=== PATIENT | female | born 1940 | race Caucasian/White ===

== ENCOUNTER → 2016-07-27 | Outpatient (CLI) | payer MEDICARE, BC ==
--- NOTE | 2016-07-28 08:16 | ECHOF ---
Referral Reason:Hypotention I95.9, C84.40 Lymphoma MEASUREMENTS -------- HEIGHT: 152.4 cm WEIGHT: 63.5 kg BP: RVIDd: 3.0 cm (< 3.3) IVSd: 1.1 cm (0.6 - 1.1) LVIDd: 4.8 cm (3.9 - 5.3) LVPWd: 1.0 cm (0.6 - 1.1) IVSs: 1.5 cm LVIDs: 3.0 cm LVPWs: 1.6 cm LA Diam: 4.0 cm (2.7 - 3.8) LAESV Index (A-L): 43.76 ml/m Ao Diam: 3.2 cm (2.0 - 3.7) AV Cusp: 1.9 cm (1.5 - 2.6) LA Diam: 3.5 cm (2.7 - 3.8) MV E Primo: 0.46 m/s MV DecT: 197 ms MV A Primo: 0.73 m/s MV E/A Ratio: 0.62 RAP: 5.00 mmHg RVSP: 31.63 mmHg FINDINGS -------- Sinus rhythm. This was a technically adequate study. There is moderate concentric left ventricular hypertrophy. Overall left ventricular systolic function is low-normal with, an EF between 50 - 55 %. The right ventricle is normal in size. LA is severely dilated >40 ml/m2 The right atrial size is normal. There is mild aortic valve sclerosis. There is no evidence of aortic regurgitation. Mild mitral annular calcification present. Mild mitral regurgitation is present. Mild tricuspid regurgitation present. There is no evidence of pulmonary hypertension. The right ventricular systolic pressure, as measured by Doppler, is 31.63mmHg. There is no pulmonic regurgitation present. The aortic root size is normal. There is no pericardial effusion. CONCLUSIONS -------- 1. There is moderate concentric left ventricular hypertrophy. 2. Overall left ventricular systolic function is low-normal with, an EF between 50 - 55 %. 3. LA is severely dilated >40 ml/m2 4. There is mild aortic valve sclerosis. 5. Mild mitral annular calcification present. 6. Mild mitral regurgitation is present. 7. Mild tricuspid regurgitation present. 8. There is no evidence of pulmonary hypertension. 9. The right ventricular systolic pressure, as measured by Doppler, is 31.63mmHg. CONTRACT PROJECT MANAGER: Haley Gill RDCS
== END | disposition home or self-care (01) ==
LOC: RADECHMAIN 12:39
PROVIDERS: ATTEND Internal Medicine Hematology & Oncology
DX: I95.9 Hypotension, unspecified (principal); C84.40 Peripheral T-cell lymphoma, not elsewhere classified, unspecified site; I51.7 Cardiomegaly
CPT/HCPCS: 93306

== ENCOUNTER → 2016-07-30 | Outpatient (CLI) | payer MEDICARE, BC ==
[2016-07-30 10:17] LABS: Blood Urea Nitrogen 16 mg/dL (7-17); Non-African American GFR(MDRD) >60 (>60 ml/min/1.73 sqM)
--- NOTE | 2016-07-30 12:04 | CT ---
EXAMINATION TYPE: CT ChestAbdPelvis w con DATE OF EXAM: 07/30/2016 11:42 AM COMPARISON: Previous study dated 02/20/2016. HISTORY: Patient has no complaints at time of study. 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 CT DLP: 650.1 mGycm Automated exposure control for dose reduction was used. TECHNIQUE: Helical acquisition through the abdomen and pelvis was obtained without oral contrast but following the intravenous administration of 100 mL of Omnipaque 300. The data was formatted in the a xial, coronal and sagittal projections. FINDINGS: The lungs are clear. There is no significant axillary, internal mammary, mediastinal or hilar adenopathy. There is no pleu ral or pericardial fluid. The heart is mildly enlarged. There is a small hiatal hernia. There are multiple low attenuating hepatic lesions likely representing cysts. These are all stable. T he largest is in the left lobe of the liver measures 3.3 cm. The gallbladder has been removed the spl een is normal. Both adrenal glands are normal. There is a stable, 5.9 mm calculus in the posterior upper pole calyx of the right kidney. There are m ultiple, stable, simple appearing renal cysts. The pancreas is unremarkable. Periaortic adenopathy has resolved. There are no pathologically enlarged lymph nodes at this time. Bulky adenopathy in the right external iliac chain on the previous study as well as the patient's rig ht inguinal adenopathy has resolved. The bladder is unremarkable. The uterus and ovaries are not visualized. There is no significant diverticular change and there is no radiographic evidence of diverticulitis. There is a stable, 5.4 mm calcification in the right lower quadrant which may represent a calcified l ymph node. Small bowel loops are normal. No free fluid and no free air is seen. There is some induration in the right inguinal region. There is degenerative disc disease and facet arthropathy in the lower lumbar spine. There is a vacuum phenomena present at L4-5. There is hypertrophic spondylosis within the dorsal spine. IMPRESSION: 1. RESOLUTION OF THE PATIENT'S PARA-AORTIC, PARACAVAL AND INGUINAL ADENOPATHY ON THE RIGHT WELL A RIGHT INTERNAL ILIAC ADENOPATHY. 2. NO PATHOLOGICALLY ENLARGED ADENOPATHY AT THIS TIME. 3. SMALL HIATAL HERNIA. 4. STABLE HEPATIC LESIONS, LIKELY REPRESENTING CYSTS. 5. NONOBSTRUCTING RIGHT-SIDED NEPHROLITHIASIS WELL MULTIPLE, STABLE, SIMPLE APPEARING, BILATERA L RENAL CYSTS. 7. DEGENERATIVE CHANGES WITHIN THE SPINE.
== END ==
LOC: RADCTMAIN 09:20
PROVIDERS: ATTEND Internal Medicine Hematology & Oncology
DX: C84.40 Peripheral T-cell lymphoma, not elsewhere classified, unspecified site (principal); K44.9 Diaphragmatic hernia without obstruction or gangrene; N20.0 Calculus of kidney; N28.1 Cyst of kidney, acquired; M47.9 Spondylosis, unspecified
CPT/HCPCS: 82565; 84520; 71260; 74177; 36415; Q9967

== ENCOUNTER → 2016-08-09 | Outpatient (CLI) | payer MEDICARE, BC ==
--- NOTE | 2016-08-09 13:45 | XR ---
EXAM TYPE: LUMBAR SPINE X RAY SERIES COMPARISON: Abdominal KUB 01/20/2016 HISTORY: Pain TECHNIQUE: 3 views are submitted. FINDINGS: Alignment is anatomic. The pedicles are intact. The transverse processes are intact. There is no s pondylolysis or spondylolisthesis. Multilevel degenerative disc disease seen with severe changes at levels L4-5 and L5-S1. Facet arthropathy noted at levels L3-S1. Moderate to severe degenerative disc disease at remaining levels. Vascular calcifications noted. 5 mm punctate calcification suggestive of a left renal stone. Larger 1 cm calcification overlying the right upper quadrant may be related to bowel content or right renal stone. Suspect right renal stone . Surgical clips in the right upper quadrant. Sclerotic density overlying the sacrum on the left likely in the basis of bone island and stable from previous x-ray 2016. Mild sclerosis of the SI joints correlate for sacroiliitis. IMPRESSION: 1. Multilevel moderate to severe degenerative disc disease. 2. Bilateral nephrolithiasis
== END ==
LOC: RADXRMAIN 13:20
PROVIDERS: ATTEND Family Medicine
DX: M51.36 Other intervertebral disc degeneration, lumbar region (principal)
CPT/HCPCS: 72100

== ENCOUNTER → 2016-08-25 | Outpatient (CLI) | payer MEDICARE, BC ==
--- NOTE | 2016-08-26 07:36 | MR ---
EXAMINATION TYPE: MR lumbar spine wo/w con DATE OF EXAM: 08/25/2016 12:36 PM COMPARISON: 11/27/2013 HISTORY: 75-year-old female intervertebral disc degeneration, lumbar Technique: Multiplanar, multisequence images of the lumbar spine were obtained before and after admin istration of 13 mL intravenous MultiHance gadolinium contrast. FINDINGS: Vertebral body heights are preserved. Hypertrophic facet arthropathy throughout the lumbar spine especially in the mid to lower lumbar spin e. Ligamentum flavum thickening also present, most severe at L3-L4, progressed from prior. Trace grade 1 anterolisthesis that L3-L4 also new in the interval. Mild diffuse heterogeneity of marrow signal without suspicious bone marrow replacement. Some scattered Modic type II fatty endplate change is present. The intervertebral discs are degenerated, desiccated, and variably narrowed to moderate degree especi ally at L3-L4 and L4-L5. Diffuse bulging discs at multiple levels with posterior annular fissure at L 4-L5 and tiny at L5-S1. Conus medullaris is normal. At T12-L1, there is posterior disc bulge, similar to prior. This isn't dense the ventral thecal sac b ut does not cause significant spinal canal or neuroforaminal stenosis. At L1-L2, there is mild diffuse disc bulge without significant spinal canal or neuroforaminal stenosi s. At L2-L3, mild diffuse disc bulge without significant spinal canal or neuroforaminal stenosis. At L3-L4, redemonstrated diffuse disc bulge. There is severe ligamentum flavum thickening, prominent dorsal epidural fat, and hypertrophic facet arthropathy with grade 1 anterolisthesis here that is new in the interval. However, there is continued and slightly worsened severe spinal canal stenosis at t his level. Slightly worsened mild left greater than right neuroforaminal stenosis. At L4-L5, there is diffuse disc bulge with ligamentum flavum thickening and hypertrophic facet arthro jitendra. Changes mildly narrow the spinal canal, similar to prior. There is also similar mild bilateral neuroforaminal stenosis and redemonstrated small posterior annular fissure. At L5-S1, there is mild diffuse disc bulge and facet degenerative change. Minimal bilateral neurofora salma narrowing. No spinal canal stenosis. Some synovial cysts are present posteriorly at both the L4-L5 and L5-S1 facet joints measuring up to 9 mm. No abnormal enhancement within the spinal canal. A couple scattered T2 hyperintense cysts within the kidneys. No prevertebral or paravertebral soft ti ssue abnormality seen. IMPRESSION: 1. Moderate multilevel disc/endplate degenerative change. Additional redemonstrated ligamentum flavum thickening and severe hypertrophic facet arthropathy especially in the mid to lower lumbar spine, pr ogressed with new small posterior synovial cysts measuring up to 9 mm on both sides at L4-L5 and L5-S 1. 2. A trace grade 1 anterolisthesis at L3-L4 is new from prior. There is worsening of the patient's se ruiz spinal canal stenosis at this level and slight worsening mild left greater than right neuroforam inal stenosis. 3. Similar mild bilateral neuroforaminal stenosis at L4-L5 and minimal neuroforaminal narrowing at L5 -S1.
== END | disposition home or self-care (01) ==
LOC: RADMRIMAIN 11:51
PROVIDERS: ATTEND Family Medicine
DX: M48.06 Spinal stenosis, lumbar region (principal); M99.73 Connective tissue and disc stenosis of intervertebral foramina of lumbar region; M51.36 Other intervertebral disc degeneration, lumbar region; M43.16 Spondylolisthesis, lumbar region; M46.86 Other specified inflammatory spondylopathies, lumbar region; M71.38 Other bursal cyst, other site
CPT/HCPCS: 72158; A9577

== ENCOUNTER → 2016-10-04 | Outpatient (CLI) | payer MEDICARE, BC ==
[2016-10-04 12:24] LABS: Blood Urea Nitrogen 24 mg/dL (7-17); Non-African American GFR(MDRD) >60 (>60 ml/min/1.73 sqM)
--- NOTE | 2016-10-04 16:35 | CT ---
"EXAMINATION TYPE: CT ChestAbdPelvis w con DATE OF EXAM: 10/04/2016 COMPARISON: Prior CT chest abdomen pelvis 07/30/2016 HISTORY: Follow up lymphoma. No complaints at time of scan CT DLP: 828.7 mGycm Automated exposure control for dose reduction was used. CONTRAST: CT scan of the chest, abdomen and pelvis is performed with Oral Contrast and with IV Contrast, patien t injected with 100 mL of Omnipaque 300. FINDINGS: LUNGS: The lungs are grossly clear, there is no concerning parenchymal mass or nodule identified. T here is no pleural effusion or pneumothorax seen. The tracheobronchial tree is patent. MEDIASTINUM: There are no greater than 1 cm hilar or mediastinal lymph nodes. No pericardial effusi on is seen. AORTA: No significant abnormality is seen. OTHER: There is a hiatal hernia present. There are coronary artery calcifications. LIVER/GB: The appearance is stable, patient is post cholecystectomy, there are dilated intrahepatic a nd extrahepatic biliary ducts. Cystic foci within the liver are again noted. Calcification is stable. PANCREAS: No significant abnormality is seen. SPLEEN: No significant abnormality is seen. ADRENALS: Stable appearance, mildly prominent appearance is again noted. There may be an adrenal bev evin on the right. KIDNEYS: Multiple bilateral cortical cysts are again seen, there is a stable nonobstructing calculus in the midpole the right kidney. REPRODUCTIVE ORGANS: Uterus and ovaries are not seen. BOWEL: There is some thickening of the terminal ileum. Cecum also show some wall thickening. FREE AIR: No Free Air visible. ASCITES: None seen. RETROPERITONEAL ADENOPATHY: Retroperitoneal adenopathy is present and has developed in the interval. Multiple nodes present posterior to the inferior vena cava, periaortic location extending into the c ommon iliac region are any interval finding. External iliac chain on the right shows interval develop ment of adenopathy, this extends into the right inguinal region. Subcutaneous fat shows increased att enuation. There is poor enhancement of the common iliac vein on the right. LYMPH NODES: As above URINARY BLADDER: There is a cystocele. Urinary bladder shows a thickened wall as on prior exam, carly elate to exclude cystitis.. PELVIC ADENOPATHY: The largest inguinal node measures approximately 2.8 cm on the right which is an interval change and increased. OSSEOUS STRUCTURES: No significant abnormality is seen. Skin thickening present in the right lower q uadrant anteriorly with some areas of possible subcutaneous edema. IMPRESSION: Findings compatible with lymphoma recurrence. Correlate to exclude right lower extremity deep venous thrombosis. A Red message has been communicated to Patrick Barrientos MD via the [employer] | Critical Result sy stem on 10/04/2016 4:29 PM, Message ID [id number]."
--- NOTE | 2016-10-04 18:10 | US ---
EXAMINATION TYPE: US venous doppler duplex LE BI DATE OF EXAM: 10/04/2016 6:01 PM COMPARISON: Prior CT and US in PACS CLINICAL HISTORY: R68.[address] Abnormal findings on the CT. History of lymphoma, patient recently had radia tion to her right leg. Swelling. No pain. SIDE PERFORMED: Bilateral TECHNIQUE: The lower extremity deep venous system is examined utilizing real time linear array sonog tamra with graded compression, doppler sonography and color-flow sonography. VESSELS IMAGED: External Iliac Vein (EIV) Common Femoral Vein Deep Femoral Vein Greater Saphenous Vein * Femoral Vein Popliteal Vein Small Saphenous Vein * Proximal Calf Veins (* superficial vessels) Right Leg: Negative for DVT Within the right groin, multiple lymph nodes are visualized, largest measuring 3.6 x 2.2 x 4.4. Left Leg: Negative for DVT IMPRESSION: No evidence of deep venous thrombosis. There is evidence of right inguinal adenopathy. 3. 6 cm right inguinal lymph node.
== END | disposition home or self-care (01) ==
LOC: RADPROMAIN 11:38
PROVIDERS: ATTEND Internal Medicine Hematology & Oncology
DX: C85.90 Non-Hodgkin lymphoma, unspecified, unspecified site (principal); R68.89 Other general symptoms and signs
CPT/HCPCS: 82565; 84520; 93970; 71260; 74177; Q9967

== ENCOUNTER → 2016-10-04 | Outpatient (CLI) | payer MEDICARE, BC | LOC: RADUSMAIN 17:25 | PROVIDERS: ATTEND Internal Medicine Hematology & Oncology | DX: Z53.9 Procedure and treatment not carried out, unspecified reason (principal) ==

== ENCOUNTER 2016-10-19 09:19 | Emergency (ER) | payer MEDICARE, BC ==
[2016-10-19] MEDS ORDERED: SODIUM CHLORIDE 0.9% 500 ML IV STA (09:49)
[2016-10-19] MEDS ORDERED: ONDANSETRON 4 MG/2 ML VIAL IVP STA (09:49)
[2016-10-19] MEDS ORDERED: SODIUM CHLORIDE 0.9% 1,000 ML IV STA (09:49)
--- NOTE | 2016-10-19 10:00 | ED ---
Nausea/Vomiting/Diarrhea HPI - General Chief complaint: Nausea/Vomiting/Diarrhea Stated complaint: Ca patient, nausea, vomiting, altered mental Time Seen by Provider: 10/19/16 09:39 Source: patient, RN notes reviewed Mode of arrival: wheelchair Limitations: no limitations - History of Present Illness Initial comments: 76-year-old female presents emergency Department chief complaint of nausea vomiting after chemotherapy. Patient states she had a chemo shot Saturday and states that the next states she started vomiting. She states she just generalized not feeling well. She states that she called her oncologist at [facility] who advised to go to the emergency department to be checked out. She denies fever or chills. She denies any increase in pain she states is chronic back pain and right hip pain from swollen lymph nodes. Patient recent CAT scan which showed enlarged lymph nodes. Patient has ongoing lymphoma for last 9 years treatment of chemotherapy last 7. Patient does see Dr. Acuña locally. Patient denies any chest pain or shortness of breath no cold like symptoms no sick contact denies any dysuria hematuria. - Related Data Home Medications Medication Instructions Recorded Confirmed Atorvastatin [Lipitor] 80 mg PO DAILY 10/05/13 10/19/16 Levothyroxine Sodium [Synthroid] 100 mcg PO DAILY 10/05/13 10/19/16 Folic Acid/B Complex C No.17 5 mg PO DAILY 09/29/15 10/19/16 [Virt-Jaden Plus Tablet] Cephalexin [Keflex] 500 mg PO Q12HR 10/19/16 10/19/16 Previous Rx's Medication Instructions Recorded Ciprofloxacin HCl [Cipro] 500 mg PO Q12HR #10 tablet 10/19/16 Ondansetron Odt [Zofran Odt] 4 mg PO Q8HR PRN #10 tab 10/19/16 Allergies Allergy/AdvReac Type Severity Reaction Status Date / Time No Known Allergies Allergy Verified 10/19/16 10:42 Review of Systems ROS Statement: Those systems with pertinent positive or pertinent negative responses have been documented in the HPI. ROS Other: All systems not noted in ROS Statement are negative. Past Medical History Past Medical History: Hyperlipidemia, Hypertension, Osteoarthritis (OA), Thyroid Disorder Additional Past Medical History / Comment(s): CUTANEOUS T-CELL LYMPHOMA/ radiation, skin ca, ,murmur, multiple kidney stones, arthritis, glaucoma History of Any Multi-Drug Resistant Organisms: MRSA Date of last positivie culture/infection: 2013 MDRO Source:: rt arm Past Surgical History: Appendectomy, Bladder Surgery, Cholecystectomy, Heart Catheterization, Hernia Repair, Hysterectomy Additional Past Surgical History / Comment(s): patient recieved round of radiation treatment; kidney stents palced about 3 weks ago /removed 01-18-16, skin cancer removed,cataracts, lt inguinal hernia repair. Past Anesthesia/Blood Transfusion Reactions: No Reported Reaction Past Psychological History: Depression Smoking Status: Never smoker Past Alcohol Use History: None Reported Past Drug Use History: None Reported - Past Family History Father Family Medical History: No Reported History Additional Family Medical History / Comment(s): at age 62 Mother Family Medical History: No Reported History Additional Family Medical History / Comment(s): at age 100 General Exam Limitations: no limitations General appearance: alert, in no apparent distress Neck exam: Present: normal inspection. Absent: tenderness, meningismus, lymphadenopathy Respiratory exam: Present: normal lung sounds bilaterally. Absent: respiratory distress, wheezes, rales, rhonchi, stridor Cardiovascular Exam: Present: regular rate, normal rhythm, normal heart sounds. Absent: systolic murmur, diastolic murmur, rubs, gallop, clicks GI/Abdominal exam: Present: soft, tenderness (Mild right lower right inguinal tenderness), normal bowel sounds. Absent: distended, guarding, rebound, rigid Extremities exam: Present: other (Mild swelling the right lower extremity, neurovascular intact) Neurological exam: Present: alert, oriented X3, CN II-XII intact Skin exam: Present: warm, dry, intact, normal color. Absent: rash Course Vital Signs 10/19/16 09:32 Temperature 98.3 F Pulse Rate 66 Respiratory 18 Rate Blood Pressure 95/52 O2 Sat by Pulse 93 L Oximetry Medical Decision Making - Medical Decision Making 76-year-old female presented emergency from for nausea vomiting after chemotherapy. Patient's symptoms most likely related to her chemotherapy. Patient also has urinary tract infection. Patient be treated for this. Return parameters were discussed. - Lab Data Result diagrams: 10/19/16 10:05 10/19/16 10:05 Lab Results 10/19/16 10/19/16 10/19/16 Range/Units 10:05 10:05 11:14 WBC 9.4 (3.8-10.6) k/uL RBC 3.71 L (3.80-5.40) m/uL Hgb 11.8 (11.4-16.0) gm/dL Hct 37.3 (34.0-46.0) % MCV 100.5 H (80.0-100.0) fL MCH 31.8 (25.0-35.0) pg MCHC 31.6 (31.0-37.0) g/dL RDW 15.9 H (11.5-15.5) % Plt Count 183 (150-450) k/uL Neutrophils % 84 % Lymphocytes % 3 % Monocytes % 7 % Eosinophils % 4 % Basophils % 0 % Neutrophils # 7.9 H (1.3-7.7) k/uL Lymphocytes # 0.3 L (1.0-4.8) k/uL Monocytes # 0.6 (0-1.0) k/uL Eosinophils # 0.4 (0-0.7) k/uL Basophils # 0.0 (0-0.2) k/uL Macrocytosis Slight Sodium 137 (137-145) mmol/L Potassium 3.4 L (3.5-5.1) mmol/L Chloride 101 (98-107) mmol/L Carbon Dioxide 25 (22-30) mmol/L Anion Gap 11 mmol/L BUN 25 H (7-17) mg/dL Creatinine 0.60 (0.52-1.04) mg/dL Est GFR (MDRD) Af Amer >60 (>60 ml/min/1.73 sqM) Est GFR (MDRD) Non-Af >60 (>60 ml/min/1.73 sqM) Glucose 171 H (74-99) mg/dL Calcium 9.3 (8.4-10.2) mg/dL Total Bilirubin 0.4 (0.2-1.3) mg/dL AST 39 H (14-36) U/L ALT 31 (9-52) U/L Alkaline Phosphatase 74 (38-126) U/L Total Protein 6.2 L (6.3-8.2) g/dL Albumin 3.3 L (3.5-5.0) g/dL Amylase 47 (30-110) U/L Lipase 118 (23-300) U/L Urine Color Yellow Urine Appearance Clear (Clear) Urine pH 5.5 (5.0-8.0) Ur Specific [place] 1.007 (1.001-1.035) Urine Protein Negative (Negative) Urine Glucose (UA) Negative (Negative) Urine Ketones Negative (Negative) Urine Blood Negative (Negative) Urine Nitrite Negative (Negative) Urine Bilirubin Negative (Negative) Urine Urobilinogen <2.0 (<2.0) mg/dL Ur Leukocyte Esterase Large H (Negative) Urine RBC 1 (0-5) /hpf Urine WBC 12 H (0-5) /hpf Ur Squamous Epith Cells 1 (0-4) /hpf Urine Bacteria Rare H (None) /hpf Urine Mucus Rare H (None) /hpf Disposition Clinical Impression: Urinary tract infection, Acute vomiting Disposition: HOME SELF-CARE Condition: Stable Instructions: Acute Nausea and Vomiting (ED) Additional Instructions: Please return to the Emergency Department if symptoms worsen or any other concerns. Prescriptions: Ciprofloxacin HCl [Cipro] 500 mg PO Q12HR #10 tablet Ondansetron Odt [Zofran Odt] 4 mg PO Q8HR PRN #10 tab PRN Reason: Nausea Referrals: Eddie Saenz MD [Primary Care Provider] - 1-2 days Time of Disposition: 11:34
[2016-10-19 10:27] LABS: Basophils % (A) 0 %; CH 32.4; CHCM 32.4; Eosinophils # (A) 0.4 k/uL (0-0.7); Eosinophils % (A) 4 %; HCT 37.3 % (34.0-46.0); HDW 2.66; HGB 11.8 gm/dL (11.4-16.0); Luc # (Auto) 0.23; Luc % (Auto) 3; Lymphocytes # (A) 0.3 k/uL (1.0-4.8); Lymphocytes % (A) 3 %; MCH 31.8 pg (25.0-35.0); MCHC 31.6 g/dL (31.0-37.0); MCV 100.5 fL (80.0-100.0); Macrocytosis Slight; Mean Platelet Volume 7.4; Monocytes # (A) 0.6 k/uL (0-1.0); Monocytes % (A) 7 %; Neutrophils # (A) 7.9 k/uL (1.3-7.7); Neutrophils % (A) 84 %; RBC 3.71 m/uL (3.80-5.40); RDW 15.9 % (11.5-15.5); WBC 9.4 k/uL (3.8-10.6); WBC (Perox) 10.05
[2016-10-19 10:38] LABS: ALT 31 U/L (9-52); AST 39 U/L (14-36); Alkaline Phosphatase 74 U/L (38-126); Amylase 47 U/L (30-110); Anion Gap 11 mmol/L; Blood Urea Nitrogen 25 mg/dL (7-17); Calcium 9.3 mg/dL (8.4-10.2); Carbon Dioxide 25 mmol/L (22-30); Chloride 101 mmol/L (98-107); Glucose 171 mg/dL (74-99); Non-African American GFR(MDRD) >60 (>60 ml/min/1.73 sqM); Potassium 3.4 mmol/L (3.5-5.1); Sodium 137 mmol/L (137-145); Total Bilirubin 0.4 mg/dL (0.2-1.3); Total Protein 6.2 g/dL (6.3-8.2)
[2016-10-19 11:28] LABS: Appearance,Urine Clear (Clear); Bacteria,Urine Rare /hpf; Bilirubin,Urine Negative (Negative); Glucose,Urine (UA) Negative (Negative); Ketones,Urine Negative (Negative); Leukocyte Esterase,Urine Large (Negative); Mucus,Urine Rare /hpf; Nitrite,Urine Negative (Negative); PH, Urine 5.5 (5.0-8.0); Particle Count 2583; Protein,Urine Negative (Negative); RBC,Urine 1 /hpf (0-5); Specific Gravity,Urine 1.007 (1.001-1.035); Squamous Epithelial Cell,Urine 1 /hpf (0-4); UA Billing (MACRO vs. MICRO) MICRO; Urobilinogen,Urine <2.0 mg/dL (<2.0); WBC,Urine 12 /hpf (0-5)
[2016-10-19 11:46] VITALS: BP 109/58; PULSE 61; RESP 15; TEMP 97.6
== END 2016-10-19 11:59 | disposition home or self-care (01) ==
LOC: EC 09:19
DX: N39.0 Urinary tract infection, site not specified (principal); R11.2 Nausea with vomiting, unspecified; E78.5 Hyperlipidemia, unspecified; E07.9 Disorder of thyroid, unspecified; Z85.72 Personal history of non-Hodgkin lymphomas; Z85.828 Personal history of other malignant neoplasm of skin; Z90.49 Acquired absence of other specified parts of digestive tract; Z87.442 Personal history of urinary calculi; Z79.899 Other long term (current) drug therapy
CPT/HCPCS: 99284; 96374; 96361 ×2; 36415; 80053; 82150; 83690; 85025; 81001; J2405

== ENCOUNTER 2016-11-07 17:36 | Inpatient (IN) | payer MEDICARE, BC ==
[2016-11-07] MEDS ORDERED: ACETAMINOPHEN TAB 500 MG TAB PO STA (18:17)
[2016-11-07] MEDS ORDERED: SODIUM CHLORIDE 0.9% 1,000 ML IV STA ×2 (18:17)
[2016-11-07] MEDS ORDERED: LEVOFLOXACIN 750MG-D5W PMX 750 MG in DEXTROSE/WATER 1 150ML.BAG IVPB STA (18:19)
[2016-11-07] MEDS ORDERED: KETOROLAC 30 MG/ML 1 ML VIAL IVP STA (18:19)
[2016-11-07] MEDS ORDERED: ONDANSETRON 4 MG/2 ML VIAL IVP STA (18:19)
[2016-11-07 18:32] LABS: Anisocytosis Slight; Basophils # (A) 0.1 k/uL (0-0.2); Basophils % (A) 0 %; CH 31.7; CHCM 33.8; Eosinophils # (A) 1.5 k/uL (0-0.7); Eosinophils % (A) 12 %; HCT 34.9 % (34.0-46.0); HDW 2.88; HGB 11.9 gm/dL (11.4-16.0); Luc # (Auto) 0.29; Luc % (Auto) 2; Lymphocytes # (A) 0.3 k/uL (1.0-4.8); Lymphocytes % (A) 2 %; MCH 32.1 pg (25.0-35.0); Mean Platelet Volume 7.2; Monocytes # (A) 0.8 k/uL (0-1.0); Monocytes % (A) 6 %; Neutrophils # (A) 9.8 k/uL (1.3-7.7); Neutrophils % (A) 78 %; RBC 3.71 m/uL (3.80-5.40); RDW 16.3 % (11.5-15.5); WBC 12.6 k/uL (3.8-10.6); WBC (Perox) 12.66
[2016-11-07 18:34] LABS: MCV 94.2 fL (80.0-100.0)
[2016-11-07 18:41] LABS: ALT 28 U/L (9-52); AST 52 U/L (14-36); Alkaline Phosphatase 78 U/L (38-126); Anion Gap 12 mmol/L; Blood Urea Nitrogen 20 mg/dL (7-17); Calcium 9.5 mg/dL (8.4-10.2); Carbon Dioxide 25 mmol/L (22-30); Chloride 102 mmol/L (98-107); Glucose 135 mg/dL (74-99); Non-African American GFR(MDRD) >60 (>60 ml/min/1.73 sqM); Potassium 3.4 mmol/L (3.5-5.1); Sodium 139 mmol/L (137-145); Total Bilirubin 0.6 mg/dL (0.2-1.3); Total Protein 6.6 g/dL (6.3-8.2)
--- NOTE | 2016-11-07 19:00 | XR ---
EXAMINATION TYPE: XR chest 2V DATE OF EXAM: 11/07/2016 COMPARISON: 01/18/2016 HISTORY: Shortness of breath TECHNIQUE: Frontal and lateral views of the chest are obtained. FINDINGS: Scattered senescent parenchymal changes noted. Hyperinflation compatible with COPD. Chronic increased density right medial lung base. MediPort catheter is in place. No evidence for infiltrate. No evidence for atelectasis. Heart size is stable. Mediastinal structures are stable and grossly unremarkable. No evidence for hilar prominence. Degenerative changes dorsal spine. IMPRESSION: 1. No evidence for acute pulmonary disease.
--- NOTE | 2016-11-07 19:24 | ED ---
Fever HPI - General Chief Complaint: Fever Stated Complaint: Ca patient, has fever and weakness Time Seen by Provider: 11/07/16 18:06 Source: patient Mode of arrival: wheelchair Limitations: no limitations - History of Present Illness Initial Comments: This 76-year-old white female presents with a fever of 102.8. The onset apparently came on today. She states that she feels fairly weak. She just received a chemotherapeutic agent of Campath yesterday. 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 Barrientos does call prior to patient arrival relating that he would like her to be checked for CMV, admitted, and have a consult for Dr. Cam from infectious disease. She denies any chest pain or shortness of breath. She denies any urinary symptomatology. She did get an injection of the chemotherapeutic agent yesterday and does have some pain over the injection site of her left abdomen. She has chronic swelling of her right leg due to the lymphoma. She denies any other complaints or modifying factors. - Related Data Home Medications Medication Instructions Recorded Confirmed Atorvastatin [Lipitor] 80 mg PO DAILY 10/05/13 10/19/16 Levothyroxine Sodium [Synthroid] 100 mcg PO DAILY 10/05/13 10/19/16 Folic Acid/B Complex C No.17 5 mg PO DAILY 09/29/15 10/19/16 [Virt-Jaden Plus Tablet] Cephalexin [Keflex] 500 mg PO Q12HR 10/19/16 10/19/16 Previous Rx's Medication Instructions Recorded Ciprofloxacin HCl [Cipro] 500 mg PO Q12HR #10 tablet 10/19/16 Ondansetron Odt [Zofran Odt] 4 mg PO Q8HR PRN #10 tab 10/19/16 Allergies Allergy/AdvReac Type Severity Reaction Status Date / Time No Known Allergies Allergy Verified 11/07/16 17:56 Review of Systems ROS Statement: Those systems with pertinent positive or pertinent negative responses have been documented in the HPI. ROS Other: All systems not noted in ROS Statement are negative. Past Medical History Past Medical History: Hyperlipidemia, Hypertension, Osteoarthritis (OA), Thyroid Disorder Additional Past Medical History / Comment(s): CUTANEOUS T-CELL LYMPHOMA/ radiation, skin ca, ,murmur, multiple kidney stones, arthritis, glaucoma History of Any Multi-Drug Resistant Organisms: MRSA Date of last positivie culture/infection: 2013 MDRO Source:: rt arm Past Surgical History: Appendectomy, Bladder Surgery, Cholecystectomy, Heart Catheterization, Hernia Repair, Hysterectomy Additional Past Surgical History / Comment(s): patient recieved round of radiation treatment; kidney stents palced about 3 weks ago /removed 01-18-16, skin cancer removed,cataracts, lt inguinal hernia repair. Past Anesthesia/Blood Transfusion Reactions: No Reported Reaction Past Psychological History: Depression Smoking Status: Never smoker Past Alcohol Use History: None Reported Past Drug Use History: None Reported - Past Family History Father Family Medical History: No Reported History Additional Family Medical History / Comment(s): at age 62 Mother Family Medical History: No Reported History Additional Family Medical History / Comment(s): at age 100 General Exam - General Exam Comments Initial Comments: GENERAL: The patient is well nourished and well hydrated. VITAL SIGNS: Heart rate, blood pressure, respiratory rate reviewed as recorded in nurse's notes. EYES: Pupils are round and reactive. Extraocular movements are intact. No conjunctival / lid redness or swelling. ENT: No external evidence of injury, swelling, or ecchymosis. Airway is patent. Throat is clear. NECK: Nontender. No swelling or evidence of injury. No subcutaneous emphysema. Trachea is midline. No thyroid mass. HEART: Regular rate and rhythm. Good peripheral pulses. LUNGS/CHEST: Breath sounds clear and equal bilaterally. No rales, rhonchi, or wheezes. No ecchymosis, subcutaneous emphysema, or tenderness. ABDOMEN: There is some moderate tenderness present to the left abdomen from previous injection. There is no surrounding erythema or fluctuance. No palpable masses or organomegaly. No peritoneal signs. EXTREMITIES: There is severe swelling/lymphedema of the right leg which is apparently chronic in nature associated with some mild tenderness upon palpation. NEUROLOGIC: Sensation is grossly intact. Cranial nerve exam reveals face is symmetrical, tongue is midline, speech is clear. SKIN: No abrasions or ecchymosis is noted. PSYCHIATRIC: Alert and oriented. Appropriate behavior and judgment. Limitations: no limitations Course Vital Signs 11/07/16 11/07/16 11/07/16 17:52 19:07 19:20 Temperature 102.8 F H 101 F H Pulse Rate 90 84 Respiratory 18 18 Rate Blood Pressure 120/70 109/63 O2 Sat by Pulse 92 L 94 L Oximetry Medical Decision Making - Medical Decision Making The patient was seen and examined. All diagnostics were reviewed. Her white blood cell count is mildly elevated. The remainder of the laboratory is reviewed. The chest x-ray does not show any acute process. She does receive some IV fluids, IV Toradol for fever, and Tylenol. The urinalysis is pending. It is felt as though she would benefit from admission to the hospital with further specialty consultation. It is felt as though she does have a significant fever of unknown source and is immunocompromise due to her lymphoma and recent chemotherapy. She is agreeable to this plan. Case will be discussed with medicine in the near future and she will be admitted with consultations for oncology and infectious disease. - Lab Data Result diagrams: 11/07/16 18:18 11/07/16 18:18 Lab Results 11/07/16 11/07/16 11/07/16 Range/Units 18:18 18:18 18:18 WBC 12.6 H (3.8-10.6) k/uL RBC 3.71 L (3.80-5.40) m/uL Hgb 11.9 (11.4-16.0) gm/dL Hct 34.9 (34.0-46.0) % MCV 94.2 D (80.0-100.0) fL MCH 32.1 (25.0-35.0) pg MCHC 34.0 (31.0-37.0) g/dL RDW 16.3 H (11.5-15.5) % Plt Count 311 (150-450) k/uL Neutrophils % 78 % Lymphocytes % 2 % Monocytes % 6 % Eosinophils % 12 % Basophils % 0 % Neutrophils # 9.8 H (1.3-7.7) k/uL Lymphocytes # 0.3 L (1.0-4.8) k/uL Monocytes # 0.8 (0-1.0) k/uL Eosinophils # 1.5 H (0-0.7) k/uL Basophils # 0.1 (0-0.2) k/uL Anisocytosis Slight Sodium 139 (137-145) mmol/L Potassium 3.4 L (3.5-5.1) mmol/L Chloride 102 (98-107) mmol/L Carbon Dioxide 25 (22-30) mmol/L Anion Gap 12 mmol/L BUN 20 H (7-17) mg/dL Creatinine 0.60 (0.52-1.04) mg/dL Est GFR (MDRD) Af Amer >60 (>60 ml/min/1.73 sqM) Est GFR (MDRD) Non-Af >60 (>60 ml/min/1.73 sqM) Glucose 135 H (74-99) mg/dL Plasma Lactic Acid Ritesh 1.6 (0.7-2.0) mmol/L Calcium 9.5 (8.4-10.2) mg/dL Total Bilirubin 0.6 (0.2-1.3) mg/dL AST 52 H (14-36) U/L ALT 28 (9-52) U/L Alkaline Phosphatase 78 (38-126) U/L Total Protein 6.6 (6.3-8.2) g/dL Albumin 3.4 L (3.5-5.0) g/dL Disposition Clinical Impression: Fever, Lymphoma, Lymphedema of right lower extremity, Immunocompromised patient , Weakness, Leukocytosis, Hypokalemia Disposition: ADMITTED IP TO THIS [facility] Condition: Fair Referrals: Eddie Saenz MD [Primary Care Provider] - 1-2 days Time of Disposition: 19:23 Decision Date: 11/07/16 Decision Time: 19:23
[2016-11-07] MEDS ORDERED: 0.9% NACL WITH KCL 20 MEQ/L 1,000 ML IV ONE (19:28)
[2016-11-07] MEDS ORDERED: ONDANSETRON 4 MG/2 ML VIAL IVP PRN (19:39)
[2016-11-07] MEDS ORDERED: IBUPROFEN 400 MG TAB PO PRN (19:40)
[2016-11-07] MEDS ORDERED: hydrOXYzine HCL 25 MG TAB PO PRN (19:42)
[2016-11-07] MEDS ORDERED: PEGINTERFERON ALFA IM SCH (19:45)
[2016-11-07] MEDS ORDERED: HYDROcodone/APAP 5-325MG 1 EACH TAB PO STA (19:53)
[2016-11-07 20:42] VITALS: BMI 31.4
[2016-11-07] MEDS: HYDROcodone/APAP 5-325MG 1 EACH TAB PO PRN (21:01)
[2016-11-07] MEDS: CLOBETASOL PROP 0.05% OINT 15GM TOPICAL SCH (21:02)
[2016-11-07] MEDS: MAGNESIUM OXIDE 400 MG TAB PO SCH (21:03)
[2016-11-07] MEDS: POTASSIUM CHLORIDE ER 10 MEQ TAB.ER.PRT PO SCH (21:03)
[2016-11-07] MEDS: prednisoLONE ACETATE 1% OPHTH DROPS 1 ML BTL BOTH EYES SCH (21:04)
[2016-11-07] MEDS: MUPIROCIN 2% OINT 22 GM TUBE TOPICAL SCH (21:04)
[2016-11-07] MEDS: LIDOCAINE 4% CREAM 5 GM TUBE TOPICAL PRN (21:26)
[2016-11-08] MEDS: ACETAMINOPHEN TAB 500 MG TAB PO PRN ×2 (07:41→21:05)
[2016-11-08 08:18] LABS: Appearance,Urine Clear (Clear); Bilirubin,Urine Negative (Negative); Glucose,Urine (UA) Negative (Negative); Ketones,Urine Negative (Negative); Leukocyte Esterase,Urine Moderate (Negative); Mucus,Urine Occasional /hpf; Nitrite,Urine Negative (Negative); PH, Urine 5.5 (5.0-8.0); Particle Count 4404; Protein,Urine Trace (Negative); Specific Gravity,Urine 1.017 (1.001-1.035); Squamous Epithelial Cell,Urine 1 /hpf (0-4); UA Billing (MACRO vs. MICRO) MICRO; Urobilinogen,Urine <2.0 mg/dL (<2.0); WBC,Urine 33 /hpf (0-5)
[2016-11-08] MEDS ORDERED: NON-FORMULARY DRUG (Vitamin B Complex [Vitamin B Complex] 1 CAP) PO SCH (09:00)
[2016-11-08] MEDS: FOLIC ACID 1 MG TAB PO SCH (09:19)
[2016-11-08] MEDS: PANTOPRAZOLE 40 MG/10 ML VIAL IV SCH (09:19)
[2016-11-08] MEDS: POTASSIUM CHLORIDE ER 10 MEQ TAB.ER.PRT PO SCH ×2 (09:20→20:50)
[2016-11-08] MEDS: FUROSEMIDE 20 MG TAB PO SCH (09:20)
[2016-11-08] MEDS: ATORVASTATIN 80 MG TAB PO SCH (09:20)
[2016-11-08] MEDS: valACYclovir HCL 1,000 MG TABLET PO SCH (09:20)
[2016-11-08] MEDS: RALOXIFENE 60 MG TAB PO SCH (09:21)
[2016-11-08] MEDS: prednisoLONE ACETATE 1% OPHTH DROPS 1 ML BTL BOTH EYES SCH ×4 (09:21→20:56)
[2016-11-08] MEDS: ENOXAPARIN 40 MG/0.4 ML SYRINGE SQ SCH (09:22)
[2016-11-08] MEDS: MAGNESIUM OXIDE 400 MG TAB PO SCH ×2 (09:22→20:50)
[2016-11-08] MEDS: LISINOPRIL-HCTZ 10-12.5 MG 1 EACH TAB PO SCH (09:22)
[2016-11-08] MEDS: B COMPLEX-VIT C-VIT E-ZINC 1 EACH TAB PO SCH (09:22)
[2016-11-08] MEDS: CLOBETASOL PROP 0.05% OINT 15GM TOPICAL SCH ×2 (09:33→20:49)
[2016-11-08] MEDS: MUPIROCIN 2% OINT 22 GM TUBE TOPICAL SCH ×3 (09:33→20:48)
--- NOTE | 2016-11-08 10:54 | P.HPIM ---
History of Present Illness 76 year-old female was admitted through the emergency room with report of 102 fever. 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 Patient has a Port-A-Cath in place and right-sided chest. Patient' s had recent chemotherapy. Right lower extremity red and warm with +4 edema. Venous Doppler done no results at this point. Chest x-ray negative urine and blood cultures done Review of Systems Constitutional: Reports fatigue, Reports fever Past Medical History Past Medical History: Hyperlipidemia, Hypertension, Osteoarthritis (OA), Thyroid Disorder Additional Past Medical History / Comment(s): CUTANEOUS T-CELL LYMPHOMA/ radiation, skin ca, ,murmur, multiple kidney stones, arthritis, glaucoma History of Any Multi-Drug Resistant Organisms: MRSA Date of last positivie culture/infection: 2013 MDRO Source:: rt arm Past Surgical History: Appendectomy, Bladder Surgery, Cholecystectomy, Heart Catheterization, Hernia Repair, Hysterectomy Additional Past Surgical History / Comment(s): patient recieved round of radiation treatment; kidney stents palced about 3 weks ago /removed 01-18-16, skin cancer removed,cataracts, lt inguinal hernia repair. Past Anesthesia/Blood Transfusion Reactions: No Reported Reaction Past Psychological History: Depression Additional Psychological History / Comment(s): had some depression when dx w/ lymphoma. currently pt denies any depression. Smoking Status: Never smoker - Past Family History Father Family Medical History: No Reported History Additional Family Medical History / Comment(s): at age 62 Mother Family Medical History: No Reported History Additional Family Medical History / Comment(s): at age 100 Medications and Allergies Home Medications Medication Instructions Recorded Confirmed Type Atorvastatin [Lipitor] 80 mg PO DAILY 10/05/13 11/07/16 History Folic Acid/B Complex C No.17 5 mg PO DAILY 09/29/15 11/07/16 History [Virt-Jaden Plus Tablet] Cephalexin [Keflex] 500 mg PO Q12HR 10/19/16 11/07/16 History Alemtuzumab [Campath] 10 ml IV TU 11/07/16 11/07/16 History Celecoxib [CeleBREX] 200 mg PO DAILY 11/07/16 11/07/16 History Clobetasol Propionate [Temovate 1 applic TOPICAL BID 11/07/16 11/07/16 History 0.05% Oint] Cyanocobalamin [Vitamin B-12 1,000 mcg SQ TU 11/07/16 11/07/16 History Injection] Folic Acid 5mg 5 mg PO DAILY 11/07/16 11/07/16 History Furosemide [Lasix] 20 mg PO DAILY 11/07/16 11/07/16 History Lidocaine 4% Cream [Lmx 4] 1 applic TOPICAL DAILY PRN 11/07/16 11/07/16 History Lisinopril-Hctz 10-12.5 mg 1 tab PO DAILY 11/07/16 11/07/16 History [Zestoretic 10-12.5] Magnesium Gluconate [Magonate] 500 mg PO BID 11/07/16 11/07/16 History Meloxicam [Mobic] 15 mg PO DAILY 11/07/16 11/07/16 History Multivitamins, Thera [Multivitamin 1 tab PO DAILY 11/07/16 11/07/16 History (formulary)] Mupirocin 2% Oint [Bactroban 2% 1 applic TOPICAL TID 11/07/16 11/07/16 History Oint] Peginterferon Booker-2a 180mcg/Ml 180 mcg IM Q7D 11/07/16 11/07/16 History Potassium Chloride [K-Tab ER] 10 meq PO BID 11/07/16 11/07/16 History Raloxifene [Evista] 60 mg PO DAILY 11/07/16 11/07/16 History SILVER sulfADIAZINE Cream 1 applic TOPICAL DAILY 11/07/16 11/07/16 History [Silvadene 1% Cream] Triamcinolone 0.1% Ointment 1 applic TOPICAL BID PRN 11/07/16 11/07/16 History [Kenalog 0.1% Ointment] Vitamin B Complex 1 cap PO DAILY 11/07/16 11/07/16 History hydrOXYzine HCL [Atarax] 25 - 50 mg PO HS PRN 11/07/16 11/07/16 History methylPREDNISolone [Medrol Dose See Taper PO DIRECTED 11/07/16 11/07/16 History Pack] prednisoLONE ACETATE 1% OPHTH 1 drops BOTH EYES QID 11/07/16 11/07/16 History [Pred Forte 1%] valACYclovir HCL [Valacyclovir] 1,000 mg PO DAILY 11/07/16 11/07/16 History Allergies Allergy/AdvReac Type Severity Reaction Status Date / Time No Known Allergies Allergy Verified 11/07/16 19:26 Physical Exam Vitals: Vital Signs Temp Pulse Pulse Resp BP BP Pulse Ox 11/08/16 07:00 101.1 F H 80 16 119/71 95 11/08/16 00:00 73 16 11/07/16 22:29 98.4 F 73 16 100/61 94 L 11/07/16 21:23 96.8 F L 73 16 102/62 94 L 11/07/16 20:01 100.3 F H 80 16 99/58 96 11/07/16 19:20 101 F H 11/07/16 19:07 84 18 109/63 94 L 11/07/16 17:52 102.8 F H 90 18 120/70 92 L Intake and Output 11/07/16 11/08/16 11/08/16 22:59 06:59 14:59 Intake Total 600 240 Balance 600 240 Intake: Intake, IV Titration 600 Amount 0.9% NaCl with KCl 20 Meq 600 /l 1,000 ml @ 100 mls/hr IV .Q10H ONE Rx#: [id number] Oral 0 240 Other: Weight 75.296 kg 75.296 kg - Constitutional General appearance: mild distress - EENT Eyes: PERRLA Ears: bilateral: normal - Neck Neck: normal ROM - Respiratory Respiratory: bilateral: CTA - Cardiovascular Rhythm: regular - Gastrointestinal General gastrointestinal: distended - Integumentary Right lower leg Integumentary: cellulitis - Neurologic Neurologic: CNII-XII intact - Musculoskeletal Musculoskeletal: generalized weakness - Psychiatric Psychiatric: A&O x's 3, appropriate affect, intact judgment & insight Results CBC & Chem 7: 11/07/16 18:18 11/07/16 18:18 Labs: Abnormal Lab Results - Last 24 Hours (Table) 11/07/16 11/07/16 11/07/16 Range/Units 07:50 18:18 18:18 WBC 12.6 H (3.8-10.6) k/uL RBC 3.71 L (3.80-5.40) m/uL RDW 16.3 H (11.5-15.5) % Neutrophils # 9.8 H (1.3-7.7) k/uL Lymphocytes # 0.3 L (1.0-4.8) k/uL Eosinophils # 1.5 H (0-0.7) k/uL Potassium 3.4 L (3.5-5.1) mmol/L BUN 20 H (7-17) mg/dL Glucose 135 H (74-99) mg/dL AST 52 H (14-36) U/L Albumin 3.4 L (3.5-5.0) g/dL Urine Protein Trace H (Negative) Ur Leukocyte Esterase Moderate H (Negative) Urine WBC 33 H (0-5) /hpf Urine Mucus Occasional H (None) /hpf Chest x-ray: report reviewed Thrombosis Risk Factor Assmnt - Choose All That Apply Any of the Below Risk Factors Present?: No Other Risk Factors: Yes Each Risk Factor Represents 3 Points: Age 75 years or older Other congenital or acquired thrombophilia - If yes, enter type in comment: No Thrombosis Risk Factor Assessment Total Risk Factor Score: 3 Thrombosis Risk Factor Assessment Level: Moderate Risk Assessment and Plan Plan: Assessment Fever T-cell lymphoma lymphedema with cellulitis right lower leg Recent chemotherapy immunocompromised History of glaucoma History of hypertension History of osteoarthritis Hypothyroidism Has a Mediport right side of chest History of MRSA Plan Evaluation by infectious disease patient had 1 dose of Levaquin requested nurse contact infectious disease regarding restarting antibiotic Evaluation by oncologist Dr. Barrientos
--- NOTE | 2016-11-08 11:29 | US ---
EXAMINATION TYPE: US venous doppler duplex LE RT DATE OF EXAM: 11/08/2016 10:12 AM COMPARISON: 10/04/2016 CLINICAL HISTORY: progressive swelling. Edema right leg x 3 weeks SIDE PERFORMED: right TECHNIQUE: The lower extremity deep venous system is examined utilizing real time linear array sonog tamra with graded compression, doppler sonography and color-flow sonography. VESSELS IMAGED: External Iliac Vein (EIV) Common Femoral Vein Deep Femoral Vein Greater Saphenous Vein * Femoral Vein Popliteal Vein Small Saphenous Vein * Proximal Calf Veins (* superficial vessels) Right Leg: Technical limitations due hardness and large amount of edema, unable to obtain compressio ns at femoral vein mid or lower. NO evidence of DVT as visualized. Multiple lymph nodes within right groin with largest = 4.8cm IMPRESSION: 1. Limited exam. See above. Spontaneous flow noted throughout the right lower extremity. As noted abo ve due to the amount of edema compression images could not be performed which limits the exam. 2. Multiple Enlarged lymph nodes
[2016-11-08 11:32] LABS: ALT 21 U/L (9-52); AST 43 U/L (14-36); Alkaline Phosphatase 55 U/L (38-126); Anion Gap 7 mmol/L; Blood Urea Nitrogen 20 mg/dL (7-17); Calcium 8.6 mg/dL (8.4-10.2); Carbon Dioxide 24 mmol/L (22-30); Chloride 107 mmol/L (98-107); Glucose 126 mg/dL (74-99); Non-African American GFR(MDRD) >60 (>60 ml/min/1.73 sqM); Potassium 3.4 mmol/L (3.5-5.1); Sodium 138 mmol/L (137-145); Total Bilirubin 0.5 mg/dL (0.2-1.3)
[2016-11-08 11:50] LABS: Basophils % (A) 0 %; CH 31.1; CHCM 32.1; Eosinophils # (A) 1.5 k/uL (0-0.7); Eosinophils % (A) 17 %; HCT 33.4 % (34.0-46.0); HDW 2.78; Hypochromasia Slight; Luc # (Auto) 0.23; Luc % (Auto) 3; Lymphocytes # (A) 0.2 k/uL (1.0-4.8); Lymphocytes % (A) 2 %; MCHC 32.8 g/dL (31.0-37.0); MCV 97.5 fL (80.0-100.0); Mean Platelet Volume 6.9; Monocytes # (A) 0.7 k/uL (0-1.0); Monocytes % (A) 8 %; Neutrophils # (A) 6.2 k/uL (1.3-7.7); Neutrophils % (A) 71 %; RBC 3.43 m/uL (3.80-5.40); WBC 8.8 k/uL (3.8-10.6); WBC (Perox) 9.54
[2016-11-08] MEDS ORDERED: RX INFO: IV CONTRAST WAS GIVEN 1 EACH MISC MISCELLANE PRN (13:48)
[2016-11-08] MEDS: IOHEXOL 350 MG/ML 25 ML BOTTLE (ORAL USE) PO PRN ×2 (15:34→16:35)
[2016-11-08] MEDS: MULTIVITAMINS, THERA 1 EACH TAB PO SCH (16:13)
--- NOTE | 2016-11-08 18:23 | P.CONS ---
History of Present Illness - Reason for Consult Consult date: 11/08/16 lymphoma, on treatment Requesting physician: Alo Kaplan - Chief Complaint fever - History of Present Illness Mrs. Morales is a very pleasant pt of Dr. Barrientos who was diagnosed with stage 2B mycosis fungoids in 2009. She initially received oral med with UV light therapy , then local therapy with urea cream, 5FU cream and then with targretin, she received electron beam radiation to her skin. She had a PET/CT scan at [facility] in November 2011 which revealed no visceral involvement. She was then started on weekly interferon and weekly Pralatrexate at [facility]. Subsequently she was started on Romidepsin in November 2013 by [facility] and at that time she chose to continue on treatment locally at our office with us following [facility] recommendations. She tolerated treatment well until she developed disease progression in November 2014. She started on brentuximab vendotin on 12/09/14 but it had to be discontinued due to recurrent severe infusion reactions. She was put on gemzar but eventually hematological toxicities were so severe that this was stopped Jan 2016. Treatment follow up CT AP 02/20/2016 revealed significant inguinal and periaortic adenopathy. Pt completed palliative XRT to right bulky inguinal nodes 03/26/16. March PET scan revealed improvement in inguinal nodes. Pt was started on doxil and she had 3 treatments with discontinuation in June 2016 due to physical and hematological toxicities. 07/30/16 CT CAP revealed resolution of adenopathies. Pt has XRT to right thigh skin lesion in August. Repeat CT CAP in September revealed evidence of disease progression with enlarged pelvic, retroperitoneal nodes and severe right lower extremity swelling, doppler was negative for DVT. Pt was then started on campath 10/17/[address] Smith at [facility], her CMV titers, blood parameters have been monitored closely,she has blood work through [facility] labs and sent to Dr. Farrell on a weekly basis prior to treatment. Based on CT scan increased dose of campath was recommended and 1st dose was given last week. Pt has not been feeling well for about 24 hours, she had fever, chills and generalized aches, family brought her to hospital as pt was progressively getting worse. She denies nausea, vomiting, sore throat, cough, nasal congestion, abd pain, diarrhea or constipation. Her RLE is worse, she is uncomfortable. Review of Systems All systems: negative Constitutional: Reports as per HPI Past Medical History Past Medical History: Cancer, Hyperlipidemia, Hypertension, Osteoarthritis (OA) , Thyroid Disorder Additional Past Medical History / Comment(s): CUTANEOUS T-CELL LYMPHOMA/ radiation, skin ca, ,murmur, multiple kidney stones, arthritis, glaucoma History of Any Multi-Drug Resistant Organisms: MRSA Year Discovered:: 2013 MDRO Source:: rt arm Past Surgical History: Appendectomy, Bladder Surgery, Cholecystectomy, Heart Catheterization, Hernia Repair, Hysterectomy Additional Past Surgical History / Comment(s): patient recieved round of radiation treatment; kidney stents palced about 3 weks ago /removed 01-18-16, skin cancer removed,cataracts, lt inguinal hernia repair. Past Anesthesia/Blood Transfusion Reactions: No Reported Reaction Past Psychological History: Depression Additional Psychological History / Comment(s): had some depression when dx w/ lymphoma. currently pt denies any depression. Smoking Status: Never smoker - Past Family History Father Family Medical History: No Reported History Additional Family Medical History / Comment(s): at age 62 Mother Family Medical History: No Reported History Additional Family Medical History / Comment(s): at age 100 Medications and Allergies Home Medications Medication Instructions Recorded Confirmed Type Atorvastatin [Lipitor] 80 mg PO DAILY 10/05/13 11/07/16 History Folic Acid/B Complex C No.17 5 mg PO DAILY 09/29/15 11/07/16 History [Virt-Jaden Plus Tablet] Cephalexin [Keflex] 500 mg PO Q12HR 10/19/16 11/07/16 History Alemtuzumab [Campath] 10 ml IV 11/07/16 11/07/16 History Celecoxib [CeleBREX] 200 mg PO DAILY 11/07/16 11/07/16 History Clobetasol Propionate [Temovate 1 applic TOPICAL BID 11/07/16 11/07/16 History 0.05% Oint] Cyanocobalamin [Vitamin B-12 1,000 mcg SQ TU 11/07/16 11/07/16 History Injection] Folic Acid 5mg 5 mg PO DAILY 11/07/16 11/07/16 History Furosemide [Lasix] 20 mg PO DAILY 11/07/16 11/07/16 History Lidocaine 4% Cream [Lmx 4] 1 applic TOPICAL DAILY PRN 11/07/16 11/07/16 History Lisinopril-Hctz 10-12.5 mg 1 tab PO DAILY 11/07/16 11/07/16 History [Zestoretic 10-12.5] Magnesium Gluconate [Magonate] 500 mg PO BID 11/07/16 11/07/16 History Meloxicam [Mobic] 15 mg PO DAILY 11/07/16 11/07/16 History Multivitamins, Thera [Multivitamin 1 tab PO DAILY 11/07/16 11/07/16 History (formulary)] Mupirocin 2% Oint [Bactroban 2% 1 applic TOPICAL TID 11/07/16 11/07/16 History Oint] Peginterferon Booker-2a 180mcg/Ml 180 mcg IM Q7D 11/07/16 11/07/16 History Potassium Chloride [K-Tab ER] 10 meq PO BID 11/07/16 11/07/16 History Raloxifene [Evista] 60 mg PO DAILY 11/07/16 11/07/16 History SILVER sulfADIAZINE Cream 1 applic TOPICAL DAILY 11/07/16 11/07/16 History [Silvadene 1% Cream] Triamcinolone 0.1% Ointment 1 applic TOPICAL BID PRN 11/07/16 11/07/16 History [Kenalog 0.1% Ointment] Vitamin B Complex 1 cap PO DAILY 11/07/16 11/07/16 History hydrOXYzine HCL [Atarax] 25 - 50 mg PO HS PRN 11/07/16 11/07/16 History methylPREDNISolone [Medrol Dose See Taper PO DIRECTED 11/07/16 11/07/16 History Pack] prednisoLONE ACETATE 1% OPHTH 1 drops BOTH EYES QID 11/07/16 11/07/16 History [Pred Forte 1%] valACYclovir HCL [Valacyclovir] 1,000 mg PO DAILY 11/07/16 11/07/16 History Allergies Allergy/AdvReac Type Severity Reaction Status Date / Time No Known Allergies Allergy Verified 11/07/16 19:26 Physical Exam Vitals: Vital Signs Temp Pulse Pulse Resp BP BP Pulse Ox 11/08/16 09:00 98.4 F 11/08/16 07:00 101.1 F H 80 16 119/71 95 11/08/16 00:00 73 16 11/07/16 22:29 98.4 F 73 16 100/61 94 L 11/07/16 21:23 96.8 F L 73 16 102/62 94 L 11/07/16 20:01 100.3 F H 80 16 99/58 96 11/07/16 19:20 101 F H 11/07/16 19:07 84 18 109/63 94 L 11/07/16 17:52 102.8 F H 90 18 120/70 92 L Intake and Output 11/07/16 11/08/16 11/08/16 22:59 06:59 14:59 Intake Total 600 240 Balance 600 240 Intake: Intake, IV Titration 600 Amount 0.9% NaCl with KCl 20 Meq 600 /l 1,000 ml @ 100 mls/hr IV .Q10H ONE Rx#: [id number] Oral 0 240 Other: Weight 75.296 kg 75.296 kg - Constitutional General appearance: cooperative, mild distress - EENT dry mucus membranes Eyes: anicteric sclerae, EOMI - Neck Neck: no lymphadenopathy - Respiratory Respiratory: bilateral: CTA - Cardiovascular Heart sounds: normal: S1, S2 Abnormal Heart Sounds: no systolic murmur, no diastolic murmur, no rub, no S3 Gallop, no S4 Gallop, no click, no other leg Peripheral Edema: right: 3+, left: Trace - Gastrointestinal General gastrointestinal: no absent bowel sounds, no decreased bowel sounds, no distended, no hepatomegaly, no hyperactive bowel sounds, normal bowel sounds, no organomegaly, no rigid, no scaphoid, soft, no splenomegaly, no tenderness, no umbilical hernia, no ventral hernia - Integumentary multiple plaque like skin lesions noted on extremities - Neurologic Neurologic: CNII-XII intact - Musculoskeletal Musculoskeletal: generalized weakness - Psychiatric Psychiatric: A&O x's 3, appropriate affect, intact judgment & insight Results CBC & Chem 7: 11/08/16 10:56 11/08/16 10:56 Labs: Abnormal Lab Results - Last 24 Hours (Table) 11/07/16 11/07/16 11/07/16 Range/Units 07:50 18:18 18:18 WBC 12.6 H (3.8-10.6) k/uL RBC 3.71 L (3.80-5.40) m/uL Hgb (11.4-16.0) gm/dL Hct (34.0-46.0) % RDW 16.3 H (11.5-15.5) % Neutrophils # 9.8 H (1.3-7.7) k/uL Lymphocytes # 0.3 L (1.0-4.8) k/uL Eosinophils # 1.5 H (0-0.7) k/uL Potassium 3.4 L (3.5-5.1) mmol/L BUN 20 H (7-17) mg/dL Glucose 135 H (74-99) mg/dL AST 52 H (14-36) U/L Total Protein (6.3-8.2) g/dL Albumin 3.4 L (3.5-5.0) g/dL Urine Protein Trace H (Negative) Ur Leukocyte Esterase Moderate H (Negative) Urine WBC 33 H (0-5) /hpf Urine Mucus Occasional H (None) /hpf 11/08/16 11/08/16 Range/Units 10:56 10:56 WBC (3.8-10.6) k/uL RBC 3.43 L (3.80-5.40) m/uL Hgb 11.0 L (11.4-16.0) gm/dL Hct 33.4 L (34.0-46.0) % RDW 16.0 H (11.5-15.5) % Neutrophils # (1.3-7.7) k/uL Lymphocytes # 0.2 L (1.0-4.8) k/uL Eosinophils # 1.5 H (0-0.7) k/uL Potassium 3.4 L (3.5-5.1) mmol/L BUN 20 H (7-17) mg/dL Glucose 126 H (74-99) mg/dL AST 43 H (14-36) U/L Total Protein 6.0 L (6.3-8.2) g/dL Albumin 2.9 L (3.5-5.0) g/dL Urine Protein (Negative) Ur Leukocyte Esterase (Negative) Urine WBC (0-5) /hpf Urine Mucus (None) /hpf Microbiology - Last 24 Hours (Table) 11/07/16 07:50 Urine Culture - Preliminary Urine,Voided Venous US: report reviewed Assessment and Plan (1) Fever Narrative/Plan: It is unclear if fever is from underlying infection or from increased dose of campath as this treatment can cause fever. Doppler will be ordered to rule out RLE DVT as clots can elevate a temp as well. Pancultures pending, empiric abx ordered, symptomatic care. Status: Acute (2) Immunocompromised patient Narrative/Plan: Immunocompromise due to lymphoma and treatment. ID consulted due to pt high risk for atypical infections, she is on abx. Status: Acute (3) Cutaneous T-cell lymphoma Narrative/Plan: Pt had increase in campath dose just last week on recommendations of Dr. Smith at [facility] due to disease progression on previous dose. Dr. Smith will be kept up to date on pt progress. Status: Chronic
[2016-11-08] MEDS: HYDROcodone/APAP 5-325MG 1 EACH TAB PO PRN (21:04)
--- NOTE | 2016-11-08 21:37 | CT ---
EXAMINATION TYPE: CT abdomen pelvis w con DATE OF EXAM: 11/08/2016 COMPARISON: 10/04/2016 HISTORY: Pt states of lower abdominal pain. Hx of lymphoma. CT DLP: 1512 mGycm. Automated exposure control for dose reduction was used. TECHNIQUE: Helical acquisition of images was performed from the lung bases through the pelvis. CONTRAST: Performed with Oral Contrast and with IV Contrast, patient injected with 100 mL of Omnipaque 300. FINDINGS: Since the prior study of October 04, 2016, there has been marked interval progression in the aortoiliac i nverted Y column of adenopathy seen at that time, extending caudally down to include the upper and lo wer inguinal positions. The process now extends to a position just cephalad to the level of the third portion of the duodenum. The volume of adenopathy has nearly doubled since October 04, 2016, and the adenopathy appears diffusely more hypodense than seen at that time. There is no urinary tract obstruction. No bowel obstruction. There is no venous thrombosis. No abnorm al gas or fluid collections. IMPRESSION: 1. NEAR INTERVAL DOUBLING OF TUMOR BULK. 2. NO NEW PROCESSES.
[2016-11-09] MEDS: PIPERACILLIN-TAZOBACTAM 3.375 GM in DEXTROSE/WATER 1 50ML.BAG IVPB SCH ×4 (01:19→23:38)
[2016-11-09] MEDS: prednisoLONE ACETATE 1% OPHTH DROPS 1 ML BTL BOTH EYES SCH ×4 (08:31→21:55)
[2016-11-09] MEDS: valACYclovir HCL 1,000 MG TABLET PO SCH (08:31)
[2016-11-09] MEDS: RALOXIFENE 60 MG TAB PO SCH (08:31)
[2016-11-09] MEDS: PANTOPRAZOLE 40 MG/10 ML VIAL IV SCH (08:31)
[2016-11-09] MEDS: POTASSIUM CHLORIDE ER 10 MEQ TAB.ER.PRT PO SCH ×2 (08:31→21:55)
[2016-11-09] MEDS: MUPIROCIN 2% OINT 22 GM TUBE TOPICAL SCH ×4 (08:32→21:54)
[2016-11-09] MEDS: FOLIC ACID 1 MG TAB PO SCH (08:32)
[2016-11-09] MEDS: FUROSEMIDE 20 MG TAB PO SCH (08:32)
[2016-11-09] MEDS: CLOBETASOL PROP 0.05% OINT 15GM TOPICAL SCH ×2 (08:32→21:54)
[2016-11-09] MEDS: LISINOPRIL-HCTZ 10-12.5 MG 1 EACH TAB PO SCH (08:32)
[2016-11-09] MEDS: MAGNESIUM OXIDE 400 MG TAB PO SCH ×2 (08:32→21:55)
[2016-11-09] MEDS: B COMPLEX-VIT C-VIT E-ZINC 1 EACH TAB PO SCH (08:33)
[2016-11-09] MEDS: ENOXAPARIN 40 MG/0.4 ML SYRINGE SQ SCH (08:33)
[2016-11-09] MEDS: ATORVASTATIN 80 MG TAB PO SCH (08:33)
--- NOTE | 2016-11-09 09:11 | CONS ---
DATE OF CONSULTATION: 11/08/2016 Reason for consultation is fever. HISTORY OF PRESENT ILLNESS: The patient is a 76-year-old female with the past medical history significant for T-cell lymphoma with no significant lymphadenopathy and chronic lymphedema of the right lower extremity. Patient has been treated with multiple chemotherapy and did have radiation therapy to the right groin once. Patient has been started on a new chemotherapy in the form of Campath with recent increase in the dose per her oncologist. Patient has been feeling very weak and tired over the last few days and presented to the hospital with a fever of 102.8 degrees Fahrenheit. Patient's workup in the ER including a chest x-ray report is negative for any DVT. She did have lower extremity Doppler which was negative for any DVT. Patient did have a urine that was slightly positive and white count elevated on admission of 12.6 for normal and 8.8 today. Patient did receive a dose of Levaquin in the ER. ID was consulted today for further recommendation regarding antibiotic therapy. Patient remains to be feeling week and tired, no energy. No significant ( ) or URI symptoms. No significant chest pain or shortness of breath, no cough. She has been complaining of some abdominal pain and fullness. No nausea, vomiting or any diarrhea. The patient did have swelling of the right leg with some more pain to the leg and some erythema, no scleral pain or any drainage and no significant urinary symptom, though she did have slightly positive UA. REVIEW OF SYSTEMS: CONSTITUTIONAL: Positive for weakness along with a fever. EYES: No complaint. ENT: No complain. RESPIRATORY: As per HPI. CARDIOVASCULAR: No complaint. GENITOURINARY: As per HPI. GASTROINTESTINAL: As per HPI. MUSCULOSKELETAL: No complaint. INTEGUMENTARY: As per HPI. PSYCHOLOGICAL: No complaint. ENDOCRINE: No complaint. NEUROLOGICAL: No complaint. PAST MEDICAL HISTORY: Significant for a cutaneous T-cell lymphoma, kidney stones, hypertension, hyperlipidemia, osteoarthritis, hypothyroidism. PAST SURGICAL HISTORY: Appendectomy, bladder surgery, cholecystectomy, heart catheterization, hernia repair, hysterectomy. SOCIAL HISTORY: No history of smoking, drinking or any drug use. FAMILY HISTORY: No pertinent findings were noticed. ALLERGIES: No known drug allergies. Medications include the patient is currently on Tylenol, [place], Lipitor, folic acid, Lasix, Zestoretic, Atarax, Motrin, Theragran, Bactroban cream, Protonix, K -Dur, Silvadene cream. One examination, blood pressure is 103/64 with a pulse of 83, temperature of 100 , T-max is 102. She is 93% on room air. General description is an elderly female, lying in bed in no distress. No tachypnea or accessory muscle for respiration use. HEENT examination shows slight pallor, no scleral icterus. Oral mucosa membrane is dry. NECK: Tracheal central, there is no thyromegaly. LUNGS: Unlabored breath, clear to auscultation anteriorly. No wheeze or crackle. HEART: S1, S2, regular rate and rhythm. ABDOMEN: Soft. She has mild tenderness in the left lower quadrant area. There are no guarding or rigidity. EXTREMITIES: Right leg with more swelling, slight erythema. Slightly warm to touch. SKIN: No drainage. Neurologically, patient is awake, alert and oriented x3. Mood and affect normal. LABS: Hemoglobin is 11, white count 8.8 and on admission white count was 12.6. BUN of 20, creatinine of 0.59 and potassium is slightly low at 3.4. Urine has been positive. CMV IgG is reactive by CMV IgM is negative. Chest x-ray report is negative. DIAGNOSTIC IMPRESSION AND PLAN: Patient admitted to the hospital with sepsis and the patient did have a fever of 102 before and did have elevated white count of 12.6 ( ) with the source of right lower extremity cellulitis or a urinary tract infection. Patient was noticed to be tender on abdominal examination. Underlying abdominal source cannot be entirely excluded in a patient with underlying history of malignancy ( ) chemotherapy. Will need to cover for ( ) gram negative. PLAN: 1. We will obtain a CT of the abdomen and pelvis in view of the tenderness noted in the abdominal examination, ( ) abdominal source. 2. Will start the patient on Zosyn 3.375 IV q.8 hour. 3. Will follow up on the clinical condition and the cultures to further adjust the medication if needed. Thank you for this consultation. Will follow this patient along with you. CISCO
[2016-11-09] MEDS: HYDROcodone/APAP 5-325MG 1 EACH TAB PO PRN (09:50)
[2016-11-09] MEDS: MULTIVITAMINS, THERA 1 EACH TAB PO SCH (12:35)
[2016-11-09] MEDS ORDERED: POLYETHYLENE GLYCOL 3350 17 GM POWD.PACK PO PRN (16:21)
--- NOTE | 2016-11-09 17:39 | P.PN ---
Subjective Principal diagnosis: fever Patient seen today in follow-up. She states that she is feeling a little bit better, her last fever was yesterday morning, her appetite is poor, she did get in a couple chicken soup this afternoon, she denies nausea or vomiting, no dysuria, hematuria, diarrhea or constipation, her right lower extremity is still very swollen and feels tight, she does have difficulty ambulating, she denies any numbness or tingling. Objective - Vital Signs Vital signs: Vital Signs Temp 98.2 F 11/09/16 15:00 Pulse 73 11/09/16 15:00 Resp 20 11/09/16 15:00 BP 101/55 11/09/16 15:00 Pulse Ox 95 11/09/16 15:00 Intake & Output 11/08/16 11/09/16 11/09/16 18:59 06:59 18:59 Intake Total 50 Balance 50 Intake: Oral 50 Other: # Voids 2 1 1 # Bowel Movements 1 - Constitutional General appearance: Present: average body habitus, cooperative, no acute distress - EENT Eyes: Present: anicteric sclerae - Respiratory Details: No visible respiratory distress, respirations are even and unlabored - Integumentary Integumentary Comment(s): Right lower extremity is reddened, scattered plaque lesions on the lower extremities. - Neurologic Neurologic: Present: CNII-XII intact - Musculoskeletal Musculoskeletal: Present: generalized weakness - Psychiatric Psychiatric: Present: A&O x's 3, appropriate affect, intact judgment & insight - Labs CBC & Chem 7: 11/08/16 10:56 11/08/16 10:56 Labs: Microbiology - Last 24 Hours (Table) 11/07/16 07:50 Urine Culture - Final Urine,Voided 11/07/16 18:18 Blood Culture - Preliminary Blood No Growth after 24 hours - Imaging and Cardiology CT scan - abdomen: report reviewed CT scan - pelvis: report reviewed Assessment and Plan (1) Fever Narrative/Plan: Patient's last fever was yesterday at 7 AM. She is being followed by infectious disease and is on antibiotics. Status: Acute (2) Immunocompromised patient Narrative/Plan: Total globulin levels have been requested, patient's immunoglobulins are low IVIG will be ordered and administered. Blood cultures are negative at 24 hours , urine culture is currently negative as well. The CMV IgG is reactive, this is not new for patient. Status: Acute (3) Cutaneous T-cell lymphoma Narrative/Plan: Computed tomography scan results were reviewed with patient and her family. The mass/lymph node in the pelvis is noted on scan to have nearly doubled in size, patient had disease progression which is why her chemotherapy treatment dose was increased just last week. The results of this imaging will be communicated to her primary oncologist for further recommendations. No other interventions at this time in regards to her lymphoma Status: Chronic
[2016-11-09] MEDS: ACETAMINOPHEN TAB 500 MG TAB PO PRN (18:11)
--- NOTE | 2016-11-09 18:55 | PN ---
DATE OF SERVICE: 11/09/16 REASON FOR FOLLOW: Fever, source likely right lower extremity cellulitis and a question of UTI. INTERVAL HISTORY: The patient did have a low grade fever last night of 100. However, the patient is afebrile this morning. She is feeling slightly better. The patient denies significant chest pain, shortness or breath or cough. No abdominal pain. The right leg swelling and redness is mildly improved . On examination, her blood pressure is 101/55 with a pulse of 73. Temperature 98.2. She is 95% on room air. General description is an elderly female up in the bed in no distress. Respiratory system: Unlabored breathing, clear to auscultation anteriorly. Heart: S1, S2 regular rate and rhythm. Abdominal soft. No tenderness. Right leg swelling persists but the redness has slightly decreased. LABS: BUN 20 with a creatinine of 0.59. Hemoglobin 11, white count 8.8. Cultures so far negative. DIAGNOSTIC IMPRESSION AND PLAN: The patient admitted to the hospital with fever, source could be more likely right lower extremity cellulitis plus urinary tract infection. The patient seems to have shown overall clinical improvement. Currently Zosyn will be continued with a plan to finish therapy with oral antibiotics in form of Keflex 500mg TID x 7 days. Continue supportive care. MTDD
--- NOTE | 2016-11-09 19:16 | P.PN ---
Subjective Date of service 11/09/2016. Progress note being dictated for Dr. Escobar Interval history: This is a 68-year-old female admitted with sepsis, right leg lymphedema and cellulitis in a patient with history of lymphoma, recent chemotherapy and multiple other medical issues. Maintained on Zosyn as per infectious disease. Abdominal swelling, abdominal pain improving. Abdominal CT reporting no urinary tract obstruction, no bowel obstruction, no venous thrombosis, no abnormal gas or fluid collections, near interval doubling of tumor bulk with no new processes. Status right leg redness, edema improved. Venous Doppler of right leg, limited exam , multiple enlarged lymph nodes within right groin, reports no evidence of DVT. Fair diet intake. T-max 100. WBC normalized. Denies chest pain, palpitations or increasing shortness of breath. Objective - Vital Signs Vital signs: Vital Signs Temp 98.2 F 11/09/16 15:00 Pulse 73 11/09/16 15:00 Resp 20 11/09/16 15:00 BP 101/55 11/09/16 15:00 Pulse Ox 95 11/09/16 15:00 Intake & Output 11/08/16 11/09/16 11/09/16 18:59 06:59 18:59 Intake Total 50 Balance 50 Intake: Oral 50 Other: # Voids 2 1 1 # Bowel Movements 1 - Exam PHYSICAL EXAM: VITAL SIGNS: As above GENERAL: [Sitting up in bed, no acute distress. Well-nourished] HEENT: [Pupils equal conjunctiva normal. Oral conjunctiva normal] NECK: [Supple, no JVD,] RESPIRATORY EFFORT:[ Normal] LUNGS: [Bilateral bases diminished no wheezes rhonchi or crackles. Right chest Mediport] CARDIOVASCULAR[ regular S1 and S2, no murmurs rubs or gallops] GI: [Abdomen soft, distended, diffuse tenderness throughout all quads, positive bowel sounds.] PSYCH: [Alert and oriented -3, mood and affect normal.] SKIN: Right leg cellulitis, lymphadenopathy, edema /redness improving] NEURO: No focal deficits. - Labs CBC & Chem 7: 11/08/16 10:56 11/08/16 10:56 Labs: Microbiology - Last 24 Hours (Table) 11/07/16 07:50 Urine Culture - Final Urine,Voided 11/07/16 18:18 Blood Culture - Preliminary Blood No Growth after 24 hours Assessment and Plan Plan: Fever, related to right lower extremity cellulitis and possible acute UTI 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 Close monitoring of electrolytes, hemoglobin with repeat labs ordered for a.m. Prognosis guarded given multiple complex medical issues. Follow closely with oncology, and infectious disease. Further recommendations to follow. The impression and plan of care has been dictated as directed. : I performed a H&P examination of this patient and discussed the same with the dictator. I agree with the dictator's note. Any additional findings/opinions/ etc. will be noted.
[2016-11-10 05:55] LABS: Anisocytosis Slight; Basophils # (A) 0.1 k/uL (0-0.2); Basophils % (A) 1 %; CH 31.3; CHCM 32.3; Eosinophils # (A) 1.9 k/uL (0-0.7); Eosinophils % (A) 23 %; HCT 33.8 % (34.0-46.0); HDW 2.85; HGB 11.1 gm/dL (11.4-16.0); Luc % (Auto) 4; Lymphocytes # (A) 0.1 k/uL (1.0-4.8); Lymphocytes % (A) 2 %; MCHC 32.9 g/dL (31.0-37.0); MCV 97.4 fL (80.0-100.0); Mean Platelet Volume 6.9; Monocytes # (A) 0.8 k/uL (0-1.0); Monocytes % (A) 10 %; Neutrophils # (A) 4.9 k/uL (1.3-7.7); Neutrophils % (A) 61 %; RBC 3.47 m/uL (3.80-5.40); WBC 8.2 k/uL (3.8-10.6); WBC (Perox) 8.48
[2016-11-10 06:15] LABS: Anion Gap 7 mmol/L; Blood Urea Nitrogen 13 mg/dL (7-17); Calcium 8.5 mg/dL (8.4-10.2); Carbon Dioxide 28 mmol/L (22-30); Chloride 103 mmol/L (98-107); Glucose 96 mg/dL (74-99); Non-African American GFR(MDRD) >60 (>60 ml/min/1.73 sqM); Potassium 3.6 mmol/L (3.5-5.1); Sodium 138 mmol/L (137-145)
[2016-11-10 06:26] LABS: Manual Review Performed
[2016-11-10] MEDS: PIPERACILLIN-TAZOBACTAM 3.375 GM in DEXTROSE/WATER 1 50ML.BAG IVPB SCH ×3 (09:08→23:33)
[2016-11-10] MEDS: MUPIROCIN 2% OINT 22 GM TUBE TOPICAL SCH ×3 (09:08→20:56)
[2016-11-10] MEDS: CLOBETASOL PROP 0.05% OINT 15GM TOPICAL SCH ×2 (09:08→20:56)
[2016-11-10] MEDS: prednisoLONE ACETATE 1% OPHTH DROPS 1 ML BTL BOTH EYES SCH ×4 (09:09→20:56)
[2016-11-10] MEDS: FOLIC ACID 1 MG TAB PO SCH (09:09)
[2016-11-10] MEDS: ATORVASTATIN 80 MG TAB PO SCH (09:09)
[2016-11-10] MEDS: MAGNESIUM OXIDE 400 MG TAB PO SCH ×2 (09:09→20:56)
[2016-11-10] MEDS: POTASSIUM CHLORIDE ER 10 MEQ TAB.ER.PRT PO SCH ×2 (09:09→20:56)
[2016-11-10] MEDS: B COMPLEX-VIT C-VIT E-ZINC 1 EACH TAB PO SCH (09:09)
[2016-11-10] MEDS: RALOXIFENE 60 MG TAB PO SCH (09:09)
[2016-11-10] MEDS: valACYclovir HCL 1,000 MG TABLET PO SCH (09:09)
[2016-11-10] MEDS: ENOXAPARIN 40 MG/0.4 ML SYRINGE SQ SCH (09:10)
[2016-11-10] MEDS: PANTOPRAZOLE 40 MG TABLET PO SCH (09:10)
[2016-11-10] MEDS: ACETAMINOPHEN TAB 500 MG TAB PO PRN ×2 (09:30→23:36)
--- NOTE | 2016-11-10 10:39 | P.PN ---
Subjective This is a 68-year-old female admitted with sepsis, right leg lymphedema and cellulitis in a patient with history of lymphoma, recent chemotherapy and multiple other medical issues. Maintained on Zosyn as per infectious disease. Abdominal swelling, abdominal pain improving. Abdominal CT reporting no urinary tract obstruction, no bowel obstruction, no venous thrombosis, no abnormal gas or fluid collections, near interval doubling of tumor bulk with no new processes. Status right leg redness, edema improved. Venous Doppler of right leg, limited exam , multiple enlarged lymph nodes within right groin, reports no evidence of DVT. Fair diet intake. Denies chest pain, palpitations or increasing shortness of breath. Patient still has high-grade fever may be related to lymphoma right lower leg edema no significant improvement compared to yesterday patient still has left- sided abdominal pain right leg edema is more mostly secondary to lymphedema rather than cellulitis which is not expected to improve significantly and the left lower quadrant abdominal pain is secondary to mass in the abdomen secondary to lymphoma. We'll get PT and OT evaluation Objective - Vital Signs Vital signs: Vital Signs Temp 101.4 F H 11/10/16 07:00 Pulse 83 11/10/16 07:00 Resp 20 11/10/16 07:00 BP 114/69 11/10/16 07:00 Pulse Ox 91 L 11/10/16 07:00 Intake & Output 11/09/16 11/10/16 11/10/16 18:59 06:59 18:59 Intake Total 680 Balance 680 Intake: IV 90 .9@20 40 Piperacillin-Tazobactam 3 50 .375 gm In Dextrose/Water 1 50ml.bag @ 12.5 mls/hr IVPB Q8HR [facility] Rx#: [id number] Oral 590 Other: # Voids 1 2 # Bowel Movements 1 - Exam GENERAL: [Sitting up in bed, no acute distress. Well-nourished] HEENT: [Pupils equal conjunctiva normal. Oral conjunctiva normal] NECK: [Supple, no JVD,] RESPIRATORY EFFORT:[ Normal] LUNGS: [Bilateral bases diminished no wheezes rhonchi or crackles. Right chest Mediport] CARDIOVASCULAR[ regular S1 and S2, no murmurs rubs or gallops] GI: [Abdomen soft, distended, diffuse tenderness throughout all quads, positive bowel sounds.] PSYCH: [Alert and oriented -3, mood and affect normal.] SKIN: Right leg cellulitis, lymphadenopathy, edema /redness improving] NEURO: No focal deficits. - Labs CBC & Chem 7: 11/10/16 05:45 11/10/16 05:45 Labs: Abnormal Lab Results - Last 24 Hours (Table) 11/10/16 Range/Units 05:45 RBC 3.47 L (3.80-5.40) m/uL Hgb 11.1 L (11.4-16.0) gm/dL Hct 33.8 L (34.0-46.0) % RDW 16.0 H (11.5-15.5) % Lymphocytes # 0.1 L (1.0-4.8) k/uL Eosinophils # 1.9 H (0-0.7) k/uL Microbiology - Last 24 Hours (Table) 11/07/16 18:18 Blood Culture - Preliminary Blood No Growth after 48 hours 11/07/16 07:50 Urine Culture - Final Urine,Voided Assessment and Plan Plan: Fever, possible sepsis related to right lower extremity cellulitis, patient has continued fever which can be from lymphoma as well 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 Close monitoring of electrolytes, hemoglobin with repeat labs ordered. PT and OT consultation
[2016-11-10] MEDS: MULTIVITAMINS, THERA 1 EACH TAB PO SCH (12:22)
[2016-11-10] MEDS: HYDROcodone/APAP 5-325MG 1 EACH TAB PO PRN (20:56)
[2016-11-11 06:26] LABS: Anisocytosis Slight; CH 31.4; CHCM 31.9; HCT 33.6 % (34.0-46.0); HDW 2.78; HGB 10.9 gm/dL (11.4-16.0); Hypochromasia Slight; MCH 32.2 pg (25.0-35.0); MCHC 32.5 g/dL (31.0-37.0); MCV 98.9 fL (80.0-100.0); Macrocytosis Slight; Mean Platelet Volume 7.2; RDW 16.1 % (11.5-15.5); WBC 8.9 k/uL (3.8-10.6)
[2016-11-11 06:38] LABS: Anion Gap 7 mmol/L; Blood Urea Nitrogen 13 mg/dL (7-17); Calcium 8.5 mg/dL (8.4-10.2); Carbon Dioxide 28 mmol/L (22-30); Chloride 105 mmol/L (98-107); Glucose 93 mg/dL (74-99); Non-African American GFR(MDRD) >60 (>60 ml/min/1.73 sqM); Potassium 3.7 mmol/L (3.5-5.1); Sodium 140 mmol/L (137-145)
[2016-11-11] MEDS: PIPERACILLIN-TAZOBACTAM 3.375 GM in DEXTROSE/WATER 1 50ML.BAG IVPB SCH ×2 (09:23→16:59)
[2016-11-11] MEDS: prednisoLONE ACETATE 1% OPHTH DROPS 1 ML BTL BOTH EYES SCH ×4 (09:23→21:37)
[2016-11-11] MEDS: MUPIROCIN 2% OINT 22 GM TUBE TOPICAL SCH ×3 (09:23→21:37)
[2016-11-11] MEDS: CLOBETASOL PROP 0.05% OINT 15GM TOPICAL SCH ×2 (09:23→21:38)
[2016-11-11] MEDS: ENOXAPARIN 40 MG/0.4 ML SYRINGE SQ SCH (09:23)
[2016-11-11] MEDS: RALOXIFENE 60 MG TAB PO SCH (09:24)
[2016-11-11] MEDS: ATORVASTATIN 80 MG TAB PO SCH (09:24)
[2016-11-11] MEDS: FOLIC ACID 1 MG TAB PO SCH (09:24)
[2016-11-11] MEDS: valACYclovir HCL 1,000 MG TABLET PO SCH (09:25)
[2016-11-11] MEDS: MAGNESIUM OXIDE 400 MG TAB PO SCH ×2 (09:25→21:37)
[2016-11-11] MEDS: B COMPLEX-VIT C-VIT E-ZINC 1 EACH TAB PO SCH (09:25)
[2016-11-11] MEDS: POTASSIUM CHLORIDE ER 10 MEQ TAB.ER.PRT PO SCH ×2 (09:25→21:37)
[2016-11-11] MEDS: PANTOPRAZOLE 40 MG TABLET PO SCH (13:22)
[2016-11-11] MEDS: MULTIVITAMINS, THERA 1 EACH TAB PO SCH (13:23)
--- NOTE | 2016-11-11 15:13 | P.PN ---
Subjective This is a 68-year-old female admitted with sepsis, right leg lymphedema and cellulitis in a patient with history of lymphoma, recent chemotherapy and multiple other medical issues. Maintained on Zosyn as per infectious disease. Abdominal swelling, abdominal pain improving. Abdominal CT reporting no urinary tract obstruction, no bowel obstruction, no venous thrombosis, no abnormal gas or fluid collections, near interval doubling of tumor bulk with no new processes. Status right leg redness, edema improved. Venous Doppler of right leg, limited exam , multiple enlarged lymph nodes within right groin, reports no evidence of DVT. Fair diet intake. Denies chest pain, palpitations or increasing shortness of breath. Patient still has high-grade fever may be related to lymphoma right lower leg edema no significant improvement compared to yesterday patient still has left- sided abdominal pain right leg edema is more mostly secondary to lymphedema rather than cellulitis which is not expected to improve significantly and the left lower quadrant abdominal pain is secondary to mass in the abdomen secondary to lymphoma. We'll get PT and OT evaluation 11/11/2016 patient had a low-grade fever last night because of which will monitor her one more night. Objective - Vital Signs Vital signs: Vital Signs Temp 98.1 F 11/11/16 07:00 Pulse 78 11/11/16 07:00 Resp 18 11/11/16 07:00 BP 107/54 11/11/16 07:00 Pulse Ox 92 L 11/11/16 07:00 Intake & Output 11/10/16 11/11/16 11/11/16 18:59 06:59 18:59 Intake Total 50 770 Balance 50 770 Intake: IV 50 180 .9@20 80 Piperacillin-Tazobactam 3 50 100 .375 gm In Dextrose/Water 1 50ml.bag @ 12.5 mls/hr IVPB Q8HR [facility] Rx#: [id number] Oral 590 Other: Voiding Method Toilet Toilet # Voids 3 2 - Exam GENERAL: [Sitting up in bed, no acute distress. Well-nourished] HEENT: [Pupils equal conjunctiva normal. Oral conjunctiva normal] NECK: [Supple, no JVD,] RESPIRATORY EFFORT:[ Normal] LUNGS: [Bilateral bases diminished no wheezes rhonchi or crackles. Right chest Mediport] CARDIOVASCULAR[ regular S1 and S2, no murmurs rubs or gallops] GI: [Abdomen soft, distended, diffuse tenderness throughout all quads, positive bowel sounds.] PSYCH: [Alert and oriented -3, mood and affect normal.] SKIN: Right leg cellulitis, lymphadenopathy, edema /redness improving] NEURO: No focal deficits. 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 Close monitoring of electrolytes, hemoglobin with repeat labs ordered. PT and OT consultation. Possible discharge tomorrow to either home with home care subacute rehabilitation.
[2016-11-12] MEDS: PIPERACILLIN-TAZOBACTAM 3.375 GM in DEXTROSE/WATER 1 50ML.BAG IVPB SCH ×3 (00:08→16:06)
--- NOTE | 2016-11-12 08:53 | PN ---
DATE OF SERVICE: 11/11/2016 REASON FOR FOLLOW UP: Fever and right leg cellulitis. INTERVAL HISTORY: The patient is afebrile. He is breathing comfortably. Denies significant chest pain or shortness of breath. Some abdominal pain. Felling full but no nausea, vomiting and no diarrhea. The right leg swelling and redness has improved. On examination, blood pressure is 106/53 with pulse of 88. Temperature 98.5. She is 92% on room air. General description is an elderly female lying in bed in no distress. RESPIRATORY: Unlabored breathing. Clear to auscultation anteriorly. HEART: S1, S2. Regular rate and rhythm. ABDOMEN: Soft, no tenderness. The right leg swelling has improved and redness has improved significantly. DIAGNOSTIC IMPRESSION AND PLAN: Patient with fever source could be most likely right lower extremity cellulitis in a patient who does have underlying malignancy. Culture remains to be negative. Fever responded to Zosyn. Hopefully can finish with oral Keflex. Family present at bedside. Their questions were answered. CISCO
[2016-11-12] MEDS: PANTOPRAZOLE 40 MG TABLET PO SCH (09:07)
[2016-11-12] MEDS: ATORVASTATIN 80 MG TAB PO SCH (09:07)
[2016-11-12] MEDS: B COMPLEX-VIT C-VIT E-ZINC 1 EACH TAB PO SCH (09:07)
[2016-11-12] MEDS: MAGNESIUM OXIDE 400 MG TAB PO SCH ×2 (09:08→21:42)
[2016-11-12] MEDS: valACYclovir HCL 1,000 MG TABLET PO SCH (09:08)
[2016-11-12] MEDS: ENOXAPARIN 40 MG/0.4 ML SYRINGE SQ SCH (09:08)
[2016-11-12] MEDS: RALOXIFENE 60 MG TAB PO SCH (09:08)
[2016-11-12] MEDS: CLOBETASOL PROP 0.05% OINT 15GM TOPICAL SCH ×2 (09:09→21:43)
[2016-11-12] MEDS: FOLIC ACID 1 MG TAB PO SCH (09:09)
[2016-11-12] MEDS: POTASSIUM CHLORIDE ER 10 MEQ TAB.ER.PRT PO SCH ×2 (09:09→21:42)
[2016-11-12] MEDS: prednisoLONE ACETATE 1% OPHTH DROPS 1 ML BTL BOTH EYES SCH ×4 (09:10→21:42)
[2016-11-12] MEDS: MUPIROCIN 2% OINT 22 GM TUBE TOPICAL SCH ×3 (09:10→21:43)
[2016-11-12] MEDS ORDERED: RX INFO: IV CONTRAST WAS GIVEN 1 EACH MISC MISCELLANE PRN (09:30)
--- NOTE | 2016-11-12 12:33 | PN ---
DATE OF SERVICE: 11/12/2016 Reason for followup is fever and right lower extremity cellulitis. INTERVAL HISTORY: The patient has been afebrile for more than 48 hours. The last fever she had was on the evening of the 15h. Patient seemed to be feeling slightly better. Breathing comfortably. Denies significant chest pain or shortness of breath or cough. ( ) abdominal pain. The right leg swelling is present, but redness has improved. On examination, blood pressure is 108/64 with the pulse of 80, temperature 98.3. She is 93% on room air. General description is an elderly female, lying in bed, in no distress. RESPIRATORY SYSTEM: Unlabored breathing. Clear to auscultation anteriorly. HEART: S1 and S2. Regular rate and rhythm. ABDOMEN: Soft, no tenderness. Leg swelling persists, but redness has improved. LABS: Hemoglobin is 10.9, white count 8.9 with a BUN of 13, creatinine 0.60. Culture has been negative. DIAGNOSTIC IMPRESSION: Patient with a fever in a patient with underlying malignancy. Positive point findings has been lower extremity cellulitis on the right side. Overall improvement on Zosyn. Finish therapy on p.o. Keflex. Family present at bedside. Their questions were answered. Plan of care discussed with the attending physician. CISCO
[2016-11-12] MEDS: MULTIVITAMINS, THERA 1 EACH TAB PO SCH (12:40)
--- NOTE | 2016-11-12 14:29 | CT ---
EXAMINATION TYPE: CT chest wo/w con DATE OF EXAM: 11/12/2016 COMPARISON: CT from October 04, 2016. Older CT July 30, 2016. PET CT April 14, 2016. HISTORY: lymphoma follow up after treatment. CT DLP: 1223 mGycm. Automated Exposure Control for Dose Reduction was Utilized. TECHNIQUE: CT scan of the thorax is performed following without and with IV Contrast, patient inject ed with 100 mL of Omnipaque 300. FINDINGS: LUNGS: There are new small to tiny left greater than right pleural effusions. There is associated com pressive atelectasis in both bases. There is no concerning parenchymal nodule or mass identified bila terally. No pneumothorax is seen bilaterally. MEDIASTINUM: There are no greater than 1 cm hilar or mediastinal lymph nodes. No cardiomegaly or pe ricardial effusion is seen. Coronary artery calcifications are redemonstrated. Fairly moderate plaqu e in the aortic arch is redemonstrated. OTHER: There is stable right internal jugular Mediport catheter with tip at caval atrial junction. Ti ny lymph nodes right axillary are stable from most recent CT. No new suspicious axillary adenopathy i s present. There are simple appearing cysts and subcentimeter hypodense lesions scattered throughout the visualized liver. Cholecystectomy clips are seen. Slight nodular thickening to both adrenal gland s is stable. There is partial visualization of small amount of ascites in the left midabdomen lateral ly on axial image 61. There is partial visualization of abnormal retroperitoneal adenopathy with enla rged lymph nodes seen at level of renal veins surrounding aorta on the last axial images, this has si milar appearance to prior study axial image 71. Mild to moderate diffuse soft tissue anasarca is also now present in the upper abdomen. IMPRESSION: New soft tissue anasarca and small to tiny bilateral pleural effusions suggest fluid ove rload state (probably desired). No new suspicious mass or adenopathy above the diaphragm is seen to s uggest lymphoma involvement at this level.
[2016-11-12 15:02] LABS: Magnesium 1.8 mg/dL (1.6-2.3); Phosphorous 2.9 mg/dL (2.5-4.5); Uric Acid 2.2 mg/dL (3.7-7.4)
--- NOTE | 2016-11-12 16:40 | P.PN ---
Subjective Date of service 11/12/2016. Progress note being dictated for Dr. Escobar Interval history: This is a 68-year-old female admitted with sepsis, right leg lymphedema and cellulitis in a patient with history of lymphoma, recent chemotherapy and multiple other medical issues. Maintained on Zosyn as per infectious disease. Abdominal swelling, abdominal pain improving. Abdominal CT reporting no urinary tract obstruction, no bowel obstruction, no venous thrombosis, no abnormal gas or fluid collections, near interval doubling of tumor bulk with no new processes. Status right leg redness, edema improved. Venous Doppler of right leg, limited exam , multiple enlarged lymph nodes within right groin, reports no evidence of DVT. Fair diet intake. T-max 100. WBC normalized. Denies chest pain, palpitations or increasing shortness of breath. 11/12/2016 evaluated by physical therapy and subacute rehab recommended at discharge. Records being sent to [facility] oncologist. Further recommendations being discussed between Dr. Barrientos and Oncologist. If chemotherapy is placed on hold for any length of time family wishes to proceed with ECF rehab. Oncology considering altering chemotherapy plan,which would be high risk for tumor lysis, possible first treatment to be administered inpatient. Afebrile. Objective - Vital Signs Vital signs: Vital Signs Temp 98.3 F 11/12/16 15:00 Pulse 82 11/12/16 15:00 Resp 16 11/12/16 15:00 BP 123/72 11/12/16 15:00 Pulse Ox 95 11/12/16 15:00 Intake & Output 11/11/16 11/12/16 11/12/16 18:59 06:59 18:59 Intake Total 210 130 Balance 210 130 Intake: IV 210 130 .9@20 160 80 Piperacillin-Tazobactam 3 50 50 .375 gm In Dextrose/Water 1 50ml.bag @ 12.5 mls/hr IVPB Q8HR [facility] Rx#: [id number] Other: Voiding Method Toilet Toilet # Voids 2 1 1 # Bowel Movements 1 - Exam PHYSICAL EXAM: VITAL SIGNS: As above GENERAL: [Sitting up in bed, no acute distress. Well-nourished] HEENT: [Pupils equal conjunctiva normal. Oral conjunctiva normal] NECK: [Supple, no JVD,] RESPIRATORY EFFORT:[ Normal] LUNGS: [Bilateral bases diminished no wheezes rhonchi or crackles. Right chest Mediport] CARDIOVASCULAR[ regular S1 and S2, no murmurs rubs or gallops] GI: [Abdomen soft, distended, diffuse tenderness throughout all quads, positive bowel sounds.] PSYCH: [Alert and oriented -3, mood and affect normal.] SKIN: Right leg cellulitis, lymphadenopathy, edema /redness improving] NEURO: No focal deficits. 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 Discharge planning in progress pending Oncology's recommendations. PT/OT.Close monitoring of electrolytes, hemoglobin with repeat labs ordered for a.m. Prognosis guarded given multiple complex medical issues. Further recommendations to follow. The impression and plan of care has been dictated as directed. : I performed a H&P examination of this patient and discussed the same with the dictator. I agree with the dictator's note. Any additional findings/opinions/ etc. will be noted.
--- NOTE | 2016-11-12 17:07 | P.PN ---
Subjective Principal diagnosis: fever Pt seen today in follow up, she is feeling much better, her RLE is less swollen and tender, she is tolerating oral intake, no c/o r/t bowel or bladder, no fevers. Objective - Vital Signs Vital signs: Vital Signs Temp 98.3 F 11/12/16 15:00 Pulse 82 11/12/16 15:00 Resp 16 11/12/16 15:00 BP 123/72 11/12/16 15:00 Pulse Ox 95 11/12/16 15:00 Intake & Output 11/11/16 11/12/16 11/12/16 18:59 06:59 18:59 Intake Total 210 130 Balance 210 130 Intake: IV 210 130 .9@20 160 80 Piperacillin-Tazobactam 3 50 50 .375 gm In Dextrose/Water 1 50ml.bag @ 12.5 mls/hr IVPB Q8HR [facility] Rx#: [id number] Other: Voiding Method Toilet Toilet # Voids 2 1 1 # Bowel Movements 1 - Constitutional General appearance: Present: average body habitus, cooperative, no acute distress - EENT Eyes: Present: anicteric sclerae, normal appearance - Peripheral edema leg Peripheral Edema: right: 2+, left: 1+ - Gastrointestinal General gastrointestinal: Present: distended, normal bowel sounds, soft - Neurologic Neurologic: Present: CNII-XII intact - Musculoskeletal Musculoskeletal: Present: generalized weakness - Psychiatric Psychiatric: Present: A&O x's 3, appropriate affect, intact judgment & insight - Labs CBC & Chem 7: 11/11/16 06:20 11/11/16 06:20 Labs: Abnormal Lab Results - Last 24 Hours (Table) 11/11/16 Range/Units 06:20 Uric Acid 2.2 L (3.7-7.4) mg/dL Lactate Dehydrogenase 1050 H (313-618) U/L Microbiology - Last 24 Hours (Table) 11/07/16 18:18 Blood Culture - Preliminary Blood No Growth after 96 hours Assessment and Plan (1) Fever Narrative/Plan: Last recorded temp 100.3F on 11/10, pt doing much better after abx treatment. Unclear if infection, tumor or treatment of tumor being the cause. Will follow ID recommendations for oral antibiotics for now. Status: Acute (2) Immunocompromised patient Status: Acute (3) Cutaneous T-cell lymphoma Narrative/Plan: Case was reviewed with Dr. Cruz or Radiation as well as pt primary Oncologist Dr. Smith at [facility]. All physicians have collaborate. Radiation is not being planned at this time due to previous radiation field. Chemotherapy in the form of CHOP has been decided upon. Inpatient treatment felt to be safest for pt due to tumor bulk and concern for tumor lysis syndrome. Orders have been written and signed by Dr. Barrientos, orders communicated to pharmacy, Oncology Nursing availability verified, case discussed with Internal Medicine. Labs have been ordered for monitoring. All was discussed with pt and family at bedside, all questions answered and pt has agreed to proceed with chemo. Status: Chronic
[2016-11-12] MEDS: HYDROcodone/APAP 5-325MG 1 EACH TAB PO PRN (21:51)
[2016-11-13] MEDS: PIPERACILLIN-TAZOBACTAM 3.375 GM in DEXTROSE/WATER 1 50ML.BAG IVPB SCH ×4 (00:34→23:56)
[2016-11-13 08:12] LABS: Magnesium 1.5 mg/dL (1.6-2.3); Phosphorous 2.9 mg/dL (2.5-4.5); Uric Acid 1.7 mg/dL (3.7-7.4)
[2016-11-13 08:28] LABS: Anisocytosis Slight; Basophils # (A) 0.1 k/uL (0-0.2); Basophils % (A) 1 %; CH 31.5; CHCM 31.3; Eosinophils # (A) 3.1 k/uL (0-0.7); Eosinophils % (A) 30 %; HCT 34.3 % (34.0-46.0); HDW 2.79; HGB 10.7 gm/dL (11.4-16.0); Hypochromasia Slight; Luc # (Auto) 0.38; Luc % (Auto) 4; Lymphocytes # (A) 0.4 k/uL (1.0-4.8); Lymphocytes % (A) 3 %; MCH 31.6 pg (25.0-35.0); MCHC 31.3 g/dL (31.0-37.0); MCV 100.9 fL (80.0-100.0); Macrocytosis Slight; Mean Platelet Volume 7.5; Monocytes # (A) 0.9 k/uL (0-1.0); Monocytes % (A) 9 %; Neutrophils # (A) 5.5 k/uL (1.3-7.7); Neutrophils % (A) 54 %; RBC 3.39 m/uL (3.80-5.40); RDW 16.3 % (11.5-15.5); WBC 10.3 k/uL (3.8-10.6); WBC (Perox) 11.49
[2016-11-13] MEDS: RALOXIFENE 60 MG TAB PO SCH (08:28)
[2016-11-13] MEDS: MAGNESIUM OXIDE 400 MG TAB PO SCH ×2 (08:28→21:02)
[2016-11-13] MEDS: B COMPLEX-VIT C-VIT E-ZINC 1 EACH TAB PO SCH (08:28)
[2016-11-13] MEDS: FOLIC ACID 1 MG TAB PO SCH (08:28)
[2016-11-13] MEDS: valACYclovir HCL 1,000 MG TABLET PO SCH (08:29)
[2016-11-13] MEDS: PANTOPRAZOLE 40 MG TABLET PO SCH (08:29)
[2016-11-13] MEDS: POTASSIUM CHLORIDE ER 10 MEQ TAB.ER.PRT PO SCH ×2 (08:29→21:02)
[2016-11-13] MEDS: predniSONE 50 MG TAB PO SCH (08:29)
[2016-11-13] MEDS: prednisoLONE ACETATE 1% OPHTH DROPS 1 ML BTL BOTH EYES SCH ×4 (08:30→21:03)
[2016-11-13] MEDS: MUPIROCIN 2% OINT 22 GM TUBE TOPICAL SCH ×3 (08:31→21:03)
[2016-11-13] MEDS: ATORVASTATIN 80 MG TAB PO SCH (08:40)
[2016-11-13] MEDS: TRIAMCINOLONE ACET 0.1% OINTMENT 15 GM TUBE TOPICAL PRN (08:41)
[2016-11-13] MEDS: CLOBETASOL PROP 0.05% OINT 15GM TOPICAL SCH ×2 (08:41→21:02)
[2016-11-13] MEDS: LIDOCAINE 4% CREAM 5 GM TUBE TOPICAL PRN (08:41)
[2016-11-13] MEDS ORDERED: CYCLOPHOSPHAMIDE IV NR (09:00)
[2016-11-13] MEDS ORDERED: SODIUM CHLORIDE 0.9% IV NR (09:00)
[2016-11-13] MEDS ORDERED: ONDANSETRON 16 MG in SODIUM CHLORIDE 0.9% 50 ML IVPB NR (09:00)
[2016-11-13] MEDS ORDERED: FAMOTIDINE 20 MG/2 ML VIAL IVP NR (09:00)
[2016-11-13] MEDS ORDERED: DOXORUBICIN HCL IV NR (09:00)
[2016-11-13] MEDS ORDERED: DEXAMETHASONE SOD PHOSPHATE 10 MG/ML 1 ML VIAL IV NR (09:00)
[2016-11-13] MEDS: ENOXAPARIN 40 MG/0.4 ML SYRINGE SQ SCH (09:00)
[2016-11-13 09:05] LABS: Manual Review Performed
[2016-11-13] MEDS: ALLOPURINOL 300 MG TAB PO SCH (09:45)
[2016-11-13] MEDS: SODIUM CHLORIDE 0.9% 1,000 ML IV SCH ×2 (09:57→21:01)
[2016-11-13] MEDS: SODIUM CHLORIDE 0.9% IV SCH (10:52)
[2016-11-13] MEDS: RASBURICASE IV SCH (10:52)
--- NOTE | 2016-11-13 11:16 | P.PN ---
Subjective Patient resting comfortably in bed noted to have some dyspnea. Continues with abdominal distention. Noted right lower leg edema erythema improved Objective - Vital Signs Vital signs: Vital Signs Temp 99.3 F 11/13/16 07:00 Pulse 82 11/13/16 08:00 Resp 16 11/13/16 08:00 BP 117/64 11/13/16 07:00 Pulse Ox 91 L 11/13/16 07:00 Intake & Output 11/12/16 11/13/16 11/13/16 18:59 06:59 18:59 Intake Total 1510 Balance 1510 Weight 75.296 kg Intake: IV 210 .9@20 160 Piperacillin-Tazobactam 3 50 .375 gm In Dextrose/Water 1 50ml.bag @ 12.5 mls/hr IVPB Q8HR [facility] Rx#: [id number] Oral 1300 Other: Voiding Method Toilet Toilet # Voids 1 2 1 # Bowel Movements 1 - Constitutional General appearance: Present: mild distress - EENT Eyes: Present: PERRLA Ears: bilateral: normal - Neck Neck: Present: normal ROM - Respiratory Details: Respiratory rate 24 Respiratory: bilateral: CTA - Cardiovascular Rhythm: regular - Gastrointestinal General gastrointestinal: Present: distended, normal bowel sounds - Integumentary Integumentary Comment(s): Right lower leg Integumentary: Present: cellulitis - Neurologic Neurologic: Present: CNII-XII intact - Psychiatric Psychiatric: Present: A&O x's 3, appropriate affect, intact judgment & insight - Labs CBC & Chem 7: 11/13/16 07:45 11/11/16 06:20 Labs: Abnormal Lab Results - Last 24 Hours (Table) 11/11/16 11/13/16 11/13/16 Range/Units 06:20 07:45 07:45 RBC 3.39 L (3.80-5.40) m/uL Hgb 10.7 L (11.4-16.0) gm/dL MCV 100.9 H (80.0-100.0) fL RDW 16.3 H (11.5-15.5) % Lymphocytes # 0.4 L (1.0-4.8) k/uL Eosinophils # 3.1 H (0-0.7) k/uL Uric Acid 2.2 L 1.7 L (3.7-7.4) mg/dL Magnesium 1.5 L (1.6-2.3) mg/dL Lactate Dehydrogenase 1050 H (313-618) U/L Microbiology - Last 24 Hours (Table) 11/07/16 18:18 Blood Culture - Preliminary Blood No Growth after 120 hours - Imaging and Cardiology CT scan - chest: report reviewed Assessment and Plan Plan: Assessment Fever sepsis related to right lower extremity cellulitis T-cell lymphoma Lymphedema with cellulitis right lower leg Recent chemotherapy immunocompromised Glaucoma hypertension Osteoarthritis Hypothyroidism Hypokalemia History of Port-A-Cath Plan Continue consultation with infectious disease Consultation with oncology Reinitiate chemotherapy hold for 48 hours
--- NOTE | 2016-11-13 12:04 | PN ---
DATE OF SERVICE: 11/13/2016 Reason for followup is right lower extremity cellulitis. INTERVAL HISTORY: The patient is afebrile. She is feeling better, breathing comfortably. Has been evaluated by Oncology and a new chemo to be started today. Patient denies having any chest pain or worsening abdominal pain, nausea , vomiting. Only diarrhea. On examination, blood pressure is 117/64 with a pulse of 82, temperature 99.3. She is 91% on room air. General description is an elderly female lying in bed in no distress. RESPIRATORY SYSTEM: Unlabored breathing, clear to auscultation. HEART: S1, S2, regular rate and rhythm. ABDOMEN: Soft, nontender. LABS: Hemoglobin 10.7, white count 10.3. Blood and urine cultures are so far negative. DIAGNOSTIC IMPRESSION AND PLAN: Patient admitted to the hospital with a fever. Source is likely right lower extremity cellulitis. The patient did not have underlying ( ) significant swelling of the leg. Overall drainage seems to have improved. Patient currently on Zosyn. Hopefully switch to finish therapy on oral antibiotics. Continue supportive care. [facility]
--- NOTE | 2016-11-13 13:24 | P.PN ---
Subjective Principal diagnosis: fever Pt seen today in follow up, she has been afebrile for 3 days now, she is tolerating oral intake, denies cough, abd pain, her RLE is still swollen and tender, she gets to the bathroom with assistance, denies acute changes in bowel or bladder habits. She will be starting chemo today. Objective - Vital Signs Vital signs: Vital Signs Temp 97.6 F 11/13/16 12:08 Pulse 97 11/13/16 12:08 Resp 16 11/13/16 12:08 BP 134/75 11/13/16 12:08 Pulse Ox 94 L 11/13/16 12:08 Intake & Output 11/12/16 11/13/16 11/13/16 18:59 06:59 18:59 Intake Total 1510 Balance 1510 Weight 75.296 kg Intake: IV 210 .9@20 160 Piperacillin-Tazobactam 3 50 .375 gm In Dextrose/Water 1 50ml.bag @ 12.5 mls/hr IVPB Q8HR [facility] Rx#: [id number] Oral 1300 Other: Voiding Method Toilet Toilet # Voids 1 2 1 # Bowel Movements 1 - Constitutional General appearance: Present: average body habitus, cooperative, no acute distress - EENT Eyes: Present: anicteric sclerae, normal appearance - Respiratory Respiratory: bilateral: CTA - Cardiovascular Heart sounds: normal: S1, S2 Abnormal Heart Sounds: Present: systolic murmur - Peripheral edema leg Peripheral Edema: right: 3+, left: 2+ - Gastrointestinal General gastrointestinal: Present: normal bowel sounds, soft - Neurologic Neurologic: Present: CNII-XII intact - Musculoskeletal Musculoskeletal: Present: strength equal bilaterally - Psychiatric Psychiatric: Present: A&O x's 3, appropriate affect, intact judgment & insight - Labs CBC & Chem 7: 11/13/16 07:45 11/11/16 06:20 Labs: Abnormal Lab Results - Last 24 Hours (Table) 11/11/16 11/13/16 11/13/16 Range/Units 06:20 07:45 07:45 RBC 3.39 L (3.80-5.40) m/uL Hgb 10.7 L (11.4-16.0) gm/dL MCV 100.9 H (80.0-100.0) fL RDW 16.3 H (11.5-15.5) % Lymphocytes # 0.4 L (1.0-4.8) k/uL Eosinophils # 3.1 H (0-0.7) k/uL Uric Acid 2.2 L 1.7 L (3.7-7.4) mg/dL Magnesium 1.5 L (1.6-2.3) mg/dL Lactate Dehydrogenase 1050 H (313-618) U/L Microbiology - Last 24 Hours (Table) 11/07/16 18:18 Blood Culture - Preliminary Blood No Growth after 120 hours - Imaging and Cardiology CT scan - chest: report reviewed Assessment and Plan (1) Fever Narrative/Plan: Fevers resolved with abx treatment, pt will continue with treatment per ID Status: Acute (2) Immunocompromised patient Status: Acute (3) Cutaneous T-cell lymphoma Narrative/Plan: Dr. Barrientos, Dr. Cruz and Dr. Smith discussed pt case. She is not felt to be candidate for radiation as the area has previous radiation treatment. CHOP was decided to be the best treatment option for pt. Orders have been written and reviewed, pt will start treatment today. She is at high risk for tumor lysis so she is going to remain inpatient for monitoring for about 72 hours post treatment. Labs daily. Pt understands treatment plan and wants to proceed with chemotherpay. Status: Chronic
[2016-11-13] MEDS: MULTIVITAMINS, THERA 1 EACH TAB PO SCH (13:55)
[2016-11-14] MEDS: ACETAMINOPHEN TAB 500 MG TAB PO PRN (00:05)
[2016-11-14 06:56] LABS: Magnesium 1.7 mg/dL (1.6-2.3); Phosphorous 3.2 mg/dL (2.5-4.5); Uric Acid <0.5 mg/dL (3.7-7.4)
[2016-11-14] MEDS: CLOBETASOL PROP 0.05% OINT 15GM TOPICAL SCH ×2 (09:58→21:12)
[2016-11-14] MEDS: TRIAMCINOLONE ACET 0.1% OINTMENT 15 GM TUBE TOPICAL PRN (09:58)
[2016-11-14] MEDS: PIPERACILLIN-TAZOBACTAM 3.375 GM in DEXTROSE/WATER 1 50ML.BAG IVPB SCH ×3 (09:58→23:23)
[2016-11-14] MEDS: FOLIC ACID 1 MG TAB PO SCH (09:59)
[2016-11-14] MEDS: predniSONE 50 MG TAB PO SCH (09:59)
[2016-11-14] MEDS: RALOXIFENE 60 MG TAB PO SCH (09:59)
[2016-11-14] MEDS: POTASSIUM CHLORIDE ER 10 MEQ TAB.ER.PRT PO SCH ×2 (09:59→21:12)
[2016-11-14] MEDS: MAGNESIUM OXIDE 400 MG TAB PO SCH ×2 (09:59→21:12)
[2016-11-14] MEDS: B COMPLEX-VIT C-VIT E-ZINC 1 EACH TAB PO SCH (09:59)
[2016-11-14] MEDS: MUPIROCIN 2% OINT 22 GM TUBE TOPICAL SCH ×3 (09:59→21:13)
[2016-11-14] MEDS: PANTOPRAZOLE 40 MG TABLET PO SCH (10:00)
[2016-11-14] MEDS: ATORVASTATIN 80 MG TAB PO SCH (10:00)
[2016-11-14] MEDS: ALLOPURINOL 300 MG TAB PO SCH (10:00)
[2016-11-14] MEDS: ENOXAPARIN 40 MG/0.4 ML SYRINGE SQ SCH (10:00)
[2016-11-14] MEDS: prednisoLONE ACETATE 1% OPHTH DROPS 1 ML BTL BOTH EYES SCH ×4 (10:01→21:13)
[2016-11-14] MEDS: valACYclovir HCL 1,000 MG TABLET PO SCH (10:01)
--- NOTE | 2016-11-14 10:36 | P.PN ---
Subjective Principal diagnosis: She has some improvement today. Sitting up in bed. family at bedside. Objective - Vital Signs Vital signs: Vital Signs Temp 97.2 F L 11/14/16 07:00 Pulse 64 11/14/16 07:00 Resp 18 11/14/16 07:00 BP 115/55 11/14/16 07:00 Pulse Ox 96 11/14/16 07:00 Intake & Output 11/13/16 11/14/16 11/14/16 18:59 06:59 18:59 Intake Total 840 Balance 840 Weight 75.296 kg Intake: IV 100 Piperacillin-Tazobactam 3 100 .375 gm In Dextrose/Water 1 50ml.bag @ 12.5 mls/hr IVPB Q8HR LUCY Rx#: [id number] Oral 740 Other: Voiding Method Toilet Toilet Toilet # Voids 2 1 # Bowel Movements 1 - Constitutional General appearance: Present: mild distress - EENT Eyes: Present: PERRLA Ears: bilateral: normal - Neck Neck: Present: normal ROM - Respiratory Respiratory: left: CTA - Cardiovascular Rhythm: regular - Peripheral edema leg Peripheral Edema: right: 3+ - Gastrointestinal General gastrointestinal: Present: distended - Integumentary Integumentary: Present: cellulitis, normal - Neurologic Neurologic: Present: CNII-XII intact - Musculoskeletal Musculoskeletal: Present: generalized weakness - Labs CBC & Chem 7: 11/13/16 07:45 11/11/16 06:20 Labs: Abnormal Lab Results - Last 24 Hours (Table) 11/14/16 Range/Units 06:05 Uric Acid <0.5 L (3.7-7.4) mg/dL Microbiology - Last 24 Hours (Table) 11/07/16 18:18 Blood Culture - Final Blood No Growth after 144 hours Assessment and Plan Plan: Assessment Fever sepsis secondary to right lower extremity cellulitis T-cell lymphoma Lymphedema right lower leg Recent chemotherapy immunocompromised History of glaucoma Hypertension Osteoarthritis Hypothyroidism History of MRSA hypokalemia Has Port-A-Cath in place Plan Continue consultation with infectious disease Continue consultation with oncology Restarting chemotherapy plan 72 hour hold
[2016-11-14] MEDS: RASBURICASE IV SCH (13:33)
[2016-11-14] MEDS: SODIUM CHLORIDE 0.9% IV SCH (13:33)
[2016-11-14] MEDS: MULTIVITAMINS, THERA 1 EACH TAB PO SCH (13:34)
[2016-11-14] MEDS: SODIUM CHLORIDE 0.9% 1,000 ML IV SCH ×3 (13:34→20:00)
--- NOTE | 2016-11-14 17:09 | PN ---
DATE OF SERVICE: 11/14/2016 REASON FOR FOLLOWUP: Possible right lower extremity cellulitis. INTERVAL HISTORY: The patient is afebrile. She is complaining of some shortness of breath but no chest pain, no cough. No significant abdominal pain. No nausea or vomiting or any diarrhea. On examination, blood pressure is 115/55 with a pulse of 74, temperature 97.2. She is 96% on room air. General description is an elderly female lying in bed in no distress. RESPIRATORY SYSTEM: Unlabored breathing. Clear to auscultation. No wheeze or crackle. HEART: S1, S2. Regular rate and rhythm. ABDOMEN: Soft. No tenderness. Right leg redness has improved. Minimal swelling. LABS: No new labs have been obtained. DIAGNOSTIC IMPRESSION AND PLAN: Patient admitted to hospital with a fever with concern about right lower extremity cellulitis. Patient's fever has resolved. Redness has improved. Currently on Zosyn; to be continued. Hopefully patient ( ) with oral antibiotics. Continue supportive care. [facility]
--- NOTE | 2016-11-14 19:41 | P.PN ---
Subjective Principal diagnosis: fever, progressive T-cell lymphoma Pt seen today after chemo last night, she states feeling good, denies fever, oral irritation, nausea, appetite is fair, no cough, SOB, abd is still distended , legs are swollen but less red and tender, no changes in bowel or bladder habits. Objective - Vital Signs Vital signs: Vital Signs Temp 97.4 F L 11/14/16 15:00 Pulse 72 11/14/16 15:00 Resp 18 11/14/16 15:00 BP 136/68 11/14/16 15:00 Pulse Ox 96 11/14/16 15:00 Intake & Output 11/14/16 11/14/16 11/15/16 06:59 18:59 06:59 Intake Total 840 Balance 840 Weight 75.296 kg Intake: IV 100 Piperacillin-Tazobactam 3 100 .375 gm In Dextrose/Water 1 50ml.bag @ 12.5 mls/hr IVPB Q8HR LUCY Rx#: [id number] Oral 740 Other: Voiding Method Toilet Toilet # Voids 1 2 - Constitutional General appearance: Present: average body habitus, cooperative, no acute distress - EENT Eyes: Present: anicteric sclerae ENT: Present: normal oropharynx - Respiratory Respiratory: bilateral: CTA - Cardiovascular Heart sounds: normal: S1, S2 Abnormal Heart Sounds: Present: systolic murmur - Peripheral edema leg Peripheral Edema: bilateral: 2+, Pitting - Gastrointestinal General gastrointestinal: Present: normal bowel sounds, soft - Neurologic Neurologic: Present: CNII-XII intact - Musculoskeletal Musculoskeletal Comment(s): Pt walking with walker in the hallway Musculoskeletal: Present: generalized weakness, strength equal bilaterally - Psychiatric Psychiatric: Present: A&O x's 3, appropriate affect, intact judgment & insight - Labs CBC & Chem 7: 11/13/16 07:45 11/11/16 06:20 Labs: Abnormal Lab Results - Last 24 Hours (Table) 11/14/16 Range/Units 06:05 Uric Acid <0.5 L (3.7-7.4) mg/dL Microbiology - Last 24 Hours (Table) 11/07/16 18:18 Blood Culture - Final Blood No Growth after 144 hours Assessment and Plan (1) Fever Status: Resolved (2) Immunocompromised patient Status: Chronic (3) Cutaneous T-cell lymphoma Narrative/Plan: Pt given chemo inpatient due to high risk of tumor lysis. Her labs today were great, she has not had unmanageable side effects. She has BLE swelling likely from extensive hydration, IVF can now be reduced. Status: Chronic Plan: Pt is ok for discharge in AM after labs reviewed and she has been cleared by Attending and Consulting Physicians. She will get neulasta on Saturday in the office, she will have CBC next week in office-awaiting dates and times for appts, will get to chart as soon as scheduled, pt and daughter aware.
[2016-11-15 08:34] LABS: Anisocytosis Slight; Basophils % (A) 0 %; CH 30.4; CHCM 30.7; Eosinophils # (A) 0.3 k/uL (0-0.7); Eosinophils % (A) 3 %; HCT 32.1 % (34.0-46.0); HDW 2.88; HGB 10.1 gm/dL (11.4-16.0); Hypochromasia Moderate; Luc # (Auto) 0.18; Luc % (Auto) 2; Lymphocytes # (A) 0.1 k/uL (1.0-4.8); Lymphocytes % (A) 1 %; MCH 31.3 pg (25.0-35.0); MCHC 31.5 g/dL (31.0-37.0); MCV 99.6 fL (80.0-100.0); Macrocytosis Slight; Mean Platelet Volume 7.4; Monocytes # (A) 0.8 k/uL (0-1.0); Monocytes % (A) 9 %; Neutrophils # (A) 7.8 k/uL (1.3-7.7); Neutrophils % (A) 85 %; RBC 3.22 m/uL (3.80-5.40); RDW 16.2 % (11.5-15.5); WBC 9.2 k/uL (3.8-10.6); WBC (Perox) 10.06
[2016-11-15 08:50] LABS: ALT 30 U/L (9-52); AST 49 U/L (14-36); Alkaline Phosphatase 53 U/L (38-126); Anion Gap 7 mmol/L; Blood Urea Nitrogen 14 mg/dL (7-17); Calcium 8.9 mg/dL (8.4-10.2); Carbon Dioxide 21 mmol/L (22-30); Chloride 114 mmol/L (98-107); Glucose 87 mg/dL (74-99); Magnesium 1.9 mg/dL (1.6-2.3); Non-African American GFR(MDRD) >60 (>60 ml/min/1.73 sqM); Sodium 142 mmol/L (137-145); Total Bilirubin 0.3 mg/dL (0.2-1.3); Total Protein 5.8 g/dL (6.3-8.2); Uric Acid <0.5 mg/dL (3.7-7.4)
[2016-11-15] MEDS: FOLIC ACID 1 MG TAB PO SCH (09:25)
[2016-11-15] MEDS: POTASSIUM CHLORIDE ER 10 MEQ TAB.ER.PRT PO SCH ×2 (09:26→21:00)
[2016-11-15] MEDS: RALOXIFENE 60 MG TAB PO SCH (09:26)
[2016-11-15] MEDS: prednisoLONE ACETATE 1% OPHTH DROPS 1 ML BTL BOTH EYES SCH ×4 (09:26→21:00)
[2016-11-15] MEDS: MULTIVITAMINS, THERA 1 EACH TAB PO SCH (09:26)
[2016-11-15] MEDS: valACYclovir HCL 1,000 MG TABLET PO SCH (09:26)
[2016-11-15] MEDS: ENOXAPARIN 40 MG/0.4 ML SYRINGE SQ SCH (09:26)
[2016-11-15] MEDS: MAGNESIUM OXIDE 400 MG TAB PO SCH ×2 (09:27→21:00)
[2016-11-15] MEDS: PANTOPRAZOLE 40 MG TABLET PO SCH (09:27)
[2016-11-15] MEDS: predniSONE 50 MG TAB PO SCH (09:27)
[2016-11-15] MEDS: PIPERACILLIN-TAZOBACTAM 3.375 GM in DEXTROSE/WATER 1 50ML.BAG IVPB SCH ×2 (09:27→17:24)
[2016-11-15] MEDS: MUPIROCIN 2% OINT 22 GM TUBE TOPICAL SCH ×3 (09:27→21:00)
[2016-11-15] MEDS: CLOBETASOL PROP 0.05% OINT 15GM TOPICAL SCH ×2 (09:28→21:00)
[2016-11-15] MEDS: B COMPLEX-VIT C-VIT E-ZINC 1 EACH TAB PO SCH (09:28)
[2016-11-15] MEDS: ALLOPURINOL 300 MG TAB PO SCH (09:28)
--- NOTE | 2016-11-15 12:11 | P.PN ---
Subjective Patient sitting at side of bed with family. Noted increased edema to left lower extremity. Improvement to right lower extremity. Nurse states that they' re having difficulty drawing from the Port-A-Cath nurse will attempt manipulation with Port-A-Cath of unsuccessful will do protocols to have it assessed. Objective - Vital Signs Vital signs: Vital Signs Temp 97.3 F L 11/15/16 07:00 Pulse 67 11/15/16 07:00 Resp 18 11/15/16 07:00 BP 132/68 11/15/16 07:00 Pulse Ox 96 11/15/16 07:00 Intake & Output 11/14/16 11/15/16 11/15/16 18:59 06:59 18:59 Weight 75.296 kg Other: Voiding Method Toilet Toilet Toilet # Voids 2 1 - Constitutional General appearance: Present: mild distress - EENT Eyes: Present: PERRLA Ears: bilateral: normal - Neck Neck: Present: normal ROM - Respiratory Respiratory: bilateral: CTA - Cardiovascular Rhythm: regular - Peripheral edema leg Peripheral Edema: right: 2+, left: 3+ - Gastrointestinal General gastrointestinal: Present: distended, soft - Integumentary Integumentary: Present: normal - Neurologic Neurologic: Present: CNII-XII intact - Musculoskeletal Musculoskeletal: Present: generalized weakness - Psychiatric Psychiatric: Present: A&O x's 3, appropriate affect, intact judgment & insight - Labs CBC & Chem 7: 11/15/16 08:04 11/15/16 08:04 Labs: Abnormal Lab Results - Last 24 Hours (Table) 11/15/16 11/15/16 Range/Units 08:04 08:04 RBC 3.22 L (3.80-5.40) m/uL Hgb 10.1 L (11.4-16.0) gm/dL Hct 32.1 L (34.0-46.0) % RDW 16.2 H (11.5-15.5) % Neutrophils # 7.8 H (1.3-7.7) k/uL Lymphocytes # 0.1 L (1.0-4.8) k/uL Chloride 114 H (98-107) mmol/L Carbon Dioxide 21 L (22-30) mmol/L Creatinine 0.51 L (0.52-1.04) mg/dL Uric Acid <0.5 L (3.7-7.4) mg/dL AST 49 H (14-36) U/L Total Protein 5.8 L (6.3-8.2) g/dL Albumin 2.9 L (3.5-5.0) g/dL Assessment and Plan Plan: Assessment Fever sepsis related to right lower extremity cellulitis T-cell lymphoma Lymphedema with cellulitis of right lower leg Immunocompromise recent chemotherapy history of glaucoma I pretension Osteoarthritis Hypothyroidism History of MRSA Hypokalemia Has Port-A-Cath right-sided chest Plan Continue consultation with oncology started on oral antibiotics Keflex on discharge Hopeful discharge soon with release from oncology
[2016-11-15] MEDS: RASBURICASE IV SCH (12:48)
[2016-11-15] MEDS: SODIUM CHLORIDE 0.9% IV SCH (12:48)
[2016-11-15] MEDS: ATORVASTATIN 80 MG TAB PO SCH (12:49)
[2016-11-15] MEDS ORDERED: FUROSEMIDE 20 MG TAB PO STA (16:30)
[2016-11-15] MEDS: SODIUM CHLORIDE 0.9% 1,000 ML IV SCH (16:58)
--- NOTE | 2016-11-15 17:03 | P.PN ---
Subjective Principal diagnosis: fever, progressive T-cell lymphoma with inpatient chemotherapy for high risk tumor lysis syndrome Pt seen today 2 days post chemo, not feeling as good as yesterday but generalized, non-specific c/o, less energy, tired, feels more bloated, no fever , oral irritation, nausea, appetite is stable, no cough, SOB, no changes in bowel or bladder habits. Objective - Vital Signs Vital signs: Vital Signs Temp 98.9 F 11/15/16 15:00 Pulse 73 11/15/16 15:00 Resp 18 11/15/16 15:00 BP 144/73 11/15/16 15:00 Pulse Ox 94 L 11/15/16 15:00 Intake & Output 11/14/16 11/15/16 11/15/16 18:59 06:59 18:59 Weight 75.296 kg Other: Voiding Method Toilet Toilet Toilet # Voids 2 1 1 - Constitutional Constitutional Comment(s): General anasarca General appearance: Present: cooperative, no acute distress - EENT ENT: Present: normal oropharynx - Respiratory Respiratory: bilateral: CTA - Cardiovascular Rhythm: regular Heart sounds: normal: S1, S2 - Peripheral edema leg Peripheral Edema: right: 3+, left: 2+ - Gastrointestinal General gastrointestinal: Present: distended, soft - Neurologic Neurologic: Present: CNII-XII intact - Musculoskeletal Musculoskeletal: Present: generalized weakness, strength equal bilaterally - Psychiatric Psychiatric: Present: A&O x's 3, appropriate affect, intact judgment & insight - Labs CBC & Chem 7: 11/15/16 08:04 11/15/16 08:04 Labs: Abnormal Lab Results - Last 24 Hours (Table) 11/15/16 11/15/16 Range/Units 08:04 08:04 RBC 3.22 L (3.80-5.40) m/uL Hgb 10.1 L (11.4-16.0) gm/dL Hct 32.1 L (34.0-46.0) % RDW 16.2 H (11.5-15.5) % Neutrophils # 7.8 H (1.3-7.7) k/uL Lymphocytes # 0.1 L (1.0-4.8) k/uL Chloride 114 H (98-107) mmol/L Carbon Dioxide 21 L (22-30) mmol/L Creatinine 0.51 L (0.52-1.04) mg/dL Uric Acid <0.5 L (3.7-7.4) mg/dL AST 49 H (14-36) U/L Total Protein 5.8 L (6.3-8.2) g/dL Albumin 2.9 L (3.5-5.0) g/dL Assessment and Plan (1) Fever Status: Resolved (2) Immunocompromised patient Status: Chronic (3) Cutaneous T-cell lymphoma Narrative/Plan: Pt is day 2 post chemo, labs have remained stable, VSS, no evidence of tumor lysis. Pt does have fluid overload (pt weight 82Kg today), pt was aggressively hydrated, IV flluids have been stopped. Dr. Barrientos recommended 20mg lasix BID for 5 days, Rx for the same given to nurse. Pt also needs to complete 2 more days of prednisone to complete 1st cycle, Rx for the same given to nurse. Pt has follow up in office tomorrow for neulasta, CBC,CMP will be evaluated, port will be evaluated, accessed and flushed, pt has office visit with Dr. Barrientos on Saturday. Pt and family aware of all appts. Status: Chronic Plan: Pt ok from Hem/Onc standpoint to be discharged once cleared by Attending.
--- NOTE | 2016-11-15 17:16 | PN ---
DATE OF SERVICE: 11/15/2016 REASON FOR FOLLOWUP: Right lower extremity cellulitis. INTERVAL HISTORY: The patient is afebrile. She is complaining of some shortness of breath but no significant cough or chest pain. The patient denies any worsening abdominal pain. No nausea, vomiting or any diarrhea. On examination, blood pressure is 132/68 with a pulse of 67, temperature 97.3. She is 96% on room air. General description is an elderly female up in the bed in no distress. RESPIRATORY SYSTEM: Unlabored breathing. A few crackles at the base. No wheeze. HEART: S1, S2. Regular rate and rhythm. ABDOMEN: Soft. No tenderness. The Mediport site on the right chest wall looks clean, without evidence of any cellulitis. LABS: Hemoglobin 10.1 with white count of 9.2 with BUN of 14, creatinine 0.51. Admission cultures were negative. DIAGNOSTIC IMPRESSION AND PLAN: Patient admitted to hospital with sepsis. Source is likely right lower extremity cellulitis. The patient did have T-cell lymphoma presenting with ( ) and swelling of the right leg. No other clinical focus of infection. The Mediport site looks clean and the initial blood cultures were negative, making a Mediport infection to be less likely. There is no need for doing a blood culture at this point, as the patient has been on antibiotics for almost 8 days now. She is currently on Zosyn. Switching her to Keflex for about a week at the time of discharge. Continue supportive care. [facility] MED[facility] CENTERGopi
[2016-11-16] MEDS: PIPERACILLIN-TAZOBACTAM 3.375 GM in DEXTROSE/WATER 1 50ML.BAG IVPB SCH (00:13)
[2016-11-16 07:43] LABS: Anisocytosis Slight; Basophils % (A) 0 %; CH 31.6; CHCM 31.9; Eosinophils # (A) 0.1 k/uL (0-0.7); Eosinophils % (A) 2 %; HCT 29.4 % (34.0-46.0); HDW 2.76; HGB 9.3 gm/dL (11.4-16.0); Hypochromasia Slight; Luc # (Auto) 0.09; Luc % (Auto) 2; Lymphocytes # (A) 0.1 k/uL (1.0-4.8); Lymphocytes % (A) 2 %; MCH 31.6 pg (25.0-35.0); MCHC 31.7 g/dL (31.0-37.0); MCV 99.6 fL (80.0-100.0); Macrocytosis Slight; Mean Platelet Volume 7.4; Monocytes # (A) 0.2 k/uL (0-1.0); Monocytes % (A) 6 %; Neutrophils # (A) 3.5 k/uL (1.3-7.7); Neutrophils % (A) 87 %; RBC 2.96 m/uL (3.80-5.40); RDW 16.9 % (11.5-15.5); WBC (Perox) 4.09
[2016-11-16 07:47] LABS: ALT 27 U/L (9-52); AST 41 U/L (14-36); Alkaline Phosphatase 51 U/L (38-126); Anion Gap 7 mmol/L; Blood Urea Nitrogen 13 mg/dL (7-17); Calcium 8.7 mg/dL (8.4-10.2); Carbon Dioxide 25 mmol/L (22-30); Chloride 110 mmol/L (98-107); Glucose 86 mg/dL (74-99); Non-African American GFR(MDRD) >60 (>60 ml/min/1.73 sqM); Phosphorous 2.8 mg/dL (2.5-4.5); Potassium 3.9 mmol/L (3.5-5.1); Sodium 142 mmol/L (137-145); Total Bilirubin 0.3 mg/dL (0.2-1.3); Total Protein 5.7 g/dL (6.3-8.2); Uric Acid <0.5 mg/dL (3.7-7.4)
[2016-11-16 08:06] VITALS: BP 141/65; PULSE 68; RESP 18; TEMP 98.9
--- NOTE | 2016-11-16 08:52 | P.DS ---
Providers Date of admission: 11/07/16 19:33 Expected date of discharge: 11/16/16 Attending physician: Eddie Saenz Consults: 11/07/16 19:33 Consult Physician Stat Consulting Provider: Patrick Barrientos Consult Reason/Comments: lymphoma, fever Do you want consulting provider notified?: Yes Consult Physician Stat Consulting Provider: Wesley Figueredo Consult Reason/Comments: fever Do you want consulting provider notified?: Already Contacted Primary care physician: Eddie Saenz Hospital Course: 76-year-old female was admitted for fever of 102.8. Patient is on chemotherapy Campath. Patient has history of T-cell lymphoma. Patient has lymphedema to right lower extremity with some erythema. Patient also has a Port-A-Cath in place. Patient was assessed by infectious disease of right leg improving we'll continue Keflex. Patient also had consultation with oncology and has been cleared for discharge Assessment Fever sepsis right lower extremity T-cell lymphoma Lymphedema right leg with cellulitis immunocompromised recent chemotherapy Glaucoma Hypertension Osteoarthritis Hypothyroidism Hypokalemia History of Port-A-Cath in place right-sided chest Plan Continue on Keflex Follow-up with Dr. Acuña and family physician Dr. Eddie Saenz Patient Condition at Discharge: Fair Plan - Discharge Summary New Discharge Prescriptions: New predniSONE 50 mg PO DAILY #54 tablet Changed Furosemide [Lasix] 20 mg PO BID #10 Discontinued Alemtuzumab [Campath] 10 ml IV TU Peginterferon Booker-2a 180mcg/Ml 180 mcg IM Q7D methylPREDNISolone [Medrol Dose Pack] See Taper PO DIRECTED No Action Atorvastatin [Lipitor] 80 mg PO DAILY Folic Acid/B Complex C No.17 [Virt-Jaden Plus Tablet] 5 mg PO DAILY Cephalexin [Keflex] 500 mg PO Q12HR Ondansetron Odt [Zofran Odt] 4 mg PO Q8HR PRN #10 tab PRN Reason: Nausea Cyanocobalamin [Vitamin B-12 Injection] 1,000 mcg SQ TU Vitamin B Complex 1 cap PO DAILY valACYclovir HCL [Valacyclovir] 1,000 mg PO DAILY Triamcinolone 0.1% Ointment [Kenalog 0.1% Ointment] 1 applic TOPICAL BID PRN PRN Reason: Rash SILVER sulfADIAZINE Cream [Silvadene 1% Cream] 1 applic TOPICAL DAILY Raloxifene [Evista] 60 mg PO DAILY Meloxicam [Mobic] 15 mg PO DAILY Magnesium Gluconate [Magonate] 500 mg PO BID hydrOXYzine HCL [Atarax] 25 - 50 mg PO HS PRN PRN Reason: Itching Lisinopril-Hctz 10-12.5 mg [Zestoretic 10-12.5] 1 tab PO DAILY Lidocaine 4% Cream [Lmx 4] 1 applic TOPICAL DAILY PRN PRN Reason: Pain Folic Acid 5mg 5 mg PO DAILY Clobetasol Propionate [Temovate 0.05% Oint] 1 applic TOPICAL BID Celecoxib [CeleBREX] 200 mg PO DAILY prednisoLONE ACETATE 1% OPHTH [Pred Forte 1%] 1 drops BOTH EYES QID Potassium Chloride [K-Tab ER] 10 meq PO BID Mupirocin 2% Oint [Bactroban 2% Oint] 1 applic TOPICAL TID Multivitamins, Thera [Multivitamin (formulary)] 1 tab PO DAILY Discharge Medication List Atorvastatin [Lipitor] 80 mg PO DAILY 10/05/13 [History] Folic Acid/B Complex C No.17 [Virt-Jaden Plus Tablet] 5 mg PO DAILY 09/29/15 [ History] Cephalexin [Keflex] 500 mg PO Q12HR 10/19/16 [History] Ondansetron Odt [Zofran Odt] 4 mg PO Q8HR PRN #10 tab 10/19/16 [Rx] Celecoxib [CeleBREX] 200 mg PO DAILY 11/07/16 [History] Clobetasol Propionate [Temovate 0.05% Oint] 1 applic TOPICAL BID 11/07/16 [ History] Cyanocobalamin [Vitamin B-12 Injection] 1,000 mcg SQ TU 11/07/16 [History] Folic Acid 5mg 5 mg PO DAILY 11/07/16 [History] Lidocaine 4% Cream [Lmx 4] 1 applic TOPICAL DAILY PRN 11/07/16 [History] Lisinopril-Hctz 10-12.5 mg [Zestoretic 10-12.5] 1 tab PO DAILY 11/07/16 [History ] Magnesium Gluconate [Magonate] 500 mg PO BID 11/07/16 [History] Meloxicam [Mobic] 15 mg PO DAILY 11/07/16 [History] Multivitamins, Thera [Multivitamin (formulary)] 1 tab PO DAILY 11/07/16 [History ] Mupirocin 2% Oint [Bactroban 2% Oint] 1 applic TOPICAL TID 11/07/16 [History] Potassium Chloride [K-Tab ER] 10 meq PO BID 11/07/16 [History] Raloxifene [Evista] 60 mg PO DAILY 11/07/16 [History] SILVER sulfADIAZINE Cream [Silvadene 1% Cream] 1 applic TOPICAL DAILY 11/07/16 [ History] Triamcinolone 0.1% Ointment [Kenalog 0.1% Ointment] 1 applic TOPICAL BID PRN 04/14 [History] Vitamin B Complex 1 cap PO DAILY 11/07/16 [History] hydrOXYzine HCL [Atarax] 25 - 50 mg PO HS PRN 11/07/16 [History] prednisoLONE ACETATE 1% OPHTH [Pred Forte 1%] 1 drops BOTH EYES QID 11/07/16 [ History] valACYclovir HCL [Valacyclovir] 1,000 mg PO DAILY 11/07/16 [History] Furosemide [Lasix] 20 mg PO BID #10 11/15/16 [Rx] predniSONE 50 mg PO DAILY #54 tablet 11/15/16 [Rx] Follow up Appointment(s)/Referral(s): Eddie Saenz MD [Primary Care Provider] - 1-2 days (call office tomorrow for follow up appointment, office closed) Patrick Barrientos MD [STAFF PHYSICIAN] - 11/19/16 10:45 am Patient Instructions/Handouts: Cephalexin (By mouth), Furosemide (By mouth), Prednisone (By mouth), Fever in Adults (GEN) Activity/Diet/Wound Care/Special Instructions: Pt to go to Dr. Barrientos's office on 11/16/16 at 4pm for port access, CBC, CMP and neulasta shot
[2016-11-16] MEDS ORDERED: CEPHALEXIN 500 MG CAP PO SCH (09:00)
[2016-11-16] MEDS: POTASSIUM CHLORIDE ER 10 MEQ TAB.ER.PRT PO SCH (09:34)
[2016-11-16] MEDS: predniSONE 50 MG TAB PO SCH (09:34)
[2016-11-16] MEDS: prednisoLONE ACETATE 1% OPHTH DROPS 1 ML BTL BOTH EYES SCH (09:34)
[2016-11-16] MEDS: RALOXIFENE 60 MG TAB PO SCH (09:35)
[2016-11-16] MEDS: valACYclovir HCL 1,000 MG TABLET PO SCH (09:35)
[2016-11-16] MEDS: PANTOPRAZOLE 40 MG TABLET PO SCH (09:36)
[2016-11-16] MEDS: ATORVASTATIN 80 MG TAB PO SCH (09:36)
[2016-11-16] MEDS: ALLOPURINOL 300 MG TAB PO SCH (09:36)
[2016-11-16] MEDS: ENOXAPARIN 40 MG/0.4 ML SYRINGE SQ SCH (09:37)
[2016-11-16] MEDS: B COMPLEX-VIT C-VIT E-ZINC 1 EACH TAB PO SCH (09:37)
[2016-11-16] MEDS: MULTIVITAMINS, THERA 1 EACH TAB PO SCH (09:37)
[2016-11-16] MEDS: MUPIROCIN 2% OINT 22 GM TUBE TOPICAL SCH (09:38)
[2016-11-16] MEDS: FOLIC ACID 1 MG TAB PO SCH (09:38)
[2016-11-16] MEDS: MAGNESIUM OXIDE 400 MG TAB PO SCH (09:38)
== END 2016-11-16 09:55 | disposition home or self-care (01) | DRG 872 ==
LOC: EC 17:36 → 5ONC 19:33
PROVIDERS: ADMIT Family Medicine; ATTEND Family Medicine
DX: A41.9 Sepsis, unspecified organism (principal); C84.A0 Cutaneous T-cell lymphoma, unspecified, unspecified site; L03.115 Cellulitis of right lower limb; E87.70 Fluid overload, unspecified; E03.9 Hypothyroidism, unspecified; E78.5 Hyperlipidemia, unspecified; E87.6 Hypokalemia; H40.9 Unspecified glaucoma; I10 Essential (primary) hypertension; I89.0 Lymphedema, not elsewhere classified; M19.90 Unspecified osteoarthritis, unspecified site; Z79.1 Long term (current) use of non-steroidal anti-inflammatories (NSAID); Z79.899 Other long term (current) drug therapy; Z85.828 Personal history of other malignant neoplasm of skin; Z86.14 Personal history of Methicillin resistant Staphylococcus aureus infection; Z87.442 Personal history of urinary calculi
CPT/HCPCS: 36415; 71020; 71270; 74177; 80048; 80053; 81001; 83605; 83615; 83735; 84100; 84550; 85025; 85027; 86644; 86645; 87040; 87086; 94760; 96361; 96374; 99285

== ENCOUNTER 2016-12-12 15:59 | Inpatient (IN) | payer MEDICARE, BC ==
[2016-12-12] MEDS ORDERED: SODIUM CHLORIDE 0.9% 500 ML IV STA (17:08)
[2016-12-12 17:40] LABS: ALT 43 U/L (9-52); AST 42 U/L (14-36); Alkaline Phosphatase 95 U/L (38-126); Anion Gap 10 mmol/L; Blood Urea Nitrogen 14 mg/dL (7-17); Calcium 9.1 mg/dL (8.4-10.2); Carbon Dioxide 22 mmol/L (22-30); Chloride 105 mmol/L (98-107); Glucose 150 mg/dL (74-99); Magnesium 1.5 mg/dL (1.6-2.3); Non-African American GFR(MDRD) >60 (>60 ml/min/1.73 sqM); Phosphorous 2.6 mg/dL (2.5-4.5); Potassium 3.6 mmol/L (3.5-5.1); Sodium 137 mmol/L (137-145); Total Bilirubin 0.5 mg/dL (0.2-1.3); Total Protein 6.7 g/dL (6.3-8.2)
[2016-12-12 17:44] LABS: Anisocytosis Slight; Aty Lym Flag Marked; CH 32.5; CHCM 32.3; HCT 28.5 % (34.0-46.0); HDW 2.52; MCHC 31.7 g/dL (31.0-37.0); Macrocytosis Moderate; RBC 2.82 m/uL (3.80-5.40); RDW 19.1 % (11.5-15.5); WBC (Perox) 0.51
[2016-12-12 17:46] LABS: WBC 0.4 k/uL (3.8-10.6)
--- NOTE | 2016-12-12 17:54 | XR ---
EXAMINATION TYPE: XR chest 2V DATE OF EXAM: 12/12/2016 COMPARISON: 01/18/2016 HISTORY: Fever TECHNIQUE: Frontal and lateral views of the chest are obtained. FINDINGS: There is no heart failure nor confluent pneumonic infiltrate. Thoracic aorta is atheromato us. There is right central venous catheter with tip in the right atrium. Thoracic aorta is atheromato us. There is no pleural effusion. Heart is borderline enlarged. IMPRESSION: Mild cardiomegaly. No active cardiopulmonary disease. There is improved inspiration comp ared to old exam.
[2016-12-12 18:17] LABS: Appearance,Urine Clear (Clear); Bilirubin,Urine Negative (Negative); Glucose,Urine (UA) Negative (Negative); Ketones,Urine Negative (Negative); Leukocyte Esterase,Urine Negative (Negative); Nitrite,Urine Negative (Negative); Protein,Urine Negative (Negative); UA Billing (MACRO vs. MICRO) CHEM; Urobilinogen,Urine <2.0 mg/dL (<2.0)
[2016-12-12] MEDS ORDERED: IV VANCOMYCIN PER PHARMACY 1 EACH MISC MISCELLANE PRN (18:23)
[2016-12-12 18:28] LABS: Add Differential Manual Differential
[2016-12-12] MEDS ORDERED: VANCOMYCIN 1,250 MG in SODIUM CHLORIDE 0.9% 250 ML IVPB ONE (19:00)
[2016-12-12] MEDS ORDERED: NALOXONE 0.4 MG/ML 1 ML VIAL IV PRN (19:10)
[2016-12-12] MEDS ORDERED: ONDANSETRON 4 MG/2 ML VIAL IVP PRN (19:10)
[2016-12-12] MEDS ORDERED: MORPHINE SULFATE 4 MG/ML SYRINGE IV PRN (19:10)
--- NOTE | 2016-12-12 19:18 | ED ---
General Adult HPI - General Chief complaint: Fever Stated complaint: blood concerns-sent by Dr. Barrientos Time Seen by Provider: 12/12/16 16:41 Source: patient, family, RN notes reviewed, old records reviewed Mode of arrival: wheelchair Limitations: no limitations - History of Present Illness Initial comments: 70 female with history of lymphoma currently on chemotherapy presents with a one -week history of fever. Patient is accompanied by her daughter states she's had a low-grade fever daily for the past week, at its peak it was 102 which was on Saturday. Patient's last chemotherapy was December 04. She had outpatient laboratory studies today revealed neutropenia and she was sent in for admission. She denies nausea vomiting or diarrhea. Denies any rash. States she did have a cough which began on Saturday which was mild had no sputum. No dysuria. Patient does have a Mediport. Denies abdominal pain. - Related Data Home Medications Medication Instructions Recorded Confirmed Atorvastatin [Lipitor] 80 mg PO HS 10/05/13 12/12/16 Folic Acid/B Complex C No.17 5 mg PO DAILY 09/29/15 12/12/16 [Virt-Jaden Plus Tablet] Clobetasol Propionate [Temovate 1 applic TOPICAL BID PRN 11/07/16 12/12/16 0.05% Oint] Cyanocobalamin [Vitamin B-12 1,000 mcg SQ TU 11/07/16 12/12/16 Injection] Lidocaine 4% Cream [Lmx 4] 1 applic TOPICAL DAILY PRN 11/07/16 12/12/16 Lisinopril-Hctz 10-12.5 mg 1 tab PO DAILY 11/07/16 12/12/16 [Zestoretic 10-12.5] Magnesium Gluconate [Magonate] 500 mg PO BID@0900,1700 11/07/16 12/12/16 Meloxicam [Mobic] 15 mg PO DAILY PRN 11/07/16 12/12/16 Multivitamins, Thera [Multivitamin 1 tab PO QAM 11/07/16 12/12/16 (formulary)] Mupirocin 2% Oint [Bactroban 2% 1 applic TOPICAL TID PRN 11/07/16 12/12/16 Oint] Raloxifene [Evista] 60 mg PO QAM 11/07/16 12/12/16 SILVER sulfADIAZINE Cream 1 applic TOPICAL DAILY 11/07/16 12/12/16 [Silvadene 1% Cream] Triamcinolone 0.1% Ointment 1 applic TOPICAL BID PRN 11/07/16 12/12/16 [Kenalog 0.1% Ointment] hydrOXYzine HCL [Atarax] 25 mg PO HS PRN 11/07/16 12/12/16 prednisoLONE ACETATE 1% OPHTH 1 drops BOTH EYES BID 11/07/16 12/12/16 [Pred Forte 1%] valACYclovir HCL [Valacyclovir] 1,000 mg PO HS 11/07/16 12/12/16 Celecoxib [CeleBREX] 200 mg PO DAILY PRN 12/12/16 12/12/16 Cephalexin [Keflex] 500 mg PO BID 12/12/16 12/12/16 Furosemide [Lasix] 20 mg PO QAM 12/12/16 12/12/16 hydrOXYzine HCL [Atarax] 50 mg PO HS PRN 12/12/16 12/12/16 Previous Rx's Medication Instructions Recorded Ondansetron Odt [Zofran ODT] 4 mg PO Q8HR PRN #10 tab 10/19/16 Allergies Allergy/AdvReac Type Severity Reaction Status Date / Time No Known Allergies Allergy Verified 12/12/16 16:10 Review of Systems ROS Statement: Those systems with pertinent positive or pertinent negative responses have been documented in the HPI. ROS Other: All systems not noted in ROS Statement are negative. Past Medical History Past Medical History: Cancer, Hyperlipidemia, Hypertension, Osteoarthritis (OA) , Thyroid Disorder Additional Past Medical History / Comment(s): CUTANEOUS T-CELL LYMPHOMA/ radiation, skin ca, ,murmur, multiple kidney stones, arthritis, glaucoma History of Any Multi-Drug Resistant Organisms: MRSA Date of last positivie culture/infection: 2013 MDRO Source:: rt arm Past Surgical History: Appendectomy, Bladder Surgery, Cholecystectomy, Heart Catheterization, Hernia Repair, Hysterectomy Additional Past Surgical History / Comment(s): patient recieved round of radiation treatment; kidney stents palced about 3 weks ago /removed 01-18-16, skin cancer removed,cataracts, lt inguinal hernia repair. Past Anesthesia/Blood Transfusion Reactions: No Reported Reaction Past Psychological History: Depression Smoking Status: Never smoker Past Alcohol Use History: None Reported Past Drug Use History: None Reported - Past Family History Father Family Medical History: No Reported History Additional Family Medical History / Comment(s): at age 62 Mother Family Medical History: No Reported History Additional Family Medical History / Comment(s): at age 100 General Exam Limitations: no limitations General appearance: alert, in no apparent distress Head exam: Present: atraumatic, normocephalic Eye exam: Present: normal appearance, PERRL. Absent: scleral icterus ENT exam: Present: normal exam, mucous membranes dry Neck exam: Present: normal inspection. Absent: tenderness, meningismus, full ROM Respiratory exam: Present: normal lung sounds bilaterally. Absent: respiratory distress, wheezes, rhonchi Cardiovascular Exam: Present: regular rate, normal rhythm GI/Abdominal exam: Present: soft. Absent: distended, tenderness Extremities exam: Present: normal inspection, full ROM, normal capillary refill. Absent: tenderness, pedal edema Neurological exam: Present: alert, oriented X3. Absent: motor sensory deficit Skin exam: Present: warm, dry, intact. Absent: rash, cyanosis, diaphoretic Course Vital Signs 12/12/16 12/12/16 12/12/16 16:06 17:10 18:00 Temperature 99.0 F Pulse Rate 79 75 74 Respiratory 18 18 18 Rate Blood Pressure 114/64 127/69 159/72 O2 Sat by Pulse 97 97 99 Oximetry Medical Decision Making - Medical Decision Making 76 yo female currently on chemotherapy for lymphoma presents with fever and outpatient laboratory studies reveal neutropenia. Patient is found to be neutropenic in the emergency department with a total white blood cell count 400 and is also pancytopenic with hemoglobin 9 and platelets of 30. Patient's only complaint is mild cough. She does have a right chest wall Mediport. No rash. Lungs are clear to auscultation, no dysuria. Laboratory studies do not reveal signs of UTI. Chest x-ray shows no focal pneumonia. Patient is started on vancomycin and cefepime. Case is discussed with hematology oncology and the patient will be admitted for further antibiotic treatment. Diagnosis: Neutropenic fever, pancytopenia. - Lab Data Result diagrams: 12/12/16 17:00 12/12/16 17:00 Lab Results 12/12/16 12/12/16 12/12/16 Range/Units 17:00 17:00 17:00 WBC 0.4 L* (3.8-10.6) k/uL RBC 2.82 L (3.80-5.40) m/uL Hgb 9.0 L (11.4-16.0) gm/dL Hct 28.5 L (34.0-46.0) % MCV 101.0 H (80.0-100.0) fL MCH 32.0 (25.0-35.0) pg MCHC 31.7 (31.0-37.0) g/dL RDW 19.1 H (11.5-15.5) % Plt Count 34 L* D (150-450) k/uL Differential Comment Poikilocytosis (manual Present Anisocytosis Slight Anisocytosis (manual) Present Macrocytosis Moderate Sodium 137 (137-145) mmol/L Potassium 3.6 (3.5-5.1) mmol/L Chloride 105 (98-107) mmol/L Carbon Dioxide 22 (22-30) mmol/L Anion Gap 10 mmol/L BUN 14 (7-17) mg/dL Creatinine 0.69 (0.52-1.04) mg/dL Est GFR (MDRD) Af Amer >60 (>60 ml/min/1.73 sqM) Est GFR (MDRD) Non-Af >60 (>60 ml/min/1.73 sqM) Glucose 150 H (74-99) mg/dL Plasma Lactic Acid Ritesh 2.2 H* (0.7-2.0) mmol/L Calcium 9.1 (8.4-10.2) mg/dL Phosphorus 2.6 (2.5-4.5) mg/dL Magnesium 1.5 L (1.6-2.3) mg/dL Total Bilirubin 0.5 (0.2-1.3) mg/dL AST 42 H (14-36) U/L ALT 43 (9-52) U/L Alkaline Phosphatase 95 (38-126) U/L Total Protein 6.7 (6.3-8.2) g/dL Albumin 3.5 (3.5-5.0) g/dL Urine Color Urine Appearance (Clear) Urine pH (5.0-8.0) Ur Specific [place] (1.001-1.035) Urine Protein (Negative) Urine Glucose (UA) (Negative) Urine Ketones (Negative) Urine Blood (Negative) Urine Nitrite (Negative) Urine Bilirubin (Negative) Urine Urobilinogen (<2.0) mg/dL Ur Leukocyte Esterase (Negative) 12/12/16 Range/Units 18:00 WBC (3.8-10.6) k/uL RBC (3.80-5.40) m/uL Hgb (11.4-16.0) gm/dL Hct (34.0-46.0) % MCV (80.0-100.0) fL MCH (25.0-35.0) pg MCHC (31.0-37.0) g/dL RDW (11.5-15.5) % Plt Count (150-450) k/uL Differential Comment Poikilocytosis (manual Anisocytosis Anisocytosis (manual) Macrocytosis Sodium (137-145) mmol/L Potassium (3.5-5.1) mmol/L Chloride (98-107) mmol/L Carbon Dioxide (22-30) mmol/L Anion Gap mmol/L BUN (7-17) mg/dL Creatinine (0.52-1.04) mg/dL Est GFR (MDRD) Af Amer (>60 ml/min/1.73 sqM) Est GFR (MDRD) Non-Af (>60 ml/min/1.73 sqM) Glucose (74-99) mg/dL Plasma Lactic Acid Ritesh (0.7-2.0) mmol/L Calcium (8.4-10.2) mg/dL Phosphorus (2.5-4.5) mg/dL Magnesium (1.6-2.3) mg/dL Total Bilirubin (0.2-1.3) mg/dL AST (14-36) U/L ALT (9-52) U/L Alkaline Phosphatase (38-126) U/L Total Protein (6.3-8.2) g/dL Albumin (3.5-5.0) g/dL Urine Color Yellow Urine Appearance Clear (Clear) Urine pH 6.0 (5.0-8.0) Ur Specific [place] 1.010 (1.001-1.035) Urine Protein Negative (Negative) Urine Glucose (UA) Negative (Negative) Urine Ketones Negative (Negative) Urine Blood Negative (Negative) Urine Nitrite Negative (Negative) Urine Bilirubin Negative (Negative) Urine Urobilinogen <2.0 (<2.0) mg/dL Ur Leukocyte Esterase Negative (Negative) Critical Care Time Critical Care Time: Yes Total Critical Care Time: 35 Disposition Clinical Impression: Neutropenic fever Disposition: [facility] Condition: Serious Referrals: Eddie Saenz MD [Primary Care Provider] - 1-2 days Decision to Admit Reason: Admit from EC Decision Date: 12/12/16 Decision Time: 19:17
[2016-12-12] MEDS: ACETAMINOPHEN TAB 325 MG TAB PO PRN (20:42)
[2016-12-12] MEDS: SODIUM CHLORIDE 0.9% 1,000 ML IV SCH (20:44)
[2016-12-12] MEDS: CEFEPIME 2 GM in SODIUM CHLORIDE 0.9% 50 ML IVPB SCH (22:21)
[2016-12-12] MEDS: valACYclovir HCL 1,000 MG TABLET PO SCH (22:21)
[2016-12-13 06:39] LABS: Anisocytosis Slight; CH 32.4; CHCM 31.8; HGB 8.1 gm/dL (11.4-16.0); Immature Gran Flag Marked; Large Platelets Flag Slight; MCH 31.8 pg (25.0-35.0); MCV 102.5 fL (80.0-100.0); Macrocytosis Moderate; Mean Platelet Volume 12.2; RBC 2.53 m/uL (3.80-5.40); RDW 19.3 % (11.5-15.5); WBC (Perox) 0.61
[2016-12-13 06:43] LABS: WBC 0.5 k/uL (3.8-10.6)
[2016-12-13 06:57] LABS: ALT 37 U/L (9-52); AST 37 U/L (14-36); Alkaline Phosphatase 71 U/L (38-126); Anion Gap 9 mmol/L; Blood Urea Nitrogen 9 mg/dL (7-17); Calcium 8.3 mg/dL (8.4-10.2); Carbon Dioxide 23 mmol/L (22-30); Chloride 110 mmol/L (98-107); Glucose 97 mg/dL (74-99); Non-African American GFR(MDRD) >60 (>60 ml/min/1.73 sqM); Potassium 3.5 mmol/L (3.5-5.1); Sodium 142 mmol/L (137-145); Total Bilirubin 0.4 mg/dL (0.2-1.3); Total Protein 5.3 g/dL (6.3-8.2)
[2016-12-13 07:13] LABS: Add Differential Manual Differential
[2016-12-13 07:14] LABS: Manual Review Performed
[2016-12-13] MEDS: CEFEPIME 2 GM in SODIUM CHLORIDE 0.9% 50 ML IVPB SCH ×3 (07:22→23:35)
[2016-12-13] MEDS: VANCOMYCIN 1,250 MG in SODIUM CHLORIDE 0.9% 250 ML IVPB SCH (08:20)
[2016-12-13] MEDS: LISINOPRIL-HCTZ 10-12.5 MG 1 EACH TAB PO SCH (08:21)
[2016-12-13] MEDS: SODIUM CHLORIDE 0.9% 1,000 ML IV SCH ×2 (09:16→12:55)
[2016-12-13] MEDS: SALT AND SODA MOUTHWASH 1,000 ML PO SCH ×4 (10:30→20:34)
[2016-12-13 14:35] VITALS: BMI 27.0
--- NOTE | 2016-12-13 17:39 | P.HPIM ---
History of Present Illness H&P Date: 12/13/16 Chief Complaint: neutropenic fever Mrs. Morales is a very pleasant pt of Dr. Barrientos diagnosed with stage 2B mycosis fungoids in 2009, pt had multiple local therapies including topicals, radiation and light therapy. PETT/CT scan at [facility] in November 2011 showed no visceral involvement. She was treated at [facility] with weekly interferon and weekly Pralatrexate, then Romidepsin in November 2013. She came to Dr. Barrientos for local care. She was stable on treatment until progression of her disease in November 2014 she started treatment with brentuximab vendotin November 2014 but was allergic to it so she started gemzar, last treatment was on Jan 2016. CT AP revealed significant inguinal and peroaortic adenopathy. She completed palliative XRT to right bulky inguinal lymph nodes on Feb 2016, Treatment follow up PET revealed improvement in inguinal nodes but uptake in retroperitoneal nodes, she then started doxil, had total 3 cycles, last dose in June 2016, discontinued due to side effects. 07/30/[address] CAP revealed resolution of adenopathies, she had XRT to right thigh skin lesion and she was placed on observation. Progress study CT September 2016 revealed evidence of disease progression, started campath, and only had 2 or 3 doses (dose was increased), but she had progressive RLE edema, it was found on CT to be due to be due to significant progression in her abdominal/pelvic lymph nodes. She was started on CHOP, she had her second cycle 12/05 and 12/06 she did receive neulasta. Office was contacted yesterday by Dr. Farrell, pt primary Oncologist , stating leukopenia, absolute neutropenia and fevers so pt was directed to ER. Pancultures were ordered, empiric abx prescribed. Pt seen today she is resting comfortably in bed, she had T max of 100.5F, denies chills, oral irritation, sore throat, nausea, appetite is fair, no cough, SOB, abd pain, dysuria, hematuria, diarrhea or constipation, swelling, rash or pain. Review of Systems All systems: negative Constitutional: Reports as per HPI Past Medical History Past Medical History: Cancer, Hyperlipidemia, Hypertension, Osteoarthritis (OA) , Thyroid Disorder Additional Past Medical History / Comment(s): CUTANEOUS T-CELL LYMPHOMA/ radiation, CHEMO, skin ca, murmur, multiple kidney stones, arthritis, glaucoma History of Any Multi-Drug Resistant Organisms: MRSA Date of last positivie culture/infection: 2013 MDRO Source:: rt arm Past Surgical History: Appendectomy, Bladder Surgery, Cholecystectomy, Heart Catheterization, Hernia Repair, Hysterectomy Additional Past Surgical History / Comment(s): patient recieved round of radiation treatment; kidney stents palced about 3 weeks ago /removed 01-18-16 , skin cancer removed,cataracts, lt inguinal hernia repair. Past Anesthesia/Blood Transfusion Reactions: No Reported Reaction Smoking Status: Never smoker - Past Family History Father Family Medical History: No Reported History Additional Family Medical History / Comment(s): at age 62 Mother Family Medical History: No Reported History Additional Family Medical History / Comment(s): at age 100 Medications and Allergies Home Medications Medication Instructions Recorded Confirmed Type Atorvastatin [Lipitor] 80 mg PO HS 10/05/13 12/12/16 History Folic Acid/B Complex C No.17 5 mg PO DAILY 09/29/15 12/12/16 History [Virt-Jaden Plus Tablet] Clobetasol Propionate [Temovate 1 applic TOPICAL BID PRN 11/07/16 12/12/16 History 0.05% Oint] Cyanocobalamin [Vitamin B-12 1,000 mcg SQ TU 11/07/16 12/12/16 History Injection] Lidocaine 4% Cream [Lmx 4] 1 applic TOPICAL DAILY PRN 11/07/16 12/12/16 History Lisinopril-Hctz 10-12.5 mg 1 tab PO DAILY 11/07/16 12/12/16 History [Zestoretic 10-12.5] Magnesium Gluconate [Magonate] 500 mg PO BID@0900,1700 11/07/16 12/12/16 History Meloxicam [Mobic] 15 mg PO DAILY PRN 11/07/16 12/12/16 History Multivitamins, Thera [Multivitamin 1 tab PO QAM 11/07/16 12/12/16 History (formulary)] Mupirocin 2% Oint [Bactroban 2% 1 applic TOPICAL TID PRN 11/07/16 12/12/16 History Oint] Raloxifene [Evista] 60 mg PO QAM 11/07/16 12/12/16 History SILVER sulfADIAZINE Cream 1 applic TOPICAL DAILY 11/07/16 12/12/16 History [Silvadene 1% Cream] Triamcinolone 0.1% Ointment 1 applic TOPICAL BID PRN 11/07/16 12/12/16 History [Kenalog 0.1% Ointment] hydrOXYzine HCL [Atarax] 25 mg PO HS PRN 11/07/16 12/12/16 History prednisoLONE ACETATE 1% OPHTH 1 drops BOTH EYES BID 11/07/16 12/12/16 History [Pred Forte 1%] valACYclovir HCL [Valacyclovir] 1,000 mg PO HS 11/07/16 12/12/16 History Celecoxib [CeleBREX] 200 mg PO DAILY PRN 12/12/16 12/12/16 History Cephalexin [Keflex] 500 mg PO BID 12/12/16 12/12/16 History Furosemide [Lasix] 20 mg PO QAM 12/12/16 12/12/16 History hydrOXYzine HCL [Atarax] 50 mg PO HS PRN 12/12/16 12/12/16 History Allergies Allergy/AdvReac Type Severity Reaction Status Date / Time No Known Allergies Allergy Verified 12/12/16 16:10 Physical Exam Vitals: Vital Signs Temp Pulse Pulse Resp BP BP Pulse Ox 12/13/16 07:00 98.8 F 72 16 124/57 98 12/12/16 21:30 98.4 F 12/12/16 20:53 99.0 F 74 18 159/72 99 12/12/16 20:15 100.5 F H 75 16 137/69 96 12/12/16 18:00 74 18 159/72 99 12/12/16 17:10 75 18 127/69 97 12/12/16 16:06 99.0 F 79 18 114/64 97 Intake and Output 12/12/16 12/13/16 12/13/16 22:59 06:59 14:59 Intake Total 150 Balance 150 Intake: Intake, IV Titration 150 Amount Sodium Chloride 0.9% 1, 150 000 ml @ 75 mls/hr IV . [id number] [facility] Rx#:[id number] Other: Weight 64.864 kg - Constitutional General appearance: average body habitus, cooperative, no acute distress - EENT Eyes: anicteric sclerae, EOMI, PERRLA, normal appearance ENT: no hard of hearing, hearing grossly normal, no NA/AT, normal oropharynx, no other, no pharyngeal erythema, no thrush, no tonsillar exudates, no tonsillar swelling - Neck Neck: no lymphadenopathy - Respiratory Respiratory: bilateral: CTA - Cardiovascular Rhythm: regular Heart sounds: normal: S1, S2 leg Peripheral Edema: bilateral: None - Gastrointestinal General gastrointestinal: no absent bowel sounds, no decreased bowel sounds, no distended, no hepatomegaly, no hyperactive bowel sounds, normal bowel sounds, no organomegaly, no rigid, no scaphoid, soft, no splenomegaly, no tenderness, no umbilical hernia, no ventral hernia - Integumentary Integumentary: pale - Neurologic Neurologic: CNII-XII intact - Musculoskeletal Musculoskeletal: strength equal bilaterally - Psychiatric Psychiatric: A&O x's 3, appropriate affect, intact judgment & insight Results CBC & Chem 7: 12/13/16 06:25 12/13/16 06:25 Labs: Abnormal Lab Results - Last 24 Hours (Table) 12/12/16 12/12/16 12/12/16 Range/Units 17:00 17:00 17:00 WBC 0.4 L* (3.8-10.6) k/uL RBC 2.82 L (3.80-5.40) m/uL Hgb 9.0 L (11.4-16.0) gm/dL Hct 28.5 L (34.0-46.0) % MCV 101.0 H (80.0-100.0) fL RDW 19.1 H (11.5-15.5) % Plt Count 34 L* D (150-450) k/uL Chloride (98-107) mmol/L Glucose 150 H (74-99) mg/dL Plasma Lactic Acid Ritesh 2.2 H* (0.7-2.0) mmol/L Calcium (8.4-10.2) mg/dL Magnesium 1.5 L (1.6-2.3) mg/dL AST 42 H (14-36) U/L Total Protein (6.3-8.2) g/dL Albumin (3.5-5.0) g/dL 12/13/16 12/13/16 Range/Units 06:25 06:25 WBC 0.5 L* (3.8-10.6) k/uL RBC 2.53 L (3.80-5.40) m/uL Hgb 8.1 L (11.4-16.0) gm/dL Hct 26.0 L (34.0-46.0) % MCV 102.5 H (80.0-100.0) fL RDW 19.3 H (11.5-15.5) % Plt Count 24 L* (150-450) k/uL Chloride 110 H (98-107) mmol/L Glucose (74-99) mg/dL Plasma Lactic Acid Ritesh (0.7-2.0) mmol/L Calcium 8.3 L (8.4-10.2) mg/dL Magnesium (1.6-2.3) mg/dL AST 37 H (14-36) U/L Total Protein 5.3 L (6.3-8.2) g/dL Albumin 2.7 L (3.5-5.0) g/dL Microbiology - Last 24 Hours (Table) 12/12/16 18:00 Urine Culture - Preliminary Urine,Voided Chest x-ray: report reviewed Thrombosis Risk Factor Assmnt - DVT/VTE Prophylaxis DVT/VTE Prophylaxis: Mechanical Prophylaxis ordered - Choose All That Apply Any of the Below Risk Factors Present?: Yes Each Factor Represents 1 point: Obesity (BMI >25) Other Risk Factors: Yes Each Risk Factor Represents 2 Points: Malignancy Each Risk Factor Represents 3 Points: Age 75 years or older Other congenital or acquired thrombophilia - If yes, enter type in comment: No Thrombosis Risk Factor Assessment Total Risk Factor Score: 6 Thrombosis Risk Factor Assessment Level: High Risk Assessment and Plan (1) Neutropenic fever Narrative/Plan: Pancultures ordered, empiric abx. VS being monitored. Pt received GCSF 7 days ago, no addition GCSF support at this time. Status: Acute (2) Pancytopenia due to antineoplastic chemotherapy Narrative/Plan: No transfusions planned for today, daily CBC monitoring. Status: Acute (3) Cutaneous T-cell lymphoma Narrative/Plan: Pt has done overall well with current treatment. Plan at this time is to stay on schedule. She will f/u with Dr. Barrientos prior to next cycle. Status: Chronic Plan: No asa, NSAIDs, anticoagulation. SCDs for DVT prophylaxis GI prophylaxis PCP Dr. Saenz will be consulted for medical management
[2016-12-13] MEDS: valACYclovir HCL 1,000 MG TABLET PO SCH (20:34)
[2016-12-14] MEDS: ACETAMINOPHEN TAB 325 MG TAB PO PRN ×2 (00:11→21:36)
[2016-12-14] MEDS: VANCOMYCIN 1,250 MG in SODIUM CHLORIDE 0.9% 250 ML IVPB SCH ×2 (00:34→17:12)
[2016-12-14] MEDS: SODIUM CHLORIDE 0.9% 1,000 ML IV SCH ×2 (03:30→11:52)
[2016-12-14 06:23] LABS: Anisocytosis Slight; CH 31.3; CHCM 31.8; HCT 24.2 % (34.0-46.0); HDW 2.62; HGB 7.9 gm/dL (11.4-16.0); Immature Gran Flag Slight; MCH 32.4 pg (25.0-35.0); MCHC 32.7 g/dL (31.0-37.0); Macrocytosis Slight; Mean Platelet Volume 10.4; RBC 2.45 m/uL (3.80-5.40); RDW 19.1 % (11.5-15.5); WBC 1.8 k/uL (3.8-10.6); WBC (Perox) 1.86
[2016-12-14 06:57] LABS: Anion Gap 9 mmol/L; Blood Urea Nitrogen 7 mg/dL (7-17); Calcium 8.6 mg/dL (8.4-10.2); Carbon Dioxide 24 mmol/L (22-30); Chloride 109 mmol/L (98-107); Glucose 89 mg/dL (74-99); Non-African American GFR(MDRD) >60 (>60 ml/min/1.73 sqM); Potassium 3.4 mmol/L (3.5-5.1); Sodium 142 mmol/L (137-145)
[2016-12-14 07:08] LABS: Add Differential Manual Differential
[2016-12-14 07:18] LABS: Band Neutrophils % 1 %; Manual Review Performed; Metamyelocytes % 1 %; Myelocytes % 4 %; Nucleated Red Blood Cells 1 /100 WBC (0-0); Total Cells Counted 200
[2016-12-14 07:19] LABS: Polychromasia Present
[2016-12-14] MEDS: LISINOPRIL-HCTZ 10-12.5 MG 1 EACH TAB PO SCH (08:04)
[2016-12-14] MEDS: SALT AND SODA MOUTHWASH 1,000 ML PO SCH ×4 (08:04→21:36)
[2016-12-14] MEDS: CEFEPIME 2 GM in SODIUM CHLORIDE 0.9% 50 ML IVPB SCH ×2 (08:04→15:35)
--- NOTE | 2016-12-14 11:13 | ECHOF ---
Referral Reason:chest pain MEASUREMENTS -------- HEIGHT: 152.4 cm WEIGHT: 64.9 kg BP: 127/65 RVIDd: 3.1 cm (< 3.3) IVSd: 1.2 cm (0.6 - 1.1) LVIDd: 4.6 cm (3.9 - 5.3) LVPWd: 1.1 cm (0.6 - 1.1) IVSs: 1.5 cm LVIDs: 3.0 cm LVPWs: 1.3 cm LA Diam: 3.7 cm (2.7 - 3.8) Ao Diam: 2.9 cm (2.0 - 3.7) AV Cusp: 1.7 cm (1.5 - 2.6) LA Diam: 3.2 cm (2.7 - 3.8) MV EXCURSION: 13.536 mm (> 18.000) MV EF SLOPE: 67 mm/s (70 - 150) EPSS: 0.1 cm MV E Primo: 0.57 m/s MV DecT: 208 ms MV A Primo: 1.04 m/s MV E/A Ratio: 0.55 RAP: 5.00 mmHg RVSP: 28.91 mmHg FINDINGS -------- Undetermined rhythm. This was a technically adequate study. There is mild concentric left ventricular hypertrophy. Overall left ventricular systolic function is normal with, an EF between 55 - 60 %. The right ventricle is normal in size. The right atrial size is normal. There is mild aortic valve sclerosis. There is mild aortic regurgitation. Mild mitral annular calcification present. Mild mitral regurgitation is present. Mild tricuspid regurgitation present. There is no evidence of pulmonary hypertension. The right ventricular systolic pressure, as measured by Doppler, is 28.91mmHg. There is no pulmonic regurgitation present. The aortic root size is normal. There is no pericardial effusion. CONCLUSIONS -------- 1. There is mild concentric left ventricular hypertrophy. 2. Overall left ventricular systolic function is normal with, an EF between 55 - 60 %. 3. There is mild aortic valve sclerosis. 4. There is mild aortic regurgitation. 5. Mild mitral annular calcification present. 6. Mild mitral regurgitation is present. 7. Mild tricuspid regurgitation present. 8. There is no evidence of pulmonary hypertension. 9. The right ventricular systolic pressure, as measured by Doppler, is 28.91mmHg. PRODUCT DEVELOPMENT ASSISTANT: Haley Gill RDCS
[2016-12-14] MEDS ORDERED: CLOBETASOL PROP 0.05% OINT 15GM TOPICAL PRN (11:18)
--- NOTE | 2016-12-14 11:29 | P.CONS ---
History of Present Illness - Reason for Consult Consult date: 12/14/16 Management Requesting physician: Patrick Barrientos - History of Present Illness 76-year-old with stage IIB mycosis fungoids is admitted to the hospital comes in to the hospital after having chemotherapy 7 days ago. Patient was given a Neulasta support 7 days ago. Patient apparently underwent the radiation therapy light therapy and currently undergoing chemotherapy. Patient however was noted to have febrile neutropenia hence came in the hospital here on consult for medical management Patient has a history of hypertension Today patient denies having any headaches blurry vision nausea vomiting chest pain difficulty breathing cough urinary urgency or frequency or diarrhea or constipation Plan cultures have been negative so far states to be doing better. Review of Systems All systems: negative (HPI) Past Medical History Past Medical History: Cancer, Hyperlipidemia, Hypertension, Osteoarthritis (OA) , Thyroid Disorder Additional Past Medical History / Comment(s): CUTANEOUS T-CELL LYMPHOMA/ radiation, CHEMO, skin ca, murmur, multiple kidney stones, arthritis, glaucoma History of Any Multi-Drug Resistant Organisms: MRSA Year Discovered:: 2013 MDRO Source:: rt arm Past Surgical History: Appendectomy, Bladder Surgery, Cholecystectomy, Heart Catheterization, Hernia Repair, Hysterectomy Additional Past Surgical History / Comment(s): patient recieved round of radiation treatment; kidney stents palced about 3 weeks ago /removed 01-18-16 , skin cancer removed,cataracts, lt inguinal hernia repair. Past Anesthesia/Blood Transfusion Reactions: No Reported Reaction Smoking Status: Never smoker - Past Family History Father Family Medical History: No Reported History Additional Family Medical History / Comment(s): at age 62 Mother Family Medical History: No Reported History Additional Family Medical History / Comment(s): at age 100 Medications and Allergies Home Medications Medication Instructions Recorded Confirmed Type Atorvastatin [Lipitor] 80 mg PO HS 10/05/13 12/12/16 History Folic Acid/B Complex C No.17 5 mg PO DAILY 09/29/15 12/12/16 History [Virt-Jaden Plus Tablet] Clobetasol Propionate [Temovate 1 applic TOPICAL BID PRN 11/07/16 12/12/16 History 0.05% Oint] Cyanocobalamin [Vitamin B-12 1,000 mcg SQ TU 11/07/16 12/12/16 History Injection] Lidocaine 4% Cream [Lmx 4] 1 applic TOPICAL DAILY PRN 11/07/16 12/12/16 History Lisinopril-Hctz 10-12.5 mg 1 tab PO DAILY 11/07/16 12/12/16 History [Zestoretic 10-12.5] Magnesium Gluconate [Magonate] 500 mg PO BID@0900,1700 11/07/16 12/12/16 History Meloxicam [Mobic] 15 mg PO DAILY PRN 11/07/16 12/12/16 History Multivitamins, Thera [Multivitamin 1 tab PO QAM 11/07/16 12/12/16 History (formulary)] Mupirocin 2% Oint [Bactroban 2% 1 applic TOPICAL TID PRN 11/07/16 12/12/16 History Oint] Raloxifene [Evista] 60 mg PO QAM 11/07/16 12/12/16 History SILVER sulfADIAZINE Cream 1 applic TOPICAL DAILY 11/07/16 12/12/16 History [Silvadene 1% Cream] Triamcinolone 0.1% Ointment 1 applic TOPICAL BID PRN 11/07/16 12/12/16 History [Kenalog 0.1% Ointment] hydrOXYzine HCL [Atarax] 25 mg PO HS PRN 11/07/16 12/12/16 History prednisoLONE ACETATE 1% OPHTH 1 drops BOTH EYES BID 11/07/16 12/12/16 History [Pred Forte 1%] valACYclovir HCL [Valacyclovir] 1,000 mg PO HS 11/07/16 12/12/16 History Celecoxib [CeleBREX] 200 mg PO DAILY PRN 12/12/16 12/12/16 History Cephalexin [Keflex] 500 mg PO BID 12/12/16 12/12/16 History Furosemide [Lasix] 20 mg PO QAM 12/12/16 12/12/16 History hydrOXYzine HCL [Atarax] 50 mg PO HS PRN 12/12/16 12/12/16 History Allergies Allergy/AdvReac Type Severity Reaction Status Date / Time No Known Allergies Allergy Verified 12/12/16 16:10 Physical Exam Vitals: Vital Signs Temp Pulse Resp BP Pulse Ox 12/14/16 07:00 98.9 F 68 18 121/72 96 12/13/16 21:03 99.4 F 83 16 127/65 93 L 12/13/16 14:33 98.8 F 76 18 117/63 97 Intake and Output 12/13/16 12/14/16 12/14/16 22:59 06:59 14:59 Intake Total 225 675 Balance 225 675 Intake: Intake, IV Titration 225 675 Amount Cefepime 2 gm In Sodium 50 Chloride 0.9% 50 ml @ 100 mls/hr IVPB Q8HR [facility] Rx# :[id number] Sodium Chloride 0.9% 1, 225 375 000 ml @ 75 mls/hr IV . [id number] [facility] Rx#:[id number] Vancomycin 1,250 mg In 250 Sodium Chloride 0.9% 250 ml @ 125 mls/hr IVPB Q16H [facility] Rx#:[id number] Other: Voiding Method Toilet Toilet # Voids 1 ExamPhysical exam Gen. appearance oriented 3 in no distress Neck is supple no JVD Lungs good air entry clear to auscultation no rhonchi or wheezing Heart S1-S2 heard regular rate and rhythm with murmur is appreciated predominantly in the aortic region 2-3 out of 6 in intensity Abdomen is soft nontender no organomegaly bowel sounds are intact Neurologically cranial nerves II-12 grossly intact no focal motor or sensory deficits noted Skin no abnormalities appreciated Results CBC & Chem 7: 12/14/16 06:05 12/14/16 06:05 Labs: Abnormal Lab Results - Last 24 Hours (Table) 12/14/16 12/14/16 Range/Units 06:05 06:05 WBC 1.8 L* (3.8-10.6) k/uL RBC 2.45 L (3.80-5.40) m/uL Hgb 7.9 L (11.4-16.0) gm/dL Hct 24.2 L (34.0-46.0) % RDW 19.1 H (11.5-15.5) % Plt Count 30 L* (150-450) k/uL Neutrophils # (Manual) 0.90 L (1.3-7.7) k/uL Lymphocytes # (Manual) 0.09 L (1.0-4.8) k/uL Metamyelocytes # (Man) 0.02 H (0) k/uL Myelocytes # (Manual) 0.07 H (0) k/uL Blast Cells # (Man) 0.05 H (0) k/uL Nucleated RBCs 1 H (0-0) /100 WBC Potassium 3.4 L (3.5-5.1) mmol/L Chloride 109 H (98-107) mmol/L Microbiology - Last 24 Hours (Table) 12/12/16 18:00 Urine Culture - Final Urine,Voided 12/12/16 17:00 Blood Culture - Preliminary Blood No Growth after 24 hours Assessment and Plan Plan: #1 febrile neutropenia #2 pancytopenia due to chemotherapy #3 cutaneous T-cell lymphoma #4 essential hypertension Patient appears to be doing well. Review the echocardiogram does appear to have aortic sclerosis with the slightly elevated RVSP No further recommendations discharge planning per you patient appears to be doing well her counts appear to be stable. Thank you for the consultation
--- NOTE | 2016-12-14 14:16 | P.CRDCN ---
History of Present Illness Consult date: 12/13/16 History of present illness: This is a 76-year-old female. Past medical history significant for T- cell lymphoma, hyperlipidemia, hypertension and osteoarthritis. Patient presents with complaints of fever and neutropenia. She is currently undergoing chemotherapy. Yesterday while inpatient she complained of an episode of chest pain. The pain came on she was resting in bed. It was not associated with any other symptoms. She denies shortness of breath, nausea, dizziness, diaphoresis or vomiting. She states she got up to the bathroom and the pain did not intensify. The pain went away on its own while she was resting in bed. Upon examination she is seen resting comfortably in bed in no acute distress with her daughter at the bedside. She denies any further episodes of chest pain EKG indicates a normal sinus mechanism. Telemetry tracings over the previous 24 hours indicate a sinus rhythm with infrequent PVCs. She had an echocardiogram performed in June 2016 which showed left ventricular systolic function low-normal with an ejection fraction of 50-55%. Left atrium is severely dilated, mild aortic sclerosis, mild mitral calcification, mild mitral regurg, mild tricuspid regurg, no evidence of pulmonary hypertension, moderate concentric left ventricular hypertrophy present. Troponins were ordered and negative 2. Potassium 3.4, BUN 7 creatinine 0.55, white count is 1.8. Blood pressure 121/72 with a heart rate of 68. EKG indicates a normal sinus mechanism with no acute changes indicative of acute coronary syndrome. Review of Systems REVIEW OF SYSTEMS: Patient denies any chest discomfort. No shortness of breath. No diaphoresis. Denies headache, dizziness, blurred vision, double vision. No dyspnea on exertion. Patient denies any stomach discomfort. No nausea, vomiting. No hematochezia. No hematemesis. Denies any black stools or blood in his stools. No syncope. No palpitations. No cough. No recent fever or chills. No muscle weakness or numbness. Past Medical History Past Medical History: Cancer, Hyperlipidemia, Hypertension, Osteoarthritis (OA) , Thyroid Disorder Additional Past Medical History / Comment(s): CUTANEOUS T-CELL LYMPHOMA/ radiation, CHEMO, skin ca, murmur, multiple kidney stones, arthritis, glaucoma History of Any Multi-Drug Resistant Organisms: MRSA Date of last positivie culture/infection: 2013 MDRO Source:: rt arm Past Surgical History: Appendectomy, Bladder Surgery, Cholecystectomy, Heart Catheterization, Hernia Repair, Hysterectomy Additional Past Surgical History / Comment(s): patient recieved round of radiation treatment; kidney stents palced about 3 weeks ago /removed 01-18-16 , skin cancer removed,cataracts, lt inguinal hernia repair. Past Anesthesia/Blood Transfusion Reactions: No Reported Reaction Smoking Status: Never smoker - Past Family History Father Family Medical History: No Reported History Additional Family Medical History / Comment(s): at age 62 Mother Family Medical History: No Reported History Additional Family Medical History / Comment(s): at age 100 Medications and Allergies Home Medications Medication Instructions Recorded Confirmed Type Atorvastatin [Lipitor] 80 mg PO HS 10/05/13 12/12/16 History Folic Acid/B Complex C No.17 5 mg PO DAILY 09/29/15 12/12/16 History [Virt-Jaden Plus Tablet] Clobetasol Propionate [Temovate 1 applic TOPICAL BID PRN 11/07/16 12/12/16 History 0.05% Oint] Cyanocobalamin [Vitamin B-12 1,000 mcg SQ TU 11/07/16 12/12/16 History Injection] Lidocaine 4% Cream [Lmx 4] 1 applic TOPICAL DAILY PRN 11/07/16 12/12/16 History Lisinopril-Hctz 10-12.5 mg 1 tab PO DAILY 11/07/16 12/12/16 History [Zestoretic 10-12.5] Magnesium Gluconate [Magonate] 500 mg PO BID@0900,1700 11/07/16 12/12/16 History Meloxicam [Mobic] 15 mg PO DAILY PRN 11/07/16 12/12/16 History Multivitamins, Thera [Multivitamin 1 tab PO QAM 11/07/16 12/12/16 History (formulary)] Mupirocin 2% Oint [Bactroban 2% 1 applic TOPICAL TID PRN 11/07/16 12/12/16 History Oint] Raloxifene [Evista] 60 mg PO QAM 11/07/16 12/12/16 History SILVER sulfADIAZINE Cream 1 applic TOPICAL DAILY 11/07/16 12/12/16 History [Silvadene 1% Cream] Triamcinolone 0.1% Ointment 1 applic TOPICAL BID PRN 11/07/16 12/12/16 History [Kenalog 0.1% Ointment] hydrOXYzine HCL [Atarax] 25 mg PO HS PRN 11/07/16 12/12/16 History prednisoLONE ACETATE 1% OPHTH 1 drops BOTH EYES BID 11/07/16 12/12/16 History [Pred Forte 1%] valACYclovir HCL [Valacyclovir] 1,000 mg PO HS 11/07/16 12/12/16 History Celecoxib [CeleBREX] 200 mg PO DAILY PRN 12/12/16 12/12/16 History Cephalexin [Keflex] 500 mg PO BID 12/12/16 12/12/16 History Furosemide [Lasix] 20 mg PO QAM 12/12/16 12/12/16 History hydrOXYzine HCL [Atarax] 50 mg PO HS PRN 12/12/16 12/12/16 History Allergies Allergy/AdvReac Type Severity Reaction Status Date / Time No Known Allergies Allergy Verified 12/12/16 16:10 Physical Exam Vitals: Vital Signs Temp Pulse Resp BP Pulse Ox 12/14/16 07:00 98.9 F 68 18 121/72 96 12/13/16 21:03 99.4 F 83 16 127/65 93 L 12/13/16 14:33 98.8 F 76 18 117/63 97 Intake and Output 12/13/16 12/14/16 12/14/16 22:59 06:59 14:59 Intake Total 225 675 Balance 225 675 Intake: Intake, IV Titration 225 675 Amount Cefepime 2 gm In Sodium 50 Chloride 0.9% 50 ml @ 100 mls/hr IVPB Q8HR [facility] Rx# :[id number] Sodium Chloride 0.9% 1, 225 375 000 ml @ 75 mls/hr IV . [id number] [facility] Rx#:[id number] Vancomycin 1,250 mg In 250 Sodium Chloride 0.9% 250 ml @ 125 mls/hr IVPB Q16H [facility] Rx#:[id number] Other: Voiding Method Toilet Toilet # Voids 1 GENERAL: This is a []-year-old [] in no apparent distress at the time of my examination. HEENT: Head is atraumatic, normocephalic. Pupils are equal, round. Sclerae anicteric. Conjunctivae are clear. Mucous membranes of the mouth are moist. Neck is supple. There is no jugular venous distention. No carotid bruit is heard. LUNGS: Clear to auscultation no wheezes, rales or rhonchi. No chest wall tenderness is noted on palpation or with deep breathing. HEART: Regular rate and rhythm without murmurs, rubs or gallops. S1 and S2 heard. ABDOMEN: Soft, nontender. Bowel sounds are heard. No organomegaly noted. EXTREMITIES: 2+ peripheral pulses with no evidence of peripheral edema and no calf tenderness noted. NEUROLOGIC: Patient is awake, alert and oriented x3. Results 12/14/16 06:05 12/14/16 06:05 Cardiac Enzymes 12/13/16 12/14/16 Range/Units 20:30 06:05 Troponin I <0.012 <0.012 (0.000-0.034) ng/mL CBC 12/14/16 Range/Units 06:05 WBC 1.8 L* (3.8-10.6) k/uL RBC 2.45 L (3.80-5.40) m/uL Hgb 7.9 L (11.4-16.0) gm/dL Hct 24.2 L (34.0-46.0) % Plt Count 30 L* (150-450) k/uL Comprehensive Metabolic Panel 12/14/16 Range/Units 06:05 Sodium 142 (137-145) mmol/L Potassium 3.4 L (3.5-5.1) mmol/L Chloride 109 H (98-107) mmol/L Carbon Dioxide 24 (22-30) mmol/L BUN 7 (7-17) mg/dL Creatinine 0.55 (0.52-1.04) mg/dL Glucose 89 (74-99) mg/dL Calcium 8.6 (8.4-10.2) mg/dL Current Medications Generic Name Dose Route Start Last Admin Trade Name Freq PRN Reason Stop Dose Admin Acetaminophen 650 mg 12/12/16 19:10 12/14/16 00:11 Tylenol Tab PO 650 mg Q6HR PRN Administration Mild Pain or Fever > 100.5 Lisinopril/HCTZ 1 each 12/13/16 09:00 12/14/16 08:04 Zestoretic 10-12.5 PO 1 each DAILY LUCY Administration Vancomycin HCl 1,250 mg/ 250 mls @ 125 mls/hr 12/13/16 08:00 12/14/16 00:34 Sodium Chloride IVPB 125 mls/hr Q16H L[facility] Administration Cefepime HCl 2 gm/ Sodium 50 mls @ 100 mls/hr 12/12/16 22:00 12/14/16 08:04 Chloride IVPB 100 mls/hr Q8HR LUCY Administration Sodium Chloride 1,000 mls @ 75 mls/hr 12/12/16 19:15 12/14/16 03:30 Saline 0.9% IV 75 mls/hr .[id number] LUCY Administration Morphine Sulfate 4 mg 12/12/16 19:10 12/13/16 17:13 Morphine Sulfate (Inj) IV 4 mg Q4HR PRN Administration Severe Pain Naloxone HCl 0.2 mg 12/12/16 19:10 Narcan IV Q2M PRN Opioid Reversal Ondansetron HCl 4 mg 12/12/16 19:10 Zofran IVP Q8HR PRN Nausea And Vomiting Sodium Bicarbonate 5 ml 12/13/16 09:15 12/14/16 08:04 PO 5 ml QID LUCY Administration Valacyclovir HCl 1,000 mg 12/12/16 21:00 12/13/16 20:34 Valtrex PO 1,000 mg HS LUCY Administration Intake and Output 12/13/16 12/14/16 12/14/16 22:59 06:59 14:59 Intake Total 225 675 Balance 225 675 Intake: Intake, IV Titration 225 675 Amount Cefepime 2 gm In Sodium 50 Chloride 0.9% 50 ml @ 100 mls/hr IVPB Q8HR [facility] Rx# :[id number] Sodium Chloride 0.9% 1, 225 375 000 ml @ 75 mls/hr IV . [id number] [facility] Rx#:[id number] Vancomycin 1,250 mg In 250 Sodium Chloride 0.9% 250 ml @ 125 mls/hr IVPB Q16H [facility] Rx#:[id number] Other: Voiding Method Toilet Toilet # Voids 1 12/14/16 06:05 12/14/16 06:05 Assessment and Plan Plan: ASSESSMENT 1. Chest pain, atypical 2. History of T-cell lymphoma, currently undergoing chemotherapy treatment 3. Essential hypertension PLAN This patient does not clinically present as though she is having an acute coronary syndrome. EKG has been reviewed as well as lab findings. We will start the patient on Lopressor 12.5 mg by mouth twice a day empirically. There is no further cardiac workup necessary at this time. Please feel free to call us with any questions that may arise. Thank you for this consultation. Nurse Practitioner note has been reviewed, I agree with a documented findings and plan of care. Patient was seen and examined.
--- NOTE | 2016-12-14 18:05 | P.PN ---
Subjective Principal diagnosis: Febrile neutropenia The patient states that she feels a little stronger. She still has generalized weakness and somewhat decreased appetite. No history of any fever, chills, mouth sores, diarrhea, or significant abdominal pain. Objective - Vital Signs Vital signs: Vital Signs Temp 98.9 F 12/14/16 15:00 Pulse 79 12/14/16 15:00 Resp 18 12/14/16 15:00 BP 143/71 12/14/16 15:00 Pulse Ox 97 12/14/16 15:00 Intake & Output 12/13/16 12/14/16 12/14/16 18:59 06:59 18:59 Intake Total 725 900 650 Balance 725 900 650 Weight 64.864 kg Intake: Intake, IV Titration 725 900 650 Amount Cefepime 2 gm In Sodium 50 50 50 Chloride 0.9% 50 ml @ 100 mls/hr IVPB Q8HR [facility] Rx# :[id number] Sodium Chloride 0.9% 1, 425 600 600 000 ml @ 75 mls/hr IV . [id number] [facility] Rx#:[id number] Vancomycin 1,250 mg In 250 250 Sodium Chloride 0.9% 250 ml @ 125 mls/hr IVPB Q16H [facility] Rx#:[id number] Other: Voiding Method Toilet Toilet # Voids 1 - Constitutional General appearance: Present: no acute distress - EENT Eyes: Present: EOMI, PERRLA ENT: Present: hearing grossly normal, normal oropharynx - Respiratory Respiratory: bilateral: CTA - Cardiovascular Rhythm: regular Heart sounds: normal: S1, S2 - Gastrointestinal General gastrointestinal: Present: normal bowel sounds, soft - Neurologic Neurologic: Present: CNII-XII intact - Musculoskeletal Musculoskeletal: Present: generalized weakness, strength equal bilaterally - Psychiatric Psychiatric: Present: A&O x's 3, appropriate affect - Labs CBC & Chem 7: 12/14/16 06:05 12/14/16 06:05 Labs: Abnormal Lab Results - Last 24 Hours (Table) 12/14/16 12/14/16 Range/Units 06:05 06:05 WBC 1.8 L* (3.8-10.6) k/uL RBC 2.45 L (3.80-5.40) m/uL Hgb 7.9 L (11.4-16.0) gm/dL Hct 24.2 L (34.0-46.0) % RDW 19.1 H (11.5-15.5) % Plt Count 30 L* (150-450) k/uL Neutrophils # (Manual) 0.90 L (1.3-7.7) k/uL Lymphocytes # (Manual) 0.09 L (1.0-4.8) k/uL Metamyelocytes # (Man) 0.02 H (0) k/uL Myelocytes # (Manual) 0.07 H (0) k/uL Blast Cells # (Man) 0.05 H (0) k/uL Nucleated RBCs 1 H (0-0) /100 WBC Potassium 3.4 L (3.5-5.1) mmol/L Chloride 109 H (98-107) mmol/L Microbiology - Last 24 Hours (Table) 12/12/16 18:00 Urine Culture - Final Urine,Voided 12/12/16 17:00 Blood Culture - Preliminary Blood No Growth after 24 hours Assessment and Plan (1) Neutropenic fever Narrative/Plan: Her fever has mostly resolved. Neutropenia is improving, with total WBC 1.8 today, and ANC of 900. She has received Neulasta in the office. Continue antibiotics. Cultures are negative so far. Status: Acute (2) Pancytopenia due to antineoplastic chemotherapy Narrative/Plan: Hemoglobin and platelets are in a safe range and overall stable. No transfusion required today. Continue to monitor and transfuse if needed. Status: Acute (3) Cutaneous T-cell lymphoma Narrative/Plan: The patient is on [facility] chemotherapy, status post 2 cycles. Status: Chronic
[2016-12-14] MEDS: valACYclovir HCL 1,000 MG TABLET PO SCH (21:36)
[2016-12-14] MEDS: prednisoLONE ACETATE 1% OPHTH DROPS 1 ML BTL BOTH EYES SCH (21:36)
[2016-12-14] MEDS: METOPROLOL TARTRATE 12.5 MG TAB PO SCH (22:15)
[2016-12-15] MEDS: CEFEPIME 2 GM in SODIUM CHLORIDE 0.9% 50 ML IVPB SCH ×2 (00:45→08:16)
[2016-12-15 06:52] LABS: ALT 40 U/L (9-52); AST 45 U/L (14-36); Alkaline Phosphatase 107 U/L (38-126); Anion Gap 10 mmol/L; Anisocytosis Moderate; Blood Urea Nitrogen 9 mg/dL (7-17); CH 31.7; CHCM 31.6; Calcium 8.7 mg/dL (8.4-10.2); Carbon Dioxide 24 mmol/L (22-30); Chloride 107 mmol/L (98-107); Glucose 109 mg/dL (74-99); HCT 25.3 % (34.0-46.0); HDW 2.75; HGB 7.8 gm/dL (11.4-16.0); Hypochromasia Slight; Immature Gran Flag Marked; MCH 31.1 pg (25.0-35.0); MCHC 30.8 g/dL (31.0-37.0); Macrocytosis Moderate; Mean Platelet Volume 9.5; Non-African American GFR(MDRD) >60 (>60 ml/min/1.73 sqM); Potassium 3.4 mmol/L (3.5-5.1); RBC 2.51 m/uL (3.80-5.40); RDW 20.2 % (11.5-15.5); Sodium 141 mmol/L (137-145); Total Bilirubin 0.3 mg/dL (0.2-1.3); Total Protein 5.5 g/dL (6.3-8.2); WBC (Perox) 5.13
[2016-12-15] MEDS: LISINOPRIL-HCTZ 10-12.5 MG 1 EACH TAB PO SCH (08:15)
[2016-12-15] MEDS: METOPROLOL TARTRATE 12.5 MG TAB PO SCH ×2 (08:15→21:58)
[2016-12-15] MEDS: SALT AND SODA MOUTHWASH 1,000 ML PO SCH ×4 (08:16→21:58)
[2016-12-15] MEDS: RALOXIFENE 60 MG TAB PO SCH (08:16)
[2016-12-15] MEDS: prednisoLONE ACETATE 1% OPHTH DROPS 1 ML BTL BOTH EYES SCH ×2 (08:16→21:58)
[2016-12-15] MEDS: SODIUM CHLORIDE 0.9% 1,000 ML IV SCH ×2 (08:21→17:49)
[2016-12-15] MEDS: VANCOMYCIN 1,250 MG in SODIUM CHLORIDE 0.9% 250 ML IVPB SCH ×2 (09:17→21:56)
[2016-12-15] MEDS: LEVOFLOXACIN 500 MG TAB PO SCH (09:17)
[2016-12-15 09:19] LABS: Add Differential Manual Differential
[2016-12-15 09:24] LABS: Band Neutrophils % 9 %; Metamyelocytes % 5 %; Myelocytes % 4 %; Nucleated Red Blood Cells 2 /100 WBC (0-0); Total Cells Counted 200; WBC 4.8 k/uL (3.8-10.6)
[2016-12-15 09:25] LABS: Manual Review Performed; Polychromasia Present
--- NOTE | 2016-12-15 16:55 | P.PN ---
Subjective 76-year-old with stage IIB mycosis fungoids is admitted to the hospital comes in to the hospital after having chemotherapy 7 days ago. Patient was given a Neulasta support 7 days ago. Patient apparently underwent the radiation therapy light therapy and currently undergoing chemotherapy. Patient however was noted to have febrile neutropenia hence came in the hospital here on consult for medical management Patient has a history of hypertension Today patient denies having any headaches blurry vision nausea vomiting chest pain difficulty breathing cough urinary urgency or frequency or diarrhea or constipation Plan cultures have been negative so far states to be doing better. 2016 Patient has had a fever overnight Denies having any new complaints No headaches blurry vision Ms. nausea vomiting change in bowel habits. ExamPhysical exam Gen. appearance oriented 3 in no distress Neck is supple no JVD Lungs good air entry clear to auscultation no rhonchi or wheezing Heart S1-S2 heard regular rate and rhythm with murmur is appreciated predominantly in the aortic region 2-3 out of 6 in intensity Abdomen is soft nontender no organomegaly bowel sounds are intact Neurologically cranial nerves II-12 grossly intact no focal motor or sensory deficits noted Skin no abnormalities appreciated Objective - Vital Signs Vital signs: Vital Signs Temp 99.2 F 12/15/16 15:00 Pulse 77 12/15/16 15:00 Resp 16 12/15/16 15:00 BP 128/70 12/15/16 15:00 Pulse Ox 97 12/15/16 15:00 Intake & Output 12/14/16 12/15/16 12/15/16 18:59 06:59 18:59 Intake Total 650 875 900 Balance 650 875 900 Weight 64.864 kg Intake: Intake, IV Titration 650 875 900 Amount Cefepime 2 gm In Sodium 50 50 50 Chloride 0.9% 50 ml @ 100 mls/hr IVPB Q8HR [facility] Rx# :[id number] Sodium Chloride 0.9% 1, 600 825 600 000 ml @ 75 mls/hr IV . [id number] [facility] Rx#:[id number] Vancomycin 1,250 mg In 250 Sodium Chloride 0.9% 250 ml @ 125 mls/hr IVPB Q12H [facility] Rx#:[id number] Other: Voiding Method Toilet Toilet Toilet # Voids 1 - Labs CBC & Chem 7: 12/15/16 06:15 12/15/16 06:15 Labs: Abnormal Lab Results - Last 24 Hours (Table) 12/15/16 12/15/16 Range/Units 06:15 06:15 RBC 2.51 L (3.80-5.40) m/uL Hgb 7.8 L (11.4-16.0) gm/dL Hct 25.3 L (34.0-46.0) % MCV 101.0 H (80.0-100.0) fL MCHC 30.8 L (31.0-37.0) g/dL RDW 20.2 H (11.5-15.5) % Plt Count 43 L* (150-450) k/uL Lymphocytes # (Manual) 0.10 L (1.0-4.8) k/uL Monocytes # (Manual) 1.30 H (0-1.0) k/uL Metamyelocytes # (Man) 0.24 H (0) k/uL Myelocytes # (Manual) 0.19 H (0) k/uL Nucleated RBCs 2 H (0-0) /100 WBC Potassium 3.4 L (3.5-5.1) mmol/L Creatinine 0.50 L (0.52-1.04) mg/dL Glucose 109 H (74-99) mg/dL AST 45 H (14-36) U/L Total Protein 5.5 L (6.3-8.2) g/dL Albumin 2.9 L (3.5-5.0) g/dL Microbiology - Last 24 Hours (Table) 12/12/16 17:00 Blood Culture - Preliminary Blood No Growth after 48 hours Assessment and Plan Plan: #1 febrile neutropenia #2 pancytopenia due to chemotherapy #3 cutaneous T-cell lymphoma #4 essential hypertension Atypical chest pain Plan We'll add Diflucan due to recurrent episodes of fevers on empiric coverage for MRSA and Pseudomonas Rule out C. diff if patient continues to have loose stools
[2016-12-15] MEDS: valACYclovir HCL 1,000 MG TABLET PO SCH (21:58)
[2016-12-15] MEDS: ACETAMINOPHEN TAB 325 MG TAB PO PRN (22:08)
[2016-12-15] MEDS ORDERED: MUPIROCIN 2% OINT 22 GM TUBE TOPICAL PRN (22:13)
[2016-12-15] MEDS ORDERED: FLUCONAZOLE IN NACL,ISO-OSM 400 MG in SALINE 1 200ML.BAG IVPB ONE (22:30)
[2016-12-16] MEDS: SODIUM CHLORIDE 0.9% 1,000 ML IV SCH ×2 (05:31→17:31)
[2016-12-16 06:31] LABS: ALT 43 U/L (9-52); AST 43 U/L (14-36); Alkaline Phosphatase 98 U/L (38-126); Anion Gap 8 mmol/L; Blood Urea Nitrogen 9 mg/dL (7-17); Calcium 8.8 mg/dL (8.4-10.2); Carbon Dioxide 26 mmol/L (22-30); Chloride 106 mmol/L (98-107); Glucose 106 mg/dL (74-99); Non-African American GFR(MDRD) >60 (>60 ml/min/1.73 sqM); Potassium 3.7 mmol/L (3.5-5.1); Sodium 140 mmol/L (137-145); Total Bilirubin 0.2 mg/dL (0.2-1.3); Total Protein 5.7 g/dL (6.3-8.2)
[2016-12-16 06:38] LABS: Anisocytosis Moderate; CHCM 31.5; HCT 25.1 % (34.0-46.0); HGB 7.9 gm/dL (11.4-16.0); Hypochromasia Slight; Immature Gran Flag Marked; MCH 32.3 pg (25.0-35.0); MCHC 31.5 g/dL (31.0-37.0); MCV 102.4 fL (80.0-100.0); Macrocytosis Moderate; Mean Platelet Volume 9.3; RBC 2.45 m/uL (3.80-5.40); WBC (Perox) 6.93
[2016-12-16 07:10] LABS: Add Differential Manual Differential
[2016-12-16 07:15] LABS: Band Neutrophils % 2 %; Metamyelocytes % 1 %; Myelocytes % 12 %; Nucleated Red Blood Cells 1 /100 WBC (0-0); Total Cells Counted 200
[2016-12-16 07:16] LABS: Manual Review Performed; Polychromasia Present; WBC 6.5 k/uL (3.8-10.6)
[2016-12-16] MEDS: RALOXIFENE 60 MG TAB PO SCH (08:26)
[2016-12-16] MEDS: LISINOPRIL-HCTZ 10-12.5 MG 1 EACH TAB PO SCH (08:26)
[2016-12-16] MEDS: METOPROLOL TARTRATE 12.5 MG TAB PO SCH ×2 (08:26→22:01)
[2016-12-16] MEDS: prednisoLONE ACETATE 1% OPHTH DROPS 1 ML BTL BOTH EYES SCH ×2 (08:27→22:01)
[2016-12-16] MEDS: LEVOFLOXACIN 500 MG TAB PO SCH (08:27)
[2016-12-16] MEDS: SALT AND SODA MOUTHWASH 1,000 ML PO SCH ×4 (08:34→22:02)
[2016-12-16] MEDS: VANCOMYCIN 1,250 MG in SODIUM CHLORIDE 0.9% 250 ML IVPB SCH ×2 (08:35→08:41)
--- NOTE | 2016-12-16 12:13 | P.PN ---
Subjective The patient denied any new complaints. She has had a couple episodes of fever, without any immediate associated symptoms. No nausea, vomiting, or diarrhea Objective - Vital Signs Vital signs: Vital Signs Temp 98.5 F 12/16/16 07:00 Pulse 73 12/16/16 07:00 Resp 16 12/16/16 07:00 BP 143/75 12/16/16 07:00 Pulse Ox 97 12/16/16 07:00 Intake & Output 12/15/16 12/16/16 12/16/16 18:59 06:59 18:59 Intake Total 900 1740 Balance 900 1740 Intake: Intake, IV Titration 900 1500 Amount Cefepime 2 gm In Sodium 50 Chloride 0.9% 50 ml @ 100 mls/hr IVPB Q8HR [facility] Rx# :[id number] Fluconazole in NaCl,Iso- 200 Osm 400 mg In Saline 1 200ml.bag @ 100 mls/hr IVPB ONCE ONE Rx#: [id number] Sodium Chloride 0.9% 1, 600 1050 000 ml @ 75 mls/hr IV . [id number] [facility] Rx#:[id number] Vancomycin 1,250 mg In 250 250 Sodium Chloride 0.9% 250 ml @ 125 mls/hr IVPB Q12H [facility] Rx#:[id number] Oral 240 Other: Voiding Method Toilet Toilet Toilet # Voids 1 - Constitutional General appearance: Present: no acute distress - EENT Eyes: Present: EOMI, PERRLA ENT: Present: hearing grossly normal, normal oropharynx - Respiratory Respiratory: bilateral: CTA - Cardiovascular Rhythm: regular Heart sounds: normal: S1, S2 - Gastrointestinal General gastrointestinal: Present: normal bowel sounds, soft - Integumentary Integumentary: Present: normal - Neurologic Neurologic: Present: CNII-XII intact - Musculoskeletal Musculoskeletal: Present: generalized weakness, strength equal bilaterally - Psychiatric Psychiatric: Present: A&O x's 3, appropriate affect - Labs CBC & Chem 7: 12/16/16 06:00 12/16/16 06:00 Labs: Abnormal Lab Results - Last 24 Hours (Table) 12/16/16 12/16/16 Range/Units 06:00 06:00 RBC 2.45 L (3.80-5.40) m/uL Hgb 7.9 L (11.4-16.0) gm/dL Hct 25.1 L (34.0-46.0) % MCV 102.4 H (80.0-100.0) fL RDW 21.0 H (11.5-15.5) % Plt Count 51 L (150-450) k/uL Lymphocytes # (Manual) 0.33 L (1.0-4.8) k/uL Monocytes # (Manual) 1.43 H (0-1.0) k/uL Metamyelocytes # (Man) 0.07 H (0) k/uL Myelocytes # (Manual) 0.78 H (0) k/uL Blast Cells # (Man) 0.26 H (0) k/uL Nucleated RBCs 1 H (0-0) /100 WBC Creatinine 0.50 L (0.52-1.04) mg/dL Glucose 106 H (74-99) mg/dL AST 43 H (14-36) U/L Total Protein 5.7 L (6.3-8.2) g/dL Albumin 3.0 L (3.5-5.0) g/dL Microbiology - Last 24 Hours (Table) 12/12/16 17:00 Blood Culture - Preliminary Blood No Growth after 72 hours Assessment and Plan (1) Neutropenic fever Narrative/Plan: Neutropenia has resolved. Cultures have remained negative. However the patient did have episodic fever overnight, greater than 101. She definitely feels better compared to her admission. I suspect that study fever, could be related to cytokine release from WBC recovery. She has no localizing signs of infection clinically. I will continue vancomycin, and start cefepime, and switch her to Levaquin. I will monitor her overnight for any recurrence of fever. Status: Acute (2) Pancytopenia due to antineoplastic chemotherapy Narrative/Plan: WBC has recovered as noted, and to a safe range. Hemoglobin and platelets are also stable in a safe range with transfusion not required today. Status: Acute (3) Cutaneous T-cell lymphoma Narrative/Plan: She will follow-up with Dr. Barrientos, post discharge Status: Chronic
--- NOTE | 2016-12-16 14:05 | P.PN ---
Subjective On the patient feels somewhat tired, but reports no new symptoms otherwise. She did have another fever of 101+ overnight. Objective - Vital Signs Vital signs: Vital Signs Temp 98.5 F 12/16/16 07:00 Pulse 73 12/16/16 07:00 Resp 16 12/16/16 07:00 BP 143/75 12/16/16 07:00 Pulse Ox 97 12/16/16 07:00 Intake & Output 12/15/16 12/16/16 12/16/16 18:59 06:59 18:59 Intake Total 900 1740 Balance 900 1740 Intake: Intake, IV Titration 900 1500 Amount Cefepime 2 gm In Sodium 50 Chloride 0.9% 50 ml @ 100 mls/hr IVPB Q8HR [facility] Rx# :[id number] Fluconazole in NaCl,Iso- 200 Osm 400 mg In Saline 1 200ml.bag @ 100 mls/hr IVPB ONCE ONE Rx#: [id number] Sodium Chloride 0.9% 1, 600 1050 000 ml @ 75 mls/hr IV . [id number] [facility] Rx#:[id number] Vancomycin 1,250 mg In 250 250 Sodium Chloride 0.9% 250 ml @ 125 mls/hr IVPB Q12H [facility] Rx#:[id number] Oral 240 Other: Voiding Method Toilet Toilet Toilet # Voids 1 - Constitutional General appearance: Present: no acute distress - EENT Eyes: Present: EOMI, PERRLA ENT: Present: hearing grossly normal, normal oropharynx - Respiratory Respiratory: bilateral: CTA - Cardiovascular Rhythm: regular Heart sounds: normal: S1, S2 - Gastrointestinal General gastrointestinal: Present: normal bowel sounds, soft - Neurologic Neurologic: Present: CNII-XII intact - Musculoskeletal Musculoskeletal: Present: generalized weakness, strength equal bilaterally - Psychiatric Psychiatric: Present: A&O x's 3, appropriate affect - Labs CBC & Chem 7: 12/16/16 06:00 12/16/16 06:00 Labs: Abnormal Lab Results - Last 24 Hours (Table) 12/16/16 12/16/16 Range/Units 06:00 06:00 RBC 2.45 L (3.80-5.40) m/uL Hgb 7.9 L (11.4-16.0) gm/dL Hct 25.1 L (34.0-46.0) % MCV 102.4 H (80.0-100.0) fL RDW 21.0 H (11.5-15.5) % Plt Count 51 L (150-450) k/uL Lymphocytes # (Manual) 0.33 L (1.0-4.8) k/uL Monocytes # (Manual) 1.43 H (0-1.0) k/uL Metamyelocytes # (Man) 0.07 H (0) k/uL Myelocytes # (Manual) 0.78 H (0) k/uL Blast Cells # (Man) 0.26 H (0) k/uL Nucleated RBCs 1 H (0-0) /100 WBC Creatinine 0.50 L (0.52-1.04) mg/dL Glucose 106 H (74-99) mg/dL AST 43 H (14-36) U/L Total Protein 5.7 L (6.3-8.2) g/dL Albumin 3.0 L (3.5-5.0) g/dL Microbiology - Last 24 Hours (Table) 12/12/16 17:00 Blood Culture - Preliminary Blood No Growth after 72 hours Assessment and Plan (1) Neutropenic fever Narrative/Plan: The patient's neutropenia has resolved. She again had a fever last night. I suspect that this is more likely due to white cell recovery, but given the patient's type of lymphoma causing chronic immunocompromise state and decreased skin integrity, I will reorder blood cultures, and consult ID. Continue vancomycin. Cefepime has been discontinued and she has been changed to by mouth Levaquin. Diflucan was also added by the internal medicine service Status: Acute (2) Pancytopenia due to antineoplastic chemotherapy Narrative/Plan: Platelets continue to show persistent recovery and are now greater than 50, 000. Hemoglobin remains greater than 7, with no transfusion needed today Status: Acute (3) Cutaneous T-cell lymphoma Status: Chronic Plan: Mild lower extremity swelling was noted today. Dopplers will be ordered.
--- NOTE | 2016-12-16 15:38 | US ---
EXAMINATION TYPE: US venous doppler duplex LE DATE OF EXAM: 12/16/2016 2:51 PM COMPARISON: US CLINICAL HISTORY: Lower extremity swelling. Bilat leg swelling, more on right/ pt currently in treatm ent for lymphoma SIDE PERFORMED: Bilateral TECHNIQUE: The lower extremity deep venous system is examined utilizing real time linear array sonog tamra with graded compression, doppler sonography and color-flow sonography. VESSELS IMAGED: External Iliac Vein (EIV) Common Femoral Vein Deep Femoral Vein Greater Saphenous Vein * Femoral Vein Popliteal Vein Small Saphenous Vein * Proximal Calf Veins (* superficial vessels) Right Leg: Negative for DVT, soft tissue edema medial thigh and multiple lymph nodes visible within groin Left Leg: Negative for DVT, multiple lymph nodes visible within groin IMPRESSION: Grayscale, color doppler, spectral doppler imaging performed of the deep veins of the lo wer extremities. There is normal flow, compressibility, vascular waveforms. No evident deep venous thrombosis at or above the knees bilaterally. Lymphadenopathy.
--- NOTE | 2016-12-16 16:46 | P.PN ---
Subjective 76-year-old with stage IIB mycosis fungoids is admitted to the hospital comes in to the hospital after having chemotherapy 7 days ago. Patient was given a Neulasta support 7 days ago. Patient apparently underwent the radiation therapy light therapy and currently undergoing chemotherapy. Patient however was noted to have febrile neutropenia hence came in the hospital here on consult for medical management Patient has a history of hypertension Today patient denies having any headaches blurry vision nausea vomiting chest pain difficulty breathing cough urinary urgency or frequency or diarrhea or constipation Plan cultures have been negative so far states to be doing better. 2016 Patient has had a fever overnight Denies having any new complaints No headaches blurry vision Ms. nausea vomiting change in bowel habits. 12/16/2001 No new overnight events. However patient had another episode of fever 101.3 however this was prior to the infusion of Diflucan. ExamPhysical exam Gen. appearance oriented 3 in no distress Neck is supple no JVD Lungs good air entry clear to auscultation no rhonchi or wheezing Heart S1-S2 heard regular rate and rhythm with murmur is appreciated predominantly in the aortic region 2-3 out of 6 in intensity Abdomen is soft nontender no organomegaly bowel sounds are intact Neurologically cranial nerves II-12 grossly intact no focal motor or sensory deficits noted Skin no abnormalities appreciated Objective - Vital Signs Vital signs: Vital Signs Temp 99.4 F 12/16/16 15:00 Pulse 78 12/16/16 15:00 Resp 18 12/16/16 15:00 BP 125/70 12/16/16 15:00 Pulse Ox 98 12/16/16 15:00 Intake & Output 12/15/16 12/16/16 12/16/16 18:59 06:59 18:59 Intake Total 900 1740 Balance 900 1740 Intake: Intake, IV Titration 900 1500 Amount Cefepime 2 gm In Sodium 50 Chloride 0.9% 50 ml @ 100 mls/hr IVPB Q8HR [facility] Rx# :[id number] Fluconazole in NaCl,Iso- 200 Osm 400 mg In Saline 1 200ml.bag @ 100 mls/hr IVPB ONCE ONE Rx#: [id number] Sodium Chloride 0.9% 1, 600 1050 000 ml @ 75 mls/hr IV . [id number] [facility] Rx#:[id number] Vancomycin 1,250 mg In 250 250 Sodium Chloride 0.9% 250 ml @ 125 mls/hr IVPB Q12H [facility] Rx#:[id number] Oral 240 Other: Voiding Method Toilet Toilet Toilet # Voids 1 2 - Labs CBC & Chem 7: 12/16/16 06:00 12/16/16 06:00 Labs: Abnormal Lab Results - Last 24 Hours (Table) 12/16/16 12/16/16 Range/Units 06:00 06:00 RBC 2.45 L (3.80-5.40) m/uL Hgb 7.9 L (11.4-16.0) gm/dL Hct 25.1 L (34.0-46.0) % MCV 102.4 H (80.0-100.0) fL RDW 21.0 H (11.5-15.5) % Plt Count 51 L (150-450) k/uL Lymphocytes # (Manual) 0.33 L (1.0-4.8) k/uL Monocytes # (Manual) 1.43 H (0-1.0) k/uL Metamyelocytes # (Man) 0.07 H (0) k/uL Myelocytes # (Manual) 0.78 H (0) k/uL Blast Cells # (Man) 0.26 H (0) k/uL Nucleated RBCs 1 H (0-0) /100 WBC Creatinine 0.50 L (0.52-1.04) mg/dL Glucose 106 H (74-99) mg/dL AST 43 H (14-36) U/L Total Protein 5.7 L (6.3-8.2) g/dL Albumin 3.0 L (3.5-5.0) g/dL Microbiology - Last 24 Hours (Table) 12/12/16 17:00 Blood Culture - Preliminary Blood No Growth after 72 hours Assessment and Plan Plan: #1 febrile neutropenia #2 pancytopenia due to chemotherapy #3 cutaneous T-cell lymphoma #4 essential hypertension Atypical chest pain Plan Diflucan due to recurrent episodes of fevers on empiric coverage for MRSA and Pseudomonas Rule out C. diff if patient continues to have loose stools ID consultation
[2016-12-16] MEDS: HEPARIN SODIUM,PORCINE 5,000 UNIT/ML 1 ML VIAL SQ SCH (17:30)
[2016-12-16] MEDS ORDERED: SODIUM CHLORIDE 0.65% NASAL SPRAY 44 ML BTL NASAL PRN (21:58)
[2016-12-16] MEDS: ACETAMINOPHEN TAB 325 MG TAB PO PRN (21:59)
[2016-12-16] MEDS: FLUCONAZOLE IN NACL,ISO-OSM 200 MG in SALINE 1 100ML.BAG IVPB SCH (22:00)
[2016-12-16] MEDS: valACYclovir HCL 1,000 MG TABLET PO SCH (22:02)
[2016-12-17] MEDS: VANCOMYCIN 1,250 MG in SODIUM CHLORIDE 0.9% 250 ML IVPB SCH (00:09)
[2016-12-17] MEDS: HEPARIN SODIUM,PORCINE 5,000 UNIT/ML 1 ML VIAL SQ SCH ×4 (01:44→23:59)
[2016-12-17] MEDS: VANCOMYCIN ORAL SOLUTION 250 MG/5 ML BOTTLE PO SCH ×5 (01:44→23:57)
[2016-12-17] MEDS: SODIUM CHLORIDE 0.9% 1,000 ML IV SCH ×3 (05:57→21:00)
[2016-12-17] MEDS: SALT AND SODA MOUTHWASH 1,000 ML PO SCH ×4 (08:27→21:08)
[2016-12-17] MEDS: RALOXIFENE 60 MG TAB PO SCH (08:27)
[2016-12-17] MEDS: LISINOPRIL-HCTZ 10-12.5 MG 1 EACH TAB PO SCH (08:27)
[2016-12-17] MEDS: prednisoLONE ACETATE 1% OPHTH DROPS 1 ML BTL BOTH EYES SCH ×2 (08:27→21:07)
[2016-12-17] MEDS: METOPROLOL TARTRATE 12.5 MG TAB PO SCH ×2 (08:27→21:07)
--- NOTE | 2016-12-17 11:29 | CONS ---
DATE OF CONSULTATION: 12/16/2016 REASON FOR CONSULTATION: Persistent fever. HISTORY OF PRESENT ILLNESS: The patient is a 76-year-old female with past medical history significant for Stage 2B mycosis fungoides diagnosed back in 2009 for which the patient had multiple therapies done. Recently being treated with CHOP treatment for which the patient has ( ) in [place] 12/05 and . The patient did receive Neulasta with her chemotherapy. Currently the patient Oncology was consulted, contacted her regarding her the patient with leucopenia and a fever for which the patient was advised to go to the hospital. The patient was admitted to the [facility] 12/13/16. At that time, she did have a fever of 100.5. However, the patient has no symptoms of any chest pain, shortness of breath or any cough, abdominal pain or any diarrhea. The patient did have white count of 0.5 that did improve to 4.8 as of yesterday with a 6.5 white count today and her blood and urine culture negative. Chest x -ray was negative. The patient did spike a fever of 101.3 on 12/14 and another fever last night of 100.3. Hence ID was consulted today for further recommendations. The patients main symptoms has been significant diarrhea that apparently started this morning with multiple loose stools and did have some mucous but no ( ) and no significant abdominal pain. Denies any burning or frequency of urine. The patient did have swelling in her right leg for which lower extremity Doppler has been done, report negative. REVIEW OF SYSTEMS: Constitutional: Positive for weakness and fever. EYES: No complaint. HEENT: No complaint. Respiratory: No complaint. Cardiovascular: No complaint. : No complaint. Gastrointestinal: As per history of present illness. Musculoskeletal: No complaint. Integumentary: No complaint. Psychological: No complaint. Endocrine: No complaint. Neurological: No complaint. Past medical history significant for Stage 2B mycosis fungoides, hypertension, hyperlipidemia, osteoarthritis, hypothyroidism, multiple kidney stones, previous history of right arm MRSA infection. Past surgical history: Appendectomy, bladder surgery, cholecystectomy, heart catheterization, hernia repair, hysterectomy. SOCIAL HISTORY: No history of smoking, drinking or drug use. FAMILY HISTORY: Father age of 62, mother lived to be 100. ALLERGIES: No known drug allergies. Medications include the patient is currently on: 1. Tylenol. 2. ( ). 3. Fluconazole. 4. Zestoretic. 5. Heparin. 6. Lopressor. 7. Bactroban ointment. 8. Narcan. 9. Valtrex. 10. Vancomycin IV. 11. Levaquin. On examination, blood pressure is 125/70 with a pulse of 78. Temperature 98.4. She is 98% on room air. General description is an elderly female lying in bed, in no distress. No tachypnea or accessory muscles of respiration use. HEENT: Examination shows slight pallor and no scleral icterus. Oral mucosa membranes dry. No thrush. NECK: Trachea is central. No thyromegaly. LUNGS: Unlabored breathing. Clear to auscultation anteriorly. No wheeze or crackles. HEART: S1, S2 regular rate and rhythm. ABDOMEN: Soft. No tenderness. No guarding and no rigidity. EXTREMITIES: Right leg some swelling but no redness. NEUROLOGICALLY: The patient is awake, alert and oriented times three. Mood and affect normal. LABS: Hemoglobin 7.9, white count 6.5, BUN 9, creatinine 0.50. Vanco trough has been low 7.8 as of yesterday. Blood culture negative. Urine negative. Chest x-ray negative and lower extremity Doppler was negative for DVT. DIAGNOSTIC IMPRESSION AND PLAN: The patient with persistent fever, the patient admitted to the hospital with febrile neutropenia in a patient who did CHOP chemotherapy for her mycosis fungoides with last chemo on 12/05 and 12/06. So far with all the cultures ( ) including blood culture, urine culture and chest x-ray were negative. The patient while in the hospital has developed significant diarrhea and being exposed to antibiotics, we will need to make sure we are not dealing with a case of C. dif colitis, hence the patient with no other clinical focus of infection. PLAN: 1. Check stool for C. dif stat though the stool for C. dif was negative this morning by primary service and the patient had multiple loose stools, unfortunately no stool sample was collected. RN has been advised to collect a sample as soon as possible. 2. We will discontinue the Levaquin and Vancomycin as we do not have any clinical focus of infection. 3. We will start the patient on Vancomycin po 250 mg every six hours. 4. We will follow up on clinical condition and culture to further adjust medication if needed. Thank you for this consultation. We will follow this patient along with you. [facility]ISCO
--- NOTE | 2016-12-17 13:04 | P.PN ---
Subjective Principal diagnosis: febrile neutropenia Pt seen today in follow up, she had 100.1F temp overnight, she is awaiting ID consult, evaluation and recommendations. She has no acute physical c/o today, appetite is fair, her legs are sore. Objective - Vital Signs Vital signs: Vital Signs Temp 100.1 F H 12/17/16 07:00 Pulse 81 12/17/16 08:00 Resp 18 12/17/16 08:00 BP 134/77 12/17/16 07:00 Pulse Ox 96 12/17/16 07:00 Intake & Output 12/16/16 12/17/16 12/17/16 18:59 06:59 18:59 Intake Total 1180 Balance 1180 Intake: Oral 1180 Other: Voiding Method Toilet Toilet Toilet # Voids 2 2 - Constitutional General appearance: Present: average body habitus, cooperative, no acute distress - Respiratory Respiratory: bilateral: CTA - Cardiovascular Heart sounds: normal: S1, S2 - Peripheral edema leg Peripheral Edema: right: 2+, left: 1+ - Gastrointestinal General gastrointestinal: Present: normal bowel sounds, soft. Absent: absent bowel sounds, decreased bowel sounds, distended, hepatomegaly, hyperactive bowel sounds, organomegaly, rigid, scaphoid, splenomegaly, tenderness, umbilical hernia, ventral hernia - Neurologic Neurologic: Present: CNII-XII intact - Musculoskeletal Musculoskeletal: Present: generalized weakness, strength equal bilaterally - Psychiatric Psychiatric: Present: A&O x's 3, appropriate affect, intact judgment & insight - Labs CBC & Chem 7: 12/16/16 06:00 12/16/16 06:00 Labs: Microbiology - Last 24 Hours (Table) 12/12/16 17:00 Blood Culture - Preliminary Blood No Growth after 96 hours - Imaging and Cardiology ECHO report reviewed Doppler report reviewed Assessment and Plan (1) Neutropenic fever Narrative/Plan: CBC has recovered, WBC 6.5 with ANC 3,600. She continues on abx, ID consult pending Status: Acute (2) Pancytopenia due to antineoplastic chemotherapy Narrative/Plan: WBC recovered, Hgb and plt stable Status: Acute (3) Cutaneous T-cell lymphoma Narrative/Plan: Follow up with Dr. Barrientos scheduled Status: Chronic Plan: IM following for medical management.
--- NOTE | 2016-12-17 15:40 | P.PN ---
Subjective 76-year-old with stage IIB mycosis fungoids is admitted to the hospital comes in to the hospital after having chemotherapy 7 days ago. Patient was given a Neulasta support 7 days ago. Patient apparently underwent the radiation therapy light therapy and currently undergoing chemotherapy. Patient however was noted to have febrile neutropenia hence came in the hospital here on consult for medical management Patient has a history of hypertension Today patient denies having any headaches blurry vision nausea vomiting chest pain difficulty breathing cough urinary urgency or frequency or diarrhea or constipation Plan cultures have been negative so far states to be doing better. 2016 Patient has had a fever overnight Denies having any new complaints No headaches blurry vision Ms. nausea vomiting change in bowel habits. 12/16/2001 No new overnight events. However patient had another episode of fever 101.3 however this was prior to the infusion of Diflucan. 12/17/2016 Patient had a T-max 100.1. Denies having any complaint including headaches blurry vision chest pain difficult time breathing nausea vomiting diarrhea. ExamPhysical exam Gen. appearance oriented 3 in no distress Neck is supple no JVD Lungs good air entry clear to auscultation no rhonchi or wheezing Heart S1-S2 heard regular rate and rhythm with murmur is appreciated predominantly in the aortic region 2-3 out of 6 in intensity Abdomen is soft nontender no organomegaly bowel sounds are intact Neurologically cranial nerves II-12 grossly intact no focal motor or sensory deficits noted Skin no abnormalities appreciated Objective - Vital Signs Vital signs: Vital Signs Temp 98.6 F 12/17/16 15:00 Pulse 76 12/17/16 15:00 Resp 18 12/17/16 15:00 BP 119/64 12/17/16 15:00 Pulse Ox 98 12/17/16 15:00 Intake & Output 12/16/16 12/17/16 12/17/16 18:59 06:59 18:59 Intake Total 1180 Balance 1180 Weight 64.864 kg Intake: Oral 1180 Other: Voiding Method Toilet Toilet Toilet # Voids 2 2 2 - Labs CBC & Chem 7: 12/16/16 06:00 12/16/16 06:00 Labs: Microbiology - Last 24 Hours (Table) 12/12/16 17:00 Blood Culture - Preliminary Blood No Growth after 96 hours Assessment and Plan Plan: #1 febrile neutropenia #2 pancytopenia due to chemotherapy #3 cutaneous T-cell lymphoma #4 essential hypertension Atypical chest pain Plan Continue empiric therapy. Continue monitoring the patient for the next 24 hours if afebrile consideration for discharge to be made at that time. Counts are all appropriately improved
[2016-12-17 17:12] LABS: Anisocytosis Moderate; Aty Lym Flag Moderate; CH 32.7; CHCM 31.6; HCT 25.6 % (34.0-46.0); HGB 7.9 gm/dL (11.4-16.0); Hypochromasia Slight; Immature Gran Flag Moderate; MCH 32.3 pg (25.0-35.0); MCHC 30.9 g/dL (31.0-37.0); MCV 104.5 fL (80.0-100.0); Macrocytosis Marked; Mean Platelet Volume 9.9; RBC 2.45 m/uL (3.80-5.40); WBC (Perox) 7.88
[2016-12-17 17:44] LABS: Add Differential Manual Differential
[2016-12-17 17:50] LABS: Band Neutrophils % 2 %; Myelocytes % 4 %; Nucleated Red Blood Cells 2 /100 WBC (0-0); Total Cells Counted 200; WBC 7.4 k/uL (3.8-10.6)
[2016-12-17] MEDS: valACYclovir HCL 1,000 MG TABLET PO SCH (21:07)
[2016-12-17] MEDS: ACETAMINOPHEN TAB 325 MG TAB PO PRN (21:07)
[2016-12-17] MEDS: FLUCONAZOLE IN NACL,ISO-OSM 200 MG in SALINE 1 100ML.BAG IVPB SCH (21:07)
[2016-12-18] MEDS: VANCOMYCIN ORAL SOLUTION 250 MG/5 ML BOTTLE PO SCH ×3 (06:35→17:17)
[2016-12-18] MEDS: LISINOPRIL-HCTZ 10-12.5 MG 1 EACH TAB PO SCH (09:35)
[2016-12-18] MEDS: METOPROLOL TARTRATE 12.5 MG TAB PO SCH ×2 (09:35→21:25)
[2016-12-18] MEDS: HEPARIN SODIUM,PORCINE 5,000 UNIT/ML 1 ML VIAL SQ SCH ×3 (09:35→22:01)
[2016-12-18] MEDS: prednisoLONE ACETATE 1% OPHTH DROPS 1 ML BTL BOTH EYES SCH ×2 (09:35→22:01)
[2016-12-18] MEDS: RALOXIFENE 60 MG TAB PO SCH (09:36)
[2016-12-18] MEDS: SODIUM CHLORIDE 0.9% 1,000 ML IV SCH (09:38)
[2016-12-18] MEDS: SALT AND SODA MOUTHWASH 1,000 ML PO SCH ×4 (09:38→22:01)
--- NOTE | 2016-12-18 13:38 | PN ---
DATE OF SERVICE: 12/17/16 REASON FOR FOLLOW UP: Febrile neutropenia and diarrhea. INTERVAL HISTORY: The patient overall feels better and has improved. The patient did have low grade fever of 100.1 this morning. Afebrile since then. The patient diarrhea has slightly slow down. Unfortunately stool for C. dif was not collected. The patient denies significant chest pain, shortness of breath, cough. No abdominal pain or any diarrhea. On examination, blood pressure 119/54 with a pulse of 76. Temperature 98.6. She is 98% on room air. General description is an elderly female up in the bed in no distress. Respiratory system unlabored breathing. Clear to auscultation anteriorly. Heart S1, S2 regular rate and rhythm. Abdomen soft. No tenderness. LABS: Hemoglobin is 7.9, white count 7.4 with a BUN 9, creatinine 0.50. Blood culture repeat has been negative so far. DIAGNOSTIC IMPRESSION AND PLAN: The patient admitted to the hospital with febrile neutropenia with ( ) focus. Subsequently the patient did have resolution of neutropenia but new fever along with diarrhea suspicious for C. dif. Stool for C. dif requested, still pending. She will continue po Vanco. MTDD
--- NOTE | 2016-12-18 15:55 | P.PN ---
Subjective Principal diagnosis: febrile neutropenia Pt seen today in follow up, she had 101.1F temp overnight. She states feeling pretty good today, no oral irritation, nausea, cough, chest pain, still having some diarrhea, no bloody or black stools, swelling and discomfort in legs is stable, she denies any new or progressive pain. Objective - Vital Signs Vital signs: Vital Signs Temp 97.7 F 12/18/16 07:00 Pulse 75 12/18/16 08:00 Resp 18 12/18/16 08:00 BP 126/69 12/18/16 07:00 Pulse Ox 94 L 12/18/16 07:00 Intake & Output 12/17/16 12/18/16 12/18/16 18:59 06:59 18:59 Intake Total 1410 Balance 1410 Weight 64.864 kg Intake: IV 700 Fluconazole in NaCl,Iso- 100 Osm 200 mg In Saline 1 100ml.bag @ 100 mls/hr IVPB HS LUCY Rx#:[id number] Sodium Chloride 0.9% 1, 600 000 ml @ 75 mls/hr IV . [id number] LUCY Rx#:[id number] Oral 710 Other: Voiding Method Toilet Toilet Toilet # Voids 2 2 2 # Bowel Movements 1 - Constitutional General appearance: Present: average body habitus, cooperative, no acute distress - EENT Eyes: Present: PERRLA ENT: Present: normal oropharynx - Respiratory Respiratory: bilateral: CTA - Cardiovascular Heart sounds: normal: S1, S2 - Peripheral edema leg Peripheral Edema: right: Trace, left: None - Gastrointestinal General gastrointestinal: Present: normal bowel sounds, soft - Neurologic Neurologic: Present: CNII-XII intact - Musculoskeletal Musculoskeletal: Present: strength equal bilaterally - Psychiatric Psychiatric: Present: A&O x's 3, appropriate affect, intact judgment & insight - Labs CBC & Chem 7: 12/17/16 17:05 12/16/16 06:00 Labs: Abnormal Lab Results - Last 24 Hours (Table) 12/17/16 Range/Units 17:05 RBC 2.45 L (3.80-5.40) m/uL Hgb 7.9 L (11.4-16.0) gm/dL Hct 25.6 L (34.0-46.0) % MCV 104.5 H (80.0-100.0) fL MCHC 30.9 L (31.0-37.0) g/dL RDW 22.0 H (11.5-15.5) % Plt Count 59 L (150-450) k/uL Lymphocytes # (Manual) 0.44 L (1.0-4.8) k/uL Monocytes # (Manual) 1.33 H (0-1.0) k/uL Myelocytes # (Manual) 0.30 H (0) k/uL Nucleated RBCs 2 H (0-0) /100 WBC Microbiology - Last 24 Hours (Table) 12/12/16 17:00 Blood Culture - Preliminary Blood No Growth after 120 hours 12/16/16 14:23 Blood Culture - Preliminary Blood No Growth after 24 hours Assessment and Plan (1) Neutropenic fever Narrative/Plan: 101.1F temp last night, WBC significantly recovered today, ANC 5,300. Will cont abx per ID and monitor pt overnight. Status: Acute (2) Pancytopenia due to antineoplastic chemotherapy Narrative/Plan: Hgb and Platelets stable, WBC and ANC improved, no transfusion or GCSF needed. Status: Acute (3) Cutaneous T-cell lymphoma Narrative/Plan: Pt will f/u with Dr. Barrientos as scheduled for treatment plan Status: Chronic Plan: Likel yDC in AM.
--- NOTE | 2016-12-18 18:36 | P.PN ---
Subjective 76-year-old with stage IIB mycosis fungoids is admitted to the hospital comes in to the hospital after having chemotherapy 7 days ago. Patient was given a Neulasta support 7 days ago. Patient apparently underwent the radiation therapy light therapy and currently undergoing chemotherapy. Patient however was noted to have febrile neutropenia hence came in the hospital here on consult for medical management Patient has a history of hypertension Today patient denies having any headaches blurry vision nausea vomiting chest pain difficulty breathing cough urinary urgency or frequency or diarrhea or constipation Plan cultures have been negative so far states to be doing better. 2016 Patient has had a fever overnight Denies having any new complaints No headaches blurry vision Ms. nausea vomiting change in bowel habits. 12/16/2001 No new overnight events. However patient had another episode of fever 101.3 however this was prior to the infusion of Diflucan. 12/17/2016 Patient had a T-max 100.1. Denies having any complaint including headaches blurry vision chest pain difficult time breathing nausea vomiting diarrhea. 12/18/16 continues to have fevers, no change in symptoms. ExamPhysical exam Gen. appearance oriented 3 in no distress Neck is supple no JVD Lungs good air entry clear to auscultation no rhonchi or wheezing Heart S1-S2 heard regular rate and rhythm with murmur is appreciated predominantly in the aortic region 2-3 out of 6 in intensity Abdomen is soft nontender no organomegaly bowel sounds are intact Neurologically cranial nerves II-12 grossly intact no focal motor or sensory deficits noted Skin no abnormalities appreciated Objective - Vital Signs Vital signs: Vital Signs Temp 97.7 F 12/18/16 07:00 Pulse 75 12/18/16 16:00 Resp 18 12/18/16 16:00 BP 126/69 12/18/16 07:00 Pulse Ox 94 L 12/18/16 07:00 Intake & Output 12/17/16 12/18/16 12/18/16 18:59 06:59 18:59 Intake Total 1410 Balance 1410 Weight 64.864 kg Intake: IV 700 Fluconazole in NaCl,Iso- 100 Osm 200 mg In Saline 1 100ml.bag @ 100 mls/hr IVPB HS LUCY Rx#:[id number] Sodium Chloride 0.9% 1, 600 000 ml @ 75 mls/hr IV . [id number] LUCY Rx#:[id number] Oral 710 Other: Voiding Method Toilet Toilet Toilet # Voids 2 2 2 # Bowel Movements 1 - Labs CBC & Chem 7: 12/17/16 17:05 12/16/16 06:00 Labs: Microbiology - Last 24 Hours (Table) 12/16/16 14:23 Blood Culture - Preliminary Blood No Growth after 48 hours 12/12/16 17:00 Blood Culture - Preliminary Blood No Growth after 120 hours Assessment and Plan Plan: #1 febrile neutropenia #2 pancytopenia due to chemotherapy #3 cutaneous T-cell lymphoma #4 essential hypertension Atypical chest pain Plan Continue empiric therapy. antiviral agent was added question for drug induced fevers at this time . Counts are all appropriately improved
[2016-12-18] MEDS ORDERED: LOPERAMIDE 2 MG CAP PO PRN (19:32)
[2016-12-18] MEDS: ACETAMINOPHEN TAB 325 MG TAB PO PRN (20:33)
[2016-12-19 06:43] LABS: Anisocytosis Moderate; Aty Lym Flag Moderate; CH 31.9; CHCM 31.3; HCT 26.2 % (34.0-46.0); HDW 3.04; HGB 8.3 gm/dL (11.4-16.0); Hypochromasia Slight; Immature Gran Flag Slight; MCH 32.7 pg (25.0-35.0); MCHC 31.7 g/dL (31.0-37.0); Macrocytosis Marked; RBC 2.55 m/uL (3.80-5.40); RDW 22.7 % (11.5-15.5); WBC 7.4 k/uL (3.8-10.6); WBC (Perox) 8.17
[2016-12-19 07:42] LABS: Anion Gap 9 mmol/L; Blood Urea Nitrogen 11 mg/dL (7-17); Calcium 9.3 mg/dL (8.4-10.2); Carbon Dioxide 23 mmol/L (22-30); Chloride 108 mmol/L (98-107); Glucose 92 mg/dL (74-99); Non-African American GFR(MDRD) >60 (>60 ml/min/1.73 sqM); Sodium 140 mmol/L (137-145)
[2016-12-19 08:16] LABS: Add Differential Manual Differential
[2016-12-19 08:22] LABS: Band Neutrophils % 3 %; Manual Review Performed; Metamyelocytes % 4 %; Myelocytes % 4 %; Nucleated Red Blood Cells 0 /100 WBC (0-0); Polychromasia Present; Total Cells Counted 200
[2016-12-19 08:23] LABS: Toxic Granulation Present
[2016-12-19] MEDS: METOPROLOL TARTRATE 12.5 MG TAB PO SCH (08:45)
[2016-12-19] MEDS: SALT AND SODA MOUTHWASH 1,000 ML PO SCH ×3 (08:46→15:56)
[2016-12-19] MEDS: prednisoLONE ACETATE 1% OPHTH DROPS 1 ML BTL BOTH EYES SCH (08:47)
[2016-12-19] MEDS: RALOXIFENE 60 MG TAB PO SCH (08:47)
[2016-12-19] MEDS: HEPARIN SODIUM,PORCINE 5,000 UNIT/ML 1 ML VIAL SQ SCH ×2 (08:47→15:55)
[2016-12-19] MEDS: LISINOPRIL-HCTZ 10-12.5 MG 1 EACH TAB PO SCH (08:47)
--- NOTE | 2016-12-19 12:07 | P.PN ---
Subjective Patient up ambulating pancytopenia improving. Stated she had fever last night continues on consultation with infectious disease Objective - Vital Signs Vital signs: Vital Signs Temp 98.8 F 12/19/16 07:00 Pulse 75 12/19/16 07:00 Resp 16 12/19/16 07:00 BP 131/75 12/19/16 07:00 Pulse Ox 94 L 12/19/16 07:00 Intake & Output 12/18/16 12/19/16 12/19/16 18:59 06:59 18:59 Intake Total 590 Balance 590 Intake: Oral 590 Other: Voiding Method Toilet Toilet Toilet # Voids 2 2 - Constitutional General appearance: Present: mild distress - EENT Eyes: Present: PERRLA Ears: bilateral: normal - Neck Neck: Present: normal ROM - Respiratory Respiratory: bilateral: CTA - Cardiovascular Rhythm: regular - Gastrointestinal General gastrointestinal: Present: soft - Integumentary Integumentary: Present: normal - Neurologic Neurologic: Present: CNII-XII intact - Musculoskeletal Musculoskeletal: Present: gait normal, generalized weakness - Psychiatric Psychiatric: Present: A&O x's 3, appropriate affect, intact judgment & insight - Labs CBC & Chem 7: 12/19/16 06:30 12/19/16 06:30 Labs: Abnormal Lab Results - Last 24 Hours (Table) 12/19/16 12/19/16 Range/Units 06:30 06:30 RBC 2.55 L (3.80-5.40) m/uL Hgb 8.3 L (11.4-16.0) gm/dL Hct 26.2 L (34.0-46.0) % MCV 103.0 H (80.0-100.0) fL RDW 22.7 H (11.5-15.5) % Plt Count 77 L (150-450) k/uL Lymphocytes # (Manual) 0.30 L (1.0-4.8) k/uL Monocytes # (Manual) 1.41 H (0-1.0) k/uL Metamyelocytes # (Man) 0.30 H (0) k/uL Myelocytes # (Manual) 0.30 H (0) k/uL Chloride 108 H (98-107) mmol/L Creatinine 0.50 L (0.52-1.04) mg/dL Microbiology - Last 24 Hours (Table) 12/12/16 17:00 Blood Culture - Final Blood No Growth after 144 hours 12/16/16 14:23 Blood Culture - Preliminary Blood No Growth after 48 hours Assessment and Plan Plan: Assessment Febrile neutropenia Pancytopenia secondary to chemotherapy Cutaneous T-cell lymphoma Hypertension Atypical chest pain Plan We'll continue to monitor patient patient requesting of Lasix
[2016-12-19 15:44] VITALS: BP 134/75; PULSE 81; RESP 15; TEMP 99.3
[2016-12-19] MEDS: SODIUM CHLORIDE 0.9% 1,000 ML IV SCH (15:55)
--- NOTE | 2016-12-19 17:08 | P.DS ---
Providers Date of admission: 12/12/16 19:10 Expected date of discharge: 12/19/16 Attending physician: Patrick Barrientos Consults: 12/13/16 17:18 Consult Physician Routine Consulting Provider: Eddie Saenz Consult Reason/Comments: medical management Do you want consulting provider notified?: Yes, Notify in am 12/16/16 14:07 Consult Physician Routine Consulting Provider: Wesley Figueredo Consult Reason/Comments: Persistent fever Do you want consulting provider notified?: Yes Primary care physician: Eddie Saenz - Discharge Diagnosis(es) (1) Neutropenic fever Current Visit: Yes Status: Suspected Priority: High (2) Pancytopenia due to antineoplastic chemotherapy Current Visit: Yes Status: Resolved Priority: High (3) Cutaneous T-cell lymphoma Current Visit: No Status: Chronic Priority: Medium Hospital Course: Pt admitted for febrile neutropenia secondary to chemotherapy with R-CHOP for cutaneous T-cell lymphoma. Pt was evaluated by IM and ID. Empiric abx were started. Pancultures were negative at >48 hours, c-diff was negative. Chemo induced pancytopenia did recover spontaneously, she did not require transfusions. Pt today has been afebrile >24 hours, all cultures confirmed negative. Pt is eating and drinking, no nausea, or other physical c/o, she had 2 episodes of diarrhea today, she did ask for lasix because her feet were a little swollen. She is ready to go home Patient Condition at Discharge: Fair Plan - Discharge Summary New Discharge Prescriptions: No Action Atorvastatin [Lipitor] 80 mg PO HS Folic Acid/B Complex C No.17 [Virt-Jaden Plus Tablet] 5 mg PO DAILY Ondansetron Odt [Zofran ODT] 4 mg PO Q8HR PRN #10 tab PRN Reason: Nausea Cyanocobalamin [Vitamin B-12 Injection] 1,000 mcg SQ TU valACYclovir HCL [Valacyclovir] 1,000 mg PO HS Triamcinolone 0.1% Ointment [Kenalog 0.1% Ointment] 1 applic TOPICAL BID PRN PRN Reason: Rash SILVER sulfADIAZINE Cream [Silvadene 1% Cream] 1 applic TOPICAL DAILY Raloxifene [Evista] 60 mg PO QAM Meloxicam [Mobic] 15 mg PO DAILY PRN PRN Reason: Pain Magnesium Gluconate [Magonate] 500 mg PO BID@0900,1700 hydrOXYzine HCL [Atarax] 25 mg PO HS PRN PRN Reason: Mild Itching Lisinopril-Hctz 10-12.5 mg [Zestoretic 10-12.5] 1 tab PO DAILY Lidocaine 4% Cream [Lmx 4] 1 applic TOPICAL DAILY PRN PRN Reason: Leg Pain Clobetasol Propionate [Temovate 0.05% Oint] 1 applic TOPICAL BID PRN PRN Reason: Rash prednisoLONE ACETATE 1% OPHTH [Pred Forte 1%] 1 drops BOTH EYES BID Mupirocin 2% Oint [Bactroban 2% Oint] 1 applic TOPICAL TID PRN PRN Reason: Crusted Spots on Legs Multivitamins, Thera [Multivitamin (formulary)] 1 tab PO QAM Celecoxib [CeleBREX] 200 mg PO DAILY PRN PRN Reason: Back Pain Cephalexin [Keflex] 500 mg PO BID Furosemide [Lasix] 20 mg PO QAM hydrOXYzine HCL [Atarax] 50 mg PO HS PRN PRN Reason: Severe Itching Discharge Medication List Atorvastatin [Lipitor] 80 mg PO HS 10/05/13 [History] Folic Acid/B Complex C No.17 [Virt-Jaden Plus Tablet] 5 mg PO DAILY 09/29/15 [ History] Ondansetron Odt [Zofran ODT] 4 mg PO Q8HR PRN #10 tab 10/19/16 [Rx] Clobetasol Propionate [Temovate 0.05% Oint] 1 applic TOPICAL BID PRN 11/07/16 [ History] Cyanocobalamin [Vitamin B-12 Injection] 1,000 mcg SQ TU 11/07/16 [History] Lidocaine 4% Cream [Lmx 4] 1 applic TOPICAL DAILY PRN 11/07/16 [History] Lisinopril-Hctz 10-12.5 mg [Zestoretic 10-12.5] 1 tab PO DAILY 11/07/16 [History ] Magnesium Gluconate [Magonate] 500 mg PO BID@0900,1700 11/07/16 [History] Meloxicam [Mobic] 15 mg PO DAILY PRN 11/07/16 [History] Multivitamins, Thera [Multivitamin (formulary)] 1 tab PO QAM 11/07/16 [History] Mupirocin 2% Oint [Bactroban 2% Oint] 1 applic TOPICAL TID PRN 11/07/16 [History ] Raloxifene [Evista] 60 mg PO QAM 11/07/16 [History] SILVER sulfADIAZINE Cream [Silvadene 1% Cream] 1 applic TOPICAL DAILY 11/07/16 [ History] Triamcinolone 0.1% Ointment [Kenalog 0.1% Ointment] 1 applic TOPICAL BID PRN 04/14 [History] hydrOXYzine HCL [Atarax] 25 mg PO HS PRN 11/07/16 [History] prednisoLONE ACETATE 1% OPHTH [Pred Forte 1%] 1 drops BOTH EYES BID 11/07/16 [ History] valACYclovir HCL [Valacyclovir] 1,000 mg PO HS 11/07/16 [History] Celecoxib [CeleBREX] 200 mg PO DAILY PRN 12/12/16 [History] Cephalexin [Keflex] 500 mg PO BID 12/12/16 [History] Furosemide [Lasix] 20 mg PO QAM 12/12/16 [History] hydrOXYzine HCL [Atarax] 50 mg PO HS PRN 12/12/16 [History] Follow up Appointment(s)/Referral(s): Eddie Saenz MD [Primary Care Provider] - 1-2 days [facility], [NON-STAFF] - As Needed Patrick Barrientos MD [STAFF PHYSICIAN] - 12/21/16 2:45 pm Activity/Diet/Wound Care/Special Instructions: Activity as tolerated Diet as tolerated Cont home meds as previously prescribed No new prescriptions Discharge Disposition: HOME SELF-CARE Pending Studies Pending Results: none
--- NOTE | 2016-12-19 21:22 | PN ---
DATE OF SERVICE: 12/18/2016 REASON FOR FOLLOWUP: Fever and diarrhea. INTERVAL HISTORY: The patient did have a fever last night of 101 degrees Fahrenheit; however, the patient is afebrile since then. She overall is feeling better. She did have some diarrhea, though. No blood or mucus in it. No abdominal pain. No chest pain, shortness or breath or cough. Breathing comfortably on room air. No urinary symptoms. On examination, blood pressure 126/69 with a pulse of 75, temperature 97.7. She is 94% on room air. General description is an elderly female up in the bed in no distress. RESPIRATORY SYSTEM: Unlabored breathing. Clear to auscultation anteriorly. HEART: S1, S2. Regular rate and rhythm. ABDOMEN: Soft. No tenderness. LABS: Stool for C difficile, both PCR and EIA, is negative. Chest x-ray is negative. Repeat culture has been negative. DIAGNOSTIC IMPRESSION AND PLAN: Patient with a fever in a patient admitted to hospital with febrile neutropenia but no clear focus of infection. All her cultures have been negative. With the diarrhea related to antibiotics, those have been discontinued, and stool for C difficile EIA and PCR is negative. As we do not have any clear focus of infection, her fever could be related to ( ) malignancy or recovery of the bone marrow. Will go ahead and discontinue her antibiotics and watch her closely. Would ideally have given her Questran for her diarrhea, persistent, which we could not do because of drug interaction with some of her medications. She will be given ( ) and will reevaluate the patient tomorrow. CISCO
--- NOTE | 2016-12-20 08:01 | PN ---
DATE OF SERVICE: 12/19/16 REASON FOR FOLLOW UP: Fever, diarrhea. INTERVAL HISTORY: The patient is afebrile. No fever has been recorded in the last 36 hours. The patient feeling better. Did have some diarrhea but no abdominal pain. Denies significant chest pain, shortness of breath or cough. Some swelling in the right leg but no redness per the doctor who has wrapped it up in an ely. On examination, blood pressure 131/75 with a pulse of 75. Temperature 98.8. She is 94% on room air. General description is an elderly female up in the bed in no distress. Respiratory system unlabored breathing. Clear to auscultation anteriorly. Heart S1, S2 regular rate and rhythm. Abdomen soft. No tenderness. LABS: Hemoglobin 8.3, white count 7.4, BUN 11, creatinine 0.50. DIAGNOSTIC IMPRESSION AND PLAN: The patient admitted to the hospital with febrile neutropenia. However, the patient did have some swelling with no clear focus of infection, now with fever, has subsided for almost 36 hours with no clear focus and cultures being negative and diarrhea, antibiotic was discontinued yesterday with no recurrence of any fever. Recommend no antibiotic on discharge. Symptomatic treatment for her diarrhea. SITAD
[2016-12-20] MEDS ORDERED: FUROSEMIDE 20 MG TAB PO SCH (09:00)
== END 2016-12-19 18:00 | disposition home or self-care (01) | DRG 809 ==
LOC: EC 15:59 → 5ONC 19:10
PROVIDERS: ADMIT Internal Medicine Hematology & Oncology; ATTEND Internal Medicine Hematology & Oncology
DX: D61.810 Antineoplastic chemotherapy induced pancytopenia (principal); C84.A0 Cutaneous T-cell lymphoma, unspecified, unspecified site; D70.9 Neutropenia, unspecified; R50.81 Fever presenting with conditions classified elsewhere; I08.1 Rheumatic disorders of both mitral and tricuspid valves; E78.5 Hyperlipidemia, unspecified; H40.9 Unspecified glaucoma; I10 Essential (primary) hypertension; I70.0 Atherosclerosis of aorta; F32.9 Major depressive disorder, single episode, unspecified; M19.90 Unspecified osteoarthritis, unspecified site; R07.89 Other chest pain; R19.7 Diarrhea, unspecified; E07.9 Disorder of thyroid, unspecified; Z79.899 Other long term (current) drug therapy; Z86.14 Personal history of Methicillin resistant Staphylococcus aureus infection
CPT/HCPCS: 36415; 71020; 80048; 80053; 80202; 81003; 83605; 83735; 84100; 84484; 85025; 87040; 87086; 87324; 87493; 93005; 93306; 93970; 96365; 96366; 99291

== ENCOUNTER → 2016-12-24 | Outpatient (CLI) | payer MEDICARE, BC ==
--- NOTE | 2016-12-24 14:17 | CT ---
EXAMINATION TYPE: CT ChestAbdPelvis w con DATE OF EXAM: 12/24/2016 INDICATION: Lymphoma COMPARISON: CT abdomen pelvis 11/08/2016, CT chest 11/12/2016 CT DLP: 713.2 mGycm CONTRAST: Performed with Oral Contrast and with IV Contrast, patient injected with 100 mL of Omnipaque 300. TECHNIQUE: Axial images at 5 mm thick sections. Reconstructed images in the coronal plane. Delayed images through the kidneys. FINDINGS: CT CHEST: Portion of the thyroid visualized is normal. There is a left supraclavicular enlarged lymph node tala uring 1.7 cm in transverse dimension which appears smaller than the comparison study. No suspicious lung nodules or focal infiltrates are present. No enlarged mediastinal or hilar adenopathy is evident. The ascending aorta diameter at the level of the main pulmonary artery is 3.6 cm. The main pulmonary artery diameter at the bifurcation is 2.5 cm. Coronary artery calcification is present. CT ABDOMEN: Liver: Stable cysts are within the liver. Spleen: Normal Pancreas: Normal Adrenal glands: The adrenal glands are normal. Gallbladder: Normal Kidneys: No masses are evident. No hydronephrosis is present. Multiple cortical renal cysts are pre sent bilaterally. Delayed images were obtained through the kidneys, which remain unremarkable. Aorta: Vascular calcification is within the aorta. There is encasement of the abdominal aorta with matted adenopathy. The inferior vena cava is poorly visualized within the adenopathy. Adenopathy extends into the iliac chains. Multiple areas of increas ed density are within the obturator canal and iliac chains. There is increased density and thickening along the left iliac chain extending towards inguinal region. Enlarged inguinal nodes are present bi laterally measuring approximately 2.2 to 2.4 cm in size. Larger less enhancing lymph nodes are on the right. Abdomen and pelvic adenopathy findings appear stable. . Inferior vena cava: Normal. CT PELVIS: Loops of bowel within the abdomen and pelvis are normal. There are loops of bowel which are incom pletely distended or lack oral contrast limiting their evaluation. Appendix: Not identified Urinary bladder: Normal. Genitourinary structures: Uterus and ovaries are not identified. Previous free fluid has resolved. Osseous structures: No suspicious lytic or sclerotic lesions. The edema within the right lower extremity has diminished over the interval IMPRESSIONS: 1. Enlarged lymphadenopathy appears stable from October 2016 and includes matted adenopathy surrounding the aorta, left supraclavicular lymph node, and a large inguinal and distal iliac chain lymph nodes.
== END ==
LOC: RADCTMAIN 12:39
PROVIDERS: ATTEND Internal Medicine Hematology & Oncology
DX: C84.40 Peripheral T-cell lymphoma, not elsewhere classified, unspecified site (principal); R60.0 Localized edema
CPT/HCPCS: 71260; 74177; Q9967; J1642

== ENCOUNTER 2017-01-07 22:33 | Inpatient (IN) | payer MEDICARE, BC ==
[2017-01-07] MEDS ORDERED: SODIUM CHLORIDE 0.9% 1,000 ML IV STA ×2 (22:56)
[2017-01-07] MEDS ORDERED: ACETAMINOPHEN TAB 500 MG TAB PO STA (22:56)
--- NOTE | 2017-01-07 23:00 | ED ---
Fever HPI - General Chief Complaint: Fever Stated Complaint: Fever Time Seen by Provider: 01/07/17 22:51 Source: patient, family Mode of arrival: wheelchair Limitations: no limitations - History of Present Illness Initial Comments: This 76-year-old white female presents with the complaint of a fever and weakness. She apparently had her first dose of series of chemotherapy today. When the son arrived home, she was very confused and also weak to the point that she could not ambulate. He had to carry her. Her temperature is 100.8 the ER. She apparently has had similar incidents twice upon starting chemotherapy in the past. She states that she has no complaints at this time other than that she feels weak. 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 She has some associated abdominal swelling and severe right leg swelling related to this. She sees Dr. Barrientos from oncology in this regard. She denies any chest pain, shortness of breath, or urinary symptoms. No other complaints or modifying factors. - Related Data Home Medications Medication Instructions Recorded Confirmed Atorvastatin [Lipitor] 80 mg PO HS 10/05/13 01/07/17 Folic Acid/B Complex C No.17 5 mg PO DAILY 09/29/15 01/07/17 [Virt-Jaden Plus Tablet] Clobetasol Propionate [Temovate 1 applic TOPICAL BID PRN 11/07/16 01/07/17 0.05% Oint] Cyanocobalamin [Vitamin B-12 1,000 mcg SQ TU 11/07/16 01/07/17 Injection] Lisinopril-Hctz 10-12.5 mg 1 tab PO DAILY 11/07/16 01/07/17 [Zestoretic 10-12.5] Multivitamins, Thera [Multivitamin 1 tab PO HS 11/07/16 01/07/17 (formulary)] Mupirocin 2% Oint [Bactroban 2% 1 applic TOPICAL TID PRN 11/07/16 01/07/17 Oint] Raloxifene [Evista] 60 mg PO QAM 11/07/16 01/07/17 prednisoLONE ACETATE 1% OPHTH 1 drops BOTH EYES BID 11/07/16 01/07/17 [Pred Forte 1%] valACYclovir HCL [Valacyclovir] 1,000 mg PO HS 11/07/16 01/07/17 Furosemide [Lasix] 20 mg PO QAM 12/12/16 01/07/17 Aspirin 325 mg PO DAILY 01/07/17 01/07/17 Cholecalciferol [Vitamin D3] 1,000 unit PO DAILY 01/07/17 01/07/17 Cyanocobalamin (Vitamin B-12) 1,000 mcg PO DAILY 01/07/17 01/07/17 [Vitamin B-12] Folic Acid 0.8 mg PO TID 01/07/17 01/07/17 Levothyroxine Sodium [Synthroid] 100 mcg PO QAM 01/07/17 01/07/17 [place]-3/Dha/Epa/Fish Oil [Fish Oil 1 cap PO DAILY 01/07/17 01/07/17 EC 1,200 mg Softgel] Potassium Chloride ER [K-Dur 10] 10 meq PO Q48H 01/07/17 01/07/17 Sulfamethox-Tmp 800-160Mg [Bactrim 1 tab PO BID 01/07/17 01/07/17 DS 800-160 mg] Vit A/Vit C/Vit E/Zinc/Copper 1 cap PO DAILY 01/07/17 01/07/17 [ICAPS SOFTGEL] Previous Rx's Medication Instructions Recorded Ondansetron Odt [Zofran ODT] 4 mg PO Q8HR PRN #10 tab 10/19/16 Allergies Allergy/AdvReac Type Severity Reaction Status Date / Time No Known Allergies Allergy Verified 01/07/17 23:04 Review of Systems ROS Statement: Those systems with pertinent positive or pertinent negative responses have been documented in the HPI. ROS Other: All systems not noted in ROS Statement are negative. Past Medical History Past Medical History: Cancer, Hyperlipidemia, Hypertension, Osteoarthritis (OA) , Thyroid Disorder Additional Past Medical History / Comment(s): CUTANEOUS T-CELL LYMPHOMA/ radiation, CHEMO, skin ca, murmur, multiple kidney stones, arthritis, glaucoma History of Any Multi-Drug Resistant Organisms: MRSA Date of last positivie culture/infection: 2013 MDRO Source:: rt arm Past Surgical History: Appendectomy, Bladder Surgery, Cholecystectomy, Heart Catheterization, Hernia Repair, Hysterectomy Additional Past Surgical History / Comment(s): patient recieved round of radiation treatment; kidney stents palced about 3 weeks ago /removed 9-21-16 , skin cancer removed,cataracts, lt inguinal hernia repair. Past Anesthesia/Blood Transfusion Reactions: No Reported Reaction Past Psychological History: Depression Smoking Status: Never smoker - Past Family History Father Family Medical History: No Reported History Additional Family Medical History / Comment(s): at age 62 Mother Family Medical History: No Reported History Additional Family Medical History / Comment(s): at age 100 General Exam - General Exam Comments Initial Comments: The patient was seen and examined. All diagnostics were reviewed. The IV is established and patient is thoroughly hydrated. She does receive some Tylenol for her fever. Limitations: no limitations Course Vital Signs 01/07/17 01/08/17 22:36 00:03 Temperature 100.9 F H 98.5 F Pulse Rate 97 83 Respiratory 16 20 Rate Blood Pressure 83/52 106/52 O2 Sat by Pulse 93 L 99 Oximetry Medical Decision Making - Medical Decision Making The patient was seen and examined. All diagnostics were reviewed. The EKG shows a normal sinus rhythm at a rate of 81 with a left axis deviation and low voltage QRS. The VT interval 170, QRS duration is 98, and QTC intervals 462. There is no acute ST T-wave changes noted. The patient presents hypotensive with a systolic blood pressure in the 80s. She was thoroughly hydrated and her blood pressure has come up nicely. She also has a laboratory analysis which does show a degree of anemia. The chest x-ray does not show any acute process in comparison to previous chest x-ray. It is felt as though she is immunocompromised. She just had chemotherapy today for her advanced cancer. Is felt as though she benefit from some intravenous antibiotics. Urinalysis is currently pending. Is also felt dissociative benefit from admission to the hospital. She apparently was weak to the point that she cannot ambulate. The patient is agreeable to this plan. Case was discussed with Dr. Saenz and he is agreeable with admission. - Lab Data Result diagrams: 01/07/17 23:00 01/07/17 23:00 Lab Results 01/07/17 01/07/17 01/07/17 Range/Units 23:00 23:00 23:00 WBC 11.2 H (3.8-10.6) k/uL RBC 3.13 L (3.80-5.40) m/uL Hgb 10.3 L (11.4-16.0) gm/dL Hct 31.6 L (34.0-46.0) % MCV 100.9 H (80.0-100.0) fL MCH 33.0 (25.0-35.0) pg MCHC 32.8 (31.0-37.0) g/dL RDW 19.4 H (11.5-15.5) % Plt Count 257 D (150-450) k/uL Neutrophils % 70 % Lymphocytes % 2 % Monocytes % 7 % Eosinophils % 19 % Basophils % 0 % Neutrophils # 7.9 H (1.3-7.7) k/uL Lymphocytes # 0.2 L (1.0-4.8) k/uL Monocytes # 0.8 (0-1.0) k/uL Eosinophils # 2.1 H (0-0.7) k/uL Basophils # 0.0 (0-0.2) k/uL Anisocytosis Slight Macrocytosis Moderate Sodium 134 L (137-145) mmol/L Potassium 4.0 (3.5-5.1) mmol/L Chloride 102 (98-107) mmol/L Carbon Dioxide 21 L (22-30) mmol/L Anion Gap 11 mmol/L BUN 23 H (7-17) mg/dL Creatinine 1.00 (0.52-1.04) mg/dL Est GFR (MDRD) Af Amer >60 (>60 ml/min/1.73 sqM) Est GFR (MDRD) Non-Af 54 (>60 ml/min/1.73 sqM) Glucose 109 H (74-99) mg/dL Plasma Lactic Acid Ritesh 1.6 (0.7-2.0) mmol/L Calcium 10.2 (8.4-10.2) mg/dL Total Bilirubin 0.4 (0.2-1.3) mg/dL AST 53 H (14-36) U/L ALT 27 (9-52) U/L Alkaline Phosphatase 85 (38-126) U/L Total Creatine Kinase (30-135) U/L CK-MB (CK-2) (0.0-2.4) ng/mL CK-MB (CK-2) Rel Index Troponin I (0.000-0.034) ng/mL Total Protein 6.7 (6.3-8.2) g/dL Albumin 3.5 (3.5-5.0) g/dL 01/07/17 Range/Units 23:00 WBC (3.8-10.6) k/uL RBC (3.80-5.40) m/uL Hgb (11.4-16.0) gm/dL Hct (34.0-46.0) % MCV (80.0-100.0) fL MCH (25.0-35.0) pg MCHC (31.0-37.0) g/dL RDW (11.5-15.5) % Plt Count (150-450) k/uL Neutrophils % % Lymphocytes % % Monocytes % % Eosinophils % % Basophils % % Neutrophils # (1.3-7.7) k/uL Lymphocytes # (1.0-4.8) k/uL Monocytes # (0-1.0) k/uL Eosinophils # (0-0.7) k/uL Basophils # (0-0.2) k/uL Anisocytosis Macrocytosis Sodium (137-145) mmol/L Potassium (3.5-5.1) mmol/L Chloride (98-107) mmol/L Carbon Dioxide (22-30) mmol/L Anion Gap mmol/L BUN (7-17) mg/dL Creatinine (0.52-1.04) mg/dL Est GFR (MDRD) Af Amer (>60 ml/min/1.73 sqM) Est GFR (MDRD) Non-Af (>60 ml/min/1.73 sqM) Glucose (74-99) mg/dL Plasma Lactic Acid Ritesh (0.7-2.0) mmol/L Calcium (8.4-10.2) mg/dL Total Bilirubin (0.2-1.3) mg/dL AST (14-36) U/L ALT (9-52) U/L Alkaline Phosphatase (38-126) U/L Total Creatine Kinase <20 L (30-135) U/L CK-MB (CK-2) 0.3 (0.0-2.4) ng/mL CK-MB (CK-2) Rel Index Troponin I <0.012 (0.000-0.034) ng/mL Total Protein (6.3-8.2) g/dL Albumin (3.5-5.0) g/dL Disposition Clinical Impression: Fever, Anemia, Hypotension, Weakness, Dehydration, T-cell lymphoma, Hypoxia, Lymphedema of right lower extremity, Immunocompromised patient, Inability to walk Disposition: ADMITTED IP TO THIS [facility] Condition: Fair Time of Disposition: 00:32 Decision Date: 01/08/17 Decision Time: 00:32
[2017-01-07 23:11] LABS: Anisocytosis Slight; Basophils % (A) 0 %; CH 33.4; CHCM 33.2; Eosinophils # (A) 2.1 k/uL (0-0.7); Eosinophils % (A) 19 %; HCT 31.6 % (34.0-46.0); HDW 2.91; HGB 10.3 gm/dL (11.4-16.0); Luc # (Auto) 0.23; Luc % (Auto) 2; Lymphocytes # (A) 0.2 k/uL (1.0-4.8); Lymphocytes % (A) 2 %; MCHC 32.8 g/dL (31.0-37.0); MCV 100.9 fL (80.0-100.0); Macrocytosis Moderate; Mean Platelet Volume 7.4; Monocytes # (A) 0.8 k/uL (0-1.0); Monocytes % (A) 7 %; Neutrophils # (A) 7.9 k/uL (1.3-7.7); Neutrophils % (A) 70 %; RBC 3.13 m/uL (3.80-5.40); RDW 19.4 % (11.5-15.5); WBC 11.2 k/uL (3.8-10.6)
[2017-01-07 23:20] LABS: ALT 27 U/L (9-52); AST 53 U/L (14-36); Alkaline Phosphatase 85 U/L (38-126); Anion Gap 11 mmol/L; Blood Urea Nitrogen 23 mg/dL (7-17); Calcium 10.2 mg/dL (8.4-10.2); Carbon Dioxide 21 mmol/L (22-30); Chloride 102 mmol/L (98-107); Glucose 109 mg/dL (74-99); Non-African American GFR(MDRD) 54 (>60 ml/min/1.73 sqM); Sodium 134 mmol/L (137-145); Total Bilirubin 0.4 mg/dL (0.2-1.3); Total Protein 6.7 g/dL (6.3-8.2)
[2017-01-07 23:42] LABS: Creatine Kinase <20 U/L (30-135)
[2017-01-07 23:55] LABS: Creatine Kinase MB 0.3 ng/mL (0.0-2.4); Troponin I <0.012 ng/mL (0.000-0.034)
--- NOTE | 2017-01-08 00:29 | XR ---
EXAM: XR Chest, 2 Views CLINICAL HISTORY: Reason: fever TECHNIQUE: Frontal and lateral views of the chest. COMPARISON: Chest radiograph 12/12/2016 FINDINGS: Lungs: Lungs are clear. No focal infiltrates or consolidations. Pleural space: No evidence of pleural effusion or pneumothorax. Heart: Heart size is mildly enlarged. Mediastinum: Unremarkable. Bones/joints: Mild degenerative changes involve the left clinical joint. Tubes, lines and devices: Indwelling central venous catheter has tip extending to region of right atrium, unchanged. Other findings: No significant change since 12/12/2016. IMPRESSION: Mild cardiomegaly. No evidence of acute cardiopulmonary disease.
[2017-01-08] MEDS ORDERED: NALOXONE 0.4 MG/ML 1 ML VIAL IV PRN (00:36)
[2017-01-08] MEDS ORDERED: ONDANSETRON 4 MG/2 ML VIAL IVP PRN (00:36)
[2017-01-08] MEDS ORDERED: CLOBETASOL PROP 0.05% OINT 15GM TOPICAL PRN (00:40)
[2017-01-08] MEDS ORDERED: MUPIROCIN 2% OINT 22 GM TUBE TOPICAL PRN (00:40)
[2017-01-08 01:56] VITALS: BMI 28.7
[2017-01-08 06:13] LABS: Appearance,Urine Clear (Clear); Bacteria,Urine Rare /hpf; Bilirubin,Urine Negative (Negative); Glucose,Urine (UA) Negative (Negative); Ketones,Urine Negative (Negative); Leukocyte Esterase,Urine Moderate (Negative); Mucus,Urine Rare /hpf; Nitrite,Urine Negative (Negative); Particle Count 1768; Protein,Urine Negative (Negative); RBC,Urine <1 /hpf (0-5); Specific Gravity,Urine 1.009 (1.001-1.035); Squamous Epithelial Cell,Urine 1 /hpf (0-4); Transitional Epi Cells,Urine <1 /hpf (0-1); UA Billing (MACRO vs. MICRO) MICRO; Urobilinogen,Urine <2.0 mg/dL (<2.0); WBC,Urine 16 /hpf (0-5)
[2017-01-08] MEDS: FUROSEMIDE 20 MG TAB PO SCH (07:46)
[2017-01-08] MEDS: CYANOCOBALAMIN 500 MCG TAB PO SCH (07:46)
[2017-01-08] MEDS: ENOXAPARIN 40 MG/0.4 ML SYRINGE SQ SCH (07:46)
[2017-01-08] MEDS: CHOLECALCIFEROL 1,000 UNIT TAB PO SCH (07:47)
[2017-01-08] MEDS: LEVOTHYROXINE 100 MCG TAB PO SCH (07:47)
[2017-01-08] MEDS: FOLIC ACID 1 MG TAB PO SCH ×3 (07:47→21:57)
[2017-01-08] MEDS: prednisoLONE ACETATE 1% OPHTH DROPS 1 ML BTL BOTH EYES SCH ×2 (07:49→21:55)
[2017-01-08] MEDS: LISINOPRIL-HCTZ 10-12.5 MG 1 EACH TAB PO SCH (07:49)
[2017-01-08] MEDS: RALOXIFENE 60 MG TAB PO SCH (07:50)
[2017-01-08] MEDS: ASPIRIN 325 MG TAB PO SCH (08:36)
[2017-01-08] MEDS: SULFAMETHOX-TMP 800-160MG 1 EACH TAB PO SCH ×2 (08:37→21:56)
[2017-01-08] MEDS ORDERED: NON-FORMULARY DRUG (Omega-3/Dha/Epa/Fish Oil [Fish Oil Ec 1,200 Mg Softgel] 1 CAP) PO SCH (09:00)
[2017-01-08] MEDS ORDERED: [UNRECOGNIZED DRUG - OTHER] PO SCH (09:00)
[2017-01-08] MEDS ORDERED: FOLIC ACID PO SCH (09:00)
[2017-01-08] MEDS ORDERED: PANTOPRAZOLE 40 MG/10 ML VIAL IV SCH (09:00)
--- NOTE | 2017-01-08 09:18 | P.CONS ---
History of Present Illness - Reason for Consult Consult date: 01/08/17 fever s/p chemo Requesting physician: Alo Kaplan - Chief Complaint fever - History of Present Illness Please refer to H&P dictated 12/13/16 for full malignancy history details as nothing has changed other then pt had her 1st campath treatment yesterday with the new regimen, three times a week with dose escalation. Pt states that after she got home from treatment she just felt so weak, she could not walk, she was not responding verbally, family check her temp and stated that it was elevated so she was brought in for evaluation. Temp was 100.9F on admit, no fevers documented since, BP was noted to be low intermittently, pancultures ordered, empiric antibiotics prescribed. When seen this AM pt was ambulating independently to the bathroom, she was eating breakfast and she did not have any confusion. Mild nausea, no vomiting, SOB, cough, sore throat, abd pain, diarrhea or constipation, her RLE is more swollen again. Review of Systems All systems: negative (except as stated in HPI) Past Medical History Past Medical History: Cancer, Hyperlipidemia, Hypertension, Osteoarthritis (OA) , Thyroid Disorder Additional Past Medical History / Comment(s): CUTANEOUS T-CELL LYMPHOMA/ radiation, CHEMO, skin ca, murmur, multiple kidney stones, arthritis, glaucoma History of Any Multi-Drug Resistant Organisms: MRSA Year Discovered:: 2013 MDRO Source:: rt arm Past Surgical History: Appendectomy, Bladder Surgery, Cholecystectomy, Heart Catheterization, Hernia Repair, Hysterectomy Additional Past Surgical History / Comment(s): patient recieved round of radiation treatment; kidney stents palced about 3 weeks ago /removed 01-18-16 , skin cancer removed,cataracts, lt inguinal hernia repair. chemo on 01/07/17 Past Anesthesia/Blood Transfusion Reactions: No Reported Reaction Past Psychological History: Depression Additional Psychological History / Comment(s): had some depression when dx w/ lymphoma. currently pt denies any depression. Smoking Status: Never smoker Past Alcohol Use History: None Reported Past Drug Use History: None Reported - Past Family History Father Family Medical History: No Reported History Additional Family Medical History / Comment(s): father at age 62, unknown medical history Mother Family Medical History: No Reported History Additional Family Medical History / Comment(s): mother at age 100, no reorted medical conditions Medications and Allergies Home Medications Medication Instructions Recorded Confirmed Type Atorvastatin [Lipitor] 80 mg PO HS 10/05/13 01/07/17 History Folic Acid/B Complex C No.17 5 mg PO DAILY 09/29/15 01/07/17 History [Virt-Jaden Plus Tablet] Ondansetron Odt [Zofran ODT] 4 mg PO Q8HR PRN #10 tab 10/19/16 01/07/17 Rx Clobetasol Propionate [Temovate 1 applic TOPICAL BID PRN 11/07/16 01/07/17 History 0.05% Oint] Cyanocobalamin [Vitamin B-12 1,000 mcg SQ TU 11/07/16 01/07/17 History Injection] Lisinopril-Hctz 10-12.5 mg 1 tab PO DAILY 11/07/16 01/07/17 History [Zestoretic 10-12.5] Multivitamins, Thera [Multivitamin 1 tab PO HS 11/07/16 01/07/17 History (formulary)] Mupirocin 2% Oint [Bactroban 2% 1 applic TOPICAL TID PRN 11/07/16 01/07/17 History Oint] Raloxifene [Evista] 60 mg PO QAM 11/07/16 01/07/17 History prednisoLONE ACETATE 1% OPHTH 1 drops BOTH EYES BID 11/07/16 01/07/17 History [Pred Forte 1%] valACYclovir HCL [Valacyclovir] 1,000 mg PO HS 11/07/16 01/07/17 History Furosemide [Lasix] 20 mg PO QAM 12/12/16 01/07/17 History Aspirin 325 mg PO DAILY 01/07/17 01/07/17 History Cholecalciferol [Vitamin D3] 1,000 unit PO DAILY 01/07/17 01/07/17 History Cyanocobalamin (Vitamin B-12) 1,000 mcg PO DAILY 01/07/17 01/07/17 History [Vitamin B-12] Folic Acid 0.8 mg PO TID 01/07/17 01/07/17 History Levothyroxine Sodium [Synthroid] 100 mcg PO QAM 01/07/17 01/07/17 History [place]-3/Dha/Epa/Fish Oil [Fish Oil 1 cap PO DAILY 01/07/17 01/07/17 History EC 1,200 mg Softgel] Potassium Chloride ER [K-Dur 10] 10 meq PO Q48H 01/07/17 01/07/17 History Sulfamethox-Tmp 800-160Mg [Bactrim 1 tab PO BID 01/07/17 01/07/17 History DS 800-160 mg] Vit A/Vit C/Vit E/Zinc/Copper 1 cap PO DAILY 01/07/17 01/07/17 History [ICAPS SOFTGEL] Allergies Allergy/AdvReac Type Severity Reaction Status Date / Time No Known Allergies Allergy Verified 01/07/17 23:04 Physical Exam Vitals: Vital Signs Temp Pulse Pulse Resp BP BP BP 01/08/17 07:30 98.4 F 77 16 74/44 01/08/17 05:44 106/63 01/08/17 01:31 97.8 F 83 16 91/50 01/08/17 00:03 98.5 F 83 20 106/52 01/07/17 22:36 100.9 F H 97 16 83/52 Pulse Ox 01/08/17 07:30 96 01/08/17 05:44 01/08/17 01:31 96 01/08/17 00:03 99 01/07/17 22:36 93 L Intake and Output 01/07/17 01/08/17 01/08/17 22:59 06:59 14:59 Output Total 400 Balance -400 Output: Urine 400 Other: Voiding Method Toilet Weight 66.678 kg 66.678 kg - Constitutional General appearance: average body habitus, cooperative, no acute distress - EENT Eyes: anicteric sclerae, PERRLA, normal appearance ENT: normal oropharynx - Neck Neck: lymphadenopathy - Respiratory Respiratory: bilateral: CTA - Cardiovascular Rhythm: regular Heart sounds: normal: S1, S2 Abnormal Heart Sounds: no systolic murmur, no diastolic murmur, no rub, no S3 Gallop, no S4 Gallop, no click, no other - Gastrointestinal General gastrointestinal: no absent bowel sounds, no decreased bowel sounds, distended, no hepatomegaly, no hyperactive bowel sounds, normal bowel sounds, no organomegaly, no rigid, no scaphoid, soft, no splenomegaly, no tenderness, no umbilical hernia, no ventral hernia - Integumentary Integumentary: normal - Neurologic Neurologic: CNII-XII intact - Musculoskeletal Musculoskeletal: strength equal bilaterally - Psychiatric Psychiatric: A&O x's 3, appropriate affect, intact judgment & insight RLE swelling, worse since last seen, skin is tight, no weeping or open sores noted. Results CBC & Chem 7: 01/07/17 23:00 01/07/17 23:00 Labs: Abnormal Lab Results - Last 24 Hours (Table) 01/07/17 01/07/17 01/07/17 Range/Units 23:00 23:00 23:00 WBC 11.2 H (3.8-10.6) k/uL RBC 3.13 L (3.80-5.40) m/uL Hgb 10.3 L (11.4-16.0) gm/dL Hct 31.6 L (34.0-46.0) % MCV 100.9 H (80.0-100.0) fL RDW 19.4 H (11.5-15.5) % Neutrophils # 7.9 H (1.3-7.7) k/uL Lymphocytes # 0.2 L (1.0-4.8) k/uL Eosinophils # 2.1 H (0-0.7) k/uL Sodium 134 L (137-145) mmol/L Carbon Dioxide 21 L (22-30) mmol/L BUN 23 H (7-17) mg/dL Glucose 109 H (74-99) mg/dL AST 53 H (14-36) U/L Total Creatine Kinase <20 L (30-135) U/L Ur Leukocyte Esterase (Negative) Urine WBC (0-5) /hpf Urine WBC Clumps (None) /hpf Urine Bacteria (None) /hpf Hyaline Casts (0-2) /lpf Urine Mucus (None) /hpf 01/08/17 Range/Units 05:30 WBC (3.8-10.6) k/uL RBC (3.80-5.40) m/uL Hgb (11.4-16.0) gm/dL Hct (34.0-46.0) % MCV (80.0-100.0) fL RDW (11.5-15.5) % Neutrophils # (1.3-7.7) k/uL Lymphocytes # (1.0-4.8) k/uL Eosinophils # (0-0.7) k/uL Sodium (137-145) mmol/L Carbon Dioxide (22-30) mmol/L BUN (7-17) mg/dL Glucose (74-99) mg/dL AST (14-36) U/L Total Creatine Kinase (30-135) U/L Ur Leukocyte Esterase Moderate H (Negative) Urine WBC 16 H (0-5) /hpf Urine WBC Clumps Rare H (None) /hpf Urine Bacteria Rare H (None) /hpf Hyaline Casts 40 H (0-2) /lpf Urine Mucus Rare H (None) /hpf Comments: EKG reviewed Chest x-ray: report reviewed Assessment and Plan (1) Fever Narrative/Plan: Pancultures ordered, empiric abx ordered. 100.9F on admit, no fevers documented since Campath can cause fevers but with additional pt symptoms it is unclear wether her presentation is drug effect or infection. Cont current plan of care, await cultures Status: Acute (2) Lymphedema of right lower extremity Narrative/Plan: Chronic with variation in size based on activity, ambulation and sitting with legs dependent. PT ordered, encouraged ambulation. Status: Chronic (3) T-cell lymphoma Narrative/Plan: Pt is s/p 1st day of new campath regimen, she is supposed to receive three times a week. Message sent to Dr. Barrientos as he collaborates with pt Oncologist Dr. Farrell for recommendations for treatment. Status: Acute
[2017-01-08] MEDS: VIT A,C & E-LUTEIN-MINERALS 1 EACH TAB PO SCH (15:06)
--- NOTE | 2017-01-08 17:27 | P.HPIM ---
History of Present Illness 68 sexual female was admitted for complaints of fever and weakness. Patient had first dose so series her chemo today [facility]. Son had found the patient confused and weak to the point she was unable to ambulate. Temperature in the emergency room 100.8. Patient found to be hypotensive Review of Systems Constitutional: Reports fatigue, Reports fever, Reports weakness Gastrointestinal: Reports bloating Hematologic/Lymphatic: Reports lymphedema Past Medical History Past Medical History: Cancer, Hyperlipidemia, Hypertension, Osteoarthritis (OA) , Thyroid Disorder Additional Past Medical History / Comment(s): CUTANEOUS T-CELL LYMPHOMA/ radiation, CHEMO, skin ca, murmur, multiple kidney stones, arthritis, glaucoma History of Any Multi-Drug Resistant Organisms: MRSA Date of last positivie culture/infection: 2013 MDRO Source:: rt arm Past Surgical History: Appendectomy, Bladder Surgery, Cholecystectomy, Heart Catheterization, Hernia Repair, Hysterectomy Additional Past Surgical History / Comment(s): patient recieved round of radiation treatment; kidney stents palced about 3 weeks ago /removed 01-18-16 , skin cancer removed,cataracts, lt inguinal hernia repair. chemo on 01/07/17 Past Anesthesia/Blood Transfusion Reactions: No Reported Reaction Past Psychological History: Depression Additional Psychological History / Comment(s): had some depression when dx w/ lymphoma. currently pt denies any depression. Smoking Status: Never smoker Past Alcohol Use History: None Reported Past Drug Use History: None Reported - Past Family History Father Family Medical History: No Reported History Additional Family Medical History / Comment(s): father at age 62, unknown medical history Mother Family Medical History: No Reported History Additional Family Medical History / Comment(s): mother at age 100, no reorted medical conditions Medications and Allergies Home Medications Medication Instructions Recorded Confirmed Type Atorvastatin [Lipitor] 80 mg PO HS 10/05/13 01/07/17 History Folic Acid/B Complex C No.17 5 mg PO DAILY 09/29/15 01/07/17 History [Virt-Jaden Plus Tablet] Ondansetron Odt [Zofran ODT] 4 mg PO Q8HR PRN #10 tab 10/19/16 01/07/17 Rx Clobetasol Propionate [Temovate 1 applic TOPICAL BID PRN 11/07/16 01/07/17 History 0.05% Oint] Cyanocobalamin [Vitamin B-12 1,000 mcg SQ TU 11/07/16 01/07/17 History Injection] Lisinopril-Hctz 10-12.5 mg 1 tab PO DAILY 11/07/16 01/07/17 History [Zestoretic 10-12.5] Multivitamins, Thera [Multivitamin 1 tab PO HS 11/07/16 01/07/17 History (formulary)] Mupirocin 2% Oint [Bactroban 2% 1 applic TOPICAL TID PRN 11/07/16 01/07/17 History Oint] Raloxifene [Evista] 60 mg PO QAM 11/07/16 01/07/17 History prednisoLONE ACETATE 1% OPHTH 1 drops BOTH EYES BID 11/07/16 01/07/17 History [Pred Forte 1%] valACYclovir HCL [Valacyclovir] 1,000 mg PO HS 11/07/16 01/07/17 History Furosemide [Lasix] 20 mg PO QAM 12/12/16 01/07/17 History Aspirin 325 mg PO DAILY 01/07/17 01/07/17 History Cholecalciferol [Vitamin D3] 1,000 unit PO DAILY 01/07/17 01/07/17 History Cyanocobalamin (Vitamin B-12) 1,000 mcg PO DAILY 01/07/17 01/07/17 History [Vitamin B-12] Folic Acid 0.8 mg PO TID 01/07/17 01/07/17 History Levothyroxine Sodium [Synthroid] 100 mcg PO QAM 01/07/17 01/07/17 History Call-3/Dha/Epa/Fish Oil [Fish Oil 1 cap PO DAILY 01/07/17 01/07/17 History EC 1,200 mg Softgel] Potassium Chloride ER [K-Dur 10] 10 meq PO Q48H 01/07/17 01/07/17 History Sulfamethox-Tmp 800-160Mg [Bactrim 1 tab PO BID 01/07/17 01/07/17 History DS 800-160 mg] Vit A/Vit C/Vit E/Zinc/Copper 1 cap PO DAILY 01/07/17 01/07/17 History [ICAPS SOFTGEL] Allergies Allergy/AdvReac Type Severity Reaction Status Date / Time No Known Allergies Allergy Verified 01/07/17 23:04 Physical Exam Vitals: Vital Signs Temp Pulse Pulse Resp BP BP BP 01/08/17 15:38 01/08/17 15:15 98.3 F 78 17 115/58 01/08/17 10:01 85 18 86/54 01/08/17 07:30 98.4 F 77 16 74/44 01/08/17 05:44 106/63 01/08/17 01:31 97.8 F 83 16 91/50 01/08/17 00:03 98.5 F 83 20 106/52 01/07/17 22:36 100.9 F H 97 16 83/52 Pulse Ox 01/08/17 15:38 100 01/08/17 15:15 99 01/08/17 10:01 92 L 01/08/17 07:30 96 01/08/17 05:44 01/08/17 01:31 96 01/08/17 00:03 99 01/07/17 22:36 93 L Intake and Output 01/08/17 01/08/17 01/08/17 06:59 14:59 22:59 Output Total 400 Balance -400 Output: Urine 400 Other: Voiding Method Toilet Toilet # Voids 2 Weight 66.678 kg - Constitutional General appearance: mild distress, obese - EENT Eyes: PERRLA Ears: bilateral: normal - Neck Neck: normal ROM - Respiratory Respiratory: bilateral: CTA - Cardiovascular Rhythm: regular leg Peripheral Edema: right: 4+ - Gastrointestinal General gastrointestinal: distended - Integumentary Integumentary: normal - Neurologic Neurologic: CNII-XII intact - Musculoskeletal Musculoskeletal: generalized weakness - Psychiatric Psychiatric: A&O x's 3, appropriate affect, intact judgment & insight Results CBC & Chem 7: 01/07/17 23:00 01/07/17 23:00 Labs: Abnormal Lab Results - Last 24 Hours (Table) 01/07/17 01/07/17 01/07/17 Range/Units 23:00 23:00 23:00 WBC 11.2 H (3.8-10.6) k/uL RBC 3.13 L (3.80-5.40) m/uL Hgb 10.3 L (11.4-16.0) gm/dL Hct 31.6 L (34.0-46.0) % MCV 100.9 H (80.0-100.0) fL RDW 19.4 H (11.5-15.5) % Neutrophils # 7.9 H (1.3-7.7) k/uL Lymphocytes # 0.2 L (1.0-4.8) k/uL Eosinophils # 2.1 H (0-0.7) k/uL Sodium 134 L (137-145) mmol/L Carbon Dioxide 21 L (22-30) mmol/L BUN 23 H (7-17) mg/dL Glucose 109 H (74-99) mg/dL AST 53 H (14-36) U/L Total Creatine Kinase <20 L (30-135) U/L Ur Leukocyte Esterase (Negative) Urine WBC (0-5) /hpf Urine WBC Clumps (None) /hpf Urine Bacteria (None) /hpf Hyaline Casts (0-2) /lpf Urine Mucus (None) /hpf 01/08/17 Range/Units 05:30 WBC (3.8-10.6) k/uL RBC (3.80-5.40) m/uL Hgb (11.4-16.0) gm/dL Hct (34.0-46.0) % MCV (80.0-100.0) fL RDW (11.5-15.5) % Neutrophils # (1.3-7.7) k/uL Lymphocytes # (1.0-4.8) k/uL Eosinophils # (0-0.7) k/uL Sodium (137-145) mmol/L Carbon Dioxide (22-30) mmol/L BUN (7-17) mg/dL Glucose (74-99) mg/dL AST (14-36) U/L Total Creatine Kinase (30-135) U/L Ur Leukocyte Esterase Moderate H (Negative) Urine WBC 16 H (0-5) /hpf Urine WBC Clumps Rare H (None) /hpf Urine Bacteria Rare H (None) /hpf Hyaline Casts 40 H (0-2) /lpf Urine Mucus Rare H (None) /hpf Microbiology - Last 24 Hours (Table) 01/08/17 05:30 Urine Culture - Preliminary Urine,Clean Catch Chest x-ray: report reviewed Thrombosis Risk Factor Assmnt - Choose All That Apply Each Risk Factor Represents 3 Points: Elevated anticardiolipin antibodies Thrombosis Risk Factor Assessment Total Risk Factor Score: 3 Thrombosis Risk Factor Assessment Level: Moderate Risk Assessment and Plan Plan: Assessment Fever chronic anemia Hypotension Weakness Dehydration T-cell lymphoma Lymphedema right lower extremity Immunocompromised patient History of hypertension Hypothyroidism Glaucoma On Campath regime Plan Patient on ceftriaxone Monitor blood pressure normal saline 100 hour Oncology consultation
[2017-01-08] MEDS: IBUPROFEN 400 MG TAB PO PRN (20:53)
[2017-01-08] MEDS: MULTIVITAMINS, THERA 1 EACH TAB PO SCH (21:54)
[2017-01-08] MEDS: valACYclovir HCL 1,000 MG TABLET PO SCH (21:56)
[2017-01-08] MEDS: ATORVASTATIN 80 MG TAB PO SCH (21:56)
[2017-01-09 08:16] LABS: ALT 25 U/L (9-52); AST 42 U/L (14-36); Alkaline Phosphatase 61 U/L (38-126); Anion Gap 9 mmol/L; Blood Urea Nitrogen 14 mg/dL (7-17); Calcium 8.6 mg/dL (8.4-10.2); Carbon Dioxide 20 mmol/L (22-30); Chloride 109 mmol/L (98-107); Glucose 81 mg/dL (74-99); Non-African American GFR(MDRD) >60 (>60 ml/min/1.73 sqM); Potassium 3.8 mmol/L (3.5-5.1); Sodium 138 mmol/L (137-145); Total Bilirubin 0.2 mg/dL (0.2-1.3); Total Protein 5.6 g/dL (6.3-8.2)
[2017-01-09 08:35] LABS: Anisocytosis Slight; CH 32.9; HCT 28.2 % (34.0-46.0); HDW 2.93; HGB 9.1 gm/dL (11.4-16.0); Hypochromasia Slight; MCH 33.5 pg (25.0-35.0); MCHC 32.4 g/dL (31.0-37.0); MCV 103.4 fL (80.0-100.0); Macrocytosis Marked; Mean Platelet Volume 7.2; RBC 2.73 m/uL (3.80-5.40); RDW 19.4 % (11.5-15.5); WBC 8.1 k/uL (3.8-10.6); WBC (Perox) 8.26
[2017-01-09 09:06] LABS: Add Differential Manual Differential
--- NOTE | 2017-01-09 09:13 | P.PN ---
Subjective Principal diagnosis: fever s/p chemo Pt seen in follow up this AM, she did have a fever overnight 101.3F, she did not eat anything last night but today she states eating a good breakfast, her stomach feels fine, no SOB, abd pain, she has been urinating and had a BM, she states it was dark. Her RLE swelling is severe but stable. Objective - Vital Signs Vital signs: Vital Signs Temp 98.6 F 01/09/17 07:00 Pulse 76 01/09/17 07:00 Resp 16 01/09/17 07:00 BP 103/58 01/09/17 07:00 Pulse Ox 94 L 01/09/17 07:00 Intake & Output 01/08/17 01/09/17 01/09/17 18:59 06:59 18:59 Intake Total 1390 Balance 1390 Intake: IV 800 Sodium Chloride 0.9% 1, 800 000 ml @ 100 mls/hr IV . Q10H STA Rx#:[id number] Oral 590 Other: Voiding Method Toilet Toilet # Voids 2 1 - Constitutional Constitutional Comment(s): Alert, oriented, NAD, respirations even and unlabored, she is ambulatory independently without assistive device. General appearance: Present: average body habitus, cooperative, no acute distress - EENT Eyes: Present: anicteric sclerae - Neurologic Neurologic: Present: CNII-XII intact - Musculoskeletal Musculoskeletal: Present: strength equal bilaterally - Psychiatric Psychiatric: Present: A&O x's 3, appropriate affect, intact judgment & insight - Labs CBC & Chem 7: 01/09/17 07:34 01/09/17 07:34 Labs: Abnormal Lab Results - Last 24 Hours (Table) 01/09/17 01/09/17 Range/Units 07:34 07:34 RBC 2.73 L (3.80-5.40) m/uL Hgb 9.1 L (11.4-16.0) gm/dL Hct 28.2 L (34.0-46.0) % MCV 103.4 H (80.0-100.0) fL RDW 19.4 H (11.5-15.5) % Chloride 109 H (98-107) mmol/L Carbon Dioxide 20 L (22-30) mmol/L AST 42 H (14-36) U/L Total Protein 5.6 L (6.3-8.2) g/dL Albumin 2.8 L (3.5-5.0) g/dL Microbiology - Last 24 Hours (Table) 01/07/17 23:00 Blood Culture - Preliminary Blood No Growth after 24 hours 01/08/17 05:30 Urine Culture - Preliminary Urine,Clean Catch Assessment and Plan (1) Fever Narrative/Plan: 101.3F lat night, pt is on abx and antiviral, CXR showed no acute process, blood cultures negative at 24 hours, UA was suspicious, culture pending. Cont current medical care Status: Acute (2) Lymphedema of right lower extremity Narrative/Plan: Stable. Cont with PT and elevation Status: Chronic (3) T-cell lymphoma Narrative/Plan: Pt has had poor tolerance to treatment, she has been hospitalized after every cycle of treatment. Dr. Barrientos will be collaborating with primary Oncologist Dr. Farrell, further treatment plan pending. Current treatment is on hold Status: Acute Plan: Cont medical management and supportive care
[2017-01-09 09:15] LABS: Myelocytes % 1 %; Nucleated Red Blood Cells 0 /100 WBC (0-0); Total Cells Counted 200
[2017-01-09 09:17] LABS: Manual Review Performed
[2017-01-09] MEDS: LEVOTHYROXINE 100 MCG TAB PO SCH (10:21)
[2017-01-09] MEDS: FUROSEMIDE 20 MG TAB PO SCH (10:21)
[2017-01-09] MEDS: RALOXIFENE 60 MG TAB PO SCH (10:21)
[2017-01-09] MEDS: SULFAMETHOX-TMP 800-160MG 1 EACH TAB PO SCH ×2 (10:21→21:42)
[2017-01-09] MEDS: prednisoLONE ACETATE 1% OPHTH DROPS 1 ML BTL BOTH EYES SCH ×2 (10:21→21:42)
[2017-01-09] MEDS: FOLIC ACID 1 MG TAB PO SCH ×3 (10:21→21:42)
[2017-01-09] MEDS: CHOLECALCIFEROL 1,000 UNIT TAB PO SCH (10:22)
[2017-01-09] MEDS: LISINOPRIL-HCTZ 10-12.5 MG 1 EACH TAB PO SCH (10:22)
[2017-01-09] MEDS: POTASSIUM CHLORIDE ER 10 MEQ TAB.ER.PRT PO SCH (10:22)
[2017-01-09] MEDS: ENOXAPARIN 40 MG/0.4 ML SYRINGE SQ SCH (10:22)
[2017-01-09] MEDS: PANTOPRAZOLE 40 MG TABLET PO SCH (10:22)
[2017-01-09] MEDS: ASPIRIN 325 MG TAB PO SCH (10:22)
[2017-01-09] MEDS: CYANOCOBALAMIN 500 MCG TAB PO SCH (10:22)
[2017-01-09] MEDS: ACETAMINOPHEN TAB 325 MG TAB PO PRN ×2 (11:40→19:06)
[2017-01-09] MEDS: VIT A,C & E-LUTEIN-MINERALS 1 EACH TAB PO SCH (11:41)
--- NOTE | 2017-01-09 11:43 | P.PN ---
Subjective Patient sitting on bedside. States some improvement. Has oncology consultation chemotherapy is on hold at this present time we'll consult with primary oncologist Objective - Vital Signs Vital signs: Vital Signs Temp 99.9 F H 01/09/17 10:18 Pulse 75 01/09/17 10:18 Resp 16 01/09/17 07:00 BP 102/62 01/09/17 10:18 Pulse Ox 94 L 01/09/17 07:00 Intake & Output 01/08/17 01/09/17 01/09/17 18:59 06:59 18:59 Intake Total 1390 Balance 1390 Intake: IV 800 Sodium Chloride 0.9% 1, 800 000 ml @ 100 mls/hr IV . Q10H STA Rx#:[id number] Oral 590 Other: Voiding Method Toilet Toilet Toilet # Voids 2 1 - Constitutional General appearance: Present: mild distress - EENT Eyes: Present: PERRLA Ears: bilateral: normal - Neck Neck: Present: normal ROM - Respiratory Respiratory: right: rales, bilateral: CTA - Cardiovascular Rhythm: regular - Gastrointestinal General gastrointestinal: Present: soft - Integumentary Integumentary: Present: normal - Neurologic Neurologic: Present: CNII-XII intact - Musculoskeletal Musculoskeletal: Present: generalized weakness - Psychiatric Psychiatric: Present: A&O x's 3, appropriate affect, intact judgment & insight - Labs CBC & Chem 7: 01/09/17 07:34 01/09/17 07:34 Labs: Abnormal Lab Results - Last 24 Hours (Table) 01/09/17 01/09/17 Range/Units 07:34 07:34 RBC 2.73 L (3.80-5.40) m/uL Hgb 9.1 L (11.4-16.0) gm/dL Hct 28.2 L (34.0-46.0) % MCV 103.4 H (80.0-100.0) fL RDW 19.4 H (11.5-15.5) % Lymphocytes # (Manual) 0.24 L (1.0-4.8) k/uL Eosinophils # (Manual) 2.03 H (0-0.7) k/uL Myelocytes # (Manual) 0.08 H (0) k/uL Chloride 109 H (98-107) mmol/L Carbon Dioxide 20 L (22-30) mmol/L AST 42 H (14-36) U/L Total Protein 5.6 L (6.3-8.2) g/dL Albumin 2.8 L (3.5-5.0) g/dL Microbiology - Last 24 Hours (Table) 01/07/17 23:00 Blood Culture - Preliminary Blood No Growth after 24 hours 01/08/17 05:30 Urine Culture - Preliminary Urine,Clean Catch - Imaging and Cardiology Chest x-ray: report reviewed Assessment and Plan Plan: Assessment Fever Anemia Hypotension Dehydration/weakness T-cell lymphoma Lymphedema right lower extremity Immunocompromised patient History of hypertension History of hypothyroidism History of glaucoma Plan On ceftriaxone continue consultation with oncology
[2017-01-09] MEDS: IBUPROFEN 400 MG TAB PO PRN (21:20)
[2017-01-09] MEDS: ATORVASTATIN 80 MG TAB PO SCH (21:42)
[2017-01-09] MEDS: valACYclovir HCL 1,000 MG TABLET PO SCH (21:42)
[2017-01-09] MEDS: MULTIVITAMINS, THERA 1 EACH TAB PO SCH (21:42)
[2017-01-09] MEDS ORDERED: ACETAMINOPHEN IV (For NPO) 1,000 MG in EMPTY BAG 1 BAG IVPB STA (22:44)
[2017-01-10 03:07] LABS: EBV - EA (IgG) 14.1 U/mL (<9.0); EBV - VCA (IgG) >750.0 U/mL (<18.0); EBV - VCA IgM <10.0 U/mL (<36.0)
[2017-01-10] MEDS: PANTOPRAZOLE 40 MG TABLET PO SCH (08:24)
[2017-01-10] MEDS: CYANOCOBALAMIN 500 MCG TAB PO SCH (08:25)
[2017-01-10] MEDS: LEVOTHYROXINE 100 MCG TAB PO SCH (08:25)
[2017-01-10] MEDS: FUROSEMIDE 20 MG TAB PO SCH (08:25)
[2017-01-10] MEDS: CHOLECALCIFEROL 1,000 UNIT TAB PO SCH (08:25)
[2017-01-10] MEDS: ASPIRIN 325 MG TAB PO SCH (08:25)
[2017-01-10] MEDS: ENOXAPARIN 40 MG/0.4 ML SYRINGE SQ SCH (08:25)
[2017-01-10] MEDS: RALOXIFENE 60 MG TAB PO SCH (08:26)
[2017-01-10] MEDS: prednisoLONE ACETATE 1% OPHTH DROPS 1 ML BTL BOTH EYES SCH ×2 (08:26→21:16)
[2017-01-10] MEDS: LISINOPRIL-HCTZ 10-12.5 MG 1 EACH TAB PO SCH (08:26)
[2017-01-10] MEDS: SULFAMETHOX-TMP 800-160MG 1 EACH TAB PO SCH ×2 (08:27→21:17)
[2017-01-10] MEDS: ACETAMINOPHEN TAB 325 MG TAB PO PRN ×2 (08:38→21:12)
[2017-01-10] MEDS: FOLIC ACID 1 MG TAB PO SCH ×3 (10:06→21:17)
--- NOTE | 2017-01-10 11:30 | P.PN ---
Subjective Principal diagnosis: Patient has a depressed demeanor today. Assessment at bedside. Have consult did infectious disease regarding continued fever Objective - Vital Signs Vital signs: Vital Signs Temp 98 F 01/10/17 07:00 Pulse 82 01/10/17 07:00 Resp 18 01/10/17 07:00 BP 118/69 01/10/17 07:00 Pulse Ox 97 01/10/17 07:00 Intake & Output 01/09/17 01/10/17 01/10/17 18:59 06:59 18:59 Intake Total 990 Balance 990 Intake: Intake, IV Titration 50 Amount cefTRIAXone 1,000 mg In 50 Sodium Chloride 0.9% 50 ml @ 100 mls/hr IVPB Q24H LUCY Rx#:[id number] Oral 940 Other: Voiding Method Toilet Toilet # Voids 3 2 # Bowel Movements 1 - Constitutional General appearance: Present: mild distress - EENT Eyes: Present: PERRLA Ears: bilateral: normal - Neck Neck: Present: normal ROM - Respiratory Respiratory: bilateral: CTA - Cardiovascular Rhythm: regular - Peripheral edema leg Peripheral Edema: right: 3+ - Gastrointestinal General gastrointestinal: Present: distended - Integumentary Integumentary: Present: normal - Musculoskeletal Musculoskeletal: Present: generalized weakness - Psychiatric Psychiatric: Present: A&O x's 3, appropriate affect, intact judgment & insight - Labs CBC & Chem 7: 01/09/17 07:34 01/09/17 07:34 Labs: Abnormal Lab Results - Last 24 Hours (Table) 01/09/17 Range/Units 07:34 EBV Capsid Ag IgG Ab >750.0 H (<18.0) U/mL EBV Early Antigen IgG 14.1 H (<9.0) U/mL EBV Nuclear Ag IgG Ab 119.0 H (<18.0) U/mL Microbiology - Last 24 Hours (Table) 01/07/17 23:00 Blood Culture - Preliminary Blood No Growth after 48 hours 01/08/17 05:30 Urine Culture - Final Urine,Clean Catch - Imaging and Cardiology Chest x-ray: report reviewed Assessment and Plan Plan: Assessment Fever Anemia secondary to chemotherapy Hypotension improved Generalized weakness Dehydration T-cell lymphoma Lymphedema right lower extremity Immunocompromised patient History of hypertension Hypothyroidism History of glaucoma Plan Consultation with infectious disease regarding continued fever Continue consultation with oncology
[2017-01-10] MEDS: VIT A,C & E-LUTEIN-MINERALS 1 EACH TAB PO SCH (12:18)
[2017-01-10] MEDS: MULTIVITAMINS, THERA 1 EACH TAB PO SCH (21:16)
[2017-01-10] MEDS: ATORVASTATIN 80 MG TAB PO SCH (21:16)
[2017-01-10] MEDS: valACYclovir HCL 1,000 MG TABLET PO SCH (21:17)
[2017-01-10] MEDS: IBUPROFEN 400 MG TAB PO PRN (22:23)
--- NOTE | 2017-01-10 23:29 | P.CONS ---
History of Present Illness - Reason for Consult Consult date: 01/10/17 - Chief Complaint right leg swelling - History of Present Illness 76 year old woman from [place] who has mycosis fungoids and has multiple treatment courses in the past including prior chemotherapy, radiation and light therapy. During this year has had progression of the disease and has been treated with rituxan with progression of disease and doxil tried but not tolerated, then campath without improvement so was placed on CHOP and had febrile neutropenia with first cycle. Now presents acutely weak and ill with cellulitis like changes to the leg and ID was consulted.Family is present and questions are answered. Review of Systems Constitutional: Reports chills, Reports fatigue, Reports fever Eyes: denies blurred vision Ears: deny: decreased hearing, ear discharge Ears, nose, mouth and throat: Denies headache, Denies sore throat Cardiovascular: Denies chest pain, Denies shortness of breath Respiratory: Denies cough Gastrointestinal: Denies abdominal pain, Denies diarrhea, Denies nausea, Denies vomiting Genitourinary: Denies dysuria, Denies hematuria Musculoskeletal: Denies fractures, Denies myalgias Integumentary: Reports as per HPI, Reports color changes Neurological: Denies numbness, Denies weakness Psychiatric: Denies anxiety, Denies depression Endocrine: Reports fatigue, Denies weight change Hematologic/Lymphatic: Reports as per HPI Allergic/Immunologic: Denies wheezing Past Medical History Past Medical History: Cancer, Hyperlipidemia, Hypertension, Osteoarthritis (OA) , Thyroid Disorder Additional Past Medical History / Comment(s): CUTANEOUS T-CELL LYMPHOMA/ radiation, CHEMO, skin ca, murmur, multiple kidney stones, arthritis, glaucoma History of Any Multi-Drug Resistant Organisms: MRSA Year Discovered:: 2013 MDRO Source:: rt arm Past Surgical History: Appendectomy, Bladder Surgery, Cholecystectomy, Heart Catheterization, Hernia Repair, Hysterectomy Additional Past Surgical History / Comment(s): patient recieved round of radiation treatment; kidney stents palced about 3 weeks ago /removed 01-18-16 , skin cancer removed,cataracts, lt inguinal hernia repair. chemo on 01/07/17 Past Anesthesia/Blood Transfusion Reactions: No Reported Reaction Past Psychological History: Depression Additional Psychological History / Comment(s): had some depression when dx w/ lymphoma. currently pt denies any depression. for 6 years. came to [place] in [place] Smoking Status: Never smoker Past Alcohol Use History: None Reported Past Drug Use History: None Reported - Past Family History Father Family Medical History: No Reported History Additional Family Medical History / Comment(s): father at age 62, unknown medical history Mother Family Medical History: No Reported History Additional Family Medical History / Comment(s): mother at age 100, no reorted medical conditions Medications and Allergies Home Medications and Allergies Comment(s): Current Medications Acetaminophen (Tylenol Tab) 650 mg PO Q6HR PRN PRN Reason: Mild Pain or Fever > 100.5 Last Admin: 01/10/17 21:12 Dose: 650 mg Aspirin (Aspirin) 325 mg PO DAILY [facility] Last Admin: 01/10/17 08:25 Dose: 325 mg Atorvastatin Calcium (Lipitor) 80 mg PO HS [facility] Last Admin: 01/10/17 21:16 Dose: 80 mg Cholecalciferol (Vitamin D3) 1,000 unit PO DAILY [facility] Last Admin: 01/10/17 08:25 Dose: 1,000 unit Clobetasol Propionate (Temovate) 1 applic TOPICAL BID PRN PRN Reason: Skin Lesions Cyanocobalamin (Vitamin B-12) 1,000 mcg PO DAILY [facility] Last Admin: 01/10/17 08:25 Dose: 1,000 mcg Enoxaparin Sodium (Lovenox) 40 mg SQ DAILY [facility] Last Admin: 01/10/17 08:25 Dose: 40 mg Folic Acid (Folic Acid) 1 mg PO TID [facility] Last Admin: 01/10/17 21:17 Dose: 1 mg Furosemide (Lasix) 20 mg PO QAM [facility] Last Admin: 01/10/17 08:25 Dose: 20 mg Lisinopril/HCTZ (Zestoretic 10-12.5) 1 each PO DAILY [facility] Last Admin: 01/10/17 08:26 Dose: 1 each Ceftriaxone Sodium 1,000 mg/ (Sodium Chloride) 50 mls @ 100 mls/hr IVPB Q24H [facility] Last Admin: 01/10/17 22:22 Dose: 100 mls/hr Ibuprofen (Motrin) 400 mg PO Q6HR PRN PRN Reason: Mild Pain or Fever > 100.5 Last Admin: 01/10/17 22:23 Dose: 400 mg Levothyroxine Sodium (Synthroid) 100 mcg PO QAM [facility] Last Admin: 01/10/17 08:25 Dose: 100 mcg Multivitamins (Theragran) 1 each PO HS [facility] Last Admin: 01/10/17 21:16 Dose: 1 each Multivitamins/Minerals (Ivite) 1 each PO DAILY@1200 [facility] Last Admin: 01/10/17 12:18 Dose: 1 each Mupirocin (Bactroban Oint) 1 applic TOPICAL TID PRN PRN Reason: Crusted Spots on Legs Naloxone HCl (Narcan) 0.2 mg IV Q2M PRN PRN Reason: Opioid Reversal Ondansetron HCl (Zofran) 4 mg IVP Q4H PRN PRN Reason: Nausea And Vomiting Pantoprazole Sodium (Protonix) 40 mg PO AC-BRKFST [facility] Last Admin: 01/10/17 08:24 Dose: 40 mg Potassium Chloride (K-Dur 10) 10 meq PO Q48H [facility] Last Admin: 01/09/17 10:22 Dose: 10 meq Prednisolone Acetate (Pred Forte 1%) 1 drops BOTH EYES BID [facility] Last Admin: 01/10/17 21:16 Dose: 1 drops Raloxifene HCl (Evista) 60 mg PO QAM [facility] Last Admin: 01/10/17 08:26 Dose: 60 mg Trimethoprim/Sulfamethoxazole (Bactrim Ds) 1 each PO BID [facility] Last Admin: 01/10/17 21:17 Dose: 1 each Valacyclovir HCl (Valtrex) 1,000 mg PO [facility] Last Admin: 01/10/17 21:17 Dose: 1,000 mg Home Medications Medication Instructions Recorded Confirmed Type Atorvastatin [Lipitor] 80 mg PO HS 10/05/13 01/07/17 History Folic Acid/B Complex C No.17 5 mg PO DAILY 09/29/15 01/07/17 History [Virt-Jaden Plus Tablet] Ondansetron Odt [Zofran ODT] 4 mg PO Q8HR PRN #10 tab 10/19/16 01/07/17 Rx Clobetasol Propionate [Temovate 1 applic TOPICAL BID PRN 11/07/16 01/07/17 History 0.05% Oint] Cyanocobalamin [Vitamin B-12 1,000 mcg SQ TU 11/07/16 01/07/17 History Injection] Lisinopril-Hctz 10-12.5 mg 1 tab PO DAILY 11/07/16 01/07/17 History [Zestoretic 10-12.5] Multivitamins, Thera [Multivitamin 1 tab PO HS 11/07/16 01/07/17 History (formulary)] Mupirocin 2% Oint [Bactroban 2% 1 applic TOPICAL TID PRN 11/07/16 01/07/17 History Oint] Raloxifene [Evista] 60 mg PO QAM 11/07/16 01/07/17 History prednisoLONE ACETATE 1% OPHTH 1 drops BOTH EYES BID 11/07/16 01/07/17 History [Pred Forte 1%] valACYclovir HCL [Valacyclovir] 1,000 mg PO HS 11/07/16 01/07/17 History Furosemide [Lasix] 20 mg PO QAM 12/12/16 01/07/17 History Aspirin 325 mg PO DAILY 01/07/17 01/07/17 History Cholecalciferol [Vitamin D3] 1,000 unit PO DAILY 01/07/17 01/07/17 History Cyanocobalamin (Vitamin B-12) 1,000 mcg PO DAILY 01/07/17 01/07/17 History [Vitamin B-12] Folic Acid 0.8 mg PO TID 01/07/17 01/07/17 History Levothyroxine Sodium [Synthroid] 100 mcg PO QAM 01/07/17 01/07/17 History [place]-3/Dha/Epa/Fish Oil [Fish Oil 1 cap PO DAILY 01/07/17 01/07/17 History EC 1,200 mg Softgel] Potassium Chloride ER [K-Dur 10] 10 meq PO Q48H 01/07/17 01/07/17 History Sulfamethox-Tmp 800-160Mg [Bactrim 1 tab PO BID 01/07/17 01/07/17 History DS 800-160 mg] Vit A/Vit C/Vit E/Zinc/Copper 1 cap PO DAILY 01/07/17 01/07/17 History [ICAPS SOFTGEL] Allergies Allergy/AdvReac Type Severity Reaction Status Date / Time No Known Allergies Allergy Verified 01/07/17 23:04 Physical Exam Vitals: Vital Signs Temp Pulse Resp BP BP Pulse Ox 01/10/17 20:30 98.4 F 91 18 140/84 96 01/10/17 15:00 97.8 F 89 18 104/68 97 09/14/17 07:00 98 F 82 18 118/69 97 01/10/17 00:45 97.9 F 01/09/17 23:41 100.3 F H Intake and Output 01/10/17 01/10/17 01/11/17 14:59 22:59 06:59 Other: # Voids 2 no chills or rigors - Constitutional General appearance: cooperative - EENT Eyes: anicteric sclerae, edentulous, PERRLA ENT: other (no oral lesoins) Ears: bilateral: normal - Neck Neck: no lymphadenopathy, normal ROM, no thyromegaly Thyroid: bilateral: normal size - Respiratory Respiratory: bilateral: CTA - Cardiovascular Rhythm: regular Heart sounds: normal: S1, S2 Abnormal Heart Sounds: no systolic murmur, no diastolic murmur, S4 Gallop (soft) - Gastrointestinal General gastrointestinal: no organomegaly, soft, no tenderness - Integumentary extensive swelling to the right leg from thigh distal with erythema and discomfort over prior areas of radiation - Neurologic awake alert OX3 no focal defects - Musculoskeletal Musculoskeletal: generalized weakness - Psychiatric Psychiatric: A&O x's 3 Results CBC & Chem 7: 01/09/17 07:34 01/09/17 07:34 Labs: Abnormal Lab Results - Last 24 Hours (Table) 01/09/17 Range/Units 07:34 EBV Capsid Ag IgG Ab >750.0 H (<18.0) U/mL EBV Early Antigen IgG 14.1 H (<9.0) U/mL EBV Nuclear Ag IgG Ab 119.0 H (<18.0) U/mL Microbiology - Last 24 Hours (Table) 01/07/17 23:00 Blood Culture - Preliminary Blood No Growth after 48 hours Laboratory Results WBC 8.1 k/uL (3.8-10.6) 01/09/17 07:34 RBC 2.73 m/uL (3.80-5.40) L 01/09/17 07:34 Hgb 9.1 gm/dL (11.4-16.0) L 01/09/17 07:34 Hct 28.2 % (34.0-46.0) L 01/09/17 07:34 MCV 103.4 fL (80.0-100.0) H 01/09/17 07:34 MCH 33.5 pg (25.0-35.0) 01/09/17 07:34 MCHC 32.4 g/dL (31.0-37.0) 01/09/17 07:34 RDW 19.4 % (11.5-15.5) H 01/09/17 07:34 Plt Count 206 k/uL (150-450) 01/09/17 07:34 Neutrophils % 70 % 01/07/17 23:00 Neutrophils % (Manual) 64 % 01/09/17 07:34 Lymphocytes % 2 % 01/07/17 23:00 Lymphocytes % (Manual) 3 % 01/09/17 07:34 Monocytes % 7 % 01/07/17 23:00 Monocytes % (Manual) 8 % 01/09/17 07:34 Eosinophils % 19 % 01/07/17 23:00 Eosinophils % (Manual) 25 % 01/09/17 07:34 Basophils % 0 % 01/07/17 23:00 Myelocytes % 1 % 01/09/17 07:34 Neutrophils # 7.9 k/uL (1.3-7.7) H 01/07/17 23:00 Neutrophils # (Manual) 5.18 k/uL (1.3-7.7) 01/09/17 07:34 Lymphocytes # 0.2 k/uL (1.0-4.8) L 01/07/17 23:00 Lymphocytes # (Manual) 0.24 k/uL (1.0-4.8) L 01/09/17 07:34 Monocytes # 0.8 k/uL (0-1.0) 01/07/17 23:00 Monocytes # (Manual) 0.65 k/uL (0-1.0) 01/09/17 07:34 Eosinophils # 2.1 k/uL (0-0.7) H 01/07/17 23:00 Eosinophils # (Manual) 2.03 k/uL (0-0.7) H 01/09/17 07:34 Basophils # 0.0 k/uL (0-0.2) 01/07/17 23:00 Myelocytes # (Manual) 0.08 k/uL (0) H 01/09/17 07:34 Nucleated RBCs 0 /100 WBC (0-0) 01/09/17 07:34 Manual Slide Review Performed 01/09/17 07:34 Hypochromasia Slight 01/09/17 07:34 Anisocytosis Slight 01/09/17 07:34 Macrocytosis Marked 01/09/17 07:34 Sodium 138 mmol/L (137-145) 01/09/17 07:34 Potassium 3.8 mmol/L (3.5-5.1) 01/09/17 07:34 Chloride 109 mmol/L (98-107) H 01/09/17 07:34 Carbon Dioxide 20 mmol/L (22-30) L 01/09/17 07:34 Anion Gap 9 mmol/L 01/09/17 07:34 BUN 14 mg/dL (7-17) 01/09/17 07:34 Creatinine 0.86 mg/dL (0.52-1.04) 01/09/17 07:34 Est GFR (MDRD) Af Amer >60 (>60 ml/min/1.73 sqM) 01/09/17 07:34 Est GFR (MDRD) Non-Af >60 (>60 ml/min/1.73 sqM) 01/09/17 07:34 Glucose 81 mg/dL (74-99) 01/09/17 07:34 Plasma Lactic Acid Ritesh 1.6 mmol/L (0.7-2.0) 01/07/17 23:00 Calcium 8.6 mg/dL (8.4-10.2) 01/09/17 07:34 Total Bilirubin 0.2 mg/dL (0.2-1.3) 01/09/17 07:34 AST 42 U/L (14-36) H 01/09/17 07:34 ALT 25 U/L (9-52) 01/09/17 07:34 Alkaline Phosphatase 61 U/L (38-126) 01/09/17 07:34 Total Creatine Kinase <20 U/L (30-135) L 01/07/17 23:00 CK-MB (CK-2) 0.3 ng/mL (0.0-2.4) 01/07/17 23:00 CK-MB (CK-2) Rel Index 01/07/17 23:00 Troponin I <0.012 ng/mL (0.000-0.034) 01/07/17 23:00 Total Protein 5.6 g/dL (6.3-8.2) L 01/09/17 07:34 Albumin 2.8 g/dL (3.5-5.0) L 01/09/17 07:34 Urine Color Yellow 01/08/17 05:30 Urine Appearance Clear (Clear) 01/08/17 05:30 Urine pH 6.0 (5.0-8.0) 01/08/17 05:30 Ur Specific [place] 1.009 (1.001-1.035) 01/08/17 05:30 Urine Protein Negative (Negative) 01/08/17 05:30 Urine Glucose (UA) Negative (Negative) 01/08/17 05:30 Urine Ketones Negative (Negative) 01/08/17 05:30 Urine Blood Negative (Negative) 01/08/17 05:30 Urine Nitrite Negative (Negative) 01/08/17 05:30 Urine Bilirubin Negative (Negative) 01/08/17 05:30 Urine Urobilinogen <2.0 mg/dL (<2.0) 01/08/17 05:30 Ur Leukocyte Esterase Moderate (Negative) H 01/08/17 05:30 Urine RBC <1 /hpf (0-5) 01/08/17 05:30 Urine WBC 16 /hpf (0-5) H 01/08/17 05:30 Urine WBC Clumps Rare /hpf (None) H 01/08/17 05:30 Ur Squamous Epith Cells 1 /hpf (0-4) 01/08/17 05:30 Ur Transition Epith Cell <1 /hpf (0-1) 01/08/17 05:30 Urine Bacteria Rare /hpf (None) H 01/08/17 05:30 Hyaline Casts 40 /lpf (0-2) H 01/08/17 05:30 Urine Mucus Rare /hpf (None) H 01/08/17 05:30 EBV Capsid Ag IgG Ab >750.0 U/mL (<18.0) H 01/09/17 07:34 EBV Capsid Ag IgM Ab <10.0 U/mL (<36.0) 01/09/17 07:34 EBV Early Antigen IgG 14.1 U/mL (<9.0) H 01/09/17 07:34 EBV Nuclear Ag IgG Ab 119.0 U/mL (<18.0) H 01/09/17 07:34 Microbiology 01/07/17 23:00 Blood Blood Culture - Preliminary No Growth after 48 hours 01/08/17 05:30 Urine,Clean Catch Urine Culture - Final Assessment and Plan (1) T-cell lymphoma Narrative/Plan: 76 year old woman with t cell lymphoma who has failed many treatment is now with CHOP therapy with development of weakness and fever. Cultures are in progress. Will use Cefepime given level of compromise. Local care to the limb may be enhanced if can obtain lymphedema pump as outpatient The fever is improved. The family is concerned and seem aware of condtion and prognosis. Status: Acute (2) Fever Status: Acute
[2017-01-11] MEDS: CEFEPIME 2 GM in SODIUM CHLORIDE 0.9% 50 ML IVPB SCH ×3 (00:28→16:22)
[2017-01-11] MEDS: PANTOPRAZOLE 40 MG TABLET PO SCH (09:30)
[2017-01-11] MEDS: ASPIRIN 325 MG TAB PO SCH (09:31)
[2017-01-11] MEDS: CHOLECALCIFEROL 1,000 UNIT TAB PO SCH (09:31)
[2017-01-11] MEDS: CYANOCOBALAMIN 500 MCG TAB PO SCH (09:32)
[2017-01-11] MEDS: FUROSEMIDE 20 MG TAB PO SCH (09:32)
[2017-01-11] MEDS: ENOXAPARIN 40 MG/0.4 ML SYRINGE SQ SCH (09:32)
[2017-01-11] MEDS: FOLIC ACID 1 MG TAB PO SCH ×3 (09:32→21:21)
[2017-01-11] MEDS: POTASSIUM CHLORIDE ER 10 MEQ TAB.ER.PRT PO SCH (09:33)
[2017-01-11] MEDS: prednisoLONE ACETATE 1% OPHTH DROPS 1 ML BTL BOTH EYES SCH ×2 (09:33→21:22)
[2017-01-11] MEDS: LISINOPRIL-HCTZ 10-12.5 MG 1 EACH TAB PO SCH (09:33)
[2017-01-11] MEDS: LEVOTHYROXINE 100 MCG TAB PO SCH (09:33)
[2017-01-11] MEDS: SULFAMETHOX-TMP 800-160MG 1 EACH TAB PO SCH ×2 (09:34→21:21)
[2017-01-11] MEDS: RALOXIFENE 60 MG TAB PO SCH (09:34)
--- NOTE | 2017-01-11 12:23 | CDI ---
In responding to this query, please exercise your independent professional judgment. The [facility] Coding Staff and Clinical Documentation Specialists appreciate your assistance in clarifying documentation, maintaining compliance with coding guidelines, accurately documenting patients condition and capturing severity of illness. The fact that a question is asked does not imply that any particular answer is desired or expected. Communication forms are a method of clarifying documentation and are not made part of the Legal Health Record. Thank you in advance for your clarification. Last Revision, July 2016 Mikhail Benton [address] [place] [address] Documentation Clarification Form Date: 01/11/2017 12:00:00 PM From: Ashley Leon, SALIMA, CCDS Admit Date: 01/08/2017 12:36:00 AM Patient Name: Lady Morales Visit Number: [id number] Discharge Date: Dr. Eddie Saenz: 76 yo female. Admit with fever & weakness after first chemo treatment for T Cell lymphoma. History/Risk Factors: Hypertension, OA, Multiple kidney stones, Skin CA, MRSA right arm 2013. Clinical Indicators: Weakness, unable to ambulate, Temp in ER 100.9 WBC: WBC 11.2, Neut 7.9 Lactic acid: (1.6) Blood cultures: Neg @ 72 hrs, Urine Culture: Neg. Vitals signs on admission: T 100.9^, P 97, R 16, BP 83/52*, PO 93 ra Treatment: IV Tylenol, IV fluid 100, IV fluid bolus, IV Rocephin Consults: ID, ONC In your professional opinion, please clarify if these findings signify one of the following conditions, whether the condition is POA, and cause, if known: Sepsis, ruled out SIRS, without underlying infectious process Sepsis Severe Sepsis Septic Shock Unable to determine Other, please specify Present on Admission: Yes No Please document in your progress notes and discharge summary in order to capture severity of illness and risk of mortality. Include clinical findings that support your diagnosis. FYI: Press F11 to launch patient chart. [facility]
[2017-01-11] MEDS: VIT A,C & E-LUTEIN-MINERALS 1 EACH TAB PO SCH (12:32)
[2017-01-11] MEDS: IBUPROFEN 400 MG TAB PO PRN (18:34)
--- NOTE | 2017-01-11 19:29 | P.PN ---
Subjective Patient had a T-max 101.4. Ambulating in hallway. Denies having any complaint including headaches blurry vision chest pain difficult time breathing nausea, vomiting. Reports diarrhea this morning,brn.. C. difficile testing pending. No new labs today. Denies chest pain, palpitations or increasing shortness of breath. Maintaining O2 sats of 97% on room air. Objective - Vital Signs Vital signs: Vital Signs Temp 102.1 F H 01/11/17 18:34 Pulse 90 01/11/17 15:00 Resp 16 01/11/17 07:00 BP 104/64 01/11/17 15:00 Pulse Ox 97 01/11/17 15:00 Intake & Output 01/11/17 01/11/17 01/12/17 06:59 18:59 06:59 Intake Total 600 200 Balance 600 200 Intake: Intake, IV Titration 150 200 Amount Cefepime 2 gm In Sodium 100 100 Chloride 0.9% 50 ml @ 100 mls/hr IVPB Q8HR [facility] Rx# :[id number] cefTRIAXone 1,000 mg In 50 100 Sodium Chloride 0.9% 50 ml @ 100 mls/hr IVPB Q24H [facility] Rx#:[id number] Oral 450 Other: Voiding Method Toilet Toilet # Voids 2 3 - Exam Gen. appearance oriented 3 in no distress Neck is supple no JVD Lungs good air entry clear to auscultation no rhonchi or wheezing Heart S1-S2 heard regular rate and rhythm with murmur is appreciated predominantly in the aortic region 2-3 out of 6 in intensity Abdomen is soft nontender no organomegaly bowel sounds are intact Neurologically cranial nerves II-12 grossly intact no focal motor or sensory deficits noted Skin no abnormalities appreciated, right leg chronic edema - Labs CBC & Chem 7: 01/09/17 07:34 01/09/17 07:34 Labs: Microbiology - Last 24 Hours (Table) 01/07/17 23:00 Blood Culture - Preliminary Blood No Growth after 72 hours Assessment and Plan Plan: Persistent Fevers in a Immunocompromised patient Anemia secondary to chemotherapy Hypotension secondary to dehydration T-cell lymphoma Lymphedema right lower extremity Plan: Continue on current medication regime , cefepime, monitoring and symptomatic treatment Continue with gentle IV fluid hydration. PT/OT. Follow cultures closely. Antibiotics as per ID. Prognosis guarded given multiple complex medical issues. Follow closely with oncology. Further recommendations to follow. The impression and plan of care has been dictated as directed. : I performed a H&P examination of this patient and discussed the same with the dictator. I agree with the dictator's note. Any additional findings/opinions/ etc. will be noted.
[2017-01-11] MEDS: ACETAMINOPHEN TAB 325 MG TAB PO PRN (19:33)
[2017-01-11] MEDS: ATORVASTATIN 80 MG TAB PO SCH (21:21)
[2017-01-11] MEDS: valACYclovir HCL 1,000 MG TABLET PO SCH (21:21)
[2017-01-11] MEDS: MULTIVITAMINS, THERA 1 EACH TAB PO SCH (21:21)
--- NOTE | 2017-01-11 23:21 | P.PN ---
Subjective Principal diagnosis: Weakness and cellulitis right leg 76 year old woman from [facility] who has mycosis fungoids and has multiple treatment courses in the past including prior chemotherapy, radiation and light therapy. During this year has had progression of the disease and has been treated with rituxan with progression of disease and doxil tried but not tolerated, then campath without improvement so was placed on CHOP and had febrile neutropenia with first cycle. Now presents acutely weak and ill with cellulitis like changes to the leg and ID was consulted. Patient feels slightly stronger today. Hematology is following. Receiving fluids in replacement of electrolyte abnormalities. Right leg feels slightly better today. Objective - Vital Signs Vital signs: Vital Signs Temp 97.5 F L 01/11/17 23:00 Pulse 91 01/11/17 23:00 Resp 16 01/11/17 23:00 BP 107/61 01/11/17 23:00 Pulse Ox 93 L 01/11/17 23:00 Intake & Output 01/11/17 01/11/17 01/12/17 06:59 18:59 06:59 Intake Total 600 200 100 Balance 600 200 100 Intake: Intake, IV Titration 150 200 Amount Cefepime 2 gm In Sodium 100 100 Chloride 0.9% 50 ml @ 100 mls/hr IVPB Q8HR LUCY Rx# :[id number] cefTRIAXone 1,000 mg In 50 100 Sodium Chloride 0.9% 50 ml @ 100 mls/hr IVPB Q24H LUCY Rx#:[id number] Oral 450 100 Other: Voiding Method Toilet Toilet # Voids 2 3 - Exam no chills or rigors - Constitutional General appearance: cooperative - EENT Eyes: anicteric sclerae, edentulous, PERRLA ENT: other (no oral lesoins) Ears: bilateral: normal - Neck Neck: no lymphadenopathy, normal ROM, no thyromegaly Thyroid: bilateral: normal size - Respiratory Respiratory: bilateral: CTA - Cardiovascular Rhythm: regular Heart sounds: normal: S1, S2 Abnormal Heart Sounds: no systolic murmur, no diastolic murmur, S4 Gallop (soft) - Gastrointestinal General gastrointestinal: no organomegaly, soft, no tenderness - Integumentary extensive swelling to the right leg from thigh distal with erythema and discomfort over prior areas of radiation - Neurologic awake alert OX3 no focal defects - Musculoskeletal Musculoskeletal: generalized weakness - Psychiatric Psychiatric: A&O x's 3 - Labs CBC & Chem 7: 01/09/17 07:34 01/09/17 07:34 Labs: Microbiology - Last 24 Hours (Table) 01/07/17 23:00 Blood Culture - Preliminary Blood No Growth after 72 hours Laboratory Results WBC 8.1 k/uL (3.8-10.6) 01/09/17 07:34 RBC 2.73 m/uL (3.80-5.40) L 01/09/17 07:34 Hgb 9.1 gm/dL (11.4-16.0) L 01/09/17 07:34 Hct 28.2 % (34.0-46.0) L 01/09/17 07:34 MCV 103.4 fL (80.0-100.0) H 01/09/17 07:34 MCH 33.5 pg (25.0-35.0) 01/09/17 07:34 MCHC 32.4 g/dL (31.0-37.0) 01/09/17 07:34 RDW 19.4 % (11.5-15.5) H 01/09/17 07:34 Plt Count 206 k/uL (150-450) 01/09/17 07:34 Neutrophils % 70 % 01/07/17 23:00 Neutrophils % (Manual) 64 % 01/09/17 07:34 Lymphocytes % 2 % 01/07/17 23:00 Lymphocytes % (Manual) 3 % 01/09/17 07:34 Monocytes % 7 % 01/07/17 23:00 Monocytes % (Manual) 8 % 01/09/17 07:34 Eosinophils % 19 % 01/07/17 23:00 Eosinophils % (Manual) 25 % 01/09/17 07:34 Basophils % 0 % 01/07/17 23:00 Myelocytes % 1 % 01/09/17 07:34 Neutrophils # 7.9 k/uL (1.3-7.7) H 01/07/17 23:00 Neutrophils # (Manual) 5.18 k/uL (1.3-7.7) 01/09/17 07:34 Lymphocytes # 0.2 k/uL (1.0-4.8) L 01/07/17 23:00 Lymphocytes # (Manual) 0.24 k/uL (1.0-4.8) L 01/09/17 07:34 Monocytes # 0.8 k/uL (0-1.0) 01/07/17 23:00 Monocytes # (Manual) 0.65 k/uL (0-1.0) 01/09/17 07:34 Eosinophils # 2.1 k/uL (0-0.7) H 01/07/17 23:00 Eosinophils # (Manual) 2.03 k/uL (0-0.7) H 01/09/17 07:34 Basophils # 0.0 k/uL (0-0.2) 01/07/17 23:00 Myelocytes # (Manual) 0.08 k/uL (0) H 01/09/17 07:34 Nucleated RBCs 0 /100 WBC (0-0) 01/09/17 07:34 Manual Slide Review Performed 01/09/17 07:34 Hypochromasia Slight 01/09/17 07:34 Anisocytosis Slight 01/09/17 07:34 Macrocytosis Marked 01/09/17 07:34 Sodium 138 mmol/L (137-145) 01/09/17 07:34 Potassium 3.8 mmol/L (3.5-5.1) 01/09/17 07:34 Chloride 109 mmol/L (98-107) H 01/09/17 07:34 Carbon Dioxide 20 mmol/L (22-30) L 01/09/17 07:34 Anion Gap 9 mmol/L 01/09/17 07:34 BUN 14 mg/dL (7-17) 01/09/17 07:34 Creatinine 0.86 mg/dL (0.52-1.04) 01/09/17 07:34 Est GFR (MDRD) Af Amer >60 (>60 ml/min/1.73 sqM) 01/09/17 07:34 Est GFR (MDRD) Non-Af >60 (>60 ml/min/1.73 sqM) 01/09/17 07:34 Glucose 81 mg/dL (74-99) 01/09/17 07:34 Plasma Lactic Acid Ritesh 1.6 mmol/L (0.7-2.0) 01/07/17 23:00 Calcium 8.6 mg/dL (8.4-10.2) 01/09/17 07:34 Total Bilirubin 0.2 mg/dL (0.2-1.3) 01/09/17 07:34 AST 42 U/L (14-36) H 01/09/17 07:34 ALT 25 U/L (9-52) 01/09/17 07:34 Alkaline Phosphatase 61 U/L (38-126) 01/09/17 07:34 Total Creatine Kinase <20 U/L (30-135) L 01/07/17 23:00 CK-MB (CK-2) 0.3 ng/mL (0.0-2.4) 01/07/17 23:00 CK-MB (CK-2) Rel Index 01/07/17 23:00 Troponin I <0.012 ng/mL (0.000-0.034) 01/07/17 23:00 Total Protein 5.6 g/dL (6.3-8.2) L 01/09/17 07:34 Albumin 2.8 g/dL (3.5-5.0) L 01/09/17 07:34 Urine Color Yellow 01/08/17 05:30 Urine Appearance Clear (Clear) 01/08/17 05:30 Urine pH 6.0 (5.0-8.0) 01/08/17 05:30 Ur Specific [place] 1.009 (1.001-1.035) 01/08/17 05:30 Urine Protein Negative (Negative) 01/08/17 05:30 Urine Glucose (UA) Negative (Negative) 01/08/17 05:30 Urine Ketones Negative (Negative) 01/08/17 05:30 Urine Blood Negative (Negative) 01/08/17 05:30 Urine Nitrite Negative (Negative) 01/08/17 05:30 Urine Bilirubin Negative (Negative) 01/08/17 05:30 Urine Urobilinogen <2.0 mg/dL (<2.0) 01/08/17 05:30 Ur Leukocyte Esterase Moderate (Negative) H 01/08/17 05:30 Urine RBC <1 /hpf (0-5) 01/08/17 05:30 Urine WBC 16 /hpf (0-5) H 01/08/17 05:30 Urine WBC Clumps Rare /hpf (None) H 01/08/17 05:30 Ur Squamous Epith Cells 1 /hpf (0-4) 01/08/17 05:30 Ur Transition Epith Cell <1 /hpf (0-1) 01/08/17 05:30 Urine Bacteria Rare /hpf (None) H 01/08/17 05:30 Hyaline Casts 40 /lpf (0-2) H 01/08/17 05:30 Urine Mucus Rare /hpf (None) H 01/08/17 05:30 C. 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 Cultures are in progress. Will use Cefepime given level of compromise. Local care to the limb may be enhanced if can obtain lymphedema pump as outpatient The fever is improved. The family is concerned and seem aware of condtion and prognosis. Is some improvement today. His last weekend feels a bit stronger. She is eating. Was able to contact her son by phone. Continue current antibiotics while cultures in progress. Case is discussed with hematology/oncology Status: Acute (2) Fever Status: Acute
[2017-01-12] MEDS: CEFEPIME 2 GM in SODIUM CHLORIDE 0.9% 50 ML IVPB SCH ×4 (00:17→23:36)
[2017-01-12 06:37] LABS: Anisocytosis Slight; Basophils % (A) 0 %; CH 33.2; CHCM 32.2; Eosinophils # (A) 2.2 k/uL (0-0.7); Eosinophils % (A) 25 %; HCT 30.2 % (34.0-46.0); HDW 2.82; HGB 9.6 gm/dL (11.4-16.0); Luc # (Auto) 0.25; Luc % (Auto) 3; Lymphocytes # (A) 0.1 k/uL (1.0-4.8); Lymphocytes % (A) 1 %; MCHC 31.9 g/dL (31.0-37.0); MCV 103.6 fL (80.0-100.0); Macrocytosis Marked; Mean Platelet Volume 8.1; Monocytes # (A) 0.7 k/uL (0-1.0); Monocytes % (A) 9 %; Neutrophils # (A) 5.4 k/uL (1.3-7.7); Neutrophils % (A) 62 %; RBC 2.92 m/uL (3.80-5.40); RDW 19.6 % (11.5-15.5); WBC 8.6 k/uL (3.8-10.6); WBC (Perox) 9.78
[2017-01-12 06:46] LABS: Anion Gap 10 mmol/L; Blood Urea Nitrogen 17 mg/dL (7-17); Calcium 9.4 mg/dL (8.4-10.2); Carbon Dioxide 21 mmol/L (22-30); Chloride 105 mmol/L (98-107); Glucose 96 mg/dL (74-99); Non-African American GFR(MDRD) >60 (>60 ml/min/1.73 sqM); Potassium 4.2 mmol/L (3.5-5.1); Sodium 136 mmol/L (137-145)
[2017-01-12 07:03] LABS: Manual Review Performed
[2017-01-12] MEDS: RALOXIFENE 60 MG TAB PO SCH (07:54)
[2017-01-12] MEDS: PANTOPRAZOLE 40 MG TABLET PO SCH (07:54)
[2017-01-12] MEDS: ASPIRIN 325 MG TAB PO SCH (07:54)
[2017-01-12] MEDS: LEVOTHYROXINE 100 MCG TAB PO SCH (07:54)
[2017-01-12] MEDS: CYANOCOBALAMIN 500 MCG TAB PO SCH (07:54)
[2017-01-12] MEDS: SULFAMETHOX-TMP 800-160MG 1 EACH TAB PO SCH ×2 (07:54→20:14)
[2017-01-12] MEDS: LISINOPRIL-HCTZ 10-12.5 MG 1 EACH TAB PO SCH (07:54)
[2017-01-12] MEDS: ENOXAPARIN 40 MG/0.4 ML SYRINGE SQ SCH (07:54)
[2017-01-12] MEDS: FOLIC ACID 1 MG TAB PO SCH ×3 (07:55→20:14)
[2017-01-12] MEDS: FUROSEMIDE 20 MG TAB PO SCH (07:55)
[2017-01-12] MEDS: CHOLECALCIFEROL 1,000 UNIT TAB PO SCH (07:55)
--- NOTE | 2017-01-12 11:26 | P.PN ---
Subjective with the lymphoma received chemo therapy recently admitted for fever all the cultures are negative so far. Patient can use to have fevers which is secondary to lymphoma and chemotherapy patient's C. diff is negative. Will watch her one more night today possibly of discharge tomorrow evening if she has fevers which is probably secondary to chemotherapy rather than infection. patient denied any nausea, vomiting, chest pain, abdominal pain, focal weakness Objective - Vital Signs Vital signs: Vital Signs Temp 98.7 F 01/12/17 07:00 Pulse 91 01/12/17 07:00 Resp 16 01/12/17 07:00 BP 100/53 01/12/17 07:00 Pulse Ox 94 L 01/12/17 07:00 Intake & Output 01/11/17 01/12/17 01/12/17 18:59 06:59 18:59 Intake Total 200 100 Balance 200 100 Intake: Intake, IV Titration 200 Amount Cefepime 2 gm In Sodium 100 Chloride 0.9% 50 ml @ 100 mls/hr IVPB Q8HR LUCY Rx# :[id number] cefTRIAXone 1,000 mg In 100 Sodium Chloride 0.9% 50 ml @ 100 mls/hr IVPB Q24H LUCY Rx#:[id number] Oral 100 Other: Voiding Method Toilet Toilet # Voids 3 1 - Exam PHYSICAL EXAMINATION: GENERAL: The patient is alert and oriented x3, not in any acute distress. Well developed, well nourished. HEENT: Pupils are round and equally reacting to light. EOMI. No scleral icterus. No conjunctival pallor. Normocephalic, atraumatic. No pharyngeal erythema. No thyromegaly. CARDIOVASCULAR: S1 and S2 present. No murmurs, rubs, or gallops. PULMONARY: Chest is clear to auscultation, no wheezing or crackles. ABDOMEN: Soft, nontender, nondistended, normoactive bowel sounds. No palpable organomegaly. MUSCULOSKELETAL: No joint swelling or deformity. EXTREMITIES: No cyanosis, clubbing, or pedal edema. NEUROLOGICAL: Gross neurological examination did not reveal any focal deficits. SKIN: No rashes. - Labs CBC & Chem 7: 01/12/17 06:19 01/12/17 06:19 Labs: Abnormal Lab Results - Last 24 Hours (Table) 01/12/17 01/12/17 Range/Units 06:19 06:19 RBC 2.92 L (3.80-5.40) m/uL Hgb 9.6 L (11.4-16.0) gm/dL Hct 30.2 L (34.0-46.0) % MCV 103.6 H (80.0-100.0) fL RDW 19.6 H (11.5-15.5) % Lymphocytes # 0.1 L (1.0-4.8) k/uL Eosinophils # 2.2 H (0-0.7) k/uL Sodium 136 L (137-145) mmol/L Carbon Dioxide 21 L (22-30) mmol/L Microbiology - Last 24 Hours (Table) 01/07/17 23:00 Blood Culture - Preliminary Blood No Growth after 96 hours Assessment and Plan Plan: Persistent Fevers : Most probably due to lymphoma itself and the chemotherapy. Patient workup for sepsis is so far negative. Patient is on a break antibiotics consisting her immunosuppressed state. Anemia secondary to chemotherapy Hypotension secondary to dehydration T-cell lymphoma Lymphedema right lower extremity
[2017-01-12] MEDS: prednisoLONE ACETATE 1% OPHTH DROPS 1 ML BTL BOTH EYES SCH ×2 (12:41→20:15)
[2017-01-12] MEDS: DIPHENOX-ATROP 2.5-0.025 MG 1 EACH TAB PO PRN (12:41)
[2017-01-12] MEDS: VIT A,C & E-LUTEIN-MINERALS 1 EACH TAB PO SCH (12:41)
[2017-01-12] MEDS: ACETAMINOPHEN TAB 325 MG TAB PO PRN (20:13)
[2017-01-12] MEDS: valACYclovir HCL 1,000 MG TABLET PO SCH (20:14)
[2017-01-12] MEDS: ATORVASTATIN 80 MG TAB PO SCH (20:14)
[2017-01-12] MEDS: MULTIVITAMINS, THERA 1 EACH TAB PO SCH (20:15)
[2017-01-13 07:35] VITALS: BP 110/63; PULSE 91; RESP 18; TEMP 100.4
[2017-01-13] MEDS: CEFEPIME 2 GM in SODIUM CHLORIDE 0.9% 50 ML IVPB SCH (08:26)
[2017-01-13] MEDS: ENOXAPARIN 40 MG/0.4 ML SYRINGE SQ SCH (08:28)
[2017-01-13] MEDS: ASPIRIN 325 MG TAB PO SCH (08:28)
[2017-01-13] MEDS: PANTOPRAZOLE 40 MG TABLET PO SCH (08:29)
[2017-01-13] MEDS: POTASSIUM CHLORIDE ER 10 MEQ TAB.ER.PRT PO SCH (08:29)
[2017-01-13] MEDS: prednisoLONE ACETATE 1% OPHTH DROPS 1 ML BTL BOTH EYES SCH (08:29)
[2017-01-13] MEDS: LISINOPRIL-HCTZ 10-12.5 MG 1 EACH TAB PO SCH (08:29)
[2017-01-13] MEDS: LEVOTHYROXINE 100 MCG TAB PO SCH (08:30)
[2017-01-13] MEDS: FOLIC ACID 1 MG TAB PO SCH (08:30)
[2017-01-13] MEDS: SULFAMETHOX-TMP 800-160MG 1 EACH TAB PO SCH (08:31)
[2017-01-13] MEDS: CHOLECALCIFEROL 1,000 UNIT TAB PO SCH (08:31)
[2017-01-13] MEDS: CYANOCOBALAMIN 500 MCG TAB PO SCH (08:31)
[2017-01-13] MEDS: FUROSEMIDE 20 MG TAB PO SCH (08:32)
[2017-01-13] MEDS: RALOXIFENE 60 MG TAB PO SCH (08:32)
[2017-01-13] MEDS: DIPHENOX-ATROP 2.5-0.025 MG 1 EACH TAB PO PRN (09:42)
--- NOTE | 2017-01-13 11:19 | P.DS ---
Providers Date of admission: 01/08/17 00:36 Attending physician: Eddie Saenz Consults: 01/08/17 00:38 Consult Physician Urgent Consulting Provider: Patrick Barrientos Consult Reason/Comments: fever s/p chemo Do you want consulting provider notified?: Yes 01/10/17 08:41 Consult Physician Urgent Consulting Provider: Donn Cam Reason/Comments: fever immunocompromised Do you want consulting provider notified?: Yes Primary care physician: Eddie Saenz Hospital Course: Patient with the lymphoma received chemo therapy recently admitted for fever all the cultures are negative so far. Patient can use to have fevers which is secondary to lymphoma and chemotherapy patient's C. diff is negative. Will watch her one more night today possibly of discharge tomorrow evening if she has fevers which is probably secondary to chemotherapy rather than infection. 01/13/2017 All the workup for sepsis is negative patient is already in prolactin Bactrim patient is also on cefepime instead of will give Ceftin for 5 more days. Patient still has fevers secondary to lymphoma and chemotherapy, most probably there is no infectious source for her fevers all the workup is negative. PHYSICAL EXAMINATION: GENERAL: The patient is alert and oriented x3, not in any acute distress. Well developed, well nourished. HEENT: Pupils are round and equally reacting to light. EOMI. No scleral icterus. No conjunctival pallor. Normocephalic, atraumatic. No pharyngeal erythema. No thyromegaly. CARDIOVASCULAR: S1 and S2 present. No murmurs, rubs, or gallops. PULMONARY: Chest is clear to auscultation, no wheezing or crackles. ABDOMEN: Soft, nontender, nondistended, normoactive bowel sounds. No palpable organomegaly. MUSCULOSKELETAL: No joint swelling or deformity. EXTREMITIES: No cyanosis, clubbing, or pedal edema. NEUROLOGICAL: Gross neurological examination did not reveal any focal deficits. SKIN: No rashes. Persistent Fevers : Most probably due to lymphoma itself and the chemotherapy. Patient workup for sepsis is so far negative. Patient is on antibiotics consisting her immunosuppressed state. Anemia secondary to chemotherapy Hypotension secondary to dehydration T-cell lymphoma Lymphedema right lower extremity Patient Condition at Discharge: Fair Plan - Discharge Summary New Discharge Prescriptions: New Cefuroxime Axetil [Ceftin] 500 mg PO BID #10 tab Continue Atorvastatin [Lipitor] 80 mg PO HS Folic Acid/B Complex C No.17 [Virt-Jaden Plus Tablet] 5 mg PO DAILY Ondansetron Odt [Zofran ODT] 4 mg PO Q8HR PRN #10 tab PRN Reason: Nausea Cyanocobalamin [Vitamin B-12 Injection] 1,000 mcg SQ TU valACYclovir HCL [Valacyclovir] 1,000 mg PO HS Raloxifene [Evista] 60 mg PO QAM Clobetasol Propionate [Temovate 0.05% Oint] 1 applic TOPICAL BID PRN PRN Reason: Skin Lesions prednisoLONE ACETATE 1% OPHTH [Pred Forte 1%] 1 drops BOTH EYES BID Mupirocin 2% Oint [Bactroban 2% Oint] 1 applic TOPICAL TID PRN PRN Reason: Crusted Spots on Legs Multivitamins, Thera [Multivitamin (formulary)] 1 tab PO HS Furosemide [Lasix] 20 mg PO QAM Sulfamethox-Tmp 800-160Mg [Bactrim DS 800-160 mg] 1 tab PO BID Potassium Chloride ER [K-Dur 10] 10 meq PO Q48H Cholecalciferol [Vitamin D3] 1,000 unit PO DAILY Aspirin 325 mg PO DAILY Vit A/Vit C/Vit E/Zinc/Copper [ICAPS SOFTGEL] 1 cap PO DAILY [place]-3/Dha/Epa/Fish Oil [Fish Oil EC 1,200 mg Softgel] 1 cap PO DAILY Cyanocobalamin (Vitamin B-12) [Vitamin B-12] 1,000 mcg PO DAILY Levothyroxine Sodium [Synthroid] 100 mcg PO QAM Folic Acid 0.8 mg PO TID Discontinued Lisinopril-Hctz 10-12.5 mg [Zestoretic 10-12.5] 1 tab PO DAILY Discharge Medication List Atorvastatin [Lipitor] 80 mg PO HS 10/05/13 [History] Folic Acid/B Complex C No.17 [Virt-Jaden Plus Tablet] 5 mg PO DAILY 09/29/15 [ History] Ondansetron Odt [Zofran ODT] 4 mg PO Q8HR PRN #10 tab 10/19/16 [Rx] Clobetasol Propionate [Temovate 0.05% Oint] 1 applic TOPICAL BID PRN 11/07/16 [ History] Cyanocobalamin [Vitamin B-12 Injection] 1,000 mcg SQ TU 11/07/16 [History] Multivitamins, Thera [Multivitamin (formulary)] 1 tab PO HS 11/07/16 [History] Mupirocin 2% Oint [Bactroban 2% Oint] 1 applic TOPICAL TID PRN 11/07/16 [History ] Raloxifene [Evista] 60 mg PO QAM 11/07/16 [History] prednisoLONE ACETATE 1% OPHTH [Pred Forte 1%] 1 drops BOTH EYES BID 11/07/16 [ History] valACYclovir HCL [Valacyclovir] 1,000 mg PO HS 11/07/16 [History] Furosemide [Lasix] 20 mg PO QAM 12/12/16 [History] Aspirin 325 mg PO DAILY 01/07/17 [History] Cholecalciferol [Vitamin D3] 1,000 unit PO DAILY 01/07/17 [History] Cyanocobalamin (Vitamin B-12) [Vitamin B-12] 1,000 mcg PO DAILY 01/07/17 [ History] Folic Acid 0.8 mg PO TID 01/07/17 [History] Levothyroxine Sodium [Synthroid] 100 mcg PO QAM 01/07/17 [History] [place]-3/Dha/Epa/Fish Oil [Fish Oil EC 1,200 mg Softgel] 1 cap PO DAILY 01/07/17 [History] Potassium Chloride ER [K-Dur 10] 10 meq PO Q48H 01/07/17 [History] Sulfamethox-Tmp 800-160Mg [Bactrim DS 800-160 mg] 1 tab PO BID 01/07/17 [History ] Vit A/Vit C/Vit E/Zinc/Copper [ICAPS SOFTGEL] 1 cap PO DAILY 01/07/17 [History] Cefuroxime Axetil [Ceftin] 500 mg PO BID #10 tab 01/13/17 [Rx] Follow up Appointment(s)/Referral(s): Eddie Saenz MD [Primary Care Provider] - 3 Days Patrick Barrientos MD [STAFF PHYSICIAN] - 1 Week Discharge Disposition: HOME SELF-CARE
[2017-01-13] MEDS: VIT A,C & E-LUTEIN-MINERALS 1 EACH TAB PO SCH (11:28)
== END 2017-01-13 13:12 | disposition home or self-care (01) | DRG 841 ==
LOC: EC 22:33 → 5ONC 01-08 00:36
PROVIDERS: ADMIT Family Medicine; ATTEND Family Medicine
DX: C84 Mature T/NK-cell lymphomas (principal); L03.115 Cellulitis of right lower limb; I95.9 Hypotension, unspecified; D70.1 Agranulocytosis secondary to cancer chemotherapy; D64.81 Anemia due to antineoplastic chemotherapy; E86.0 Dehydration; R50.81 Fever presenting with conditions classified elsewhere; I89.0 Lymphedema, not elsewhere classified; I10 Essential (primary) hypertension; E78.5 Hyperlipidemia, unspecified; M19.91 Primary osteoarthritis, unspecified site; E03.9 Hypothyroidism, unspecified; H40.9 Unspecified glaucoma; T45.1X5A Adverse effect of antineoplastic and immunosuppressive drugs, initial encounter; Z79.82 Long term (current) use of aspirin; Z79.810 Long term (current) use of selective estrogen receptor modulators (SERMs); Z79.899 Other long term (current) drug therapy; Z92.21 Personal history of antineoplastic chemotherapy; Z86.59 Personal history of other mental and behavioral disorders; Z90.49 Acquired absence of other specified parts of digestive tract; Z92.3 Personal history of irradiation; Z87.442 Personal history of urinary calculi; Z86.14 Personal history of Methicillin resistant Staphylococcus aureus infection; Z98.42 Cataract extraction status, left eye; Z98.41 Cataract extraction status, right eye; Z96.0 Presence of urogenital implants; Z85.828 Personal history of other malignant neoplasm of skin
CPT/HCPCS: 36415; 71020; 80048; 80053; 81001; 82550; 82553; 83605; 84484; 85025; 86663; 86664; 86665; 87040; 87086; 87324; 93005; 94760; 96361; 96365; 99285

== ENCOUNTER 2017-01-30 09:40 | Emergency (ER) | payer MEDICARE, BC ==
[2017-01-30] MEDS ORDERED: IBUPROFEN 400 MG TAB PO STA (09:58)
--- NOTE | 2017-01-30 10:01 | ED ---
General Adult HPI - General Chief complaint: Fever Stated complaint: fever Time Seen by Provider: 01/30/17 09:51 Source: patient, family, RN notes reviewed Mode of arrival: wheelchair Limitations: physical limitation - History of Present Illness Initial comments: Patient is a pleasant 76-year-old female presenting to the emergency department with fever. Patient has had low-grade fevers around 99 for a couple of days and then did go to 101.5 last night. This morning temperature was 102 and daughter did give Tylenol. Patient has been fatigued. Daughter states earlier this morning patient was acting a little bit "loopy". Patient complains of feeling fatigued. Daughter states mild cough. No abdominal pain or dysuria. No headache or neck pain or neck stiffness. 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 Patient is scheduled for infusion again today. - Related Data Home Medications Medication Instructions Recorded Confirmed Atorvastatin [Lipitor] 80 mg PO HS 10/05/13 01/30/17 Folic Acid/B Complex C No.17 5 mg PO DAILY 09/29/15 01/30/17 [Virt-Jaden Plus Tablet] Clobetasol Propionate [Temovate 1 applic TOPICAL BID PRN 11/07/16 01/30/17 0.05% Oint] Cyanocobalamin [Vitamin B-12 1,000 mcg SQ TU 11/07/16 01/30/17 Injection] Multivitamins, Thera [Multivitamin 1 tab PO HS 11/07/16 01/30/17 (formulary)] Mupirocin 2% Oint [Bactroban 2% 1 applic TOPICAL TID PRN 11/07/16 01/30/17 Oint] Raloxifene [Evista] 60 mg PO QAM 11/07/16 01/30/17 prednisoLONE ACETATE 1% OPHTH 1 drops BOTH EYES BID 11/07/16 01/30/17 [Pred Forte 1%] valACYclovir HCL [Valacyclovir] 1,000 mg PO HS 11/07/16 01/30/17 Furosemide [Lasix] 20 mg PO QAM 12/12/16 01/30/17 Aspirin 325 mg PO DAILY 01/07/17 01/30/17 Cholecalciferol [Vitamin D3] 1,000 unit PO DAILY 01/07/17 01/30/17 Cyanocobalamin (Vitamin B-12) 1,000 mcg PO DAILY 01/07/17 01/30/17 [Vitamin B-12] Folic Acid 0.8 mg PO TID 01/07/17 01/30/17 Levothyroxine Sodium [Synthroid] 100 mcg PO QAM 01/07/17 01/30/17 Maynard-3/Dha/Epa/Fish Oil [Fish Oil 1 cap PO DAILY 01/07/17 01/30/17 EC 1,200 mg Softgel] Potassium Chloride ER [K-Dur 10] 10 meq PO Q48H 01/07/17 01/30/17 Vit A/Vit C/Vit E/Zinc/Copper 1 cap PO DAILY 01/07/17 01/30/17 [ICAPS SOFTGEL] Dexamethasone [Hexadrol] 4 mg PO DAILY 01/30/17 01/30/17 Loperamide [Imodium] 2 mg PO QID PRN 01/30/17 01/30/17 Previous Rx's Medication Instructions Recorded Ondansetron Odt [Zofran ODT] 4 mg PO Q8HR PRN #10 tab 10/19/16 Cefuroxime Axetil [Ceftin] 500 mg PO BID #10 tab 01/13/17 Allergies Allergy/AdvReac Type Severity Reaction Status Date / Time No Known Allergies Allergy Verified 01/30/17 10:06 Review of Systems ROS Statement: Those systems with pertinent positive or pertinent negative responses have been documented in the HPI. ROS Other: All systems not noted in ROS Statement are negative. Constitutional: Reports: fever, chills Eyes: Denies: eye pain ENT: Denies: ear pain Respiratory: Reports: cough. Denies: dyspnea Cardiovascular: Denies: chest pain Endocrine: Reports: fatigue Gastrointestinal: Denies: abdominal pain, vomiting Genitourinary: Denies: dysuria Musculoskeletal: Denies: back pain Skin: Denies: rash Neurological: Denies: weakness Past Medical History Past Medical History: Cancer, Hyperlipidemia, Hypertension, Osteoarthritis (OA) , Thyroid Disorder Additional Past Medical History / Comment(s): CUTANEOUS T-CELL LYMPHOMA/ radiation, CHEMO, skin ca, murmur, multiple kidney stones, arthritis, glaucoma History of Any Multi-Drug Resistant Organisms: MRSA Date of last positivie culture/infection: 2013 MDRO Source:: rt arm Past Surgical History: Appendectomy, Bladder Surgery, Cholecystectomy, Heart Catheterization, Hernia Repair, Hysterectomy Additional Past Surgical History / Comment(s): patient recieved round of radiation treatment; kidney stents palced about 3 weeks ago /removed 01-18-16 , skin cancer removed,cataracts, lt inguinal hernia repair. chemo on 01/07/17 Past Anesthesia/Blood Transfusion Reactions: No Reported Reaction Past Psychological History: Depression Smoking Status: Never smoker Past Alcohol Use History: None Reported Past Drug Use History: None Reported - Past Family History Father Family Medical History: No Reported History Additional Family Medical History / Comment(s): father at age 62, unknown medical history Mother Family Medical History: No Reported History Additional Family Medical History / Comment(s): mother at age 100, no reorted medical conditions General Exam Limitations: physical limitation General appearance: alert, in no apparent distress Head exam: Present: atraumatic Eye exam: Present: normal appearance, PERRL ENT exam: Present: normal oropharynx Neck exam: Present: normal inspection. Absent: meningismus Respiratory exam: Present: normal lung sounds bilaterally Cardiovascular Exam: Present: regular rate, normal rhythm GI/Abdominal exam: Present: soft. Absent: tenderness Extremities exam: Present: normal inspection Neurological exam: Present: alert Psychiatric exam: Present: normal affect, normal mood Skin exam: Present: normal color Course Vital Signs 01/30/17 01/30/17 01/30/17 09:46 11:05 12:30 Temperature 101.0 F H Pulse Rate 78 67 68 Respiratory 18 16 16 Rate Blood Pressure 94/55 106/65 93/58 O2 Sat by Pulse 97 98 97 Oximetry 01/30/17 14:07 Temperature 99.1 F Pulse Rate 68 Respiratory 17 Rate Blood Pressure 118/67 O2 Sat by Pulse 98 Oximetry EKG Findings - EKG Comments: EKG Findings:: Sinus rhythm 69. Future supraventricular complexes present. LA 172. QRS 106. QT 408. QTC 437. Normal axis. Incomplete left bundle-branch block. No acute ST change. Medical Decision Making - Medical Decision Making Patient reevaluated and feels much better. Patient requesting discharge home. Case discussed in detail with Dr. Coleman, covering for Dr. Barrientos who is okay with discharge. - Lab Data Result diagrams: 01/30/17 10:30 01/30/17 10:30 Lab Results 01/30/17 01/30/17 01/30/17 Range/Units 10:30 10:30 10:30 WBC 9.2 (3.8-10.6) k/uL RBC 3.02 L (3.80-5.40) m/uL Hgb 9.9 L (11.4-16.0) gm/dL Hct 31.0 L (34.0-46.0) % MCV 102.6 H (80.0-100.0) fL MCH 32.8 (25.0-35.0) pg MCHC 32.0 (31.0-37.0) g/dL RDW 18.5 H (11.5-15.5) % Plt Count 146 L (150-450) k/uL Neutrophils % 66 % Lymphocytes % 1 % Monocytes % 10 % Eosinophils % 20 % Basophils % 0 % Neutrophils # 6.1 (1.3-7.7) k/uL Lymphocytes # 0.1 L (1.0-4.8) k/uL Monocytes # 1.0 (0-1.0) k/uL Eosinophils # 1.8 H (0-0.7) k/uL Basophils # 0.0 (0-0.2) k/uL Manual Slide Review Performed Poikilocytosis (manual Present Anisocytosis Slight Macrocytosis Moderate PT (9.0-12.0) sec INR (<1.2) APTT (22.0-30.0) sec Sodium 134 L (137-145) mmol/L Potassium 3.2 L (3.5-5.1) mmol/L Chloride 103 (98-107) mmol/L Carbon Dioxide 21 L (22-30) mmol/L Anion Gap 10 mmol/L BUN 22 H (7-17) mg/dL Creatinine 0.61 (0.52-1.04) mg/dL Est GFR (MDRD) Af Amer >60 (>60 ml/min/1.73 sqM) Est GFR (MDRD) Non-Af >60 (>60 ml/min/1.73 sqM) Glucose 129 H (74-99) mg/dL Plasma Lactic Acid Ritesh 1.9 (0.7-2.0) mmol/L Calcium 8.9 (8.4-10.2) mg/dL Total Bilirubin 0.3 (0.2-1.3) mg/dL AST 56 H (14-36) U/L ALT 37 (9-52) U/L Alkaline Phosphatase 90 (38-126) U/L Total Protein 6.5 (6.3-8.2) g/dL Albumin 3.2 L (3.5-5.0) g/dL Urine Color Urine Appearance (Clear) Urine pH (5.0-8.0) Ur Specific [place] (1.001-1.035) Urine Protein (Negative) Urine Glucose (UA) (Negative) Urine Ketones (Negative) Urine Blood (Negative) Urine Nitrite (Negative) Urine Bilirubin (Negative) Urine Urobilinogen (<2.0) mg/dL Ur Leukocyte Esterase (Negative) 01/30/17 01/30/17 Range/Units 10:30 13:17 WBC (3.8-10.6) k/uL RBC (3.80-5.40) m/uL Hgb (11.4-16.0) gm/dL Hct (34.0-46.0) % MCV (80.0-100.0) fL MCH (25.0-35.0) pg MCHC (31.0-37.0) g/dL RDW (11.5-15.5) % Plt Count (150-450) k/uL Neutrophils % % Lymphocytes % % Monocytes % % Eosinophils % % Basophils % % Neutrophils # (1.3-7.7) k/uL Lymphocytes # (1.0-4.8) k/uL Monocytes # (0-1.0) k/uL Eosinophils # (0-0.7) k/uL Basophils # (0-0.2) k/uL Manual Slide Review Poikilocytosis (manual Anisocytosis Macrocytosis PT 10.6 (9.0-12.0) sec INR 1.1 (<1.2) APTT 22.5 (22.0-30.0) sec Sodium (137-145) mmol/L Potassium (3.5-5.1) mmol/L Chloride (98-107) mmol/L Carbon Dioxide (22-30) mmol/L Anion Gap mmol/L BUN (7-17) mg/dL Creatinine (0.52-1.04) mg/dL Est GFR (MDRD) Af Amer (>60 ml/min/1.73 sqM) Est GFR (MDRD) Non-Af (>60 ml/min/1.73 sqM) Glucose (74-99) mg/dL Plasma Lactic Acid Ritesh (0.7-2.0) mmol/L Calcium (8.4-10.2) mg/dL Total Bilirubin (0.2-1.3) mg/dL AST (14-36) U/L ALT (9-52) U/L Alkaline Phosphatase (38-126) U/L Total Protein (6.3-8.2) g/dL Albumin (3.5-5.0) g/dL Urine Color Yellow Urine Appearance Clear (Clear) Urine pH 5.5 (5.0-8.0) Ur Specific [place] 1.013 (1.001-1.035) Urine Protein Negative (Negative) Urine Glucose (UA) Negative (Negative) Urine Ketones Negative (Negative) Urine Blood Negative (Negative) Urine Nitrite Negative (Negative) Urine Bilirubin Negative (Negative) Urine Urobilinogen <2.0 (<2.0) mg/dL Ur Leukocyte Esterase Negative (Negative) - Radiology Data Radiology results: image reviewed (Chest x-ray shows no acute process) Disposition Clinical Impression: T-cell lymphoma, Fever Disposition: HOME SELF-CARE Condition: Stable Instructions: Fever in Adults (ED) Additional Instructions: Please follow-up with Dr. Saezn and Dr. Barrientos in the next day or 2 for recheck. Return for increased fever, shortness of breath, abdominal pain, difficulty urinating, worsening symptoms or any other concerns. Referrals: Eddie Saenz MD [Primary Care Provider] - 1-2 days Patrick Barrientos MD [STAFF PHYSICIAN] - 1-2 days
[2017-01-30] MEDS: SODIUM CHLORIDE 0.9% 500 ML IV SCH (10:27)
[2017-01-30 10:55] LABS: Anisocytosis Slight; Basophils % (A) 0 %; CH 33.2; CHCM 32.5; Eosinophils # (A) 1.8 k/uL (0-0.7); Eosinophils % (A) 20 %; HDW 2.81; HGB 9.9 gm/dL (11.4-16.0); Luc # (Auto) 0.21; Luc % (Auto) 2; Lymphocytes # (A) 0.1 k/uL (1.0-4.8); Lymphocytes % (A) 1 %; MCH 32.8 pg (25.0-35.0); MCV 102.6 fL (80.0-100.0); Macrocytosis Moderate; Mean Platelet Volume 7.8; Monocytes % (A) 10 %; Neutrophils # (A) 6.1 k/uL (1.3-7.7); Neutrophils % (A) 66 %; RBC 3.02 m/uL (3.80-5.40); RDW 18.5 % (11.5-15.5); WBC 9.2 k/uL (3.8-10.6); WBC (Perox) 9.75
[2017-01-30 11:00] LABS: INR 1.1 (<1.2); Partial Thromboplastin Time 22.5 sec (22.0-30.0); Prothrombin Time 10.6 sec (9.0-12.0)
[2017-01-30 11:02] LABS: ALT 37 U/L (9-52); AST 56 U/L (14-36); Alkaline Phosphatase 90 U/L (38-126); Anion Gap 10 mmol/L; Blood Urea Nitrogen 22 mg/dL (7-17); Calcium 8.9 mg/dL (8.4-10.2); Carbon Dioxide 21 mmol/L (22-30); Chloride 103 mmol/L (98-107); Glucose 129 mg/dL (74-99); Non-African American GFR(MDRD) >60 (>60 ml/min/1.73 sqM); Potassium 3.2 mmol/L (3.5-5.1); Sodium 134 mmol/L (137-145); Total Bilirubin 0.3 mg/dL (0.2-1.3); Total Protein 6.5 g/dL (6.3-8.2)
--- NOTE | 2017-01-30 11:14 | XR ---
EXAMINATION TYPE: XR chest 2V DATE OF EXAM: 01/30/2017 COMPARISON: 01/07/2017 HISTORY: Fever and history of lymphoma TECHNIQUE: Frontal and lateral views of the chest are obtained. FINDINGS: Right Mediport is redemonstrated and again terminating in the superior vena cava/right atr ial junction. Hilum appears unchanged from the prior. Cardiac silhouette is mildly prominent. No foca l consolidation, pleural effusion or pneumothorax is seen. Minimal degenerative changes of the thorac ic spine are noted. Cholecystectomy clips reside within the right upper quadrant. IMPRESSION: No acute cardiopulmonary process.
[2017-01-30 11:30] LABS: Manual Review Performed
[2017-01-30 12:41] VITALS: PULSE 68
[2017-01-30 13:32] LABS: Appearance,Urine Clear (Clear); Bilirubin,Urine Negative (Negative); Glucose,Urine (UA) Negative (Negative); Ketones,Urine Negative (Negative); Leukocyte Esterase,Urine Negative (Negative); Nitrite,Urine Negative (Negative); PH, Urine 5.5 (5.0-8.0); Protein,Urine Negative (Negative); Specific Gravity,Urine 1.013 (1.001-1.035); UA Billing (MACRO vs. MICRO) CHEM; Urobilinogen,Urine <2.0 mg/dL (<2.0)
[2017-01-30 14:08] VITALS: BP 118/67; RESP 17; TEMP 99.1
== END 2017-01-30 15:08 | disposition home or self-care (01) ==
LOC: EC 09:40
DX: R50.9 Fever, unspecified (principal); C91.50 Adult T-cell lymphoma/leukemia (HTLV-1-associated) not having achieved remission; E78.5 Hyperlipidemia, unspecified; M19.90 Unspecified osteoarthritis, unspecified site; E07.9 Disorder of thyroid, unspecified; I10 Essential (primary) hypertension; Z85.828 Personal history of other malignant neoplasm of skin; Z86.14 Personal history of Methicillin resistant Staphylococcus aureus infection; Z79.82 Long term (current) use of aspirin; Z79.899 Other long term (current) drug therapy
CPT/HCPCS: 36415; 71020; 80053; 81003; 83605; 85025; 85610; 85730; 87040; 87086; 93005; 96360; 99284

== ENCOUNTER → 2017-02-08 | Outpatient (CLI) | payer MEDICARE, BC ==
--- NOTE | 2017-02-08 12:20 | XR ---
EXAMINATION TYPE: XR chest 2V DATE OF EXAM: 02/08/2017 COMPARISON: Prior chest x-ray 02/01/2017 HISTORY: Cough, R05 TECHNIQUE: Frontal and lateral views of the chest are obtained. FINDINGS: Right-sided Port-A-Cath is present, distal tip at the cavoatrial junction. Patchy increase d density present at the right lung base. No evident pneumothorax. Heart size appears borderline enla rged although patient is rotated. There is some improvement in the interstitium, lung aeration. IMPRESSION: Probable basilar atelectasis, difficult to exclude small effusion. Improvement in aerati on, interstitium may be due to improved inspiratory effort.
== END | disposition home or self-care (01) ==
LOC: RADXRMAIN 11:58
PROVIDERS: ATTEND Family Medicine
DX: R05 Cough (principal)
CPT/HCPCS: 71020

== ENCOUNTER → 2017-04-06 | Outpatient (CLI) | payer MEDICARE, BC ==
--- NOTE | 2017-04-07 14:45 | PE ---
Nuclear medicine PET/CT HISTORY: CAD 4.05, lymphoma, subsequent, mycoses fungoides Patient received 14.2 mCi F-18 FDG intravenously in delayed scanning was performed from the skull bas e to the mid thighs. Localization and attenuation correction CT scan was performed. Exam is correlate d to prior CT scan chest abdomen pelvis 12/24/2016, prior PET/CT 04/14/2016 Neck and chest: Compared to most recent CT there is interval progression in the confluent soft tissue density in the supraclavicular region on the left now measuring approximately 4 to 5 cm in greatest transverse dimension as compared to previous when it measured only approximately 2 cm. There is assoc iated hypermetabolic uptake, SUV 7.8. Supraclavicular uptake on the right shows an SUV 3.4. Retropect oral node on the left is small, SUV only 1.5. Right axillary node is also not enlarged but shows SUV 2.8. Right breast mass is noted lateral to the nipple, it measures approximately 2.5 cm in transverse dimension just beneath the skin, SUV is 5.7. Internal mammary node suspected bilaterally, SUV on the right 5.5, on the left soft tissue measures 2.2 cm in the parasternal location and shows SUV 3.2. Pe ricardial soft tissue masses are present and enlarged anteriorly, SUV 3.5-5.9, largest measures appro ximately 3.3 cm. There is a right pleural effusion. Abdomen pelvis: Extensive retroperitoneal abnormal soft tissue is confluent and encases the aorta and inferior vena cava, SUV 8.6. Extension along the right iliac fossa, along the iliopsoas there is abn ormal soft tissue, SUV 14. Inguinal and external iliac nodes are present bilaterally and enlarged, CHANG V 3.6-11.7. Right-sided hydronephrosis is present. There are extensive abnormal soft tissue nodules present within the proximal lower extremities, there are changes of anasarca. Soft tissue hypermetabolic uptake also noted within the right gluteal regio n, subcutaneous fat, right flank region, SUV 7.2. IMPRESSION: There has been progression of disease compared to previous nuclear medicine PET/CT, previ ous CT abdomen pelvis.
== END | disposition home or self-care (01) ==
LOC: RADPETMAIN 12:07
PROVIDERS: ATTEND Dermatology Procedural Dermatology
DX: C84.05 Mycosis fungoides, lymph nodes of inguinal region and lower limb (principal)
CPT/HCPCS: 78815; A9552

== ENCOUNTER 2017-04-24 14:34 | Inpatient (IN) | payer MEDICARE, BC ==
[2017-04-24] MEDS ORDERED: ASPIRIN 81 MG PO STA (14:55)
--- NOTE | 2017-04-24 15:00 | ED ---
SOB HPI - General Chief Complaint: Shortness of Breath Stated Complaint: Diff Breathing Time Seen by Provider: 04/24/17 14:45 Source: patient Mode of arrival: EMS Limitations: no limitations - History of Present Illness Initial Comments: Patient is a 76-year-old female who presents with a chief complaint of shortness of breath. She is accompanied by her family. Patient has a history of lymphoma for which she is currently being treated. According to the family, the patient has been getting more and more short of breath and is to the point where she cannot lie flat. She has a history of fluid on the lungs secondary to the lymphoma. The patient states that she does not have any pain currently. On initial evaluation, the patient is wearing 3 L of oxygen, she states that she does not wear any oxygen at home. The patient minimizes her symptoms therefore most of the history comes from the patient's daughter. - Related Data Home Medications Medication Instructions Recorded Confirmed Atorvastatin [Lipitor] 80 mg PO HS 10/05/13 04/24/17 Raloxifene [Evista] 60 mg PO QAM 11/07/16 04/24/17 valACYclovir HCL [Valacyclovir] 1,000 mg PO HS 11/07/16 04/24/17 Furosemide [Lasix] 20 mg PO QAM 12/12/16 04/24/17 Aspirin 325 mg PO DAILY 01/07/17 04/24/17 Cholecalciferol [Vitamin D3] 1,000 unit PO DAILY@1200 01/07/17 04/24/17 Cyanocobalamin (Vitamin B-12) 1,000 mcg PO DAILY@1200 01/07/17 04/24/17 [Vitamin B-12] Levothyroxine Sodium [Synthroid] 100 mcg PO QAM 01/07/17 04/24/17 Potassium Chloride ER [K-Dur 10] 10 meq PO Q48H 01/07/17 04/24/17 Vit A/Vit C/Vit E/Zinc/Copper 1 cap PO DAILY@1200 01/07/17 04/24/17 [ICAPS SOFTGEL] Dexamethasone [Hexadrol] 4 mg PO DAILY 01/30/17 04/24/17 Lisinopril-Hctz 10-12.5 mg 1 tab PO DAILY 02/18/17 04/24/17 [Zestoretic 10-12.5] Pantoprazole [Protonix] 40 mg PO AC-BRKFST PRN 02/18/17 04/24/17 HYDROcodone/APAP 5-325MG [[place] 1 tab PO Q4HR PRN 04/17/17 04/24/17 5-325] B Complex-Vit C-Vit E-Zinc [Z-Bec] 1 tab PO DAILY@1200 04/24/17 04/24/17 Folic Acid 1 mg PO TID@0900,1600,2200 04/24/17 04/24/17 Previous Rx's Medication Instructions Recorded Melatonin 3 mg PO HS PRN tab 02/07/17 SILVER sulfADIAZINE CREAM 1 applic TOPICAL BID dose 02/07/17 [Silvadene Cream] Vancomycin 1,500 mg IVPB Q24HR #28 bag 04/18/17 Allergies Allergy/AdvReac Type Severity Reaction Status Date / Time No Known Allergies Allergy Verified 04/24/17 15:52 Review of Systems ROS Statement: Those systems with pertinent positive or pertinent negative responses have been documented in the HPI. ROS Other: All systems not noted in ROS Statement are negative. Constitutional: Denies: fever Eyes: Denies: vision change ENT: Denies: throat pain Respiratory: Reports: dyspnea. Denies: cough Cardiovascular: Denies: chest pain Gastrointestinal: Denies: abdominal pain, nausea, vomiting Genitourinary: Denies: dysuria Musculoskeletal: Denies: back pain Past Medical History Past Medical History: Cancer, Eye Disorder, Hyperlipidemia, Hypertension, Osteoarthritis (OA), Thyroid Disorder Additional Past Medical History / Comment(s): CUTANEOUS T-CELL LYMPHOMA tx with radiation therapies (just completed L lower leg radiation therapy and chemotherapies, chemo pancytopenias, anemia, recent PET scan showed progression/ masses thruout trunk, cellulitis bilateral lower legs, heart murmur, bilateral glaucoma, multiple kidney stones, hypothyroid. History of Any Multi-Drug Resistant Organisms: C-DIFF, MRSA Date of last positivie culture/infection: 02-04-17 MDRO Source:: RT ARM/ STOOL Past Surgical History: Appendectomy, Bladder Surgery, Cholecystectomy, Heart Catheterization, Hernia Repair, Hysterectomy Additional Past Surgical History / Comment(s): Renal stents inserted and removed , skin cancer removed, bilateral cataracts removed, lt inguinal hernia repair. Past Anesthesia/Blood Transfusion Reactions: No Reported Reaction Past Psychological History: Depression Smoking Status: Never smoker Past Alcohol Use History: None Reported Past Drug Use History: None Reported - Past Family History Father History Unknown: Yes Family Medical History: No Reported History Additional Family Medical History / Comment(s): father at age 62, unknown medical history Mother Family Medical History: No Reported History Additional Family Medical History / Comment(s): mother at age 100, no reported medical conditions General Exam Limitations: no limitations General appearance: alert, in no apparent distress Head exam: Present: atraumatic, normocephalic Neck exam: Present: normal inspection Respiratory exam: Present: decreased breath sounds (Patient has decreased breath sounds in the bilateral bases) Cardiovascular Exam: Present: regular rate, normal rhythm, other (Patient has a Mediport on the right chest) GI/Abdominal exam: Present: soft, distended. Absent: tenderness Rectal exam: Present: deferred Extremities exam: Present: pedal edema, other (Patient has 4+ pitting edema, she has an ulcer to the back of her left leg in the popliteal fossa.) Back exam: Present: normal inspection Neurological exam: Present: alert, oriented X3 Psychiatric exam: Present: normal affect, normal mood Skin exam: Present: warm, dry Course Vital Signs 04/24/17 04/24/17 14:38 17:17 Temperature 97.8 F Pulse Rate 90 72 Respiratory 22 18 Rate Blood Pressure 109/69 102/61 O2 Sat by Pulse 99 96 Oximetry Medical Decision Making - Medical Decision Making Patient presents with a chief complaint of shortness of breath. She has a history of lymphoma. Physical exam, patient has very diminished breath sounds bilaterally in the bases of her lungs. She is unable to lie flat without experiencing discomfort. We'll send basic labs, chest x-ray, and d-dimer is patient is high risk for PE given her history of lymphoma. Patient is a well score of 2.5. EKG performed at 1513 shows sinus rhythm with PVCs. Ventricular rate is 90 bpm, segments appear to be within normal limits. EKG is otherwise nonspecific. 5:45 PM Lab evaluation of this patient shows an elevated white blood cell count of 55, 000 likely secondary to lymphoma. Chest x-ray shows bilateral pulmonary effusions, BNP is elevated over 1600, and troponin is elevated at this time. Troponin elevation is likely type II patient does not have any chest pain currently. D-dimer was elevated, follow-up CT PE study does not show evidence of pulmonary embolism. I discussed these results with the patient and her family. The decision was made to admit this patient for congestive heart failure. Patient was given 20 mg of Lasix IV. At this time, patient remained stable. I discussed this case with nurse practitioner Bryan who accepts admission under Dr. Moreno. - Lab Data Result diagrams: 04/24/17 15:00 04/24/17 15:00 Lab Results 04/24/17 04/24/17 04/24/17 Range/Units 15:00 15:00 15:00 WBC 55.3 H* (3.8-10.6) k/uL RBC 3.68 L (3.80-5.40) m/uL Hgb 10.8 L (11.4-16.0) gm/dL Hct 34.0 (34.0-46.0) % MCV 92.5 (80.0-100.0) fL MCH 29.2 (25.0-35.0) pg MCHC 31.6 (31.0-37.0) g/dL RDW 18.5 H (11.5-15.5) % Plt Count 80 L (150-450) k/uL Neutrophils % (Manual) 59 % Band Neutrophils % 2 % Lymphocytes % (Manual) 6 % Monocytes % (Manual) 5 % Eosinophils % (Manual) 27 % Metamyelocytes % 2 % Neutrophils # (Manual) 33.70 H (1.3-7.7) k/uL Lymphocytes # (Manual) 3.32 (1.0-4.8) k/uL Monocytes # (Manual) 2.77 H (0-1.0) k/uL Eosinophils # (Manual) 14.93 H (0-0.7) k/uL Metamyelocytes # (Man) 1.11 H (0) k/uL Nucleated RBCs 0 (0-0) /100 WBC Manual Slide Review Performed Toxic Granulation Present Polychromasia Present Hypochromasia Slight Poikilocytosis (manual Present Anisocytosis Slight PT 11.9 (9.0-12.0) sec INR 1.2 H (<1.2) D-Dimer 3.22 H (<0.60) mg/L FEU Sodium 139 (137-145) mmol/L Potassium 4.2 (3.5-5.1) mmol/L Chloride 105 (98-107) mmol/L Carbon Dioxide 25 (22-30) mmol/L Anion Gap 9 mmol/L BUN 40 H (7-17) mg/dL Creatinine 1.10 H (0.52-1.04) mg/dL Est GFR (MDRD) Af Amer 58 (>60 ml/min/1.73 sqM) Est GFR (MDRD) Non-Af 48 (>60 ml/min/1.73 sqM) Glucose 135 H (74-99) mg/dL Calcium 10.0 (8.4-10.2) mg/dL Troponin I (0.000-0.034) ng/mL NT-Pro-B Natriuret Pep pg/mL 04/24/17 04/24/17 Range/Units 15:00 15:00 WBC (3.8-10.6) k/uL RBC (3.80-5.40) m/uL Hgb (11.4-16.0) gm/dL Hct (34.0-46.0) % MCV (80.0-100.0) fL MCH (25.0-35.0) pg MCHC (31.0-37.0) g/dL RDW (11.5-15.5) % Plt Count (150-450) k/uL Neutrophils % (Manual) % Band Neutrophils % % Lymphocytes % (Manual) % Monocytes % (Manual) % Eosinophils % (Manual) % Metamyelocytes % % Neutrophils # (Manual) (1.3-7.7) k/uL Lymphocytes # (Manual) (1.0-4.8) k/uL Monocytes # (Manual) (0-1.0) k/uL Eosinophils # (Manual) (0-0.7) k/uL Metamyelocytes # (Man) (0) k/uL Nucleated RBCs (0-0) /100 WBC Manual Slide Review Toxic Granulation Polychromasia Hypochromasia Poikilocytosis (manual Anisocytosis PT (9.0-12.0) sec INR (<1.2) D-Dimer (<0.60) mg/L FEU Sodium (137-145) mmol/L Potassium (3.5-5.1) mmol/L Chloride (98-107) mmol/L Carbon Dioxide (22-30) mmol/L Anion Gap mmol/L BUN (7-17) mg/dL Creatinine (0.52-1.04) mg/dL Est GFR (MDRD) Af Amer (>60 ml/min/1.73 sqM) Est GFR (MDRD) Non-Af (>60 ml/min/1.73 sqM) Glucose (74-99) mg/dL Calcium (8.4-10.2) mg/dL Troponin I 0.407 H* (0.000-0.034) ng/mL NT-Pro-B Natriuret Pep 1640 pg/mL Disposition Clinical Impression: Congestive heart failure, Troponin level elevated, SOB (shortness of breath), Pleural effusion due to CHF (congestive heart failure), Lymphoma Disposition: ADMITTED IP TO THIS HOSP Condition: Good Referrals: Eddie Saenz MD [Primary Care Provider] - 1-2 days Decision to Admit Reason: Admit from [facility] - Out of Hospital Transfer - Req. Specs Out of Hospital Transfer - Requested Specifics: Telemetry Unit
[2017-04-24 15:17] LABS: Anisocytosis Slight; HGB 10.8 gm/dL (11.4-16.0); Hypochromasia Slight; MCH 29.2 pg (25.0-35.0); MCHC 31.6 g/dL (31.0-37.0); MCV 92.5 fL (80.0-100.0); Mean Platelet Volume 7.5; RBC 3.68 m/uL (3.80-5.40); RDW 18.5 % (11.5-15.5)
[2017-04-24 15:25] LABS: Platelet Count 80 k/uL (150-450)
[2017-04-24 15:27] LABS: WBC 55.3 k/uL (3.8-10.6)
[2017-04-24 15:28] LABS: D-Dimer 3.22 mg/L FEU (<0.60); INR 1.2 (<1.2); Potassium 4.2 mmol/L (3.5-5.1); Prothrombin Time 11.9 sec (9.0-12.0)
--- NOTE | 2017-04-24 15:37 | XR ---
EXAMINATION TYPE: XR chest 2V DATE OF EXAM: 04/24/2017 COMPARISON: 04/16/2017 HISTORY: Pain TECHNIQUE: Frontal and lateral views of the chest are obtained. FINDINGS: Trace pleural effusions blunt the costophrenic angles. Cardiac silhouette is again mildly enlarged. Decreased degree of inspiration accentuates the pulmonary vasculature. New consolidation is seen at the right cardiophrenic angle within the right middle lobe that is wedge-shaped and favored to represent atelectasis. Right Mediport with a single Heubner needle is in place terminating in the high right atrium. Osseous structures appear intact. IMPRESSION: 1. New right middle lobe opacity that is wedge-shaped and favored to represent atelectasis although p neumonia is possible. 2. Trace bilateral pleural effusions without pulmonary vascular congestion.
[2017-04-24 15:46] LABS: Band Neutrophils % 2 %; Eosinophils # (M) 14.93 k/uL (0-0.7); Lymphocytes # (M) 3.32 k/uL (1.0-4.8); Metamyelocytes # (M) 1.11 k/uL (0); Metamyelocytes % 2 %; Monocytes # (M) 2.77 k/uL (0-1.0); Neutrophils % (M) 59 %; Nucleated Red Blood Cells 0 /100 WBC (0-0); Poikilocytosis (M) Present; Polychromasia Present; Total Cells Counted 200
[2017-04-24 15:47] LABS: Toxic Granulation Present
[2017-04-24] MEDS ORDERED: RX INFO: IV CONTRAST WAS GIVEN 1 EACH MISC MISCELLANE PRN (15:54)
--- NOTE | 2017-04-24 17:08 | CT ---
EXAMINATION TYPE: CT chest angio for PE DATE OF EXAM: 04/24/2017 COMPARISON: Chest x-ray same date HISTORY: SOB/ being tx for lymphoma rx tx CT DLP: 393 mGycm Automated exposure control for dose reduction was used. CONTRAST: CT Chest for pulmonary embolism performed with with IV Contrast, patient injected with 80 mL of Visip aque 320. Helical acquisition through the chest during dynamic administration of nonionic radiographic contrast intravenously. Three-dimensional reconstructions performed. FINDINGS: LUNGS: The lungs are remarkable for effusions right greater than left, there is associated atelectasi s, no endobronchial lesion The tracheobronchial tree is patent. MEDIASTINUM: There is satisfactory enhancement of the pulmonary artery and its branches, there is no CT evidence for pulmonary embolism. Prevascular nodes are present, anterior mediastinal adenopathy pr esent, adenopathy noted along the anterior diaphragm and epicardial region, extensive retroperitoneal adenopathy There is internal mammary, axillary, cervical, supraclavicular adenopathy. No pericardial effusion is seen. AORTA: No additional significant abnormality is seen. There are coronary artery calcifications. Port -A-Cath is noted, distal tip of the catheter within the right atrium. OTHER: There are changes of anasarca. Low dense focus present within the left lobe of the liver tala ures 3.5 cm and likely is factory representative of a cyst. There is a small amount of ascites. IMPRESSION: Bilateral pleural effusions and associated atelectasis. Findings compatible with lymphoma. No evident pulmonary embolism. Coronary artery disease.
[2017-04-24] MEDS ORDERED: FUROSEMIDE 10 MG/ML 2 ML VIAL IV ONE (17:31)
[2017-04-24] MEDS ORDERED: ACETAMINOPHEN TAB 325 MG TAB PO PRN (17:48)
[2017-04-24] MEDS ORDERED: IBUPROFEN 400 MG TAB PO PRN (17:48)
[2017-04-24] MEDS ORDERED: MORPHINE SULFATE 5 MG/ML SYRINGE IV PRN (17:48)
[2017-04-24] MEDS ORDERED: NALOXONE 0.4 MG/ML 1 ML VIAL IV PRN (17:48)
[2017-04-24] MEDS ORDERED: MELATONIN 3 MG TABLET PO PRN (20:56)
[2017-04-24] MEDS ORDERED: HYDROcodone/APAP 5-325MG 1 EACH TAB PO PRN (20:56)
[2017-04-24] MEDS: valACYclovir HCL 1,000 MG TABLET PO SCH (22:14)
[2017-04-24] MEDS: FOLIC ACID 1 MG TAB PO SCH (22:14)
[2017-04-24] MEDS: ATORVASTATIN 80 MG TAB PO SCH (22:14)
[2017-04-24] MEDS: prednisoLONE ACETATE 1% OPHTH DROPS 5 ML BTL BOTH EYES SCH (23:32)
[2017-04-24] MEDS: HEPARIN SODIUM,PORCINE 5,000 UNIT/ML 1 ML VIAL SQ SCH (23:33)
[2017-04-25 06:19] LABS: Anisocytosis Slight; HGB 10.8 gm/dL (11.4-16.0); Hypochromasia Slight; MCH 28.4 pg (25.0-35.0); MCHC 30.8 g/dL (31.0-37.0); MCV 92.2 fL (80.0-100.0); Mean Platelet Volume 7.5; RDW 18.5 % (11.5-15.5)
[2017-04-25 06:22] LABS: WBC 49.1 k/uL (3.8-10.6)
[2017-04-25 06:23] LABS: Platelet Count 69 k/uL (150-450)
[2017-04-25] MEDS ORDERED: LEVOTHYROXINE 100 MCG TAB PO SCH (06:30)
[2017-04-25 06:38] LABS: Calcium 9.8 mg/dL (8.4-10.2); Potassium 3.8 mmol/L (3.5-5.1)
[2017-04-25 07:44] LABS: Band Neutrophils % 3 %; Eosinophils # (M) 12.28 k/uL (0-0.7); Lymphocytes # (M) 1.96 k/uL (1.0-4.8); Monocytes # (M) 6.38 k/uL (0-1.0); Neutrophils % (M) 55 %; Nucleated Red Blood Cells 0 /100 WBC (0-0); Total Cells Counted 100
[2017-04-25] MEDS: HEPARIN SODIUM,PORCINE 5,000 UNIT/ML 1 ML VIAL SQ SCH ×2 (10:54→16:36)
[2017-04-25] MEDS: FOLIC ACID 1 MG TAB PO SCH ×3 (10:55→21:55)
[2017-04-25] MEDS: prednisoLONE ACETATE 1% OPHTH DROPS 5 ML BTL BOTH EYES SCH (10:55)
[2017-04-25 11:05] VITALS: BMI 32.1
[2017-04-25] MEDS ORDERED: VANCOMYCIN 1,500 MG in SODIUM CHLORIDE 0.9% 250 ML IVPB SCH (12:00)
[2017-04-25] MEDS ORDERED: PANTOPRAZOLE 40 MG TABLET PO PRN (13:48)
[2017-04-25] MEDS ORDERED: B COMPLEX-VIT C-VIT E-ZINC 1 EACH TAB PO SCH (15:00)
[2017-04-25] MEDS ORDERED: CYANOCOBALAMIN 500 MCG TAB PO SCH (15:00)
[2017-04-25] MEDS ORDERED: VIT A,C & E-LUTEIN-MINERALS 1 EACH TAB PO SCH (15:00)
[2017-04-25] MEDS ORDERED: DEXAMETHASONE 4 MG TAB PO SCH (15:00)
[2017-04-25] MEDS ORDERED: CHOLECALCIFEROL 1,000 UNIT TAB PO SCH (15:00)
[2017-04-25] MEDS: LISINOPRIL-HCTZ 10-12.5 MG 1 EACH TAB PO SCH (16:11)
[2017-04-25] MEDS: FUROSEMIDE 10 MG/ML 2 ML VIAL IV SCH (16:35)
[2017-04-25] MEDS: ASPIRIN 325 MG TAB PO SCH (16:49)
--- NOTE | 2017-04-25 18:05 | P.CONS ---
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 Alexnader's Medical Consult note dated 8 days ago for full details of malignancy and treatment history. Pt was brought to the hospital via EMS for progressive weakness and SOB. Currently she is medicated and appears to be comfortable, she does open her eyes to my voice and touch but, does not answer my questions, she drifts off back to sleep very easily. Patient was last seen by Dr. Barrientos 9 days ago, there was discussion about resuming some chemotherapy, unfortunately patient has been admitted twice in the last 8 days. Review of Systems Pt lethargic from morphine, spoke with daughter Past Medical History Past Medical History: Cancer, Eye Disorder, Hyperlipidemia, Hypertension, Osteoarthritis (OA), Pneumonia, Thyroid Disorder Additional Past Medical History / Comment(s): CUTANEOUS T-CELL LYMPHOMA tx with radiation therapies(had on 04/15/17) chemotherapies(was to have a week ago but ended up in hospital), chemo pancytopenias, anemia, "recent PET scan showed progression/masses thruout trunk", cellulitis bilateral lower legs, heart murmur , bilateral glaucoma, multiple kidney stones, hypothyroid. History of Any Multi-Drug Resistant Organisms: C-DIFF, MRSA Year Discovered:: 02-04-17 MDRO Source:: RT ARM/ STOOL Past Surgical History: Appendectomy, Bladder Surgery, Cholecystectomy, Heart Catheterization, Hernia Repair, Hysterectomy Additional Past Surgical History / Comment(s): Renal stents inserted and removed , skin cancer removed, bilateral cataracts removed, lt inguinal hernia repair. lymph node bx. Past Anesthesia/Blood Transfusion Reactions: No Reported Reaction Smoking Status: Never smoker - Past Family History Father History Unknown: Yes Family Medical History: No Reported History Additional Family Medical History / Comment(s): father at age 62, unknown medical history Mother Family Medical History: No Reported History Additional Family Medical History / Comment(s): mother at age 100, no reported medical conditions Medications and Allergies Home Medications Medication Instructions Recorded Confirmed Type Atorvastatin [Lipitor] 80 mg PO HS 10/05/13 04/24/17 History Raloxifene [Evista] 60 mg PO QAM 11/07/16 04/24/17 History valACYclovir HCL [Valacyclovir] 1,000 mg PO HS 11/07/16 04/24/17 History Furosemide [Lasix] 20 mg PO QAM 12/12/16 04/24/17 History Aspirin 325 mg PO DAILY 01/07/17 04/24/17 History Cholecalciferol [Vitamin D3] 1,000 unit PO DAILY@1200 01/07/17 04/24/17 History Cyanocobalamin (Vitamin B-12) 1,000 mcg PO DAILY@1200 01/07/17 04/24/17 History [Vitamin B-12] Levothyroxine Sodium [Synthroid] 100 mcg PO QAM 01/07/17 04/24/17 History Potassium Chloride ER [K-Dur 10] 10 meq PO Q48H 01/07/17 04/24/17 History Vit A/Vit C/Vit E/Zinc/Copper 1 cap PO DAILY@1200 01/07/17 04/24/17 History [ICAPS SOFTGEL] Dexamethasone [Hexadrol] 4 mg PO DAILY 01/30/17 04/24/17 History Melatonin 3 mg PO HS PRN tab 02/07/17 04/24/17 Rx SILVER sulfADIAZINE CREAM 1 applic TOPICAL BID dose 02/07/17 04/24/17 Rx [Silvadene Cream] Lisinopril-Hctz 10-12.5 mg 1 tab PO DAILY 02/18/17 04/24/17 History [Zestoretic 10-12.5] Pantoprazole [Protonix] 40 mg PO AC-BRKFST PRN 02/18/17 04/24/17 History HYDROcodone/APAP 5-325MG [[place] 1 tab PO Q4HR PRN 04/17/17 04/24/17 History 5-325] Vancomycin 1,500 mg IVPB Q24HR #28 bag 04/18/17 04/24/17 Rx B Complex-Vit C-Vit E-Zinc [Z-Bec] 1 tab PO DAILY@1200 04/24/17 04/24/17 History Folic Acid 1 mg PO TID@0900,1600,2200 04/24/17 04/24/17 History Allergies Allergy/AdvReac Type Severity Reaction Status Date / Time No Known Allergies Allergy Verified 04/24/17 15:52 Physical Exam Vitals: Vital Signs Temp Pulse Pulse Resp BP BP Pulse Ox 04/25/17 16:00 78 16 101/58 04/25/17 11:23 99 F 96 16 100/61 95 04/25/17 04:00 98.2 F 89 16 100/65 96 04/24/17 23:57 85 16 04/24/17 23:55 98.0 F 85 16 112/73 95 04/24/17 20:00 96.8 F L 82 16 110/72 96 04/24/17 18:48 96.2 F L 92 18 120/74 95 04/24/17 18:10 97.7 F 80 18 125/77 98 Intake and Output 04/25/17 04/25/17 04/25/17 06:59 14:59 22:59 Intake Total 250 Balance 250 Intake: Intake, IV Titration 250 Amount Vancomycin 1,500 mg In 250 Sodium Chloride 0.9% 250 ml @ 125 mls/hr IVPB DAILY [facility] Rx#:[id number] Other: Voiding Method Toilet Toilet # Voids 1 Weight 77 kg 77 kg Patient Weight 04/26/17 06:59 Weight 77 kg - Constitutional General appearance: mild distress, thin - Respiratory Respiratory: bilateral: other (respirations are shallow, weak inspiratory effort ) - Cardiovascular Heart sounds: normal: S1, S2 leg Peripheral Edema: right: 4+ - Gastrointestinal General gastrointestinal: normal bowel sounds - Integumentary Multiple malignant skin lesions on trunk, daughter states new ones daily with increase in size of existing ones. A 5cm, hard, fixed mass in right groin, walnut sized hard fixed lesion on left shoulder are 2 examples. - Neurologic lethargic due to meds - Musculoskeletal unable to assess - Psychiatric unable to assess Results CBC & Chem 7: 04/25/17 05:42 04/25/17 05:42 Labs: Abnormal Lab Results - Last 24 Hours (Table) 04/25/17 04/25/17 Range/Units 05:42 05:42 WBC 49.1 H* (3.8-10.6) k/uL Hgb 10.8 L (11.4-16.0) gm/dL MCHC 30.8 L (31.0-37.0) g/dL RDW 18.5 H (11.5-15.5) % Plt Count 69 L (150-450) k/uL Neutrophils # (Manual) 28.40 H (1.3-7.7) k/uL Monocytes # (Manual) 6.38 H (0-1.0) k/uL Eosinophils # (Manual) 12.28 H (0-0.7) k/uL BUN 42 H (7-17) mg/dL Creatinine 1.20 H (0.52-1.04) mg/dL CT scan - chest: report reviewed Assessment and Plan (1) Cutaneous T-cell lymphoma Narrative/Plan: Pt presents with progressive disease, rather accelerated, with new skin lesions daily per family. Patient was lethargic as she recently received pain medications so case was discussed extensively with daughter. Patient was going to try treatment again but, with her unfortunate presentation it was recommended that the patient and the family should start considering comfort as a goal versus aggressive therapy. We discussed the high likelihood that any treatment would not be able to significantly impact the disease due to its rapid progression. Also, there was concerns for the side effects of chemo being more then the patient can physically handle. All questions were answered to the best of my ability. Patient's daughter was agreeable to meet with hospice for an informational session. Case was discussed with pediatric social worker Dior Trotter as she is very familiar with this patient and family, consult placed. At this time continue with current plan of care, will update the medical record once patient and family have made some decisions. Current Visit: Yes Status: Acute Priority: High Code(s): C84.A0 - CUTANEOUS T-CELL LYMPHOMA, UNSPECIFIED, UNSPECIFIED SITE SNOMED Code(s): 403888632
[2017-04-25] MEDS: valACYclovir HCL 1,000 MG TABLET PO SCH (21:55)
[2017-04-25] MEDS: ATORVASTATIN 80 MG TAB PO SCH (21:55)
--- NOTE | 2017-04-25 21:58 | XR ---
EXAMINATION: XR chest 1V portable DATE AND TIME: 04/25/2017 9:49 PM ORDERING PROVIDER: Shan Moreno MD CLINICAL INDICATION: r/o pna TECHNIQUE: AP upright portable COMPARISON: 04/24/2017 at 3:29 PM DESCRIPTION: Right IJ portacatheter tip superimposed over the expected position of the cavoatrial anabell ction. There is no pneumothorax. Both hemidiaphragms are prominently elevated at the moment of x-ray exposure. There is worsening in the overall lung inflation when compared to yesterday's study, with evident inc reasing right pleural effusion and with progressive atelectasis of the lower lobes and right middle l obe since that time. So the greatest contributor for the worsening lung inflation on the pleural effusions and the complet e atelectasis of the lower lobe and right middle lobe. That is, there is no alveolar phase or advanced interstitial phase pulmonary edema, but there may be mild interstitial phase pulmonary edema present. IMPRESSION: PROMINENT WORSENING IN THE OVERALL LUNG INFLATION PATTERN WHEN COMPARED TO THE PRIOR STUDY.
[2017-04-25 22:11] LABS: Albumin 3.3 g/dL (3.5-5.0); Calcium 9.9 mg/dL (8.4-10.2); Potassium 4.2 mmol/L (3.5-5.1); Total Bilirubin 0.4 mg/dL (0.2-1.3); Total Protein 6.6 g/dL (6.3-8.2)
[2017-04-25 22:37] LABS: Glucose,Whole Blood 106 mg/dL (75-99)
[2017-04-25 22:57] LABS: Anisocytosis Slight; HCT 34.7 % (34.0-46.0); HGB 11.2 gm/dL (11.4-16.0); Hypochromasia Slight; MCH 29.7 pg (25.0-35.0); MCHC 32.3 g/dL (31.0-37.0); Mean Platelet Volume 8.4; RBC 3.77 m/uL (3.80-5.40); RDW 18.7 % (11.5-15.5)
--- NOTE | 2017-04-25 22:59 | P.PN ---
Subjective Principal diagnosis: Ac Exac CHF Pleural Effusion Elevated Troponin Hypoxemia Objective - Vital Signs Vital signs: Vital Signs Temp 100.2 F H 04/25/17 20:00 Pulse 100 04/25/17 20:00 Resp 22 04/25/17 20:00 BP 96/60 04/25/17 20:00 Pulse Ox 94 L 04/25/17 20:00 Intake & Output 04/25/17 04/25/17 04/26/17 06:59 18:59 06:59 Intake Total 250 Balance 250 Weight 77 kg 77 kg Intake: Intake, IV Titration 250 Amount Vancomycin 1,500 mg In 250 Sodium Chloride 0.9% 250 ml @ 125 mls/hr IVPB DAILY [facility] Rx#:[id number] Other: Voiding Method Toilet Toilet Diaper # Voids 1 1 - Labs CBC & Chem 7: 04/25/17 05:42 04/25/17 21:44 Labs: Abnormal Lab Results - Last 24 Hours (Table) 04/25/17 04/25/17 04/25/17 Range/Units 05:42 05:42 21:44 WBC 49.1 H* (3.8-10.6) k/uL Hgb 10.8 L (11.4-16.0) gm/dL MCHC 30.8 L (31.0-37.0) g/dL RDW 18.5 H (11.5-15.5) % Plt Count 69 L (150-450) k/uL Neutrophils # (Manual) 28.40 H (1.3-7.7) k/uL Monocytes # (Manual) 6.38 H (0-1.0) k/uL Eosinophils # (Manual) 12.28 H (0-0.7) k/uL BUN 42 H 44 H (7-17) mg/dL Creatinine 1.20 H 1.27 H (0.52-1.04) mg/dL Glucose 103 H (74-99) mg/dL POC Glucose (mg/dL) (75-99) mg/dL AST 72 H (14-36) U/L Alkaline Phosphatase 133 H (38-126) U/L Albumin 3.3 L (3.5-5.0) g/dL 04/25/17 Range/Units 22:35 WBC (3.8-10.6) k/uL Hgb (11.4-16.0) gm/dL MCHC (31.0-37.0) g/dL RDW (11.5-15.5) % Plt Count (150-450) k/uL Neutrophils # (Manual) (1.3-7.7) k/uL Monocytes # (Manual) (0-1.0) k/uL Eosinophils # (Manual) (0-0.7) k/uL BUN (7-17) mg/dL Creatinine (0.52-1.04) mg/dL Glucose (74-99) mg/dL POC Glucose (mg/dL) 106 H (75-99) mg/dL AST (14-36) U/L Alkaline Phosphatase (38-126) U/L Albumin (3.5-5.0) g/dL
[2017-04-25 23:00] LABS: WBC 48.2 k/uL (3.8-10.6)
--- NOTE | 2017-04-25 23:01 | P.HPIM ---
History of Present Illness Chief Complaint: SOB Past Medical History Past Medical History: Cancer, Eye Disorder, Hyperlipidemia, Hypertension, Osteoarthritis (OA), Pneumonia, Thyroid Disorder Additional Past Medical History / Comment(s): CUTANEOUS T-CELL LYMPHOMA tx with radiation therapies(had on 04/15/17) chemotherapies(was to have a week ago but ended up in hospital), chemo pancytopenias, anemia, "recent PET scan showed progression/masses thruout trunk", cellulitis bilateral lower legs, heart murmur , bilateral glaucoma, multiple kidney stones, hypothyroid. History of Any Multi-Drug Resistant Organisms: C-DIFF, MRSA Date of last positivie culture/infection: 02-04-17 MDRO Source:: RT ARM/ STOOL Past Surgical History: Appendectomy, Bladder Surgery, Cholecystectomy, Heart Catheterization, Hernia Repair, Hysterectomy Additional Past Surgical History / Comment(s): Renal stents inserted and removed , skin cancer removed, bilateral cataracts removed, lt inguinal hernia repair. lymph node bx. Past Anesthesia/Blood Transfusion Reactions: No Reported Reaction Smoking Status: Never smoker - Past Family History Father History Unknown: Yes Family Medical History: No Reported History Additional Family Medical History / Comment(s): father at age 62, unknown medical history Mother Family Medical History: No Reported History Additional Family Medical History / Comment(s): mother at age 100, no reported medical conditions Medications and Allergies Home Medications Medication Instructions Recorded Confirmed Type Atorvastatin [Lipitor] 80 mg PO HS 10/05/13 04/24/17 History Raloxifene [Evista] 60 mg PO QAM 11/07/16 04/24/17 History valACYclovir HCL [Valacyclovir] 1,000 mg PO HS 11/07/16 04/24/17 History Furosemide [Lasix] 20 mg PO QAM 12/12/16 04/24/17 History Aspirin 325 mg PO DAILY 01/07/17 04/24/17 History Cholecalciferol [Vitamin D3] 1,000 unit PO DAILY@1200 01/07/17 04/24/17 History Cyanocobalamin (Vitamin B-12) 1,000 mcg PO DAILY@1200 01/07/17 04/24/17 History [Vitamin B-12] Levothyroxine Sodium [Synthroid] 100 mcg PO QAM 01/07/17 04/24/17 History Potassium Chloride ER [K-Dur 10] 10 meq PO Q48H 01/07/17 04/24/17 History Vit A/Vit C/Vit E/Zinc/Copper 1 cap PO DAILY@1200 01/07/17 04/24/17 History [ICAPS SOFTGEL] Dexamethasone [Hexadrol] 4 mg PO DAILY 01/30/17 04/24/17 History Melatonin 3 mg PO HS PRN tab 02/07/17 04/24/17 Rx SILVER sulfADIAZINE CREAM 1 applic TOPICAL BID dose 02/07/17 04/24/17 Rx [Silvadene Cream] Lisinopril-Hctz 10-12.5 mg 1 tab PO DAILY 02/18/17 04/24/17 History [Zestoretic 10-12.5] Pantoprazole [Protonix] 40 mg PO AC-BRKFST PRN 02/18/17 04/24/17 History HYDROcodone/APAP 5-325MG [[place] 1 tab PO Q4HR PRN 04/17/17 04/24/17 History 5-325] Vancomycin 1,500 mg IVPB Q24HR #28 bag 04/18/17 04/24/17 Rx B Complex-Vit C-Vit E-Zinc [Z-Bec] 1 tab PO DAILY@1200 04/24/17 04/24/17 History Folic Acid 1 mg PO TID@0900,1600,2200 04/24/17 04/24/17 History Allergies Allergy/AdvReac Type Severity Reaction Status Date / Time No Known Allergies Allergy Verified 04/24/17 15:52 Physical Exam Vitals: Vital Signs Temp Pulse Resp BP Pulse Ox 04/25/17 20:00 100.2 F H 100 22 96/60 94 L 04/25/17 16:00 78 16 101/58 04/25/17 11:23 99 F 96 16 100/61 95 04/25/17 04:00 98.2 F 89 16 100/65 96 04/24/17 23:57 85 16 04/24/17 23:55 98.0 F 85 16 112/73 95 Intake and Output 04/25/17 04/25/17 04/26/17 14:59 22:59 06:59 Intake Total 250 Balance 250 Intake: Intake, IV Titration 250 Amount Vancomycin 1,500 mg In 250 Sodium Chloride 0.9% 250 ml @ 125 mls/hr IVPB DAILY [facility] Rx#:[id number] Other: Voiding Method Toilet Diaper # Voids 1 Weight 77 kg Patient Weight 04/26/17 06:59 Weight 77 kg Results CBC & Chem 7: 04/25/17 21:44 04/25/17 21:44 Labs: Abnormal Lab Results - Last 24 Hours (Table) 04/25/17 04/25/17 04/25/17 Range/Units 05:42 05:42 21:44 WBC 49.1 H* 48.2 H* (3.8-10.6) k/uL RBC 3.77 L (3.80-5.40) m/uL Hgb 10.8 L 11.2 L (11.4-16.0) gm/dL MCHC 30.8 L (31.0-37.0) g/dL RDW 18.5 H 18.7 H (11.5-15.5) % Plt Count 69 L (150-450) k/uL Neutrophils # (Manual) 28.40 H (1.3-7.7) k/uL Monocytes # (Manual) 6.38 H (0-1.0) k/uL Eosinophils # (Manual) 12.28 H (0-0.7) k/uL BUN 42 H (7-17) mg/dL Creatinine 1.20 H (0.52-1.04) mg/dL Glucose (74-99) mg/dL POC Glucose (mg/dL) (75-99) mg/dL AST (14-36) U/L Alkaline Phosphatase (38-126) U/L Albumin (3.5-5.0) g/dL 04/25/17 04/25/17 Range/Units 21:44 22:35 WBC (3.8-10.6) k/uL RBC (3.80-5.40) m/uL Hgb (11.4-16.0) gm/dL MCHC (31.0-37.0) g/dL RDW (11.5-15.5) % Plt Count (150-450) k/uL Neutrophils # (Manual) (1.3-7.7) k/uL Monocytes # (Manual) (0-1.0) k/uL Eosinophils # (Manual) (0-0.7) k/uL BUN 44 H (7-17) mg/dL Creatinine 1.27 H (0.52-1.04) mg/dL Glucose 103 H (74-99) mg/dL POC Glucose (mg/dL) 106 H (75-99) mg/dL AST 72 H (14-36) U/L Alkaline Phosphatase 133 H (38-126) U/L Albumin 3.3 L (3.5-5.0) g/dL Thrombosis Risk Factor Assmnt - Choose All That Apply Any of the Below Risk Factors Present?: Yes Each Factor Represents 1 point: Heart failure (<1month), Obesity (BMI >25), Swollen legs (current) Other Risk Factors: Yes Each Risk Factor Represents 3 Points: Age 75 years or older Other congenital or acquired thrombophilia - If yes, enter type in comment: No Thrombosis Risk Factor Assessment Total Risk Factor Score: 6 Thrombosis Risk Factor Assessment Level: High Risk
[2017-04-25 23:16] LABS: Band Neutrophils % 5 %; Eosinophils # (M) 19.28 k/uL (0-0.7); Lymphocytes # (M) 2.41 k/uL (1.0-4.8); Metamyelocytes # (M) 0.96 k/uL (0); Metamyelocytes % 2 %; Monocytes # (M) 2.41 k/uL (0-1.0); Myelocytes # (M) 0.48 k/uL (0); Myelocytes % 1 %; Neutrophils % (M) 43 %; Nucleated Red Blood Cells 0 /100 WBC (0-0); Total Cells Counted 200
[2017-04-25 23:17] LABS: Polychromasia Present; Toxic Granulation Present; Toxic Vacuolation Present
[2017-04-25 23:22] LABS: Platelet Count 65 k/uL (150-450)
[2017-04-25 23:35] LABS: ABG Base Excess -1.7 mmol/L; ABG HCO3 21 mmol/L (21-25); ABG PCO2 28 mmHg (35-45); ABG PO2 97 mmHg (83-108); ABG TCO2 22 mmol/L (19-24)
[2017-04-26] MEDS ORDERED: ACETAMINOPHEN IV (For NPO) 1,000 MG in EMPTY BAG 1 BAG IVPB PRN
[2017-04-26] MEDS ORDERED: SODIUM CHLORIDE 0.9% 1,000 ML IV ONE ×3 (00:14→17:23)
[2017-04-26 00:21] LABS: Amorphous Sediment,Urine Rare /hpf; Appearance,Urine Clear (Clear); Bacteria,Urine Rare /hpf; Bilirubin,Urine Negative (Negative); Blood,Urine Negative (Negative); Budding Yeast,Urine Occasional /hpf; Color,Urine Yellow; Glucose,Urine (UA) Negative (Negative); Hyaline Casts,Urine 54 /lpf (0-2); Ketones,Urine Negative (Negative); Leukocyte Esterase,Urine Trace (Negative); Mucus,Urine Occasional /hpf; Nitrite,Urine Negative (Negative); Protein,Urine Negative (Negative); RBC,Urine 1 /hpf (0-5); Specific Gravity,Urine 1.017 (1.001-1.035); Squamous Epithelial Cell,Urine <1 /hpf (0-4); Urobilinogen,Urine <2.0 mg/dL (<2.0); WBC,Urine 14 /hpf (0-5)
[2017-04-26] MEDS: prednisoLONE ACETATE 1% OPHTH DROPS 5 ML BTL BOTH EYES SCH ×3 (01:11→20:17)
[2017-04-26] MEDS: FUROSEMIDE 10 MG/ML 2 ML VIAL IV SCH ×2 (01:12→08:46)
[2017-04-26] MEDS: PIPERACILLIN-TAZOBACTAM 3.375 GM in DEXTROSE/WATER 1 50ML.BAG IVPB SCH ×3 (03:35→16:56)
[2017-04-26] MEDS: HEPARIN SODIUM,PORCINE 5,000 UNIT/ML 1 ML VIAL SQ SCH ×3 (03:35→16:56)
[2017-04-26 05:22] LABS: Anisocytosis Slight; HCT 34.2 % (34.0-46.0); HGB 10.8 gm/dL (11.4-16.0); Hypochromasia Moderate; MCH 29.4 pg (25.0-35.0); MCHC 31.5 g/dL (31.0-37.0); MCV 93.4 fL (80.0-100.0); RBC 3.66 m/uL (3.80-5.40); RDW 18.8 % (11.5-15.5)
[2017-04-26 05:29] LABS: WBC 45.2 k/uL (3.8-10.6)
[2017-04-26 05:31] LABS: Calcium 9.2 mg/dL (8.4-10.2); Magnesium 1.9 mg/dL (1.6-2.3); Phosphorus 4.8 mg/dL (2.5-4.5); Platelet Count 60 k/uL (150-450); Potassium 3.8 mmol/L (3.5-5.1)
[2017-04-26 07:18] LABS: Band Neutrophils % 9 %; Eosinophils # (M) 19.89 k/uL (0-0.7); Lymphocytes # (M) 1.81 k/uL (1.0-4.8); Neutrophils % (M) 41 %; Nucleated Red Blood Cells 0 /100 WBC (0-0); Total Cells Counted 100
[2017-04-26 07:19] LABS: Polychromasia Present
[2017-04-26 07:20] LABS: Poikilocytosis (M) Present
[2017-04-26 07:22] LABS: Toxic Granulation Present; Toxic Vacuolation Present
[2017-04-26] MEDS ORDERED: POTASSIUM CHLORIDE ER 10 MEQ TAB.ER.PRT PO SCH (08:00)
[2017-04-26] MEDS ORDERED: VANCOMYCIN IV PER PHARMACY 1 EACH MISC MISCELLANE ONE (08:30)
--- NOTE | 2017-04-26 08:43 | P.CNPUL ---
History of Present Illness Consult date: 04/26/17 Reason for consult: other Chief complaint: Mental status changes, weakness History of present illness: Consult dated 04/26/2017 This is a 76-year-old female who apparently came to the emergency room with complaints of shortness of breath. The patient's very lethargic and somnolent and not able to give any history. All history is obtained primarily by the ER elly. 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 The patient apparently according the family to be getting more and more short of breath to the point where she cannot lie flat. She apparently has a history of fluid in the lungs secondary to lymphoma. I've never seen her before. Does not have any pain in the ER. No fever no chills. No nausea vomiting or diarrhea. The patient's very lethargic and somnolent. I did ask the nurse to see whether or not she's had a recent computed tomography scan of the brain. Nothing is mental mentioned of her mental status in the ER elly. 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 She also has a history of a recent PET scan showing progression of the lesions throughout the trunk. In addition, she has a history of hyperlipidemia hypertension DJD and hypothyroidism. She also has a history of previous MRSA infection and C. diff colitis. Other surgical history includes appendectomy and bladder surgery cholecystectomy heart catheterization hernia repair and hysterectomy. Review of Systems ROS unobtainable: due to mental status Past Medical History Past Medical History: Cancer, Eye Disorder, Hyperlipidemia, Hypertension, Osteoarthritis (OA), Pneumonia, Thyroid Disorder Additional Past Medical History / Comment(s): CUTANEOUS T-CELL LYMPHOMA tx with radiation therapies(had on 04/15/17) chemotherapies(was to have a week ago but ended up in hospital), chemo pancytopenias, anemia, "recent PET scan showed progression/masses thruout trunk", cellulitis bilateral lower legs, heart murmur , bilateral glaucoma, multiple kidney stones, hypothyroid. History of Any Multi-Drug Resistant Organisms: C-DIFF, MRSA Date of last positivie culture/infection: 02-04-17 MDRO Source:: RT ARM/ STOOL Past Surgical History: Appendectomy, Bladder Surgery, Cholecystectomy, Heart Catheterization, Hernia Repair, Hysterectomy Additional Past Surgical History / Comment(s): Renal stents inserted and removed , skin cancer removed, bilateral cataracts removed, lt inguinal hernia repair. lymph node bx. Past Anesthesia/Blood Transfusion Reactions: No Reported Reaction Smoking Status: Never smoker - Past Family History Father History Unknown: Yes Family Medical History: No Reported History Additional Family Medical History / Comment(s): father at age 62, unknown medical history Mother Family Medical History: No Reported History Additional Family Medical History / Comment(s): mother at age 100, no reported medical conditions Medications and Allergies Home Medications Medication Instructions Recorded Confirmed Type Atorvastatin [Lipitor] 80 mg PO HS 10/05/13 04/24/17 History Raloxifene [Evista] 60 mg PO QAM 11/07/16 04/24/17 History valACYclovir HCL [Valacyclovir] 1,000 mg PO HS 11/07/16 04/24/17 History Furosemide [Lasix] 20 mg PO QAM 12/12/16 04/24/17 History Aspirin 325 mg PO DAILY 01/07/17 04/24/17 History Cholecalciferol [Vitamin D3] 1,000 unit PO DAILY@1200 01/07/17 04/24/17 History Cyanocobalamin (Vitamin B-12) 1,000 mcg PO DAILY@1200 01/07/17 04/24/17 History [Vitamin B-12] Levothyroxine Sodium [Synthroid] 100 mcg PO QAM 01/07/17 04/24/17 History Potassium Chloride ER [K-Dur 10] 10 meq PO Q48H 01/07/17 04/24/17 History Vit A/Vit C/Vit E/Zinc/Copper 1 cap PO DAILY@1200 01/07/17 04/24/17 History [ICAPS SOFTGEL] Dexamethasone [Hexadrol] 4 mg PO DAILY 01/30/17 04/24/17 History Melatonin 3 mg PO HS PRN tab 02/07/17 04/24/17 Rx SILVER sulfADIAZINE CREAM 1 applic TOPICAL BID dose 02/07/17 04/24/17 Rx [Silvadene Cream] Lisinopril-Hctz 10-12.5 mg 1 tab PO DAILY 02/18/17 04/24/17 History [Zestoretic 10-12.5] Pantoprazole [Protonix] 40 mg PO AC-BRKFST PRN 02/18/17 04/24/17 History HYDROcodone/APAP 5-325MG [Pioneer 1 tab PO Q4HR PRN 04/17/17 04/24/17 History 5-325] Vancomycin 1,500 mg IVPB Q24HR #28 bag 04/18/17 04/24/17 Rx B Complex-Vit C-Vit E-Zinc [Z-Bec] 1 tab PO DAILY@1200 04/24/17 04/24/17 History Folic Acid 1 mg PO TID@0900,1600,2200 04/24/17 04/24/17 History Allergies Allergy/AdvReac Type Severity Reaction Status Date / Time No Known Allergies Allergy Verified 04/24/17 15:52 Physical Exam Osteopathic Statement: *. No significant issues noted on an osteopathic structural exam other than those noted in the History and Physical/Consult. Vitals: Vital Signs Temp Pulse Pulse Resp BP BP Pulse Ox 04/26/17 08:30 90 21 101/62 96 04/26/17 08:00 99.5 F 94 25 H 115/61 95 04/26/17 07:30 100 26 H 106/60 95 04/26/17 06:00 85 19 92/55 96 04/26/17 05:30 88 23 86/55 96 04/26/17 05:00 91 16 77/55 97 04/26/17 04:30 83 20 84/58 97 04/26/17 04:00 98.3 F 93 25 H 95/59 97 04/26/17 03:30 88 22 103/66 98 04/26/17 03:00 87 23 94/58 98 04/26/17 02:30 83 11 L 111/69 98 04/26/17 02:00 82 11 L 78/54 98 04/26/17 01:30 98.7 F 84 10 L 99/63 99 04/26/17 01:00 84 16 93/61 97 04/26/17 00:30 91 13 79/57 96 04/26/17 00:00 99.2 F 91 16 77/52 96 04/25/17 23:30 97 25 H 69/55 95 04/25/17 23:00 97 25 H 77/53 95 04/25/17 22:51 102.1 F H 95 19 122/83 95 04/25/17 20:00 100.2 F H 100 22 96/60 94 L 04/25/17 16:00 78 16 101/58 04/25/17 11:23 99 F 96 16 100/61 95 Intake and Output 04/25/17 04/26/17 04/26/17 22:59 06:59 14:59 Intake Total 1000 Output Total 395 Balance 605 Intake: IV 1000 Sodium Chloride 0.9% 1, 1000 000 ml @ 999 mls/hr IV . Q1H1M ONE Rx#:[id number] Output: Urine 395 Other: Voiding Method Diaper Diaper # Voids 1 Weight 81.8 kg No acute distress, the patient is essentially unresponsive HEENT examination is grossly unremarkable. Neck supple. Full range of motion. No adenopathy thyromegaly or neck vein distention. Cardiovascular examination reveals regular rhythm rate. S1-S2 normal. No S3 or S4. No discernible murmur noted. Lungs reveal clear breath sounds. Her sounds are equal bilaterally. No adventitious lung sounds including wheezes rhonchi or crackles. Abdomen soft bowel sounds are heard. No masses or tenderness. Extremities are intact. No cyanosis clubbing or edema. Skin is without rash or lesion. Neurologic examination could not be performed. Results - Laboratory Findings CBC and BMP: 04/26/17 04:26 04/26/17 04:26 ABG ABG pH 7.50 (7.35-7.45) H 04/25/17 23:34 ABG pCO2 28 mmHg (35-45) L 04/25/17 23:34 ABG pO2 97 mmHg (83-108) 04/25/17 23:34 ABG O2 Saturation 98.0 % (94-97) H 04/25/17 23:34 PT/INR, D-dimer PT 11.9 sec (9.0-12.0) 04/24/17 15:00 INR 1.2 (<1.2) H 04/24/17 15:00 D-Dimer 3.22 mg/L FEU (<0.60) H 04/24/17 15:00 Abnormal lab findings: Abnormal Labs 04/24/17 04/24/17 04/24/17 15:00 15:00 15:00 WBC 55.3 H* RBC 3.68 L Hgb 10.8 L MCHC RDW 18.5 H Plt Count 80 L Neutrophils # (Manual) 33.70 H Monocytes # (Manual) 2.77 H Eosinophils # (Manual) 14.93 H Metamyelocytes # (Man) 1.11 H Myelocytes # (Manual) INR 1.2 H D-Dimer 3.22 H ABG pH ABG pCO2 ABG O2 Saturation Chloride BUN 40 H Creatinine 1.10 H Glucose 135 H POC Glucose (mg/dL) Phosphorus AST Alkaline Phosphatase Troponin I Albumin Ur Leukocyte Esterase Urine WBC Urine WBC Clumps Amorphous Sediment Urine Bacteria Hyaline Casts Urine Mucus Urine Yeast (Budding) 04/24/17 04/25/17 04/25/17 15:00 05:42 05:42 WBC 49.1 H* RBC Hgb 10.8 L MCHC 30.8 L RDW 18.5 H Plt Count 69 L Neutrophils # (Manual) 28.40 H Monocytes # (Manual) 6.38 H Eosinophils # (Manual) 12.28 H Metamyelocytes # (Man) Myelocytes # (Manual) INR D-Dimer ABG pH ABG pCO2 ABG O2 Saturation Chloride BUN 42 H Creatinine 1.20 H Glucose POC Glucose (mg/dL) Phosphorus AST Alkaline Phosphatase Troponin I 0.407 H* Albumin Ur Leukocyte Esterase Urine WBC Urine WBC Clumps Amorphous Sediment Urine Bacteria Hyaline Casts Urine Mucus Urine Yeast (Budding) 04/25/17 04/25/17 04/25/17 21:44 21:44 22:35 WBC 48.2 H* RBC 3.77 L Hgb 11.2 L MCHC RDW 18.7 H Plt Count 65 L Neutrophils # (Manual) 23.10 H Monocytes # (Manual) 2.41 H Eosinophils # (Manual) 19.28 H Metamyelocytes # (Man) 0.96 H Myelocytes # (Manual) 0.48 H INR D-Dimer ABG pH ABG pCO2 ABG O2 Saturation Chloride BUN 44 H Creatinine 1.27 H Glucose 103 H POC Glucose (mg/dL) 106 H Phosphorus AST 72 H Alkaline Phosphatase 133 H Troponin I Albumin 3.3 L Ur Leukocyte Esterase Urine WBC Urine WBC Clumps Amorphous Sediment Urine Bacteria Hyaline Casts Urine Mucus Urine Yeast (Budding) 04/25/17 04/25/17 04/26/17 23:30 23:34 04:26 WBC RBC Hgb MCHC RDW Plt Count Neutrophils # (Manual) Monocytes # (Manual) Eosinophils # (Manual) Metamyelocytes # (Man) Myelocytes # (Manual) INR D-Dimer ABG pH 7.50 H ABG pCO2 28 L ABG O2 Saturation 98.0 H Chloride 109 H BUN 45 H Creatinine 1.30 H Glucose POC Glucose (mg/dL) Phosphorus 4.8 H AST Alkaline Phosphatase Troponin I Albumin Ur Leukocyte Esterase Trace H Urine WBC 14 H Urine WBC Clumps Rare H Amorphous Sediment Rare H Urine Bacteria Rare H Hyaline Casts 54 H Urine Mucus Occasional H Urine Yeast (Budding) Occasional H 04/26/17 04:26 WBC 45.2 H* RBC 3.66 L Hgb 10.8 L MCHC RDW 18.8 H Plt Count 60 L Neutrophils # (Manual) 22.60 H Monocytes # (Manual) Eosinophils # (Manual) 19.89 H Metamyelocytes # (Man) Myelocytes # (Manual) INR D-Dimer ABG pH ABG pCO2 ABG O2 Saturation Chloride BUN Creatinine Glucose POC Glucose (mg/dL) Phosphorus AST Alkaline Phosphatase Troponin I Albumin Ur Leukocyte Esterase Urine WBC Urine WBC Clumps Amorphous Sediment Urine Bacteria Hyaline Casts Urine Mucus Urine Yeast (Budding) - Diagnostic Findings Chest x-ray: image reviewed (Labs x-rays a medications are reviewed. Her white count is 45.2. Platelet count is 60,000. Hemoglobin is 10.8. BUN/creatinine are 45 and 1.30 respectively) Assessment and Plan (1) Hypertension Current Visit: Yes Status: Acute Code(s): I10 - ESSENTIAL (PRIMARY) HYPERTENSION SNOMED Code(s): 05833855 (2) Hyperlipidemia Current Visit: Yes Status: Acute Code(s): E78.5 - HYPERLIPIDEMIA, UNSPECIFIED SNOMED Code(s): 22026721 (3) Hypothyroidism Current Visit: Yes Status: Acute Code(s): E03.9 - HYPOTHYROIDISM, UNSPECIFIED SNOMED Code(s): 14277377 (4) DJD (degenerative joint disease) Current Visit: Yes Status: Acute Code(s): M19.90 - UNSPECIFIED OSTEOARTHRITIS, UNSPECIFIED SITE SNOMED Code(s): 882814726 (5) Congestive heart failure Current Visit: Yes Status: Acute Code(s): I50.9 - HEART FAILURE, UNSPECIFIED SNOMED Code(s): 29129177 (6) Cutaneous T-cell lymphoma Current Visit: Yes Status: Acute Priority: High Code(s): C84.A0 - CUTANEOUS T-CELL LYMPHOMA, UNSPECIFIED, UNSPECIFIED SITE SNOMED Code(s): 640944606 (7) Lymphoma Current Visit: Yes Status: Acute Code(s): C85.90 - NON-HODGKIN LYMPHOMA, UNSPECIFIED, UNSPECIFIED SITE SNOMED Code(s): 249941188 (8) Pleural effusion due to CHF (congestive heart failure) Current Visit: Yes Status: Acute Code(s): I50.9 - HEART FAILURE, UNSPECIFIED SNOMED Code(s): 34056840 (9) SOB (shortness of breath) Current Visit: Yes Status: Acute Code(s): R06.02 - SHORTNESS OF BREATH SNOMED Code(s): 431822049 (10) Troponin level elevated Current Visit: Yes Status: Acute Code(s): R74.8 - ABNORMAL LEVELS OF OTHER SERUM ENZYMES SNOMED Code(s): 603959244 (11) Bicytopenia Current Visit: No Status: Acute Priority: Medium Code(s): D75.89 - OTHER SPECIFIED DISEASES OF BLOOD AND BLOOD-FORMING ORGANS SNOMED Code(s): 523085117 (12) Clostridium difficile diarrhea Current Visit: No Status: Acute Priority: High Code(s): A04.72 - ENTEROCOLITIS D/T CLOSTRIDIUM DIFFICILE, NOT SPCF RECUR SNOMED Code(s): 0918177476263 (13) Immunocompromised patient Current Visit: No Status: Acute Priority: High Code(s): D84.9 - IMMUNODEFICIENCY, UNSPECIFIED SNOMED Code(s): 435479752 (14) Sepsis Current Visit: No Status: Acute Code(s): A41.9 - SEPSIS, UNSPECIFIED ORGANISM SNOMED Code(s): 21737982 Plan: Plan dated 04/26/2017 The mental status changes may be new. We'll check her electrolytes. We'll also check an ammonia level. In addition, the patient x-rays labs and medications are all reviewed. The patient's medications were reviewed anwill be altered so that she's not getting anything that might affect her mental status. The patient will need a computed tomography scan of the brain is not one done recently. Additional recommendations and suggestions are forthcoming. Overall prognosis is very poor. Her CODE STATUS was addressed but apparently the family wants to BE a full code. Seemed to be an inappropriate to me. Time with Patient: Greater than 30
[2017-04-26] MEDS: FOLIC ACID 1 MG TAB PO SCH (08:45)
[2017-04-26] MEDS: ASPIRIN 325 MG TAB PO SCH (08:45)
[2017-04-26] MEDS: LISINOPRIL-HCTZ 10-12.5 MG 1 EACH TAB PO SCH (08:46)
[2017-04-26] MEDS: LEVOTHYROXINE IVP 100 MCG/5 ML VIAL IV SCH (08:46)
[2017-04-26] MEDS: PANTOPRAZOLE 40 MG/10 ML VIAL IVP SCH (08:46)
[2017-04-26] MEDS: DEXAMETHASONE SOD PHOSPHATE 4 MG/ML 1 ML VIAL IV SCH (08:53)
[2017-04-26] MEDS ORDERED: RALOXIFENE 60 MG TAB PO SCH (09:00)
[2017-04-26] MEDS ORDERED: VANCOMYCIN 1,000 MG VIAL IVPB SCH (09:00)
[2017-04-26 10:48] LABS: ABG Base Excess -4.3 mmol/L; ABG HCO3 19 mmol/L (21-25); ABG PCO2 29 mmHg (35-45); ABG PH 7.44 (7.35-7.45); ABG PO2 95 mmHg (83-108); ABG TCO2 20 mmol/L (19-24)
--- NOTE | 2017-04-26 11:13 | P.CRDCN ---
History of Present Illness Consult date: 04/26/17 Chief complaint: Change in mental status History of present illness: This is a pleasant 76-year-old female patient with a past medical history significant for T-cell lymphoma who is status post chemotherapy and radiation therapy and it seems that the T-cell lymphoma is quite spread, hypertension, and dyslipidemia, was brought to the emergency room by her family because of change in mental status. The patient currently is very lethargic. The history was taken from her son as well as from the chart. According to her son, the patient has been deteriorating over the last 3 months. Over the last several days she was unable to do her daily activities. In the past the patient was able to walk without difficulties but over the last several days she has been feeling very weak. According to the patient's son, the patient did not have any symptoms of chest pain or chest discomfort, no shortness of breath. The patient never been diagnosed with any coronary artery disease or congestive heart failure or cardiac arrhythmia. She never seen a social service manager in the past. We get involved in the care of the patient because the cardiac enzymes were checked and came in to be slightly abnormal. But the patient has been hypotensive and likely because of decreased oral intake. And again she did not experience any symptoms of chest pain or chest discomfort. The EKG showed sinus rhythm with low voltage QRS.The chest x-ray did not show any acute abnormalities. Computed tomography scan of the chest did not show any PE. Overall and in view of the prognosis, I would consider a conservative medical approach and medical treatment only. Past Medical History Past Medical History: Cancer, Eye Disorder, Hyperlipidemia, Hypertension, Osteoarthritis (OA), Pneumonia, Thyroid Disorder Additional Past Medical History / Comment(s): CUTANEOUS T-CELL LYMPHOMA tx with radiation therapies(had on 04/15/17) chemotherapies(was to have a week ago but ended up in hospital), chemo pancytopenias, anemia, "recent PET scan showed progression/masses thruout trunk", cellulitis bilateral lower legs, heart murmur , bilateral glaucoma, multiple kidney stones, hypothyroid. History of Any Multi-Drug Resistant Organisms: C-DIFF, MRSA Date of last positivie culture/infection: 02-04-17 MDRO Source:: RT ARM/ STOOL Past Surgical History: Appendectomy, Bladder Surgery, Cholecystectomy, Heart Catheterization, Hernia Repair, Hysterectomy Additional Past Surgical History / Comment(s): Renal stents inserted and removed , skin cancer removed, bilateral cataracts removed, lt inguinal hernia repair. lymph node bx. Past Anesthesia/Blood Transfusion Reactions: No Reported Reaction Smoking Status: Never smoker - Past Family History Father History Unknown: Yes Family Medical History: No Reported History Additional Family Medical History / Comment(s): father at age 62, unknown medical history Mother Family Medical History: No Reported History Additional Family Medical History / Comment(s): mother at age 100, no reported medical conditions Medications and Allergies Home Medications Medication Instructions Recorded Confirmed Type Atorvastatin [Lipitor] 80 mg PO HS 10/05/13 04/24/17 History Raloxifene [Evista] 60 mg PO QAM 11/07/16 04/24/17 History valACYclovir HCL [Valacyclovir] 1,000 mg PO HS 11/07/16 04/24/17 History Furosemide [Lasix] 20 mg PO QAM 12/12/16 04/24/17 History Aspirin 325 mg PO DAILY 01/07/17 04/24/17 History Cholecalciferol [Vitamin D3] 1,000 unit PO DAILY@1200 01/07/17 04/24/17 History Cyanocobalamin (Vitamin B-12) 1,000 mcg PO DAILY@1200 01/07/17 04/24/17 History [Vitamin B-12] Levothyroxine Sodium [Synthroid] 100 mcg PO QAM 01/07/17 04/24/17 History Potassium Chloride ER [K-Dur 10] 10 meq PO Q48H 01/07/17 04/24/17 History Vit A/Vit C/Vit E/Zinc/Copper 1 cap PO DAILY@1200 01/07/17 04/24/17 History [ICAPS SOFTGEL] Dexamethasone [Hexadrol] 4 mg PO DAILY 01/30/17 04/24/17 History Melatonin 3 mg PO HS PRN tab 02/07/17 04/24/17 Rx SILVER sulfADIAZINE CREAM 1 applic TOPICAL BID dose 02/07/17 04/24/17 Rx [Silvadene Cream] Lisinopril-Hctz 10-12.5 mg 1 tab PO DAILY 02/18/17 04/24/17 History [Zestoretic 10-12.5] Pantoprazole [Protonix] 40 mg PO AC-BRKFST PRN 02/18/17 04/24/17 History HYDROcodone/APAP 5-325MG [Onley 1 tab PO Q4HR PRN 04/17/17 04/24/17 History 5-325] Vancomycin 1,500 mg IVPB Q24HR #28 bag 04/18/17 04/24/17 Rx B Complex-Vit C-Vit E-Zinc [Z-Bec] 1 tab PO DAILY@1200 04/24/17 04/24/17 History Folic Acid 1 mg PO TID@0900,1600,2200 04/24/17 04/24/17 History Allergies Allergy/AdvReac Type Severity Reaction Status Date / Time No Known Allergies Allergy Verified 04/24/17 15:52 Physical Exam Vitals: Vital Signs Temp Pulse Pulse Resp BP BP Pulse Ox 04/26/17 10:00 95 22 84/48 97 04/26/17 09:45 96 20 80/51 97 04/26/17 09:30 89 21 77/47 97 04/26/17 09:15 89 21 84/49 97 04/26/17 09:00 98 24 106/60 96 04/26/17 08:45 93 22 74/48 96 04/26/17 08:30 90 21 101/62 96 04/26/17 08:00 99.5 F 94 22 115/61 95 04/26/17 07:30 100 26 H 106/60 95 04/26/17 06:00 85 19 92/55 96 04/26/17 05:30 88 23 86/55 96 04/26/17 05:00 91 16 77/55 97 04/26/17 04:30 83 20 84/58 97 04/26/17 04:00 98.3 F 93 25 H 95/59 97 04/26/17 03:30 88 22 103/66 98 04/26/17 03:00 87 23 94/58 98 04/26/17 02:30 83 11 L 111/69 98 04/26/17 02:00 82 11 L 78/54 98 04/26/17 01:30 98.7 F 84 10 L 99/63 99 04/26/17 01:00 84 16 93/61 97 04/26/17 00:30 91 13 79/57 96 04/26/17 00:00 99.2 F 91 16 77/52 96 04/25/17 23:30 97 25 H 69/55 95 04/25/17 23:00 97 25 H 77/53 95 04/25/17 22:51 102.1 F H 95 19 122/83 95 04/25/17 20:00 100.2 F H 100 22 96/60 94 L 04/25/17 16:00 78 16 101/58 04/25/17 11:23 99 F 96 16 100/61 95 Intake and Output 04/25/17 04/26/17 04/26/17 22:59 06:59 14:59 Intake Total 1000 1040 Output Total 395 150 Balance 605 890 Intake: IV 1000 1040 Sodium Chloride 0.9% 1, 1000 1040 000 ml @ 999 mls/hr IV . Q1H1M ONE Rx#:[id number] Output: Urine 395 150 Other: Voiding Method Diaper Diaper Indwelling Catheter # Voids 1 Weight 81.8 kg 78.3 kg Patient Weight 04/27/17 06:59 Weight 78.3 kg - Constitutional General appearance: no acute distress - Respiratory Respiratory: bilateral: CTA - Cardiovascular Rhythm: regular Heart sounds: normal: S1, S2 Results 04/26/17 04:26 04/26/17 04:26 Cardiac Enzymes 04/25/17 Range/Units 21:44 AST 72 H (14-36) U/L CBC 04/25/17 04/26/17 Range/Units 21:44 04:26 WBC 48.2 H* 45.2 H* (3.8-10.6) k/uL RBC 3.77 L 3.66 L (3.80-5.40) m/uL Hgb 11.2 L 10.8 L (11.4-16.0) gm/dL Hct 34.7 34.2 (34.0-46.0) % Plt Count 65 L 60 L (150-450) k/uL Comprehensive Metabolic Panel 04/25/17 04/26/17 Range/Units 21:44 04:26 Sodium 140 142 (137-145) mmol/L Potassium 4.2 3.8 (3.5-5.1) mmol/L Chloride 106 109 H (98-107) mmol/L Carbon Dioxide 25 22 (22-30) mmol/L BUN 44 H 45 H (7-17) mg/dL Creatinine 1.27 H 1.30 H (0.52-1.04) mg/dL Glucose 103 H 87 (74-99) mg/dL Calcium 9.9 9.2 (8.4-10.2) mg/dL AST 72 H (14-36) U/L ALT 29 (9-52) U/L Alkaline Phosphatase 133 H (38-126) U/L Total Protein 6.6 (6.3-8.2) g/dL Albumin 3.3 L (3.5-5.0) g/dL Current Medications Generic Name Dose Route Start Last Admin Trade Name Freq PRN Reason Stop Dose Admin Dexamethasone Sodium Phosphate 4 mg 04/26/17 09:00 04/26/17 08:53 Decadron IV 4 mg DAILY LUCY Administration Heparin Sodium (Porcine) 5,000 unit 04/25/17 00:00 04/26/17 08:38 Heparin SQ Not Given Q8HR LUCY Piperacillin/Tazobactam/ 50 mls @ 12.5 mls/hr 04/26/17 00:00 04/26/17 09:15 Dextrose 3.375 gm/ IV Solution IVPB 12.5 mls/hr Q8HR LUCY Administration Acetaminophen 1,000 mg/ IV 100 mls @ 400 mls/hr 04/26/17 00:00 04/25/17 22:21 Solution IVPB 04/27/17 00:01 400 mls/hr Q6HR PRN Administration MILD PAIN OR FEVER > 100.5 Levothyroxine Sodium 50 mcg 04/26/17 09:00 04/26/17 08:46 Synthroid Ivp IV 50 mcg DAILY LUCY Administration Miscellaneous Information 1 each 04/24/17 15:54 04/24/17 16:26 Rx Info: Iv Contrast Was Given MISCELLANE 04/26/17 15:56 1 each DAILY PRN Administration Per Protocol Miscellaneous Information 0 each 04/26/17 09:00 Pharmacy To Dose Iv Vancomycin MISCELLANE 05/29/17 09:01 DIRECTED LUCY Morphine Sulfate 4 mg 04/24/17 17:48 04/24/17 18:13 Morphine Sulfate IV 4 mg Q4HR PRN Administration Severe Pain Naloxone HCl 0.2 mg 04/24/17 17:48 Narcan IV Q2M PRN Opioid Reversal Pantoprazole Sodium 40 mg 04/26/17 09:00 04/26/17 08:46 Protonix IVP 40 mg DAILY LUCY Administration Prednisolone Acetate 1 drops 04/24/17 21:15 04/26/17 08:47 Pred Forte 1% BOTH EYES 1 drops BID LUCY Administration Silver Sulfadiazine 1 applic 04/24/17 21:00 04/26/17 09:16 Silvadene Cream TOPICAL 1 applic BID LUCY Administration Intake and Output 04/25/17 04/26/17 04/26/17 22:59 06:59 14:59 Intake Total 1000 1040 Output Total 395 150 Balance 605 890 Intake: IV 1000 1040 Sodium Chloride 0.9% 1, 1000 1040 000 ml @ 999 mls/hr IV . Q1H1M ONE Rx#:[id number] Output: Urine 395 150 Other: Voiding Method Diaper Diaper Indwelling Catheter # Voids 1 Weight 81.8 kg 78.3 kg Patient Weight 04/27/17 06:59 Weight 78.3 kg 04/26/17 04:26 04/26/17 04:26 Assessment and Plan Assessment: Assessment #1 generalized weakness and fatigue #2 hypertension #3 mildly abnormal Echo enzymes #4 abnormal cardiac enzymes Plan #1 overall conservative medical approach #2 obtain an echocardiogram was Doppler #3 IV fluid to maintain systolic blood pressure above 90 #4 poor prognosis.
[2017-04-26] MEDS: VANCOMYCIN IV PER PHARMACY 1 EACH MISC MISCELLANE SCH (12:21)
--- NOTE | 2017-04-26 15:09 | CT ---
EXAMINATION TYPE: CT brain wo con DATE OF EXAM: 04/26/2017 COMPARISON: 02/10/2014 HISTORY: AMS. CT DLP: 1049 mGycm Automated exposure control for dose reduction was used. FINDINGS: There is no acute intracranial hemorrhage or midline shift identified. There is diffuse v entricular and sulcal prominence consistent with diffuse age-related cerebral atrophy. There is low- attenuation in the periventricular white matter consistent with chronic small vessel ischemic change. More focal area of hypoattenuation is seen within the right external capsule, CSF attenuated compat ible with an old injury. The globes are intact. Mild mucosal thickening is seen within the anterior r ight ethmoid sinuses and sphenoid sinuses. Remaining visualized paranasal sinuses and mastoid air mir ls are well aerated. Atherosclerosis is noted of the intracranial vasculature. IMPRESSION: 1. No acute intracranial hemorrhage or midline shift. 2. Diffuse age-related cerebral atrophy and chronic small vessel ischemic change noted. 3. Mild paranasal sinus disease within the ethmoid sinuses. 4. Old right external capsule lacunar injury.
--- NOTE | 2017-04-26 16:42 | P.PN ---
Subjective Progress Note Date: 04/26/17 Principal diagnosis: cutaneous T cell lymphoma, progressive Pt seen on return from CT, she did not open her eyes or respond to my voice or touch, however, when I attempted to open her eyes I did feel resistance. No family was available Objective - Vital Signs Vital signs: Vital Signs Temp 97.6 F 04/26/17 16:00 Pulse 85 04/26/17 16:00 Resp 23 04/26/17 16:00 BP 73/50 04/26/17 16:00 Pulse Ox 98 04/26/17 16:00 Intake & Output 04/25/17 04/26/17 04/26/17 18:59 06:59 18:59 Intake Total 250 1000 1710 Output Total 395 420 Balance 170 189 9018 Weight 77 kg 81.8 kg 78.3 kg Intake: IV 1000 1660 Sodium Chloride 0.9% 1, 1000 1660 000 ml @ 999 mls/hr IV . Q1H1M [facility] Rx#:[id number] Intake, IV Titration 250 50 Amount Piperacillin-Tazobactam 3 50 .375 gm In Dextrose/Water 1 50ml.bag @ 12.5 mls/hr IVPB Q8HR [facility] Rx#: [id number] Vancomycin 1,500 mg In 250 Sodium Chloride 0.9% 250 ml @ 125 mls/hr IVPB DAILY [facility] Rx#:[id number] Output: Urine 395 420 Other: Voiding Method Toilet Diaper Indwelling Catheter # Voids 1 - Exam Pt not opening eyes or verbally responding to voice or touch, respirations shallow, unlabored - Labs CBC & Chem 7: 04/26/17 04:26 04/26/17 04:26 Labs: Abnormal Lab Results - Last 24 Hours (Table) 04/25/17 04/25/17 04/25/17 Range/Units 21:44 21:44 22:35 WBC 48.2 H* (3.8-10.6) k/uL RBC 3.77 L (3.80-5.40) m/uL Hgb 11.2 L (11.4-16.0) gm/dL RDW 18.7 H (11.5-15.5) % Plt Count 65 L (150-450) k/uL Neutrophils # (Manual) 23.10 H (1.3-7.7) k/uL Monocytes # (Manual) 2.41 H (0-1.0) k/uL Eosinophils # (Manual) 19.28 H (0-0.7) k/uL Metamyelocytes # (Man) 0.96 H (0) k/uL Myelocytes # (Manual) 0.48 H (0) k/uL ABG pH (7.35-7.45) ABG pCO2 (35-45) mmHg ABG HCO3 (21-25) mmol/L ABG O2 Saturation (94-97) % Chloride (98-107) mmol/L BUN 44 H (7-17) mg/dL Creatinine 1.27 H (0.52-1.04) mg/dL Glucose 103 H (74-99) mg/dL POC Glucose (mg/dL) 106 H (75-99) mg/dL Phosphorus (2.5-4.5) mg/dL AST 72 H (14-36) U/L Alkaline Phosphatase 133 H (38-126) U/L Albumin 3.3 L (3.5-5.0) g/dL Ur Leukocyte Esterase (Negative) Urine WBC (0-5) /hpf Urine WBC Clumps (None) /hpf Amorphous Sediment (None) /hpf Urine Bacteria (None) /hpf Hyaline Casts (0-2) /lpf Urine Mucus (None) /hpf Urine Yeast (Budding) (None) /hpf 04/25/17 04/25/17 04/26/17 Range/Units 23:30 23:34 04:26 WBC (3.8-10.6) k/uL RBC (3.80-5.40) m/uL Hgb (11.4-16.0) gm/dL RDW (11.5-15.5) % Plt Count (150-450) k/uL Neutrophils # (Manual) (1.3-7.7) k/uL Monocytes # (Manual) (0-1.0) k/uL Eosinophils # (Manual) (0-0.7) k/uL Metamyelocytes # (Man) (0) k/uL Myelocytes # (Manual) (0) k/uL ABG pH 7.50 H (7.35-7.45) ABG pCO2 28 L (35-45) mmHg ABG HCO3 (21-25) mmol/L ABG O2 Saturation 98.0 H (94-97) % Chloride 109 H (98-107) mmol/L BUN 45 H (7-17) mg/dL Creatinine 1.30 H (0.52-1.04) mg/dL Glucose (74-99) mg/dL POC Glucose (mg/dL) (75-99) mg/dL Phosphorus 4.8 H (2.5-4.5) mg/dL AST (14-36) U/L Alkaline Phosphatase (38-126) U/L Albumin (3.5-5.0) g/dL Ur Leukocyte Esterase Trace H (Negative) Urine WBC 14 H (0-5) /hpf Urine WBC Clumps Rare H (None) /hpf Amorphous Sediment Rare H (None) /hpf Urine Bacteria Rare H (None) /hpf Hyaline Casts 54 H (0-2) /lpf Urine Mucus Occasional H (None) /hpf Urine Yeast (Budding) Occasional H (None) /hpf 04/26/17 04/26/17 Range/Units 04:26 10:43 WBC 45.2 H* (3.8-10.6) k/uL RBC 3.66 L (3.80-5.40) m/uL Hgb 10.8 L (11.4-16.0) gm/dL RDW 18.8 H (11.5-15.5) % Plt Count 60 L (150-450) k/uL Neutrophils # (Manual) 22.60 H (1.3-7.7) k/uL Monocytes # (Manual) (0-1.0) k/uL Eosinophils # (Manual) 19.89 H (0-0.7) k/uL Metamyelocytes # (Man) (0) k/uL Myelocytes # (Manual) (0) k/uL ABG pH (7.35-7.45) ABG pCO2 29 L (35-45) mmHg ABG HCO3 19 L (21-25) mmol/L ABG O2 Saturation 98.0 H (94-97) % Chloride (98-107) mmol/L BUN (7-17) mg/dL Creatinine (0.52-1.04) mg/dL Glucose (74-99) mg/dL POC Glucose (mg/dL) (75-99) mg/dL Phosphorus (2.5-4.5) mg/dL AST (14-36) U/L Alkaline Phosphatase (38-126) U/L Albumin (3.5-5.0) g/dL Ur Leukocyte Esterase (Negative) Urine WBC (0-5) /hpf Urine WBC Clumps (None) /hpf Amorphous Sediment (None) /hpf Urine Bacteria (None) /hpf Hyaline Casts (0-2) /lpf Urine Mucus (None) /hpf Urine Yeast (Budding) (None) /hpf Microbiology - Last 24 Hours (Table) 04/25/17 23:30 Urine Culture - Preliminary Urine,Catheterized Assessment and Plan (1) Cutaneous T-cell lymphoma Current Visit: Yes Status: Acute Priority: High Code(s): C84.A0 - CUTANEOUS T-CELL LYMPHOMA, UNSPECIFIED, UNSPECIFIED SITE SNOMED Code(s): 648932357 Plan: Family was to meet with hospice yesterday but no code status had not been agreed to yet so, pt began to decline overnight and was transferred to ICU. CT head was negative but no family was present for review. Code status was updated today. Plan of care communicated to me was 24 hours in ICU and if no change pt will be admitted to inpatient hospice care. Agree with plan of care.
--- NOTE | 2017-04-26 21:03 | PN ---
PROGRESS NOTE DATE OF SERVICE: 04/26/2017. HISTORY: The patient was transferred to ICU last night secondary to unresponsiveness. Patient remains in ICU. Did have a CT of the head done which was unremarkable. Patient lies in bed, does not open eyes on verbal stimulation or touch. PHYSICAL EXAMINATION: VITAL SIGNS: Temperature 97.6, pulse 85, respirations 22, blood pressure 173/50, O2 saturation 98%. HEENT: The patient does not open eyes to touch or to verbal stimulation. She is in bed. NECK: No lymphadenopathy is palpable. LUNGS: The patient has nonlabored, shallow respirations. HEART: Regular rate and rhythm without any murmurs or gallop rhythm. ABDOMEN: Soft and nontender, nondistended. Bowel sounds positive. EXTREMITIES: No edema, clubbing, cyanosis. NEUROLOGIC: Examination cannot be assessed. The patient does not follow commands. LABS: CBC, white blood count of 45.2, hemoglobin 10.8, hematocrit 34.2, and platelet count of 60,000. Chemical profile, sodium 140, potassium 3.8, chloride 109, bicarb 22, BUN 45, creatinine 1.30. ASSESSMENT: 1. Acute exacerbation of congestive heart failure. 2. Pleural effusion. 3. Elevated troponin. 4. Hypoxemia. 5. The patient does have a history of cutaneous T-cell lymphoma. The patient and the family were to meet with hospice to make the patient hospice, but could not be done on the code status, patient remained full code. She began to decline overnight and was transferred to ICU. So far, CT of the head is negative. The patient's code status has been updated to no code. The patient is to be monitored in ICU and to be admitted to hospice care if there is no change in the status in 24 hours. MMODL / IJN: [id number] /
[2017-04-27] MEDS: HEPARIN SODIUM,PORCINE 5,000 UNIT/ML 1 ML VIAL SQ SCH ×3 (00:54→08:14)
[2017-04-27] MEDS: PIPERACILLIN-TAZOBACTAM 3.375 GM in DEXTROSE/WATER 1 50ML.BAG IVPB SCH ×2 (00:54→08:13)
[2017-04-27 04:56] LABS: Anisocytosis Slight; HCT 34.3 % (34.0-46.0); HGB 10.4 gm/dL (11.4-16.0); Hypochromasia Marked; MCH 28.7 pg (25.0-35.0); MCHC 30.2 g/dL (31.0-37.0); MCV 94.9 fL (80.0-100.0); Macrocytosis Slight; Mean Platelet Volume 8.1; RBC 3.61 m/uL (3.80-5.40)
[2017-04-27 04:59] LABS: WBC 43.1 k/uL (3.8-10.6)
[2017-04-27 05:00] LABS: Platelet Count 56 k/uL (150-450)
[2017-04-27 05:05] LABS: Calcium 8.9 mg/dL (8.4-10.2); Magnesium 1.9 mg/dL (1.6-2.3); Phosphorus 4.7 mg/dL (2.5-4.5); Potassium 3.8 mmol/L (3.5-5.1)
[2017-04-27 05:46] LABS: Band Neutrophils % 2 %; Eosinophils # (M) 16.81 k/uL (0-0.7); Lymphocytes # (M) 2.16 k/uL (1.0-4.8); Neutrophils % (M) 41 %; Nucleated Red Blood Cells 0 /100 WBC (0-0); Total Cells Counted 100
[2017-04-27 05:50] LABS: Toxic Granulation Present; Toxic Vacuolation Present
[2017-04-27] MEDS: MAGNESIUM SULFATE-D5W PMX 1 GM in DEXTROSE/WATER 1 100ML.BAG IVPB SCH ×2 (07:37→08:50)
[2017-04-27] MEDS: POTASSIUM CHLORIDE 10 MEQ, LIDOCAINE 2% INJ 10 MG in SODIUM CHLORIDE 0.9% 100 ML IV SCH ×2 (07:37→08:50)
--- NOTE | 2017-04-27 08:48 | XR ---
EXAMINATION TYPE: XR chest 1V portable DATE OF EXAM: 04/27/2017 COMPARISON: 04/25/2017 HISTORY: Heart failure. TECHNIQUE: Single frontal view of the chest is obtained. FINDINGS: There is pulmonary vascular congestion. There is blunting of both costophrenic angles and more on the right side. There is right central venous catheter with tip over the right atrium. Thorac ic aorta is atheromatous. There are chest leads. IMPRESSION: Congestive heart failure with pleural effusions and larger on the right side. Right lowe r lobe pneumonia cannot be excluded. No change compared to last exam.
[2017-04-27] MEDS: DEXAMETHASONE SOD PHOSPHATE 4 MG/ML 1 ML VIAL IV SCH (09:33)
[2017-04-27] MEDS: PANTOPRAZOLE 40 MG/10 ML VIAL IVP SCH (09:33)
[2017-04-27] MEDS: LEVOTHYROXINE IVP 100 MCG/5 ML VIAL IV SCH (09:41)
[2017-04-27] MEDS: prednisoLONE ACETATE 1% OPHTH DROPS 5 ML BTL BOTH EYES SCH (09:44)
[2017-04-27] MEDS ORDERED: VANCOMYCIN 1,500 MG in SODIUM CHLORIDE 0.9% 250 ML IVPB ONE (10:00)
[2017-04-27] MEDS: VANCOMYCIN IV PER PHARMACY 1 EACH MISC MISCELLANE SCH (10:04)
--- NOTE | 2017-04-27 11:13 | P.PN ---
Subjective Progress Note Date: 04/27/17 Principal diagnosis: Altered mental status, weakness. This is a 76-year-old female who apparently came to the emergency room with complaints of shortness of breath. The patient's very lethargic and somnolent and not able to give any history. All history is obtained primarily by the ER elly. 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 The patient apparently according the family to be getting more and more short of breath to the point where she cannot lie flat. She apparently has a history of fluid in the lungs secondary to lymphoma. I've never seen her before. Does not have any pain in the ER. No fever no chills. No nausea vomiting or diarrhea. The patient's very lethargic and somnolent. I did ask the nurse to see whether or not she's had a recent computed tomography scan of the brain. Nothing is mental mentioned of her mental status in the ER elly. 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 She also has a history of a recent PET scan showing progression of the lesions throughout the trunk. In addition, she has a history of hyperlipidemia hypertension DJD and hypothyroidism. She also has a history of previous MRSA infection and C. diff colitis. Other surgical history includes appendectomy and bladder surgery cholecystectomy heart catheterization hernia repair and hysterectomy. The patient is seen again today 04/27/2017 in follow-up in the intensive care unit. Unfortunately the patient remains lethargic and unresponsive to verbal stimuli. She does grimace to painful stimuli. She is wiggling her toes on occasion. Otherwise quite obtunded and somnolent. Her son denies that the bedside. They are waiting further family members to arrive. The plan is for probable hospice. In the interim she remains on full supportive care. She is on 3 L of oxygen per nasal cannula to maintain O2 saturations in the 90s. She is a 0.9 normal saline at KVO. White count 43.1. Hemoglobin 10.4. She remains on vancomycin and Zosyn. Her chest x-ray does reveal a large right pleural effusion with some atelectasis at the bases. Her computed tomography scan of the brain was negative for an acute intracranial process. Objective - Vital Signs Vital signs: Vital Signs Temp 98.8 F 04/27/17 08:00 Pulse 82 04/27/17 10:00 Resp 28 H 04/27/17 10:00 BP 92/56 04/27/17 10:00 Pulse Ox 96 04/27/17 10:00 Intake & Output 04/26/17 04/27/17 04/27/17 18:59 06:59 18:59 Intake Total 2710 902.5 510 Output Total 500 670 105 Balance 2210 232.5 405 Weight 78.3 kg 76.8 kg Intake: IV 2660 580 Sodium Chloride 0.9% 1, 2660 580 000 ml @ 999 mls/hr IV . Q1H1M [facility] Rx#:[id number] Intake, IV Titration 50 322.5 510 Amount ACETAMINOPHEN IV (For NPO 12.5 ) 1,000 mg In Empty Bag 1 bag @ 400 mls/hr IVPB Q6HR PRN Rx#:[id number] Magnesium Sulfate-D5w Pmx 200 1 gm In Dextrose/Water 1 100ml.bag @ 100 mls/hr IVPB Q1H [facility] Rx#: [id number] Piperacillin-Tazobactam 3 50 50.0 50 .375 gm In Dextrose/Water 1 50ml.bag @ 12.5 mls/hr IVPB Q8HR [facility] Rx#: [id number] Potassium Chloride 10 meq 200 Lidocaine 2% Inj 10 mg In Sodium Chloride 0.9% 100 ml @ 100 mls/hr IV Q1HR [facility] Rx#:[id number] Sodium Chloride 0.9% 1, 40 000 ml @ 999 mls/hr IV . Q1H1M [facility] Rx#:[id number] Sodium Chloride 0.9% 1, 220 60 000 ml @ 999 mls/hr IV . Q1H1M [facility] Rx#:[id number] Output: Urine 500 670 105 Other: Voiding Method Indwelling Catheter Indwelling Catheter # Voids 1 # Bowel Movements 1 - Exam No acute distress, the patient is essentially unresponsive HEENT examination is grossly unremarkable. Neck supple. Full range of motion. No adenopathy thyromegaly or neck vein distention. Cardiovascular examination reveals regular rhythm rate. S1-S2 normal. No S3 or S4. No discernible murmur noted. Lungs reveal clear breath sounds. Her sounds are equal bilaterally. No adventitious lung sounds including wheezes rhonchi or crackles. Abdomen soft bowel sounds are heard. No masses or tenderness. Extremities are intact. No cyanosis clubbing or edema. Skin is without rash or lesion. Neurologic examination could not be performed. - Labs CBC & Chem 7: 04/27/17 04:20 04/27/17 04:20 Labs: Abnormal Lab Results - Last 24 Hours (Table) 04/27/17 04/27/17 Range/Units 04:20 04:20 WBC 43.1 H* (3.8-10.6) k/uL RBC 3.61 L (3.80-5.40) m/uL Hgb 10.4 L (11.4-16.0) gm/dL MCHC 30.2 L (31.0-37.0) g/dL RDW 19.0 H (11.5-15.5) % Plt Count 56 L (150-450) k/uL Neutrophils # (Manual) 18.50 H (1.3-7.7) k/uL Monocytes # (Manual) 5.60 H (0-1.0) k/uL Eosinophils # (Manual) 16.81 H (0-0.7) k/uL Chloride 110 H (98-107) mmol/L BUN 47 H (7-17) mg/dL Creatinine 1.30 H (0.52-1.04) mg/dL Phosphorus 4.7 H (2.5-4.5) mg/dL Microbiology - Last 24 Hours (Table) 04/25/17 21:44 Blood Culture - Preliminary Blood No Growth after 24 hours 04/25/17 23:30 Urine Culture - Preliminary Urine,Catheterized Assessment and Plan Assessment: Impression: #1 Cutaneous T-cell lymphoma. #2 Altered mental status secondary to above. #3 Hyperlipidemia. #4 Degenerative joint disease. #5 Acute exacerbation of congestive heart failure. #6 Bilateral pleural effusions greater on the right. #7 Bicytopenia. #8 Immunocompromise patient. #9 Clostridium difficile diarrhea. #10 Sepsis. Plan: The patient was seen and evaluated by Dr. Fritz. We did have further discussion with the son who is at bedside. He is waiting for his sister to arrive. They are still leaning most likely towards hospice at this point. In the interim we'll continue with full supportive care. We will continue to follow and make further recommendations based on her clinical status. I, the cosigning physician, have performed a history and physical examination on the patient. Lung sounds have crackles in the posterior bases more so on the right.. Maintaining good O2 saturations in the 90s on 3 L/m per nasal cannula. I have discussed the assessment and plan of care with my nurse practitioner, Lani Griffin. I attest the above documented note as dictated by her.
[2017-04-27] MEDS ORDERED: MORPHINE SULFATE 5 MG/ML SYRINGE IV PRN (12:18)
[2017-04-27] MEDS ORDERED: ONDANSETRON 4 MG/2 ML VIAL IVP PRN (12:18)
[2017-04-27] MEDS ORDERED: MORPHINE SULFATE 5 MG/ML SYRINGE IVP ONE (12:18)
[2017-04-27] MEDS ORDERED: ATROPINE OPHTH SOLN 1% 5ML BTL SUBLINGUAL PRN (12:18)
[2017-04-27] MEDS ORDERED: LORazepam 2 MG/ML INJ IV PRN (12:18)
[2017-04-27 12:53] VITALS: TEMP 98.9
[2017-04-27] MEDS ORDERED: MORPHINE SULFATE (100 MG/2 ML) 100 MG in SODIUM CHLORIDE 0.9% 100 ML IV SCH (13:00)
[2017-04-27 13:09] VITALS: BP 97/62
[2017-04-27] MEDS ORDERED: SCOPOLAMINE 1.5MG/72HR PATCH TRANSDERM STA (13:18)
[2017-04-27 14:22] VITALS: PULSE 82; RESP 22
--- NOTE | 2017-04-27 16:31 | P.CONS ---
History of Present Illness - Reason for Consult Consult date: 04/27/17 - Chief Complaint weakness - History of Present Illness This is a 76-year-old female was known to ID service for recentl admissions this fall She has a history of T-cell lymphoma for many years and has undergone chemotherapy, radiation and light therapy under the care of Dr. Barrientos. She recently ended chemotherapy and recently had radiation therapy with Dr. Cruz and her most recent treatment was 04/15/2017. PET scan done on April 16 revealed progression of disease. Since that time she's been having ongoing progression of her disease and worsening of her status. During her recent hospital stay she was also given evidence of MSSA sepsis. Her Infuse-a- Port was accessed and she's been receiving outpatient intravenous antibiotic therapy at home for her sepsis. Patient never had a marked decline of her status became much more weak and was having difficulty with some abdominal distention and discomfort. Consequently she was brought into hospital. Her status is continued decline. I had the ability to meet with the patient and her daughter. The family has agreed that the patient's disease has continued to rapidly worsen she should be placed in hospice. Review of Systems ROS unobtainable: due to mental status Past Medical History Past Medical History: Cancer, Eye Disorder, Hyperlipidemia, Hypertension, Osteoarthritis (OA), Pneumonia, Thyroid Disorder Additional Past Medical History / Comment(s): CUTANEOUS T-CELL LYMPHOMA tx with radiation therapies(had on 04/15/17) chemotherapies(was to have a week ago but ended up in hospital), chemo pancytopenias, anemia, "recent PET scan showed progression/masses thruout trunk", cellulitis bilateral lower legs, heart murmur , bilateral glaucoma, multiple kidney stones, hypothyroid. History of Any Multi-Drug Resistant Organisms: C-DIFF, MRSA Year Discovered:: 02-04-17 MDRO Source:: RT ARM/ STOOL Past Surgical History: Appendectomy, Bladder Surgery, Cholecystectomy, Heart Catheterization, Hernia Repair, Hysterectomy Additional Past Surgical History / Comment(s): Renal stents inserted and removed , skin cancer removed, bilateral cataracts removed, lt inguinal hernia repair. lymph node bx. Past Anesthesia/Blood Transfusion Reactions: No Reported Reaction Smoking Status: Never smoker - Past Family History Father History Unknown: Yes Family Medical History: No Reported History Additional Family Medical History / Comment(s): father at age 62, unknown medical history Mother Family Medical History: No Reported History Additional Family Medical History / Comment(s): mother at age 100, no reported medical conditions Medications and Allergies Home Medications Medication Instructions Recorded Confirmed Type Atorvastatin [Lipitor] 80 mg PO HS 10/05/13 04/27/17 History Raloxifene [Evista] 60 mg PO QAM 11/07/16 04/27/17 History valACYclovir HCL [Valacyclovir] 1,000 mg PO HS 11/07/16 04/27/17 History Furosemide [Lasix] 20 mg PO QAM 12/12/16 04/27/17 History Aspirin 325 mg PO DAILY 01/07/17 04/27/17 History Cholecalciferol [Vitamin D3] 1,000 unit PO DAILY@1200 01/07/17 04/27/17 History Cyanocobalamin (Vitamin B-12) 1,000 mcg PO DAILY@1200 01/07/17 04/27/17 History [Vitamin B-12] Levothyroxine Sodium [Synthroid] 100 mcg PO QAM 01/07/17 04/27/17 History Potassium Chloride ER [K-Dur 10] 10 meq PO Q48H 01/07/17 04/27/17 History Vit A/Vit C/Vit E/Zinc/Copper 1 cap PO DAILY@1200 01/07/17 04/27/17 History [ICAPS SOFTGEL] Dexamethasone [Hexadrol] 4 mg PO DAILY 01/30/17 04/27/17 History Melatonin 3 mg PO HS PRN tab 02/07/17 04/27/17 Rx SILVER sulfADIAZINE CREAM 1 applic TOPICAL BID dose 02/07/17 04/27/17 Rx [Silvadene Cream] Lisinopril-Hctz 10-12.5 mg 1 tab PO DAILY 02/18/17 04/27/17 History [Zestoretic 10-12.5] Pantoprazole [Protonix] 40 mg PO AC-BRKFST PRN 02/18/17 04/27/17 History HYDROcodone/APAP 5-325MG [[place] 1 tab PO Q4HR PRN 04/17/17 04/27/17 History 5-325] Vancomycin 1,500 mg IVPB Q24HR #28 bag 04/18/17 04/27/17 Rx B Complex-Vit C-Vit E-Zinc [Z-Bec] 1 tab PO DAILY@1200 04/24/17 04/27/17 History Folic Acid 1 mg PO TID@0900,1600,2200 04/24/17 04/27/17 History Allergies Allergy/AdvReac Type Severity Reaction Status Date / Time No Known Allergies Allergy Verified 04/27/17 15:48 Physical Exam Vitals: Vital Signs Temp Pulse Resp BP Pulse Ox 04/27/17 14:00 82 22 96 04/27/17 13:30 85 22 97/62 97 04/27/17 13:00 83 26 H 97/62 96 04/27/17 12:30 84 25 H 113/72 96 04/27/17 12:00 98.9 F 86 27 H 116/67 94 L 04/27/17 11:30 85 25 H 113/71 95 04/27/17 11:00 85 26 H 109/68 95 04/27/17 10:30 83 28 H 113/71 95 04/27/17 10:00 82 28 H 92/56 96 04/27/17 09:30 83 21 117/70 96 04/27/17 09:00 82 19 95/57 96 04/27/17 08:30 83 18 84/53 97 04/27/17 08:00 98.8 F 82 16 84/55 96 04/27/17 07:30 88 18 124/82 95 04/27/17 07:00 84 13 82/57 96 04/27/17 06:30 87 17 88/55 94 L 04/27/17 06:00 98.4 F 87 26 H 109/67 95 04/27/17 05:30 84 23 105/64 96 04/27/17 05:00 83 23 107/71 97 04/27/17 04:30 83 23 82/55 96 04/27/17 04:00 97.6 F 80 18 78/50 98 04/27/17 03:30 80 18 99/63 97 04/27/17 03:00 99.4 F 81 20 109/67 97 04/27/17 02:30 85 22 77/51 96 04/27/17 02:00 83 19 76/50 97 04/27/17 01:30 85 19 87/57 98 04/27/17 01:00 87 20 94/63 95 04/27/17 00:30 86 20 103/66 96 04/27/17 00:00 98.7 F 89 23 94/61 96 04/26/17 23:30 88 21 96/62 96 04/26/17 23:05 89 22 98/63 97 04/26/17 23:00 89 23 98/63 97 04/26/17 22:30 84 23 107/66 97 04/26/17 22:00 85 22 110/68 95 04/26/17 21:30 84 21 93/58 97 04/26/17 21:00 97.9 F 82 19 83/54 97 04/26/17 20:30 86 22 93/60 97 04/26/17 20:00 88 23 93/62 95 04/26/17 19:30 99.0 F 88 22 99/62 96 04/26/17 19:00 84 20 104/64 96 04/26/17 18:30 84 21 94/59 97 04/26/17 18:00 80 18 113/68 99 04/26/17 17:30 76 17 81/49 97 04/26/17 17:00 77 17 87/51 99 04/26/17 16:30 78 15 80/51 100 Intake and Output 04/27/17 04/27/17 04/27/17 06:59 14:59 22:59 Intake Total 297.5 780.646 Output Total 295 175 Balance 2.5 605.646 Intake: IV 40 270 .9 20 Sodium Chloride 0.9% 1, 40 000 ml @ 999 mls/hr IV . Q1H1M [facility] Rx#:[id number] Vancomycin 1,500 mg In 250 Sodium Chloride 0.9% 250 ml @ 125 mls/hr IVPB ONCE [facility] Rx#:[id number] Intake, IV Titration 257.5 510.646 Amount Magnesium Sulfate-D5w Pmx 200 1 gm In Dextrose/Water 1 100ml.bag @ 100 mls/hr IVPB Q1H [facility] Rx#: [id number] Morphine Sulfate (100 mg/ 0.646 2 ml) 100 mg In Sodium Chloride 0.9% 100 ml @ 1 MG/HR 1.02 mls/hr IV . Q24H [facility] Rx#:[id number] Piperacillin-Tazobactam 3 37.5 50 .375 gm In Dextrose/Water 1 50ml.bag @ 12.5 mls/hr IVPB Q8HR [facility] Rx#: [id number] Potassium Chloride 10 meq 200 Lidocaine 2% Inj 10 mg In Sodium Chloride 0.9% 100 ml @ 100 mls/hr IV Q1HR [facility] Rx#:[id number] Sodium Chloride 0.9% 1, 220 60 000 ml @ 999 mls/hr IV . Q1H1M [facility] Rx#:[id number] Output: Urine 295 175 Other: Voiding Method Indwelling Catheter Indwelling Catheter # Voids 1 1 Weight 76.8 kg Gen: This is a 76-year-old female. HEENT: Head is atraumatic, normocephalic. Pupils equal, round. Sclerae is anicteric. NECK: Supple. No JVD. No lymphadenopathy. No thyromegaly. LUNGS: Clear to auscultation. No wheezes or rhonchi. No intercostal retractions. HEART: Regular rate and rhythm. No murmur. Port noted to the right upper anterior chest wall without tenderness. ABDOMEN: Soft. Bowel sounds are present. As of abdominal masses to the bilateral lower quadrants with tenderness. EXTREMITIES: Patient has chronic firm edema and subcutaneous masses to the right lower extremity into the groin with 1+ pedal edema. Dorsalis pedis is + 2. Multiple firm nodular skin lesions noted on her extremities and back. NEUROLOGICAL:Patient is obtunded and is not opening eyes and not responding Results CBC & Chem 7: 04/27/17 04:20 04/27/17 04:20 Labs: Abnormal Lab Results - Last 24 Hours (Table) 04/27/17 04/27/17 Range/Units 04:20 04:20 WBC 43.1 H* (3.8-10.6) k/uL RBC 3.61 L (3.80-5.40) m/uL Hgb 10.4 L (11.4-16.0) gm/dL MCHC 30.2 L (31.0-37.0) g/dL RDW 19.0 H (11.5-15.5) % Plt Count 56 L (150-450) k/uL Neutrophils # (Manual) 18.50 H (1.3-7.7) k/uL Monocytes # (Manual) 5.60 H (0-1.0) k/uL Eosinophils # (Manual) 16.81 H (0-0.7) k/uL Chloride 110 H (98-107) mmol/L BUN 47 H (7-17) mg/dL Creatinine 1.30 H (0.52-1.04) mg/dL Phosphorus 4.7 H (2.5-4.5) mg/dL Microbiology - Last 24 Hours (Table) 04/25/17 23:30 Urine Culture - Preliminary Urine,Catheterized Yeast species 04/25/17 21:44 Blood Culture - Preliminary Blood No Growth after 24 hours Assessment and Plan (1) Cutaneous T-cell lymphoma Narrative/Plan: 76-year-old woman presents to Hospital with a significant change in her status. Become weaker and was complaining of some increasing abdominal pain. He is noted she has the long-standing history of the T-cell lymphoma and has had stiffing progression of her disease despite multiple attempts at chemotherapy and recent radiation therapy. During recent hospitalization she was found evidence of MSSA sepsis and was being treated in the outpatient setting with intravenous antibiotic therapy. Despite this she had a marked worsening of her status. She was brought up to the intensive care unit for further treatment. However the family understands that the patient's status deteriorated further and they have agreed to hospice care. This is being started this point in time. Intervenous antibiotic therapy is discontinued. Family is counseled and consoled Status: Acute Priority: High Code(s): C84.A0 - CUTANEOUS T-CELL LYMPHOMA, UNSPECIFIED, UNSPECIFIED SITE SNOMED Code(s): 659474770 (2) Lymphedema of right lower extremity Status: Chronic Priority: Medium Code(s): I89.0 - LYMPHEDEMA, NOT ELSEWHERE CLASSIFIED SNOMED Code(s): 16550774035459416 (3) Pancytopenia due to antineoplastic chemotherapy Status: Resolved Priority: High Code(s): D61.810 - ANTINEOPLASTIC CHEMOTHERAPY INDUCED PANCYTOPENIA; T45.1X5A - ADVERSE EFFECT OF ANTINEOPLASTIC AND IMMUNOSUP DRUGS, INIT SNOMED Code(s): 141432690908537
--- NOTE | 2017-04-27 18:58 | PN ---
PROGRESS NOTE The patient remains in ICU. Family members have been talking to the slitter operator for possible hospice care. The patient remains unresponsive. Vital signs: Temperature of 98.8, pulse 82, respirations 20, blood pressure 92/56, O2 saturation 96%. HEENT atraumatic, normocephalic. Pupils are reactive to light. Buccal mucosa is fair. Neck is supple. No goiter or lymphadenopathy. JVD is negative. No carotid bruit heard. Lungs clear to auscultate. No rales, rhonchi, or wheezes. Heart is regular rate and rhythm without murmurs or gallop rhythm. Abdomen is soft, nontender. Bowel sounds are positive. Extremities no edema, clubbing, cyanosis. Skin is without rashes and pigmentation. Neurological examination could not be done. LABORATORY DATA: Chemical profile sodium 145, potassium 3.8, chloride 110, bicarb 23, BUN 47, creatinine 1.3, glucose 89. CBC white blood count 43.1. Hemoglobin 10.4, hematocrit 34.3, and platelet count of 56. ASSESSMENT: 1. T-cell lymphoma. 2. Altered mental status secondary to #1. 3. Hyperlipidemia. 4. Chronic obstructive pulmonary disease acute exacerbation. 5. Congestive heart failure. 6. Bilateral pleural effusion. 7. Bicytopenia. 8. C diff colitis. 9. Sepsis. The patient is immunocompromised. The patient has been discussed with the family numerous times. They have been talking amongst different family members regarding the patient's further plan of care. They have been talking to hospice. The family is waiting for some of the family members for further decision. We will continue with the current treatment at this point and discharge to hospice once the family has decided for it. MMODL / IJN: [id number] /
--- NOTE | 2017-05-02 18:04 | CDI ---
Last Revision, March 2017 Documentation Clarification Form Date: 05/02/2017 5:47:00 PM From: Alejandra Senait Phone: If you have a question about this query, please contact [facility] at [phone] between 8:00 a.m. and 6:00 p.m. Admit Date: 04/24/2017 5:48:00 PM Patient Name: Lady Morales Visit Number: [id number] Discharge Date: ATTENTION: The Clinical Documentation Specialists (CDI) and [facility] Coding Staff appreciate your assistance in clarifying documentation. Please respond to the clarification below the line at the bottom and electronically sign. The CDI & [facility] Coding staff will review the response and follow-up if needed. Please note: Queries are made part of the Legal Health Record. If you have any questions, please contact the author of this message via ITS. Dr. Shan Moreno Patient was admitted for CHF exacerbation. History/Risk Factors: Patient has progressive Cutaneous T-cell lymphoma and hypertension. Clinical Indicators: Pleural effusion, elevated troponin, hypoxemia, shortness of breath, 4+ pitting edema documented in the ED note, patient unable to lie flat without discomfort VS/Pulse OX: T. 97.8, P. 90, R. 22, BP 109/69, Pulse Ox. BNP: 1640 Echocardiogram Results: Echo not done. Chest X Ray: 1. New right middle lobe opacity that is wedge-shaped and favored to represent atelectasis although pneumonia is possible. 2. Trace bilateral pleural effusions without pulmonary vascular congestion. Treatment: IV Lasix In your professional opinion, can you please clarify the type of CHF if known? Systolic Heart Failure: Diastolic Heart Failure: Systolic & Diastolic Heart Failure: Unable to Determine Other, please specify Please continue to document in your progress notes and discharge summary in order to capture severity of illness and risk of mortality. Include clinical findings that support your diagnosis. unable to determine MTDD
--- NOTE | 2017-05-29 08:40 | DS ---
DISCHARGE SUMMARY DATE OF ADMISSION: 04/24/2017 DATE OF DISCHARGE: 04/27/2017 BRIEF HISTORY ON THIS PATIENT: This is a 76-year-old female patient who was brought to the ED with the complaint of shortness of breath. Patient had a history of T-cell lymphoma. According to the family, she was getting more and more short of breath and unable to do any ADLs, very lethargic in respiratory distress when she was brought to the ER. PAST MEDICAL HISTORY: Hypertension, hyperlipidemia, osteoarthritis, hypothyroidism, and T-cell lymphoma. Patient was admitted initially to telemetry but later transferred to ICU because of acute respiratory distress. PATIENT'S ADMISSION DIAGNOSES: 1. T-cell lymphoma. 2. Altered mental status secondary to hyperlipidemia, acute exacerbation of chronic obstructive pulmonary disease, congestive heart failure, bilateral pleural effusion, bicytopenia, Clostridium difficile colitis and sepsis. PHYSICAL EXAMINATION: VITAL SIGNS: Temperature 98.8, pulse 82, respiration 20, blood pressure of 92/56, O2 saturation 96%. HEENT: Atraumatic, normocephalic. Pupils equal and reactive to light. Extraocular movements intact. Buccal mucosa are fair. NECK: Supple. LUNGS: Clear to auscultate. No rales, rhonchi, or wheezes. HEART: Regular rate and rhythm. ABDOMEN: Soft. Bowel sounds positive. LABS: CBC, white blood count of 43, hemoglobin 10.1, hematocrit 34.3, and platelet count of 56. Chemical profile, sodium 145, potassium 3.8, chloride 110, bicarb 23, BUN 47, creatinine 1.3, glucose 89. Patient was initially admitted to the to telemetry, was later found to be in respiratory distress and was transferred to ICU. Patient's ammonia levels were checked. All her medications are reviewed. Patient's code status was discussed with the family and they made her NO CODE. Patient was seen by Cardiology also and because of patient's overall grave prognosis, supportive treatment was recommended and family agreed. After numerous discussions with the family, decided to make patient hospice care. Hospice was consulted and the family and patient agreed for hospice care. Her comfort care medications were continued and patient care was transferred to hospice. MMODL / IJN: [id number] /
== END 2017-04-27 14:35 | disposition hospice, inpatient (51) | DRG 292 ==
LOC: EC 14:34 → 6SEL 17:48 → 6ICU 04-25 22:50
PROVIDERS: ADMIT Internal Medicine; ATTEND Internal Medicine
DX: I11.0 Hypertensive heart disease with heart failure (principal); C84.A0 Cutaneous T-cell lymphoma, unspecified, unspecified site; J98.11 Atelectasis; I95.9 Hypotension, unspecified; I50.9 Heart failure, unspecified; E03.9 Hypothyroidism, unspecified; E78.5 Hyperlipidemia, unspecified; H40.9 Unspecified glaucoma; I49.3 Ventricular premature depolarization; M19.90 Unspecified osteoarthritis, unspecified site; R09.02 Hypoxemia; F32.9 Major depressive disorder, single episode, unspecified; R01.1 Cardiac murmur, unspecified; R41.82 Altered mental status, unspecified; R74.8 Abnormal levels of other serum enzymes; Z79.82 Long term (current) use of aspirin; Z79.899 Other long term (current) drug therapy; Z85.828 Personal history of other malignant neoplasm of skin; Z86.14 Personal history of Methicillin resistant Staphylococcus aureus infection; Z90.710 Acquired absence of both cervix and uterus; Z92.3 Personal history of irradiation
CPT/HCPCS: 36415; 36600; 70450; 71010; 71020; 71275; 80048; 80053; 80202; 81001; 82140; 82533; 82805; 83605; 83735; 83880; 84100; 84484; 85025; 85379; 85610; 87040; 87086; 93005; 96374; 96375; 99285